=== PATIENT | male | born 1935 | race Caucasian/White ===

== ENCOUNTER → 2016-04-08 | Outpatient (CLI) | payer BC ==
[~2016-04-08] MED LIST: AMLO2.5T PO; ASPI81TA28 PO; ATOR-22 PO; CIPR-255 PO; CLOP1TAB15 PO; CZR50 PO; LOSA100T65 PO; METO1TAB69 PO; OPTIRAY 320 IV PRN; PRS5 PO; TPRSR/100 PO; XRL20 PO
[2016-04-08 15:01] LABS: BASO % 0.6 %; BASO ABS # 0.04 K/uL (0-0.2); EOS % 3.4 %; HEMATOCRIT 42.5 % (42-52); IG% 0.3 %; LYMPH % 36.2 %; LYMPH ABS # 2.53 K/uL (1.2-3.4); MEAN CORPUSCULAR HEMOGLOBIN 31.7 pg (25-34); MEAN PLATELET VOLUME 10.3 fL (7.4-10.4); MONO % 7.9 %; NEUT % 51.6 %; PLATELET COUNT 161 K/uL (130-400); RED BLOOD COUNT 4.67 M/uL (4.7-6.1); WHITE BLOOD COUNT 6.99 K/uL (4.8-10.8)
[2016-04-08 15:08] LABS: COMPLETE YES; MEAN CORPUSCULAR HGB CONC 34.8 g/dl (32-36)
[2016-04-08 15:23] LABS: ALT/SGPT 34 U/L (12-78); BLOOD UREA NITROGEN 13 mg/dl (7-18); CALCIUM 9.4 mg/dl (8.5-10.1); CARBON DIOXIDE 25 mmol/L (21-32); CHLORIDE 106 mmol/L (98-107); CREATININE 0.89 mg/dl (0.60-1.40); GLUCOSE 113 mg/dl (70-99); POTASSIUM 4.2 mmol/L (3.5-5.1); SODIUM 141 mmol/L (136-145)
[2016-04-08 15:27] LABS: ALB/GLOB RATIO 1.1 (0.9-2); ALKALINE PHOSPHATASE 77 U/L (45-117); AST/SGOT 17 U/L (15-37)
--- NOTE | 2016-04-08 16:46 | DIAGNOSTIC IMAGING REPORT ---
ABDOMEN AND PELVIS CT WITH IV AND ORAL CONTRAST CT DOSE: 1432.80 mGy.cm HISTORY: Pain DIVERTICULITIS TECHNIQUE: Multiaxial CT images of the abdomen and pelvis were performed following the use of intravenous and oral contrast. COMPARISON STUDY: 01/20/2015 FINDINGS: Lung bases are clear. Fatty infiltration of liver. Gallbladder is negative for distention. Pancreas is partially fatty replaced. Cortical scarring of the kidneys. No evidence for hydronephrosis. Upper abdominal bowel pattern is nonobstructive. Small fat-containing periumbilical hernia. Mild chronic sigmoid diverticulosis. No evidence for acute diverticulitis. No significant abdominal pelvic or inguinal adenopathy. IMPRESSION: Mild chronic sigmoid diverticulosis. No evidence for acute diverticulitis. Fatty infiltration of liver. No change from the prior exam. Electronically signed by: Don Mosqueda M.D. 04/08/2016 4:44 PM Dictated Date/Time: 04/08/2016 4:35 PM
== END | disposition home or self-care (01) ==
LOC: C.CTS 14:14
PROVIDERS: ATTEND Family Medicine
DX: K57.32 Diverticulitis of large intestine without perforation or abscess without bleeding (principal); K76.0 Fatty (change of) liver, not elsewhere classified

== ENCOUNTER 2016-05-26 16:40 | Emergency (ER) | payer BC ==
[~2016-05-26] VITALS: Ht 172.7 cm; Wt 105.3 kg
[~2016-05-26 16:40] MED LIST changes: -AMLO2.5T PO; -ASPI81TA28 PO; -LOSA100T65 PO; +METO100T44 PO; -METO1TAB69 PO; -OPTIRAY 320 IV PRN; -PRS5 PO; -TPRSR/100 PO; -XRL20 PO
[2016-05-26 16:45] VITALS: TEMP 36.8; Ht 172.7 cm; Wt 105.3 kg
[2016-05-26] MEDS ORDERED: SODIUM CHLORIDE 0.9% 1000ML 1,000 ML IV STA (17:07)
[2016-05-26 17:13] VITALS: O2SAT 94
--- NOTE | 2016-05-26 17:20 | EMERGENCY ROOM VISIT NOTE ---
History Report prepared by Trent: Areli Correa Under the Supervision of: Dr. Ranjit Burks D.O. 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 With both episodes today the patient was getting out of his car and going from a seated position to a standing position. His vision started to go black and he felt like he was going to pass out. He denies any loss of consciousness. The patient states that his symptoms resolve when he lies flat. He has been experiencing episodes like this over the past year, but his states that these episodes have been occurring more frequently over the past few months. He is diabetic and did not check his sugars today. He is not taking any medications for his DM. Last night he experienced some heart palpitations and states that he gets that feeling occasionally. He did not have any heart fluttering or palpitations today. The patient denies chest pain, shortness of breath, nausea, and vomiting. He denies any recent changes in his medications. He is currently taking Xarelto for atrial fibrillation. He denies any personal history of blood clots. 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 A total of 10 systems reviewed and were otherwise negative. Past Medical & Surgical Medical Problems: (1) Diabetes (2) Diverticulitis (3) HTN (hypertension) Surgical Problems: (1) H/O heart artery stent Family History Diabetes mellitus FH: heart disease Hypertension Social History Smoking Status: Former Smoker Alcohol Use: occasionally Drug Use: none Marital Status: Housing Status: lives with significant other Occupation Status: employed Current/Historical Medications Scheduled Amlodipine Besylate (Norvasc), 1 TAB PO DAILY Aspirin (Aspirin Ec), 81 MG PO DAILY Atorvastatin (Lipitor), 20 MG PO DAILY Finasteride (Finasteride), 1 TAB PO DAILY Losartan Potassium (Cozaar), 1 TAB PO DAILY Metoprolol Succinate (Metoprolol Succinate ER), 1 TAB PO DAILY Rivaroxaban (Xarelto), 1 TAB PO DAILY Allergies Coded Allergies: Penicillins (Verified Allergy, Unknown, 05/26/16) Physical Exam Vital Signs Date Time Temp Pulse Resp B/P Pulse Ox O2 Delivery O2 Flow Rate FiO2 05/26/16 19:47 61 16 169/77 96 05/26/16 19:07 63 16 181/75 94 Room Air 05/26/16 17:32 65 23 164/89 94 Room Air 05/26/16 17:13 94 Room Air 05/26/16 17:11 66 18 158/93 65 156/74 68 164/81 05/26/16 17:03 66 05/26/16 16:45 36.8 62 20 169/74 96 Room Air Physical Exam GENERAL: alert, sitting up in bed, well appearing, well nourished, no distress, non-toxic EYE EXAM: normal conjunctiva, PERRL and EOM's intact OROPHARYNX: no exudate, no erythema, lips, buccal mucosa, and tongue normal and mucous membranes are moist NECK: supple, no nuchal rigidity, no adenopathy, non-tender LUNGS: Clear to auscultation. Normal chest wall mechanics HEART: no murmurs, S1 normal and S2 normal ABDOMEN: abdomen soft, non-tender, normo-active bowel sounds, no masses, no rebound or guarding. BACK: Back is symmetrical on inspection and there is no deformity, no midline tenderness, no CVA tenderness. SKIN: no rashes and no bruising UPPER EXTREMITIES: upper extremities are grossly normal. LOWER EXTREMITIES: No pitting edema. NEURO EXAM: Normal sensorium, cranial nerves II-XII intact, normal speech, no weakness of arms, no weakness of legs. No drift. Finger to nose intact. Gross sensation intact. Medical Decision & Procedures ER Provider Diagnostic Interpretation: Radiology results stated below as reviewed by myself and interpreted by the radiologist: CHEST ONE VIEW PORTABLE CLINICAL HISTORY: Altered mental status. Weakness. COMPARISON STUDY: Chest radiograph December 30, 2006. FINDINGS: Lung volumes are normal. There is no pneumothorax or pleural effusion. Cardiomediastinal silhouette is stable. There is no evidence of pulmonary edema. There is no consolidation. IMPRESSION: No acute cardiopulmonary findings. Electronically signed by: Jose M Hedrick M.D. 05/26/2016 5:43 PM Dictated Date/Time: 05/26/2016 5:42 PM Laboratory Results 05/26/16 17:02 Red Blood Count 4.47, Mean Corpuscular Volume 92.8, Mean Corpuscular Hemoglobin 32.2, Mean Corpuscular Hemoglobin Concent 34.7, Mean Platelet Volume 10.9, Neutrophils (%) (Auto) 52.8, Lymphocytes (%) (Auto) 31.5, Monocytes (%) (Auto) 12.2, Eosinophils (%) (Auto) 2.8, Basophils (%) (Auto) 0.3, Neutrophils # (Auto ) 3.77, Lymphocytes # (Auto) 2.25, Monocytes # (Auto) 0.87, Eosinophils # (Auto ) 0.20, Basophils # (Auto) 0.02 05/26/16 17:02 Test 05/26/16 16:48 05/26/16 17:02 05/26/16 17:15 05/26/16 18:58 Bedside Glucose 99 mg/dl (70-99) White Blood Count 7.14 K/uL (4.8-10.8) Red Blood Count 4.47 M/uL (4.7-6.1) Hemoglobin 14.4 g/dL (14.0-18.0) Hematocrit 41.5 % (42-52) Mean Corpuscular Volume 92.8 fL (80-100) Mean Corpuscular Hemoglobin 32.2 pg (25-34) Mean Corpuscular Hemoglobin Concent 34.7 g/dl (32-36) Platelet Count 168 K/uL (130-400) Mean Platelet Volume 10.9 fL (7.4-10.4) Neutrophils (%) (Auto) 52.8 % Lymphocytes (%) (Auto) 31.5 % Monocytes (%) (Auto) 12.2 % Eosinophils (%) (Auto) 2.8 % Basophils (%) (Auto) 0.3 % Neutrophils # (Auto) 3.77 K/uL (1.4-6.5) Lymphocytes # (Auto) 2.25 K/uL (1.2-3.4) Monocytes # (Auto) 0.87 K/uL (0.11-0.59) Eosinophils # (Auto) 0.20 K/uL (0-0.5) Basophils # (Auto) 0.02 K/uL (0-0.2) RDW Standard Deviation 45.7 fL (36.4-46.3) RDW Coefficient of Variation 13.4 % (11.5-14.5) Immature Granulocyte % (Auto) 0.4 % Immature Granulocyte # (Auto) 0.03 K/uL (0.00-0.02) Prothrombin Time 11.1 SECONDS (9.0-12.0) Prothromb Time International Ratio 1.0 (0.9-1.1) Activated Partial Thromboplast Time 27.5 SECONDS (21.0-31.0) Partial Thromboplastin Ratio 1.1 Anion Gap 8.0 mmol/L (3-11) Est Creatinine Clear Calc Drug Dose 76.1 ml/min Estimated GFR () 92.7 Estimated GFR (Non- 80.0 BUN/Creatinine Ratio 14.3 (10-20) Calcium Level 9.5 mg/dl (8.5-10.1) Total Bilirubin 0.6 mg/dl (0.2-1) Direct Bilirubin 0.2 mg/dl (0-0.2) Aspartate Amino Transf (AST/SGOT) 16 U/L (15-37) Alanine Aminotransferase (ALT/SGPT) 31 U/L (12-78) Alkaline Phosphatase 72 U/L (45-117) Total Protein 7.1 gm/dl (6.4-8.2) Albumin 3.9 gm/dl (3.4-5.0) Urine Color YELLOW Urine Appearance CLEAR (CLEAR) Urine pH 7.0 (4.5-7.5) Urine Specific [place] 1.007 (1.000-1.030) Urine Protein NEG (NEG) Urine Glucose (UA) NEG (NEG) Urine Ketones NEG (NEG) Urine Occult Blood NEG (NEG) Urine Nitrite NEG (NEG) Urine Bilirubin NEG (NEG) Urine Urobilinogen NEG (NEG) Urine Leukocyte Esterase NEG (NEG) Troponin I < 0.015 ng/ml (0-0.045) Laboratory results per my review. Medications Administered Medications (Trade) Dose Ordered Sig/Gregg Route Start Time Stop Time Status Last Admin Dose Admin Sodium Chloride (Nss 1000ml) 1,000 ml @ 999 mls/hr Q1H1M STAT IV 05/26/16 17:07 05/26/16 18:07 DC 05/26/16 17:31 999 MLS/HR ECG Indication: syncope Rate (beats per minute): 67 Rhythm: normal sinus Findings: T-wave inversion (Inferior), left axis deviation Comparison ECG Date: 01/31/2005 Change: no significant change ED Course ED COURSE: Vital signs were reviewed and showed hypertensive. The patients medical record was reviewed The above diagnostic studies were performed and reviewed. ED treatments and interventions as stated above. 1654: The patient was evaluated in room A3. A complete history and physical examination was performed. 1706: NSS 1000 ml @ 999 mls/hr IV 1831: I reassessed the patient and he is doing well. 1942: Upon reevaluation, the patient is feeling better and resting comfortably. I discussed my findings with the patient and he understands and agrees with the treatment plan. Based on the patients age, coexisting illnesses, exam and lab findings the decision to treat as an outpatient was made. The patient remained stable while under my care. The patient appeared well at the time of discharge. Medical Decision Differential diagnosis includes etiologies such as vasovagal event, infection, hypoglycemia, electrolyte abnormalities, cardiac sources, intracerebral event, toxicologic, neurologic, as well as others were entertained. Patient is an 80-year-old male who presents the ER for 2 episodes of near syncope with changing positions. He notes this has been occurring over the past year but over the past 3-4 months it has been worsening. He has been following up with his primary care doctor in regards to this. He saw him 3 weeks ago for this same complaint. He has no new medications. He has no chest pain or shortness of breath when these occur. These only occur with changing of positions but resolved when he rests or lays down. He is on Lopressor and losartan but the doses and medications have not changed. He is a diet- controlled diabetic. EKG shows no change from his previous 2004. Labs show no significant leukocytosis or anemia. BMP along with LFTs, bilirubin and troponins were negative 2. UA was negative. INR was unremarkable. He has not missed any doses. Chest x-ray was unremarkable. Patient was completely neurologically intact on my exam. He has no headaches or change in vision. No neurologic symptoms. I do believe this to be related to orthostatic hypotension as this is purely positional. Updated patient in regards to this. Recommended following up with his primary care doctor to discuss possible lowering of his Lopressor. Discussed with Pt concerning signs and symptoms to watch out for. Pt was instructed to follow up with their PCP and discussed with the patient their option to return to the ED at anytime for persistent or worsening symptoms. The appropriate anticipatory guidance and out-patient management, including indications for return to the emergency department, were explained at length to the patient and understood. Impression Primary Impression: Syncope, near Scribe Attestation The scribe's documentation has been prepared under my direction and personally reviewed by me in its entirety. I confirm that the note above accurately reflects all work, treatment, procedures, and medical decision making performed by me. Departure Information Dispostion Home / Self-Care Referrals Edy Flanagan M.D. (PCP) Forms HOME CARE DOCUMENTATION FORM, IMPORTANT VISIT INFORMATION Patient Instructions ED Near Syncope Unkn, [facility] Additional Instructions Please follow up with your primary care doctor with in the next 24 hours. Any worsening of your symptoms, please return to the ED immediately. This includes passing out, chest pain, shortness of breath, weakness or numbness in your arms or legs or any other concerning signs or symptoms from your standpoint. When changing positions please move slowly and take your time. Please discuss your findings with your primary care doctor as it may be beneficial to decrease your losartan or Lopressor.
[2016-05-26 17:28] LABS: BASO % 0.3 %; BASO ABS # 0.02 K/uL (0-0.2); COMPLETE YES; EOS % 2.8 %; HEMATOCRIT 41.5 % (42-52); IG% 0.4 %; LYMPH % 31.5 %; LYMPH ABS # 2.25 K/uL (1.2-3.4); MEAN CELL VOLUME 92.8 fL (80-100); MEAN CORPUSCULAR HEMOGLOBIN 32.2 pg (25-34); MEAN CORPUSCULAR HGB CONC 34.7 g/dl (32-36); MEAN PLATELET VOLUME 10.9 fL (7.4-10.4); MONO % 12.2 %; NEUT % 52.8 %; PLATELET COUNT 168 K/uL (130-400); RED BLOOD COUNT 4.47 M/uL (4.7-6.1); WHITE BLOOD COUNT 7.14 K/uL (4.8-10.8)
[2016-05-26 17:34] LABS: ALT/SGPT 31 U/L (12-78); AST/SGOT 16 U/L (15-37); BLOOD UREA NITROGEN 13 mg/dl (7-18); BUN/CREATININE RATIO 14.3 (10-20); CALCIUM 9.5 mg/dl (8.5-10.1); CARBON DIOXIDE 25 mmol/L (21-32); CHLORIDE 109 mmol/L (98-107); CREATININE 0.88 mg/dl (0.60-1.40); GLUCOSE 101 mg/dl (70-99); PARTIAL THROMBOPLASTIN RATIO 1.1; PROTHROMBIN TIME (PATIENT) 11.1 SECONDS (9.0-12.0); SODIUM 142 mmol/L (136-145)
[2016-05-26 17:39] LABS: URINE APPEARANCE CLEAR (CLEAR); URINE BILIRUBIN NEG (NEG); URINE COLOR YELLOW; URINE NITRITE NEG (NEG); URINE SPECIFIC GRAVITY 1.007 (1.000-1.030); UROBILINOGEN NEG (NEG)
[2016-05-26 17:39] LABS: ALKALINE PHOSPHATASE 72 U/L (45-117)
--- NOTE | 2016-05-26 17:44 | DIAGNOSTIC IMAGING REPORT ---
CHEST ONE VIEW PORTABLE CLINICAL HISTORY: Altered mental status. Weakness. COMPARISON STUDY: Chest radiograph December 30, 2006. FINDINGS: Lung volumes are normal. There is no pneumothorax or pleural effusion. Cardiomediastinal silhouette is stable. There is no evidence of pulmonary edema. There is no consolidation. IMPRESSION: No acute cardiopulmonary findings. Electronically signed by: Jose M Hedrick M.D. 05/26/2016 5:43 PM Dictated Date/Time: 05/26/2016 5:42 PM
[2016-05-26 17:47] LABS: MANUAL MICROSCOPIC REQUIRED? NO; REVIEW REQ? NO
[2016-05-26] MEDS ORDERED: ASPI81TA28 PO (17:47)
[2016-05-26] MEDS ORDERED: TPRSR/100 PO (17:47)
[2016-05-26] MEDS ORDERED: AMLO2.5T PO (17:47)
[2016-05-26] MEDS ORDERED: XRL20 PO (17:47)
[2016-05-26] MEDS ORDERED: PRS5 PO (17:47)
[2016-05-26] MEDS ORDERED: LOSA100T65 PO (17:47)
[2016-05-26 19:47] VITALS: BP 169/77; PULSE 61; O2SAT 96
== END 2016-05-26 19:52 | disposition home or self-care (01) ==
LOC: C.EDB 16:42 → C.EDA 19:52
DX: R55 Syncope and collapse (principal); E11.9 Type 2 diabetes mellitus without complications; I10 Essential (primary) hypertension; Z87.891 Personal history of nicotine dependence

== ENCOUNTER 2016-09-28 12:35 | Inpatient (IN) | payer BC, OTHER ==
[~2016-09-28] VITALS: Ht 172.7 cm; Wt 102.0 kg
[~2016-09-28 12:35] MED LIST changes: +AMLO2.5T PO; +ASPI81TA28 PO; -CIPR-255 PO; -CLOP1TAB15 PO; -CZR50 PO; +LOSA100T65 PO; -METO100T44 PO; +PRS5 PO; +TPRSR/100 PO; +XRL20 PO
[2016-09-28] MEDS ORDERED: SODIUM CHLORIDE 0.9% 1000ML 1,000 ML IV SCH (12:52)
[2016-09-28 13:17] LABS: BASO % 0.4 %; BASO ABS # 0.03 K/uL (0-0.2); COMPLETE YES; EOS % 5.1 %; HEMATOCRIT 41.3 % (42-52); IG% 0.1 %; LYMPH % 29.2 %; LYMPH ABS # 1.95 K/uL (1.2-3.4); MEAN CELL VOLUME 93.4 fL (80-100); MEAN CORPUSCULAR HEMOGLOBIN 31.2 pg (25-34); MEAN CORPUSCULAR HGB CONC 33.4 g/dl (32-36); MEAN PLATELET VOLUME 10.6 fL (7.4-10.4); MONO % 10.6 %; NEUT % 54.6 %; PLATELET COUNT 175 K/uL (130-400); RED BLOOD COUNT 4.42 M/uL (4.7-6.1); WHITE BLOOD COUNT 6.67 K/uL (4.8-10.8)
--- NOTE | 2016-09-28 13:25 | DIAGNOSTIC IMAGING REPORT ---
HEAD WITHOUT CONTRAST (CT) CT DOSE: 821.00 mGycm HISTORY: Mental status change Stroke TECHNIQUE: Multiaxial CT images of the head were performed without the use of intravenous contrast. A dose lowering technique was utilized adhering to the principles of ALARA. Comparison: None. Findings: The paranasal sinuses and mastoid air cells are clear. The calvarium and skull base are intact. The ventricles and sulci are within normal limits. There is no mass, hematoma, midline shift, or acute infarct. Impression: No acute intracranial abnormality. The above report was generated using voice recognition software. It may contain grammatical, syntax or spelling errors. Electronically signed by: Don Mosqueda M.D. 09/28/2016 1:24 PM Dictated Date/Time: 09/28/2016 1:21 PM
[2016-09-28 13:34] LABS: INR 1.1 (0.9-1.1); PARTIAL THROMBOPLASTIN RATIO 1.1; PROTHROMBIN TIME (PATIENT) 11.3 SECONDS (9.0-12.0)
[2016-09-28 13:36] LABS: BLOOD UREA NITROGEN 10 mg/dl (7-18); BUN/CREATININE RATIO 13.5 (10-20); CALCIUM 9.6 mg/dl (8.5-10.1); CARBON DIOXIDE 26 mmol/L (21-32); CHLORIDE 107 mmol/L (98-107); CREATININE 0.75 mg/dl (0.60-1.40); GLUCOSE 111 mg/dl (70-99); POTASSIUM 3.8 mmol/L (3.5-5.1); SODIUM 141 mmol/L (136-145)
[2016-09-28] MEDS ORDERED: ASPIRIN 81 MG CHEW PO STA (13:44)
--- NOTE | 2016-09-28 13:46 | DIAGNOSTIC IMAGING REPORT ---
CHEST ONE VIEW PORTABLE CLINICAL HISTORY: stroke CONFUSION. INABILITY TO SPEAK. COMPARISON STUDY: 05/26/2016 FINDINGS: There are suspected underlying emphysematous changes.[ The heart is normal in size. There is no failure. There is no focal pulmonary consolidation. There are no pleural effusions. IMPRESSION: No active disease in the chest. Electronically signed by: Jerry Manriquez M.D. 09/28/2016 1:45 PM Dictated Date/Time: 09/28/2016 1:44 PM
[2016-09-28] MEDS ORDERED: PHARMACIST DISCHARGE MED REC CONSULT PRN (14:45)
[2016-09-28 14:57] VITALS: O2SAT 98; Ht 172.7 cm; Wt 102.0 kg
[2016-09-28] MEDS ORDERED: ALUMINUM/MAGNESIUM/SIMETH (MAALOX MAX) 30 ML UDC PO PRN (15:00)
[2016-09-28] MEDS ORDERED: POLYETHYLENE (MIRALAX) 17 GM PACK PO PRN (15:00)
[2016-09-28] MEDS ORDERED: ONDANSETRON INJ 2 MG/ML 2 ML VIAL IV PRN (15:00)
[2016-09-28] MEDS ORDERED: ACETAMINOPHEN 325 MG TAB PO PRN (15:00)
[2016-09-28] MEDS ORDERED: MAGNESIUM HYDROXIDE SUSP 30 ML UDC PO PRN (15:00)
--- NOTE | 2016-09-28 15:09 | EMERGENCY ROOM VISIT NOTE ---
History Report prepared by Trent: Carolin Mosquera Under the Supervision of: Dr. Ranjit Burks D.O. First contact with patient: 12:46 Chief Complaint: CONFUSION Stated Complaint: CONFUSION, UNABLE TO SPEAK History of Present Illness The patient is a 80 year old male who presents to the Emergency Room with complaints of confusion beginning 1 hour prior to arrival. Per his family, the patient could not formulate sentences or think clearly. The patient denies having any weakness or numbness in his arms or legs. His family states that they did not notice any slurred speech or facial droop. He reports that he takes baby aspirin as a blood thinner. Patient has not complaints at this time. Pt denies headache, change in vision, fevers, chest pain, shortness of breath, nausea, vomiting, diarrhea, pain with urination, and melena. Source of History: patient, family Onset: 1 hour prior to arrival Position: other (global) Quality: other (confusion ) Associated Symptoms: No headache, No chest pain, No SOB, No nausea, No vomiting, No diarrhea Note: additional symptoms: unable to formulate sentences or think clearly Review of Systems See HPI for pertinent positives & negatives. A total of 10 systems reviewed and were otherwise negative. Past Medical & Surgical Medical Problems: (1) Diabetes (2) Diverticulitis (3) HTN (hypertension) (4) TIA (transient ischemic attack) Surgical Problems: (1) H/O heart artery stent Family History Diabetes mellitus FH: heart disease Hypertension Social History Smoking Status: Current Some Day Smoker Alcohol Use: occasionally Drug Use: none Marital Status: Housing Status: lives with significant other Occupation Status: employed Current/Historical Medications Scheduled Amlodipine Besylate (Norvasc), 2.5 MG PO QPM Aspirin (Aspirin Ec), 81 MG PO QAM Atorvastatin (Lipitor), 20 MG PO QPM Finasteride (Finasteride), 5 MG PO QPM Losartan Potassium (Cozaar), 100 MG PO QPM Metoprolol Succinate (Metoprolol Succinate ER), 100 MG PO QPM Rivaroxaban (Xarelto), 1 TAB PO DAILY AFTERNOON Allergies Coded Allergies: Penicillins (Verified Allergy, Unknown, SKIN RASH, 09/28/16) Time Last Known Well 1200 Stroke t-PA Criteria Reviewed Does NOT meet criteria for t-PA Reason t-PA Not Given Treatment not indicated Physical Exam Vital Signs Date Time Temp Pulse Resp B/P (MAP) Pulse Ox O2 Delivery O2 Flow Rate FiO2 09/28/16 15:20 57 20 194/92 95 Room Air 09/28/16 14:57 98 Room Air 09/28/16 13:22 84 20 198/110 98 Room Air 09/28/16 12:54 94 Room Air 09/28/16 12:50 74 09/28/16 12:37 36.6 72 20 173/83 94 Physical Exam GENERAL: Sitting up in bed, alert, well appearing, well nourished, no distress, non-toxic EYE EXAM: normal conjunctiva, PERRL and EOM's grossly intact OROPHARYNX: no exudate, no erythema, lips, buccal mucosa, and tongue normal and mucous membranes are moist NECK: supple, no nuchal rigidity, no adenopathy, non-tender LUNGS: Clear to auscultation. Normal chest wall mechanics HEART: no murmurs, S1 normal and S2 normal ABDOMEN: abdomen soft, non-tender, normo-active bowel sounds, no masses, no rebound or guarding. BACK: Back is symmetrical on inspection and there is no deformity, no midline tenderness, no CVA tenderness. SKIN: no rashes and no bruising UPPER EXTREMITIES: upper extremities are grossly normal. LOWER EXTREMITIES: No pitting edema. NEURO EXAM: Normal sensorium, cranial nerves II-XII intact, normal speech, no weakness of arms, no weakness of legs. No drift. Finger to nose intact. Gross sensation intact. Medical Decision & Procedures ER Provider Diagnostic Interpretation: CT scan: Radiology provided the following report CT: HEAD WITHOUT CONTRAST (CT) CT DOSE: 821.00 mGycm HISTORY: Mental status change Stroke TECHNIQUE: Multiaxial CT images of the head were performed without the use of intravenous contrast. A dose lowering technique was utilized adhering to the principles of ALARA. Comparison: None. Findings: The paranasal sinuses and mastoid air cells are clear. The calvarium and skull base are intact. The ventricles and sulci are within normal limits. There is no mass, hematoma, midline shift, or acute infarct. Impression: No acute intracranial abnormality. The above report was generated using voice recognition software. It may contain grammatical, syntax or spelling errors. Electronically signed by: Don Mosqueda M.D. 09/28/2016 1:24 PM Dictated Date/Time: 09/28/2016 1:21 PM XRAY: A 1 view study was reviewed, no fracture was seen. CHEST ONE VIEW PORTABLE CLINICAL HISTORY: stroke CONFUSION. INABILITY TO SPEAK. COMPARISON STUDY: 05/26/2016 FINDINGS: There are suspected underlying emphysematous changes.[ The heart is normal in size. There is no failure. There is no focal pulmonary consolidation. There are no pleural effusions. IMPRESSION: No active disease in the chest. Electronically signed by: Jerry Manriquez M.D. 09/28/2016 1:45 PM Dictated Date/Time: 09/28/2016 1:44 PM Laboratory Results 09/28/16 13:00 Red Blood Count 4.42, Mean Corpuscular Volume 93.4, Mean Corpuscular Hemoglobin 31.2, Mean Corpuscular Hemoglobin Concent 33.4, Mean Platelet Volume 10.6, Neutrophils (%) (Auto) 54.6, Lymphocytes (%) (Auto) 29.2, Monocytes (%) (Auto) 10.6, Eosinophils (%) (Auto) 5.1, Basophils (%) (Auto) 0.4, Neutrophils # (Auto ) 3.63, Lymphocytes # (Auto) 1.95, Monocytes # (Auto) 0.71, Eosinophils # (Auto ) 0.34, Basophils # (Auto) 0.03 09/28/16 13:00 Test 09/28/16 13:00 White Blood Count 6.67 K/uL (4.8-10.8) Red Blood Count 4.42 M/uL (4.7-6.1) Hemoglobin 13.8 g/dL (14.0-18.0) Hematocrit 41.3 % (42-52) Mean Corpuscular Volume 93.4 fL (80-100) Mean Corpuscular Hemoglobin 31.2 pg (25-34) Mean Corpuscular Hemoglobin Concent 33.4 g/dl (32-36) Platelet Count 175 K/uL (130-400) Mean Platelet Volume 10.6 fL (7.4-10.4) Neutrophils (%) (Auto) 54.6 % Lymphocytes (%) (Auto) 29.2 % Monocytes (%) (Auto) 10.6 % Eosinophils (%) (Auto) 5.1 % Basophils (%) (Auto) 0.4 % Neutrophils # (Auto) 3.63 K/uL (1.4-6.5) Lymphocytes # (Auto) 1.95 K/uL (1.2-3.4) Monocytes # (Auto) 0.71 K/uL (0.11-0.59) Eosinophils # (Auto) 0.34 K/uL (0-0.5) Basophils # (Auto) 0.03 K/uL (0-0.2) RDW Standard Deviation 42.3 fL (36.4-46.3) RDW Coefficient of Variation 12.4 % (11.5-14.5) Immature Granulocyte % (Auto) 0.1 % Immature Granulocyte # (Auto) 0.01 K/uL (0.00-0.02) Prothrombin Time 11.3 SECONDS (9.0-12.0) Prothromb Time International Ratio 1.1 (0.9-1.1) Activated Partial Thromboplast Time 27.4 SECONDS (21.0-31.0) Partial Thromboplastin Ratio 1.1 Anion Gap 8.0 mmol/L (3-11) Est Creatinine Clear Calc Drug Dose 89.0 ml/min Estimated GFR () 99.0 Estimated GFR (Non- 85.4 BUN/Creatinine Ratio 13.5 (10-20) Calcium Level 9.6 mg/dl (8.5-10.1) Total Creatine Kinase 248 U/L (39-308) Creatine Kinase MB 7.5 ng/ml (0.5-3.6) Creatine Kinase MB Ratio 3.0 (0-3.0) Troponin I < 0.015 ng/ml (0-0.045) Laboratory results per my review. Medications Administered Medications (Trade) Dose Ordered Sig/Gregg Route Start Time Stop Time Status Last Admin Dose Admin Sodium Chloride 1,000 ml @ 50 mls/hr Q20H IV 09/28/16 12:52 10/28/16 12:51 09/28/16 13:22 50 MLS/HR Aspirin (Aspirin Chew) 81 mg NOW STAT PO 09/28/16 13:44 09/28/16 13:45 DC 09/28/16 13:48 81 MG ECG Indication: other (confusion ) Rate (beats per minute): 66 Rhythm: sinus rhythm Findings: left axis deviation, no ectopy ED Course ED COURSE: Vital signs were reviewed and showed hypertension. The patients medical record was reviewed The above diagnostic studies were performed and reviewed. ED treatments and interventions as stated above. 1247: The patient was evaluated in room A1. A complete history and physical examination was performed. 1252: Ordered Sodium Chloride 1,000 ml @ 50 mls/hr IV. 1344: Ordered Aspirin 81 mg PO. 1346: Upon reevaluation, the patient is resting. I discussed the findings and the treatment plan with the patient. He expresses agreement and understanding. I spoke with Dr. Heaton. He will be evaluated for further management. Medical Decision Differential Diagnosis includes but is not limited to ischemic Stroke, hemorrhagic stroke, bells palsy, mass, neoplasm, migraine headache, seizure, subarachnoid hemorrhage, TIA, and transient global amnesia. Blood pressure screening: Patient was found to have an elevated blood pressure and was referred to their primary doctor for recheck and further treatment. Blood Pressure Screening: The patient was found to have a slightly elevated blood pressure due to circumstances. I do not believe that the patient requires hypertension monitoring. Patient is an 80-year-old male who presents the ER. At 12:00 he started having slurred speech and word finding. Symptoms have completely resolved upon presentation. He is completely neurologically intact. Stroke alert was not called as he is back to baseline. CT head was negative. Labs were unremarkable. Chest x-ray negative. He was fairly hypertensive as we allowed permissive hypertension with the likely recent TIA. Discussed and updated patient and family at bedside. Patient was admitted to internal medicine for further workup. Medication Reconcilliation Current Medication List: was personally reviewed by me Blood Pressure Screening Patient's blood pressure: Elevated blood pressure Consults Time Called: 1300 Consulting Physician: Dr. Heaton Returned Call: [phone]: Upon reevaluation, the patient is resting. I discussed the findings and the treatment plan with the patient. He expresses agreement and understanding. I spoke with Dr. Heaton. He will be evaluated for further management. Impression Primary Impression: TIA (transient ischemic attack) Scribe Attestation The scribe's documentation has been prepared under my direction and personally reviewed by me in its entirety. I confirm that the note above accurately reflects all work, treatment, procedures, and medical decision making performed by me. Departure Information Dispostion Being Evaluated By Hospitalist Referrals Edy Flanagan M.D. (PCP) Patient Instructions My [facility] Stroke History Time Last Known Well 1200 Stroke t-PA Criteria Reviewed Does NOT meet criteria for t-PA (back at baseline) Reason t-PA Not Given Contraindicated (symptoms resolved) Problem Qualifiers Primary Impression: TIA (transient ischemic attack) Transient cerebral ischemia type: unspecified Qualified Codes: G45.9 - Transient cerebral ischemic attack, unspecified
[2016-09-28] MEDS ORDERED: IV FLUIDS COMPLETED PRN (15:15)
[2016-09-28 15:24] VITALS: O2SAT 95
--- NOTE | 2016-09-28 15:38 | History and Physical ---
History & Physical Date & Time of Service: Sep 28, 2016 at 15:17 Chief Complaint: Confusion, Unable To Speak Primary Care Physician: Edy Flanagan M.D. History of Present Illness Source: patient 80 y/o M Hx PAF, CAD, HTN, HPL Pt was shopping for groceries this afternoon and upon returning home he reports developing acute aphasia. He realized that he could not formulate his words or speak and describes this as very frustrating. 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 A few years ago when visiting his son in [facility], he was at a high altitude and developed stroke-like symptoms although he could not elaborate further on exactly what these were. He is in a sinus rhythm on admission and his symptoms have resolved entirely. He takes Xarelto daily due to AF. The pt denies a ANGEL, visual changes, numbness or unilateral weakness. He denies SOB, CP or palpitations. 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 [employer] Smoking Status: Current Some Day Smoker Drug Use: none Marital Status: Occupational Status: employed Immunizations History of Influenza Vaccine: Yes History of Tetanus Vaccine?: No History of Pneumococcal: Yes History of Hepatitis B Vaccine: No Multi-Drug Resistant Organisms History of MDRO: No Allergies Coded Allergies: Penicillins (Verified Allergy, Unknown, SKIN RASH, 09/28/16) Home Medications Scheduled Amlodipine Besylate (Norvasc), 2.5 MG PO QPM Aspirin (Aspirin Ec), 81 MG PO QAM Atorvastatin (Lipitor), 20 MG PO QPM Finasteride (Finasteride), 5 MG PO QPM Losartan Potassium (Cozaar), 100 MG PO QPM Metoprolol Succinate (Metoprolol Succinate ER), 100 MG PO QPM Rivaroxaban (Xarelto), 1 TAB PO DAILY AFTERNOON Review of Systems Constitutional: No fever, No chills, No sweats Eyes: No worsening of vision ENT: No hearing loss, No unusual epistaxis, No nasal symptoms Respiratory: No cough, No sputum, No wheezing Cardiovascular: No chest pain, No orthopnea, No PND Abdomen: No pain, No nausea, No vomiting Musculoskeletal: No joint pain Genitourinary - Male: No hematuria, No dysuria, No urinary frequency Neurologic: + problem reported (Acute aphasia), No memory loss, No paralysis Psychiatric: No depression symptoms Endocrine: No fatigue Hematologic / Lymphatic: No abnormal bleeding/bruising Integumentary: No rash Allergic / Immunologic: No environmental allergies Physical Exam Vital Signs Date Time Temp Pulse Resp B/P (MAP) Pulse Ox O2 Delivery O2 Flow Rate FiO2 09/28/16 14:57 98 Room Air 09/28/16 13:22 84 20 198/110 98 Room Air 09/28/16 12:54 94 Room Air 09/28/16 12:50 74 09/28/16 12:37 36.6 72 20 173/83 94 General Appearance: WD/WN, no apparent distress Head: normocephalic ENT: normal ENT inspection, pharynx normal Neck: supple, no JVD Respiratory/Chest: chest non-tender, lungs clear, normal breath sounds Cardiovascular: regular rate, rhythm, no edema, no gallop, no JVD, no murmur Abdomen/GI: normal bowel sounds, non tender, soft Back: normal inspection, no CVA tenderness, no muscle spasm, normal range of motion Extremities/Musculoskelatal: normal inspection, no calf tenderness, normal capillary refill Neurologic/Psych: 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 tested, no motor/sensory deficits, alert Skin: normal color, warm/dry, no rash Diagnostics Laboratory Results Results Past 24 Hours Test 09/28/16 13:00 Range/Units White Blood Count 6.67 4.8-10.8 K/uL Red Blood Count 4.42 4.7-6.1 M/uL Hemoglobin 13.8 14.0-18.0 g/dL Hematocrit 41.3 42-52 % Mean Corpuscular Volume 93.4 80-100 fL Mean Corpuscular Hemoglobin 31.2 25-34 pg Mean Corpuscular Hemoglobin Concent 33.4 32-36 g/dl Platelet Count 175 130-400 K/uL Mean Platelet Volume 10.6 7.4-10.4 fL Neutrophils (%) (Auto) 54.6 % Lymphocytes (%) (Auto) 29.2 % Monocytes (%) (Auto) 10.6 % Eosinophils (%) (Auto) 5.1 % Basophils (%) (Auto) 0.4 % Neutrophils # (Auto) 3.63 1.4-6.5 K/uL Lymphocytes # (Auto) 1.95 1.2-3.4 K/uL Monocytes # (Auto) 0.71 0.11-0.59 K/uL Eosinophils # (Auto) 0.34 0-0.5 K/uL Basophils # (Auto) 0.03 0-0.2 K/uL RDW Standard Deviation 42.3 36.4-46.3 fL RDW Coefficient of Variation 12.4 11.5-14.5 % Immature Granulocyte % (Auto) 0.1 % Immature Granulocyte # (Auto) 0.01 0.00-0.02 K/uL Prothrombin Time 11.3 9.0-12.0 SECONDS Prothromb Time International Ratio 1.1 0.9-1.1 Activated Partial Thromboplast Time 27.4 21.0-31.0 SECONDS Partial Thromboplastin Ratio 1.1 Sodium Level 141 136-145 mmol/L Potassium Level 3.8 3.5-5.1 mmol/L Chloride Level 107 98-107 mmol/L Carbon Dioxide Level 26 21-32 mmol/L Anion Gap 8.0 3-11 mmol/L Blood Urea Nitrogen 10 7-18 mg/dl Creatinine 0.75 0.60-1.40 mg/dl Est Creatinine Clear Calc Drug Dose 89.0 ml/min Estimated GFR () 99.0 Estimated GFR (Non- 85.4 BUN/Creatinine Ratio 13.5 10-20 Random Glucose 111 70-99 mg/dl Calcium Level 9.6 8.5-10.1 mg/dl Total Creatine Kinase 248 39-308 U/L Creatine Kinase MB 7.5 0.5-3.6 ng/ml Creatine Kinase MB Ratio 3.0 0-3.0 Troponin I < 0.015 0-0.045 ng/ml Diagnostic Radiology CT head - nonacute abnormalities Normal EKG Impression Assessment and Plan 80 y/o M Hx PAF, CAD, HTN, HPL Pt was shopping for groceries this afternoon and upon returning home he reports developing acute aphasia. He realized that he could not formulate his words or speak and describes this as very frustrating. He is in a sinus rhythm on admission and his symptoms have resolved entirely. 1) Presumed TIA - aphasia - will have full workup excluding an echo which he had recently. He will be evaluated by neurology. He is admitted with a CVA protocol and will cont Xarelto and ASA as prescribed. We have increased his statin dose. 2) HTN - will allow for an elevated BP in the context of a TIA - his antihypertensives are held excluding Metoprolol. 3) CAD - No issues since 2006 when he had an RCA stent - no evidence of ACS - cont Statin, ASA, Bblocker 4) HPL - cont Statin Full code - Heparin prophylaxis - total time for this admit including review of labs, meds, EKG, imaging - discussion with pt and ER attending - 38 min Advanced Directives Existing Living Will: No Existing Power of Program Consultant: No VTE Prophylaxis VTE Risk Assessment Done? Y/N: Yes Risk Level: Moderate Given or contraindicated: Other Anticoagulation
[2016-09-28 16:16] VITALS: BP 187/97; PULSE 68; O2SAT 94
[2016-09-28] MEDS ORDERED: RIVAROXABAN 20 MG TAB PO SCH (17:00)
[2016-09-28 18:34] LABS: CKMB/CK RATIO 2.8 (0-3.0)
[2016-09-28 19:18] VITALS: BP 118/63; PULSE 68; TEMP 36.4; O2SAT 91
[2016-09-28] MEDS ORDERED: FINASTERIDE 5 MG TAB PO SCH (21:00)
[2016-09-28] MEDS ORDERED: METOPROLOL SUCC 50MG EXT REL TAB PO SCH (21:00)
[2016-09-28 23:20] VITALS: BP 145/71; PULSE 58; TEMP 36.5; O2SAT 92
[2016-09-29] MEDS ORDERED: GADAVIST IV PRN (02:00)
[2016-09-29 03:24] VITALS: BP 152/79; PULSE 53; TEMP 36.6; O2SAT 93
[2016-09-29 05:51] LABS: BASO % 0.6 %; BASO ABS # 0.03 K/uL (0-0.2); COMPLETE YES; EOS % 7.2 %; HEMATOCRIT 39.9 % (42-52); IG% 0.2 %; LYMPH ABS # 1.86 K/uL (1.2-3.4); MEAN CELL VOLUME 94.8 fL (80-100); MEAN CORPUSCULAR HEMOGLOBIN 31.6 pg (25-34); MEAN CORPUSCULAR HGB CONC 33.3 g/dl (32-36); MEAN PLATELET VOLUME 10.7 fL (7.4-10.4); MONO % 11.1 %; NEUT % 45.9 %; PLATELET COUNT 160 K/uL (130-400); RED BLOOD COUNT 4.21 M/uL (4.7-6.1); WHITE BLOOD COUNT 5.31 K/uL (4.8-10.8)
[2016-09-29 06:33] LABS: BUN/CREATININE RATIO 12.1 (10-20); CALCIUM 9.1 mg/dl (8.5-10.1); CREATININE 0.91 mg/dl (0.60-1.40); POTASSIUM 4.2 mmol/L (3.5-5.1)
[2016-09-29 06:35] LABS: CHOLESTEROL/HDL RATIO 2.2
--- NOTE | 2016-09-29 06:51 | DIAGNOSTIC IMAGING REPORT ---
BRAIN WITHOUT CONTRAST HISTORY: Mental status change Stroke TECHNIQUE: Multiplanar multisequence MRI of the brain was performed without the use of contrast. COMPARISON STUDY: None. FINDINGS: There are no areas of restricted diffusion to suggest acute infarction. The midline structures are intact. The paranasal sinuses are clear. The mastoid air cells are clear. The ventricles and sulci are within normal limits for age. There is no mass, hematoma, midline shift. The major vascular flow-voids at the skull base are well maintained. Age-related atrophy and moderate chronic small vessel change. IMPRESSION: No acute intracranial abnormality. Age-related atrophy and chronic small vessel change The above report was generated using voice recognition software. It may contain grammatical, syntax or spelling errors. Electronically signed by: Don Mosqueda M.D. 09/29/2016 6:49 AM Dictated Date/Time: 09/29/2016 6:48 AM
--- NOTE | 2016-09-29 06:52 | DIAGNOSTIC IMAGING REPORT ---
CAROTID DOPPLER NECK ART HISTORY: Mental status change cva COMPARISON: None. TECHNIQUE: Real-time, grayscale, and color Doppler sonography of the carotid arteries was performed. Imaging reviewed in the transverse and longitudinal planes. All measurements were calculated based on NASCET criteria. FINDINGS: Antegrade flow is seen in the bilateral vertebral arteries. The brachial pressures are hemodynamically similar. Mild plaque formation bilaterally The peak systolic velocity within the right ICA is 96. The right systolic ratio is 0.8. The peak systolic velocity within the left ICA is 88. The left systolic ratio is 1.0. IMPRESSION: No hemodynamically significant stenosis seen within the carotid arteries. The above report was generated using voice recognition software. It may contain grammatical, syntax or spelling errors. Electronically signed by: Don Mosqueda M.D. 09/29/2016 6:51 AM Dictated Date/Time: 09/29/2016 6:50 AM
[2016-09-29 07:05] VITALS: BP 172/86; PULSE 58; TEMP 36.5; O2SAT 94
--- NOTE | 2016-09-29 07:15 | DIAGNOSTIC IMAGING REPORT ---
MRA HEAD WITHOUT CONTRAST HISTORY: Mental status change Stroke - Attention to [place] TECHNIQUE: 3-D [id number] MRA of the brain was performed without contrast. COMPARISON STUDY: None. FINDINGS: Visualized intracranial internal carotid arteries, distal vertebral arteries, and basilar artery are widely patent. There is no significant stenosis, occlusion, or aneurysm seen within the bilateral ACAs, MCAs, or repair department manager. IMPRESSION: No significant stenosis, occlusion, or aneurysm within the [place]. The above report was generated using voice recognition software. It may contain grammatical, syntax or spelling errors. Electronically signed by: Don Mosqueda M.D. 09/29/2016 7:14 AM Dictated Date/Time: 09/29/2016 7:13 AM
--- NOTE | 2016-09-29 07:17 | DIAGNOSTIC IMAGING REPORT ---
MRA NECK COMBO HISTORY: Mental status change Stroke TECHNIQUE: [id number] and gadolinium-enhanced MRA of the neck was performed both before and after the intravenous administration of contrast. All measurements were calculated based on NASCET criteria. COMPARISON STUDY: None. FINDINGS: The aortic arch and proximal great vessels are widely patent. There is no significant stenosis, occlusion, or dissection identified within the bilateral common carotid, internal carotid, or vertebral arteries. Minimal plaque formation bilaterally IMPRESSION: No significant stenosis, occlusion, or dissection identified within the carotid or vertebral arteries. Minimal plaque formation bilaterally The above report was generated using voice recognition software. It may contain grammatical, syntax or spelling errors. Electronically signed by: Don Mosqueda M.D. 09/29/2016 7:16 AM Dictated Date/Time: 09/29/2016 7:14 AM
[2016-09-29 08:05] LABS: ESTIMATED AVERAGE GLUCOSE 151 mg/dl; HA1C FLAG Normal (Normal)
[2016-09-29] MEDS ORDERED: ASPIRIN 81 MG ECTAB PO SCH (09:00)
[2016-09-29] MEDS ORDERED: ATORVASTATIN 40 MG TAB PO SCH (09:00)
--- NOTE | 2016-09-29 09:39 | Clinical Documentation Query ---
ANAND Duval : CLINICAL DOCUMENTATION QUERY Patient is an 80 year old male who on the day of admission developed acute aphasia. As appropriate, consider documentation as suggested below as "TIA" calls into question the medical necessity of admission and is suspect for audit In your clinical opinion is this patient being managed for: ( ) (Likely/suspected/possible) Embolic TIA due to cerebral embolism ( ) Other explanation of clinical findings (Please Explain) ( ) Unable to determine (Please Define) ( ) Need to Discuss ( ) Not Agree The medical record reflects the following clinical findings, treatment, and risk factors. Clinical Indicators:Documented TIA. Embolic TIA is most common etiology Treatment: Anticoagulation Risk Factors: Age, DM, hypertension Please clarify and document your clinical opinion in the progress notes and discharge summary. Terms such as "probable", "suspected", "likely", "questionable", "possible", or "still to be ruled out" are acceptable. IF IN AGREEMENT, YOU MUST DOCUMENT ABOVE DIAGNOSTIC STATEMENT IN DAILY PROGRESS NOTES AND DISCHARGE SUMMARY. This document is not part of the patient's record. Thank You, Daniele Richardson, RN [phone]
[2016-09-29] MEDS ORDERED: HydrALAZINE HCL 20 MG/ML VIAL ONE (09:41)
[2016-09-29] MEDS ORDERED: HydrALAZINE HCL 20 MG/ML VIAL IV PRN (09:45)
[2016-09-29 10:21] VITALS: BP 156/78; PULSE 68; TEMP 36.9; O2SAT 96
--- NOTE | 2016-09-29 10:28 | Neurology Consultation ---
Neurology Consultation Date of Consultation: Sep 29, 2016. Attending Physician: Edgard Rivera M.D. Primary Care Physician: Edy Flanagan M.D. Reason for Consultation: Consultation for TIA History of Present Illness Source: patient, hospital records This is a 80-year-old male who presents with speech disturbance. Reports that he went to the store and noticed that he had trouble saying the words on the sheet. He reports he was able to read and go finding the objects that were on his list. How when he got home and he reports having decreased fluency and his speech when talking to his for about a half an hour. reports this speech sounded garbled and there was often wrong word substitutions in his speech. There is no facial droop. No weakness. No numbness. No changes in vision or loss of vision. No trouble swallowing. Patient has never had an episode like this before. He does report an episode 10 years ago which she felt dizzy for 3-4 days with nausea and vomiting that resolved. Did not appear to be specifically strokelike. Patient reports that he is at his normal neurological baseline this morning. In fact it appeared that most of his symptoms had resolved shortly after he arrived in the emergency room. MRI of the brain reported images reviewed by myself. There is some T2 hyperintensities in the subcortical white matter but otherwise no image strokes. MRA of the head and neck noted some minimal plaque but otherwise unremarkable Total cholesterol 1:15, LDL 37, HDL 53, triglycerides 124, hemoglobin A1c 6.9 On review of systems the patient also reported that he felt sluggish and around that time. Past Medical/Surgical History Medical Problems: (1) Syncope, near Status: Acute Paroxysmal A. fib, CAD, hypertension, diabetes, dyslipidemia Family History Diabetes and [place] Social History Patient is normally independent in his activities of daily living. Occasional tobacco use. He can drink up to 5 beers in a day. While the patient said that he only drank a few drinks, his seems to indicate that he has a predilection towards heavy drinking. No illegal drug use reported. Drug Use: none Marital Status: Housing Status: lives with significant other Occupation Status: employed Allergies Coded Allergies: Penicillins (Verified Allergy, Unknown, SKIN RASH, 09/28/16) Current Inpatient Medications Current Inpatient Medications Medications (Trade) Dose Ordered Sig/Gregg Route Start Time Stop Time Status Last Admin Dose Admin Aspirin (Ecotrin Tab) 81 mg QAM PO 09/29/16 09:00 10/29/16 08:59 09/29/16 09:20 81 MG Finasteride (Proscar Tab) 5 mg QPM PO 09/28/16 21:00 10/28/16 20:59 09/28/16 21:25 5 MG Rivaroxaban (Xarelto Tab) 20 mg DAILY@1700 PO 09/28/16 17:00 10/28/16 16:59 09/28/16 17:27 20 MG Metoprolol Succinate (Toprol Xl Tab) 100 mg QPM PO 09/28/16 21:00 10/28/16 20:59 09/28/16 17:28 100 MG Atorvastatin Calcium (Lipitor Tab) 40 mg QAM PO 09/29/16 09:00 10/29/16 08:59 09/29/16 09:19 40 MG Miscellaneous Information (Pharmacist Discharge Med Rec Consult) 1 ea UD PRN N/A 09/28/16 14:45 10/28/16 14:44 Acetaminophen (Tylenol Tab) 650 mg Q4H PRN PO 09/28/16 15:00 10/28/16 14:59 Al Hydrox/Mg Hydrox/Simethicone (Maalox Max Susp) 15 ml Q4H PRN PO 09/28/16 15:00 10/28/16 14:59 Magnesium Hydroxide (Milk Of Magnesia Susp) 30 ml Q12H PRN PO 09/28/16 15:00 10/28/16 14:59 Ondansetron HCl (Zofran Inj) 4 mg Q6H PRN IV 09/28/16 15:00 10/28/16 14:59 Polyethylene (Miralax Powder Packet) 17 gm DAILY PRN PO 09/28/16 15:00 10/28/16 14:59 Miscellaneous (Iv Fluids Completed) 1 ea PRN PRN N/A 09/28/16 15:15 09/28/17 15:14 Gadobutrol (Gadavist) 10.4 mmol UD PRN IV 09/29/16 02:00 10/03/16 01:59 Hydralazine HCl (HydrALAZINE INJ) 10 mg Q4H PRN IV 09/29/16 09:45 10/29/16 09:44 Review of Systems Complete review of systems otherwise negative except for the above-noted history of present illness Physical Exam Vital Signs (Past 24 Hrs): Date Time Temp Pulse Resp B/P (MAP) Pulse Ox O2 Delivery O2 Flow Rate FiO2 09/29/16 10:21 36.9 68 19 156/78 (104) 96 Room Air 09/29/16 08:00 Room Air 09/29/16 07:05 36.5 58 17 172/86 (114) 94 Room Air 09/29/16 04:02 Room Air 09/29/16 03:24 36.6 53 18 152/79 (103) 93 Room Air 09/29/16 00:03 Room Air 09/28/16 23:20 36.5 58 18 145/71 (95) 92 Room Air 09/28/16 20:04 Room Air 09/28/16 19:18 36.4 68 20 118/63 (81) 91 Room Air 09/28/16 16:16 68 16 187/97 (127) 94 Room Air 09/28/16 15:24 57 20 194/92 95 09/28/16 15:20 57 20 194/92 95 Room Air 09/28/16 14:57 98 Room Air 09/28/16 13:22 84 20 198/110 98 Room Air 09/28/16 12:54 94 Room Air 09/28/16 12:50 74 09/28/16 12:37 36.6 72 20 173/83 94 Gen.: Patient is alert and oriented in no acute distress lying in bed Heart: Regular rate and rhythm Extremities: No gross deformities or rashes noted Neurological examination: Mental status: Patient is alert and oriented to person place and time. Able to give his own history. Attention concentration normal for the situation. Speech is fluent without any dysarthria or aphasia noted Cranial nerves: Funduscopic examination was difficult to visualize. Pupils equally round and reactive to light. Extraocular muscles intact without nystagmus. No facial asymmetry noted. Facial sensation intact. Tongue midline. Good palatal elevation. Good shoulder shrug bilaterally. Hearing grossly intact voice. Strength: 5/5 both proximal and distal in all extremities with the exception of weak right shoulder abduction secondary to a rotator cuff tear.Tone is normal. Sensation: Grossly intact to light touch in all extremities Deep tendon reflexes: +1 in bilateral biceps and patellar. Toes are downgoing to plantar stimulation bilaterally Coordination: Patient has good finger to nose without dysmetria. Mild action tremors noted bilaterally Station within the bed is normal. Laboratory Results Past 24 Hours: 09/29/16 05:25 Red Blood Count 4.21, Mean Corpuscular Volume 94.8, Mean Corpuscular Hemoglobin 31.6, Mean Corpuscular Hemoglobin Concent 33.3, Mean Platelet Volume 10.7, Neutrophils (%) (Auto) 45.9, Lymphocytes (%) (Auto) 35.0, Monocytes (%) (Auto) 11.1, Eosinophils (%) (Auto) 7.2, Basophils (%) (Auto) 0.6, Neutrophils # (Auto ) 2.44, Lymphocytes # (Auto) 1.86, Monocytes # (Auto) 0.59, Eosinophils # (Auto ) 0.38, Basophils # (Auto) 0.03 09/29/16 05:25 Test 09/28/16 13:00 09/28/16 13:01 09/28/16 18:03 09/28/16 20:09 Prothrombin Time 11.3 SECONDS (9.0-12.0) Prothromb Time International Ratio 1.1 (0.9-1.1) Activated Partial Thromboplast Time 27.4 SECONDS (21.0-31.0) Partial Thromboplastin Ratio 1.1 Estimated Average Glucose 151 mg/dl Hemoglobin A1c 6.9 % (4.5-5.6) Bedside Prothrombin Time INR 1.1 (0.9-1.1) Total Creatine Kinase 199 U/L (39-308) Creatine Kinase MB 5.5 ng/ml (0.5-3.6) Creatine Kinase MB Ratio 2.8 (0-3.0) Troponin I < 0.015 ng/ml (0-0.045) Bedside Glucose 116 mg/dl (70-99) Test 09/29/16 05:25 White Blood Count 5.31 K/uL (4.8-10.8) Red Blood Count 4.21 M/uL (4.7-6.1) Hemoglobin 13.3 g/dL (14.0-18.0) Hematocrit 39.9 % (42-52) Mean Corpuscular Volume 94.8 fL (80-100) Mean Corpuscular Hemoglobin 31.6 pg (25-34) Mean Corpuscular Hemoglobin Concent 33.3 g/dl (32-36) Platelet Count 160 K/uL (130-400) Mean Platelet Volume 10.7 fL (7.4-10.4) Neutrophils (%) (Auto) 45.9 % Lymphocytes (%) (Auto) 35.0 % Monocytes (%) (Auto) 11.1 % Eosinophils (%) (Auto) 7.2 % Basophils (%) (Auto) 0.6 % Neutrophils # (Auto) 2.44 K/uL (1.4-6.5) Lymphocytes # (Auto) 1.86 K/uL (1.2-3.4) Monocytes # (Auto) 0.59 K/uL (0.11-0.59) Eosinophils # (Auto) 0.38 K/uL (0-0.5) Basophils # (Auto) 0.03 K/uL (0-0.2) RDW Standard Deviation 43.6 fL (36.4-46.3) RDW Coefficient of Variation 12.6 % (11.5-14.5) Immature Granulocyte % (Auto) 0.2 % Immature Granulocyte # (Auto) 0.01 K/uL (0.00-0.02) Anion Gap 7.0 mmol/L (3-11) Est Creatinine Clear Calc Drug Dose 73.3 ml/min Estimated GFR () 90.6 Estimated GFR (Non- 78.2 BUN/Creatinine Ratio 12.1 (10-20) Calcium Level 9.1 mg/dl (8.5-10.1) Triglycerides Level 124 mg/dl (0-150) Cholesterol Level 115 mg/dl (0-200) HDL Cholesterol 53 mg/dl LDL Cholesterol, Calculated 37 mg/dl VLDL Cholesterol, Calculated 25 mg/dl Cholesterol/HDL Ratio 2.2 Imaging As noted above in history of present illness Impression This is a 80-year-old male with an episode of possible expressive aphasia with no other focal neurological symptoms. Differential diagnosis could include dehydration or some other nonspecific metabolic or physiological event causing speech disturbance. Known stroke risk factors include paroxysmal A. fib, hypertension, dyslipidemia , and diabetes. Lipid profile and hemoglobin A1c are within goal. Plan I have ordered an echocardiogram to complete stroke workup to rule out cardiogenic causes for TIA. Continue home statin without change. Decreasing total cholesterol less than 100 can increase risk for intracranial hemorrhage. Instructed the patient to keep well hydrated. Decrease alcohol consumption to no more than 1 or 2 drinks per day. Smoking cessation recommended. Recommend regular cardiovascular exercise. Follow-up PT/OT and speech therapies for discharge planning. Blood pressure recommendations while in hospital 175/95-150/80 Avoid hypotension and dehydration Stroke risk factor modifications and recommendations: Blood pressure recommendations for the first month post hospital discharge 150/ 90-130/80, and after that blood pressure recommendations 130/80-110/70 Total cholesterol goal 100- 200 and LDL goal less than 100 (at goal) Hemoglobin A1c goal less than 7 (at goal) Encourage cardiovascular exercise at least 3 times a week for 30 minutes. If echocardiogram is unremarkable, no neurological contraindications to discharge. If there is any questions or concerns, feel free to call/page me.
--- NOTE | 2016-09-29 12:26 | Discharge Instructions ---
Discharge Instructions Date of Service Sep 29, 2016. Admission Reason for Admission: TIA Discharge Discharge Diagnosis / Problem: tia ( reversable stroke like symptoms) Discharge Goals Goal(s): Diagnostic testing Activity Recommendations Activity Limitations: resume your previous activity . Instructions / Follow-Up Instructions / Follow-Up Risk Factors for Stroke: You can reduce your chances of stroke by working with your medical provider to adopt a healthy lifestyle. Some specific ways to lower your chance of stroke are: * If you are a smoker, now is the time to stop smoking cigarettes * If you are diabetic, improve the control of your blood sugars * Avoid excessive amounts of alcohol * Control high blood pressure * Lose weight if you are overweight * Be sure to lead an active lifestyle * Eat a healthy diet low in salt, cholesterol and fat You should know about other risk factors for stroke that you are unable to control. These include: * Age 55 years or older * Male gender * Certain racial groups: , or / * Family History of Stroke, Mini stroke or Heart Attack * Sickle Cell Disease Follow Up: It is important for you to keep your follow up appointments with your medical provider. Current Hospital Diet Patient's current hospital diet: AHA Diet (Heart Healthy) Discharge Diet Recommended Diet: AHA Diet (Heart Healthy) Pending Studies Studies pending at discharge: no Laboratory Results Hemoglobin A1c Test 09/28/16 13:00 Range/Units Estimated Average Glucose 151 mg/dl Hemoglobin A1c 6.9 H 4.5-5.6 % Lipid Panel Test 09/29/16 05:25 Range/Units Triglycerides Level 124 0-150 mg/dl Cholesterol Level 115 0-200 mg/dl HDL Cholesterol 53 mg/dl Cholesterol/HDL Ratio 2.2 LDL Cholesterol, Calculated 37 mg/dl Medical Emergencies . Who to Call and When: Medical Emergencies: Call 911 immediately if you experience any of the following warning signs and symptoms of Stroke: * Sudden numbness or weakness of the face, arm or leg, especially on one side of the body * Sudden confusion, trouble speaking or understanding * Sudden trouble seeing in one or both eyes * Sudden trouble walking, dizziness, loss of balance or coordination * Sudden severe headache with no cause Do not delay calling 911 if you experience any warning signs or symptoms of a stroke. Delay in seeking medical attention may affect what treatments can be given to you. . Non-Emergent Contact Non-Emergency issues call your: Primary Care Provider Call Non-Emergent contact if: temperature is above 101, your pain is unusual for you . . "Provider Documentation" section prepared by Edgard Rivera. . Child And Adolescent Psychologist Recommendations Child And Adolescent Psychologist Recommendations: Your blood glucose was higher than expected, please begin a carbohydrate lean diet and make a follow up with your primary care doctor to discuss further lifestyle and medication choices Stroke Core Measures Reason no t-PA for Stroke: Treatment not indicated Reason no antithrom by day 2: Treatment provided - N/A Reason no antithrom at D/C: Treatment provided - N/A Reason no statin at D/C: Treatment provided - N/A Reason no anticoag w/a fib: Treatment provided - N/A VTE Core Measure Inpt VTE Proph given/why not?: Other Anticoagulation
--- NOTE | 2016-09-29 12:50 | ECHOCARDIOGRAM REPORT ---
*NOTICE TO RECEIVING DEMOCRAT AGENCY This information is strictly Confidential and protected under [place] law. [place] law prohibits you from making any further disclosure of this information unless further disclosure is expressly permitted by the written consent of the person to whom it pertains or is authorized by law. A general authorization for the release of medical or other information is not sufficient for this purpose. Hospital accepts no responsibility if the information is made available to any other person, INCLUDING THE PATIENT. Interpretation Summary * Name: MELVA POP Study Date: 09/29/2016 10:44 AM BP: 156/78 mmHg * Patient Location: C.2T\S\S230\S\1 HR: 67 * : 1935 (M/d/yyyy) Gender: Male Height: 68 in * Age: 80 yrs Ethnicity: [place] Weight: 224 lb * Ordering Physician: Rachel Miranda * Performed By: Maria Elena Klein * * Reason For Study: TIA * BSA: 2.1 m2 * -- Conclusions -- * The left ventricle is borderline dilated. * There is mild asymmetric left ventricular hypertrophy. * Left ventricular systolic function is normal. * Grade I diastolic dysfunction, (abnormal relaxation pattern). * The left atrium is mildly dilated. * Injection of contrast documented no interatrial shunt. * Right ventricular systolic pressure is elevated at 30-40mmHg. * Compared to a study from 06/2015, there is no significant change Procedure Details * A complete two-dimensional transthoracic echocardiogram was performed (2D, M-mode, Doppler and color flow Doppler). * A saline contrast injection was performed to assess for cardiac shunting. * The injection was performed through an intravenous line in the right arm. * The attending nurse who injected the saline contrast was ANTONIO PARRA RN. * A total of 20 cc of agitated saline was given. * A contrast injection of Definity was performed to improve assessment of LV function. * Contrast was injected into an intravenous site in the right arm. * One vial of Definity ultrasound contrast was diluted in normal saline to a total volume of 10 ml. A total of '3' ml of solution was administered during imaging. * Lot # [id number] of Definity utilized for procedure. * Expiration date 10/08. * The attending nurse who injected the contrast agent was ANTONIO PARRA RN. Left Ventricle * The left ventricle is borderline dilated. * There is mild asymmetric left ventricular hypertrophy. * Ejection Fraction = >70 %. * Left ventricular systolic function is normal. * Grade I diastolic dysfunction, (abnormal relaxation pattern). Right Ventricle * The right ventricle is normal in size and function. Atria * The left atrium is mildly dilated. * Right atrial size is normal. * Injection of contrast documented no interatrial shunt. Mitral Valve * The mitral valve is grossly normal. * There is no mitral regurgitation noted. Tricuspid Valve * The tricuspid valve is not well visualized, but is grossly normal. * There is mild tricuspid regurgitation. * Right ventricular systolic pressure is elevated at 30-40mmHg. Aortic Valve * The aortic valve is normal in structure and function. * The aortic valve is trileaflet. Pericardium/Pleural * There is no pericardial effusion. MMode 2D Measurements and Calculations IVSd 1.4 cm IVSs 2.0 cm LVIDd 5.3 cm LVIDs 3.2 cm LVPWd 1.0 cm LVPWs 2.0 cm IVS/LVPW 1.3 FS 39.9 % EDV(Teich) 134.6 ml ESV(Teich) 40.3 ml EF(Teich) 70.1 % EDV(cubed) 147.9 ml ESV(cubed) 32.1 ml EF(cubed) 78.3 % % IVS thick 47.7 % % LVPW thick 88.8 % LV mass(C)d 257.1 grams LV mass(C)dI 119.9 grams/m\S\2 LV mass(C)s 279.7 grams LV mass(C)sI 130.4 grams/m\S\2 CO(Teich) 6.2 l/min CI(Teich) 2.9 l/min/m\S\2 SV(Teich) 94.4 ml SI(Teich) 44.0 ml/m\S\2 CO(cubed) 7.6 l/min CI(cubed) 3.6 l/min/m\S\2 SV(cubed) 115.8 ml SI(cubed) 54.0 ml/m\S\2 ACS 1.8 cm LA dimension 4.3 cm asc Aorta Diam 3.5 cm LVOT diam 2.0 cm LVOT area 3.2 cm\S\2 LVAd ap4 35.3 cm\S\2 LVLd ap4 8.0 cm EDV(MOD-sp4) 128.0 ml LVAs ap4 17.0 cm\S\2 LVLs ap4 6.5 cm ESV(MOD-sp4) 37.1 ml EF(MOD-sp4) 71.0 % LVAd ap2 28.9 cm\S\2 LVLd ap2 7.3 cm EDV(MOD-sp2) 93.3 ml LVAs ap2 14.0 cm\S\2 LVLs ap2 6.2 cm ESV(MOD-sp2) 27.6 ml EF(MOD-sp2) 70.4 % CO(MOD-sp4) 6.0 l/min CI(MOD-sp4) 2.8 l/min/m\S\2 SV(MOD-sp4) 90.9 ml SI(MOD-sp4) 42.4 ml/m\S\2 CO(MOD-sp2) 4.3 l/min CI(MOD-sp2) 2.0 l/min/m\S\2 SV(MOD-sp2) 65.7 ml SI(MOD-sp2) 30.6 ml/m\S\2 Doppler Measurements and Calculations MV E max lenin 107.2 cm/sec MV A max lenin 103.8 cm/sec MV E/A 1.0 MV dec time 0.19 sec Ao V2 max 217.2 cm/sec Ao max PG 18.9 mmHg Ao max PG (full) 15.6 mmHg MONSE(V,A) 1.3 cm\S\2 MONSE(V,D) 1.3 cm\S\2 LV V1 max PG 3.2 mmHg LV V1 max 90.0 cm/sec MR max lenin 408.6 cm/sec MR max PG 66.8 mmHg PA V2 max 59.7 cm/sec PA max PG 1.4 mmHg TR max lenin 297.3 cm/sec
[2016-09-29] MEDS ORDERED: PERFLUTREN LIPID MICROSPHERE (DEFINITY) IV ONE (13:18)
[2016-09-29 15:21] VITALS: BP 156/78; PULSE 68; TEMP 36.9; O2SAT 96
--- NOTE | 2016-09-30 07:47 | Discharge Summary ---
Discharge Summary Date of Service Sep 29, 2016. Discharge Summary Admission Date: Sep 28, 2016 at 14:58 Discharge Date: Sep 29, 2016 Discharge Disposition: Home Principal Diagnosis: TIA, pooly controlled diabetes Immunizations: Have You Had Influenza Vaccine: Yes History of Tetanus Vaccine?: No History of Pneumococcal: Yes History of Hepatitis B Vaccine: No Procedures: MRI/MRA CT scan carotid Doppler and echocardiogram unremarkable Consultations: DR Cantu Medication Reconciliation Continued Medications: Amlodipine Besylate (Norvasc) 2.5 Mg Tab 2.5 MG PO QPM Aspirin (Aspirin Ec) 81 Mg Tab 81 MG PO QAM Atorvastatin (Lipitor) 20 Mg Tab 20 MG PO QPM Finasteride (Finasteride) 5 Mg Tab 5 MG PO QPM Losartan Potassium (Cozaar) 100 Mg Tab 100 MG PO QPM Metoprolol Succinate (Metoprolol Succinate ER) 100 Mg Tabcr 100 MG PO QPM Rivaroxaban (Xarelto) 20 Mg Tab 1 TAB PO DAILY AFTERNOON Discharge Exam Review of Systems: Constitutional: No fever, No chills Respiratory: No cough, No shortness of breath, No dyspnea on exertion Cardiovascular: No chest pain, No orthopnea, No edema Abdomen: No pain, No nausea, No diarrhea Genitourinary - Male: No hematuria, No dysuria Psychiatric: No depression symptoms, No anhedonism Physical Exam: General Appearance: WD/WN, no apparent distress Eyes: PERRL, EOMI Neck: supple, no JVD Respiratory/Chest: chest non-tender, lungs clear Cardiovascular: regular rate, rhythm, no murmur Abdomen / GI: normal bowel sounds, non tender, soft Neurologic/Psychiatric: account executive healthcare II-XII nml as tested, no motor/sensory deficits , alert, oriented x 3 Hospital Course 80-year-old male presented with aphasia, complete resolution of symptoms, negative imaging workup Neurology did see the patient does not wish to alter any medications we'll maintain him on aspirin Xarelto atorvastatin risk factor reduction with hypertension control The patient was informed that his hemoglobin A1c is 6.9 is a diet-controlled diabetic, we educated the patient regarding her will improve his diabetic control specifically discussing his alcohol intake and the fact that he drinks at least 5-6 beers a day. Patient will be referred to his primary care physician and possibly set up with steward/stewardess smoke room evaluation Total Time Spent: Greater than 30 minutes This includes examination of the patient, discharge planning, medication reconciliation, and communication with other providers. Discharge Instructions Please refer to the electronic Patient Visit Report (Discharge Instructions) for additional information.
== END 2016-09-29 15:40 | disposition home or self-care (01) | DRG 69 ==
LOC: C.EDB 12:37 → C.2T 14:58 → ENRESERV 15:18
PROVIDERS: ADMIT Internal Medicine; ATTEND Internal Medicine
DX: G45.9 Transient cerebral ischemic attack, unspecified (principal); E11.65 Type 2 diabetes mellitus with hyperglycemia; I48.0 Paroxysmal atrial fibrillation; I10 Essential (primary) hypertension; I25.10 Atherosclerotic heart disease of native coronary artery without angina pectoris; E78.5 Hyperlipidemia, unspecified; Z72.0 Tobacco use; Z79.01 Long term (current) use of anticoagulants; Z79.82 Long term (current) use of aspirin; Z79.899 Other long term (current) drug therapy; Z88.0 Allergy status to penicillin; Z83.3 Family history of diabetes mellitus; Z82.49 Family history of ischemic heart disease and other diseases of the circulatory system

== ENCOUNTER → 2016-11-22 | Day surgery (SDC) | payer BC, OTHER ==
[2016-11-10 14:01] VITALS: Ht 172.7 cm; Wt 104.5 kg
[~2016-11-22] VITALS: Ht 172.7 cm; Wt 104.5 kg
[~2016-11-22] MED LIST changes: +LIDOCAINE HCL 2% 2 ML VIAL (20MG/ML) ONE; +PROPOFOL IV EMULSION 10 MG/ML 20 ML VIAL IV ONE
--- NOTE | 2016-11-22 08:37 | Endo History and Physical ---
History & Physical Date of Service: Nov 22, 2016. Chief Complaint: Diverticulitis Referring Physician: Edy Flanagan History of Present Illness 81 yo CM who presents for colonoscopy secondary to diverticulitis. Past Surgical History Hx Cardiac Surgery: Yes (HEART CATH-1 STENT PLACED) Hx Internal Defibrillator: No Hx Pacemaker: No Hx Abdominal Surgery: No Hx Post-Op Nausea and Vomiting: No Hx Cancer Surgery: No Hx Thoracic Surgery: No Hx Orthopedic: Yes (LEFT SHOULDER SX) Hx Urinary Tract Surgery: No Family History None Social History Smoking Status: Current Some Day Smoker Hx Substance Use: No Hx Alcohol Use: Yes (3 DRINKS DAILY) Allergies Coded Allergies: Penicillins (Verified Allergy, Unknown, SKIN RASH, 11/10/16) Current Medications Reported Home Medications Medications Dose Route/Sig Max Daily Dose Days Date Category Dose Instructions Norvasc (Amlodipine Besylate) 2.5 Mg Tab 2.5 Mg PO QAM 05/26/16 Reported Cozaar (Losartan Potassium) 100 Mg Tab 100 Mg PO QPM 05/26/16 Reported Metoprolol Succinate ER (Metoprolol Succinate) 100 Mg Tabcr 100 Mg PO QPM 05/26/16 Reported Xarelto (Rivaroxaban) 20 Mg Tab 1 Tab PO DAILY AFTERNOON 05/26/16 Reported PT IS CHECKING WITH HIS DOCTOR IF HE NEED TO HOLD Finasteride 5 Mg Tab 5 Mg PO QAM 05/26/16 Reported Aspirin Ec (Aspirin) 81 Mg Tab 81 Mg PO QPM 05/26/16 Reported Lipitor (Atorvastatin Calcium) 20 Mg Tab 20 Mg PO QPM 06/28/08 Reported Vital Signs Weight (Kilograms): 104.55 Height (Feet): 5 Height (Inches): 8 Physical Exam General Appearance: WD/WN, no apparent distress Respiratory/Chest: Auscultation: breath sounds normal Cardiovascular: Heart Auscultation: RRR Abdomen: Bowel Sounds: normal Inspection & Palpation: soft, non-distended, no tenderness, guarding & rebound Assessment and Plan Assessment: 81 yo CM who presents for colonoscopy secondary to diverticulitis. Plan: Proceed with colonoscopy.
--- NOTE | 2016-11-22 09:24 | GI REPORT ---
Procedure Date: 11/22/2016 8:54 AM Procedure: Colonoscopy Indications: Follow-up of diverticulitis Medicines: Monitored Anesthesia Care Complications: No immediate complications. Estimated Blood Loss: Estimated blood loss: none. Procedure: Pre-Anesthesia Assessment: - Prior to the procedure, a History and Physical was performed, and patient medications and allergies were reviewed. The patient's tolerance of previous anesthesia was also reviewed. The risks and benefits of the procedure and the sedation options and risks were discussed with the patient. All questions were answered, and informed consent was obtained. Prior Anticoagulants: The patient last took aspirin 1 day and Xarelto (rivaroxaban) 2 days prior to the procedure. ASA Grade Assessment: III - A patient with severe systemic disease. After reviewing the risks and benefits, the patient was deemed in satisfactory condition to undergo the procedure. After I obtained informed consent, the scope was passed under direct vision. Throughout the procedure, the patient's blood pressure, pulse, and oxygen saturations were monitored continuously. The scope was introduced through the anus and advanced to the terminal ileum. The colonoscopy was performed without difficulty. The patient tolerated the procedure well. The quality of the bowel preparation was good. The terminal ileum, ileocecal valve, appendiceal orifice, and rectum were photographed. Findings: A 3 mm polyp was found in the cecum. The polyp was sessile. The polyp was removed with a cold biopsy forceps. Resection and retrieval were complete. Two sessile polyps were found in the ascending colon. The polyps were 4 to 6 mm in size. These polyps were removed with a hot snare. Resection and retrieval were complete. Multiple small-mouthed diverticula were found in the sigmoid colon. Non-bleeding internal hemorrhoids were found during retroflexion. The hemorrhoids were small. Impression: - One 3 mm polyp in the cecum, removed with a cold biopsy forceps. Resected and retrieved. - Two 4 to 6 mm polyps in the ascending colon, removed with a hot snare. Resected and retrieved. - Diverticulosis in the sigmoid colon. - Non-bleeding internal hemorrhoids. Recommendation: - Resume previous diet. - Continue present medications. - Repeat colonoscopy for surveillance based on pathology results. - Return to primary care physician as previously scheduled. Joce Feng DO 11/22/2016 9:24:10 AM This report has been signed electronically. Note Initiated On: 11/22/2016 8:54 AM I attest to the content of the Intraoperative Record and orders documented therein, exceptions below
--- NOTE | 2016-11-22 09:25 | Discharge Instructions ---
Endoscopy Patient Instructions Date / Procedure(s) Performed Nov 22, 2016. Colonoscopy Allergy Information Coded Allergies: Penicillins (Verified Allergy, Unknown, SKIN RASH, 11/10/16) Discharge Date / Findings Nov 22, 2016. Colon polyps Diverticulosis Internal hemorrhoids Medication Instructions Stopped Medication(s): Xarelto, ASA OK to resume all medications today as prescribed Reported Home Medications Medications Dose Route/Sig Max Daily Dose Days Date Category Dose Instructions Norvasc (Amlodipine Besylate) 2.5 Mg Tab 2.5 Mg PO QAM 05/26/16 Reported Cozaar (Losartan Potassium) 100 Mg Tab 100 Mg PO QPM 05/26/16 Reported Metoprolol Succinate ER (Metoprolol Succinate) 100 Mg Tabcr 100 Mg PO QPM 05/26/16 Reported Xarelto (Rivaroxaban) 20 Mg Tab 1 Tab PO DAILY AFTERNOON 05/26/16 Reported PT IS CHECKING WITH HIS DOCTOR IF HE NEED TO HOLD Finasteride 5 Mg Tab 5 Mg PO QAM 05/26/16 Reported Aspirin Ec (Aspirin) 81 Mg Tab 81 Mg PO QPM 05/26/16 Reported Lipitor (Atorvastatin Calcium) 20 Mg Tab 20 Mg PO QPM 06/28/08 Reported Provider Instructions Activity Restrictions - No exercising or heavy lifting for 24 hours. - Do not drink alcohol the day of the procedure. - Do not drive a car or operate machinery until the day after the procedure. - Do not make any important decisions or sign important papers in 24 hours after the procedure. Following Day: - Return to full activity which may include returning to work/school. Diet Start your diet with liquids and light foods (jello, soup, juice, toast). Then eat your usual diet if not nauseated. Treatment For Common After Affects For mild abdominal pain, bloating, or excessive gas: - Rest - Eat lightly - Lie on right side Follow-Up Information Follow-up with Edy Flanagan as scheduled Anesthesia Information What You Should Know You have had a procedure that required some medicine to reduce anxiety and discomfort. This treatment is called moderate sedation. After receiving the treatment, you may be sleepy, but you will be able to breathe on your own. The effects of the treatment may last for several hours. Follow these instructions along with Activity/Diet recommendations noted above: * Do NOT do anything where dizziness or clumsiness would be dangerous. * Rest quietly at home today, then you can be up and about tomorrow. * Have a responsible person stay with you the rest of today. * You may have had an I.V. today. If so, you may take the dressing off later today. Recommendations Call your doctor if: * Trouble breathing * Continuous vomiting for more than 24 hours * Temperature above 101 degrees * Severe abdominal pain or bloating * Pain not relieved by pain medicine ordered * There is increased drainage or redness from any incision * A large amount of rectal bleeding greater than 2-3 tablespoons. (If you had a polyp/s removed or have hemorrhoids, a small amount of blood - from the rectum is to be expected.) * You have any unanswered questions or concerns. IN THE EVENT OF A SERIOUS EMERGENCY, GO TO THE NEAREST EMERGENCY ROOM Your discharge instructions were prepared by provider Joce Feng. Patient Instructions Signature Page John Levine Patient (or Guardian) Signature/Date: I have read and understand the instructions given to me by my caregivers. Caregiver/RN/Doctor Signature/Date: The above-named patient and/or guardian has received patient instructions on this date. + Original Patient Signature Page (only) stays with chart. Please make copy for patient.
--- NOTE | 2016-11-22 10:01 | Anesthesiology Progress Note ---
Anesthesia Post Op Note Date & Time Nov 22, 2016 at 10:01 Vital Signs Vital Signs Past 12 Hours Date Time Temp Pulse Resp B/P (MAP) Pulse Ox O2 Delivery O2 Flow Rate FiO2 11/22/16 09:39 62 12 164/84 (110) 98 Room Air 11/22/16 09:25 63 12 114/69 (84) 93 Room Air 11/22/16 08:37 36.4 79 20 192/98 (129) 96 Room Air Notes Mental Status: alert / awake / arousable, participated in evaluation Pt Amnestic to Procedure: Yes Nausea / Vomiting: adequately controlled Pain: adequately controlled Airway Patency, RR, SpO2: stable & adequate BP & HR: stable & adequate Hydration State: stable & adequate Anesthetic Complications: no major complications apparent
[2016-11-22 10:15] VITALS: BP 193/100; PULSE 62; O2SAT 95
== END | disposition home or self-care (01) ==
LOC: C.GI 07:59
PROVIDERS: ATTEND Internal Medicine
DX: D12.0 Benign neoplasm of cecum (principal); D12.2 Benign neoplasm of ascending colon; K57.30 Diverticulosis of large intestine without perforation or abscess without bleeding; K64.8 Other hemorrhoids; F17.200 Nicotine dependence, unspecified, uncomplicated; Z87.19 Personal history of other diseases of the digestive system; Z95.5 Presence of coronary angioplasty implant and graft; Z79.01 Long term (current) use of anticoagulants; Z79.82 Long term (current) use of aspirin; Z79.899 Other long term (current) drug therapy

== ENCOUNTER → 2017-01-07 | Outpatient (CLI) | payer BC ==
[~2017-01-07] MED LIST changes: -LIDOCAINE HCL 2% 2 ML VIAL (20MG/ML) ONE; -PROPOFOL IV EMULSION 10 MG/ML 20 ML VIAL IV ONE
[2017-01-07 13:11] LABS: BASO % 0.4 %; BASO ABS # 0.03 K/uL (0-0.2); COMPLETE YES; HEMATOCRIT 43.2 % (42-52); IG% 0.1 %; LYMPH % 33.5 %; MEAN CELL VOLUME 95.4 fL (80-100); MEAN CORPUSCULAR HEMOGLOBIN 32.2 pg (25-34); MEAN CORPUSCULAR HGB CONC 33.8 g/dl (32-36); MEAN PLATELET VOLUME 11.1 fL (7.4-10.4); MONO % 10.3 %; NEUT % 50.7 %; PLATELET COUNT 153 K/uL (130-400); RED BLOOD COUNT 4.53 M/uL (4.7-6.1); WHITE BLOOD COUNT 6.86 K/uL (4.8-10.8)
[2017-01-07 13:15] LABS: ESTIMATED AVERAGE GLUCOSE 137 mg/dl; HA1C FLAG Normal (Normal)
[2017-01-07 13:30] LABS: ALB/GLOB RATIO 1.2 (0.9-2); ALT/SGPT 32 U/L (12-78); AST/SGOT 20 U/L (15-37); BLOOD UREA NITROGEN 10 mg/dl (7-18); CALCIUM 9.9 mg/dl (8.5-10.1); CARBON DIOXIDE 25 mmol/L (21-32); CHLORIDE 106 mmol/L (98-107); CHOLESTEROL 120 mg/dl (0-200); CHOLESTEROL/HDL RATIO 1.4; GLUCOSE 118 mg/dl (70-99); HDL CHOLESTEROL 86 mg/dl; LDL CHOLESTEROL CALCULATED 21 mg/dl; POTASSIUM 3.9 mmol/L (3.5-5.1); SODIUM 140 mmol/L (136-145); TRIGLYCERIDES 65 mg/dl (0-150); URIC ACID 5.7 mg/dl (2.6-7.2); VERY LOW DENSITY LIPOPROT CALC 13 mg/dl
[2017-01-07 13:39] LABS: ALKALINE PHOSPHATASE 89 U/L (45-117); PROSTATE SPECIFIC ANTIGEN 0.406 ng/ml (0.000-4.000); TOTAL IRON BINDING CAPACITY 376 mcg/dl (250-450)
== END | disposition home or self-care (01) ==
LOC: C.LAB1850 11:32
PROVIDERS: ATTEND Family Medicine
DX: E88.81 Metabolic syndrome and other insulin resistance (principal); E55.9 Vitamin D deficiency, unspecified; D51.9 Vitamin B12 deficiency anemia, unspecified; E78.9 Disorder of lipoprotein metabolism, unspecified; R53.83 Other fatigue

== ENCOUNTER → 2017-05-27 | Outpatient (CLI) | payer OTHER ==
[2017-05-27 14:43] LABS: BASO % 0.5 %; BASO ABS # 0.03 K/uL (0-0.2); EOS % 6.1 %; EOS ABS # 0.38 K/uL (0-0.5); HEMATOCRIT 41.5 % (42-52); HEMOGLOBIN 14.1 g/dL (14.0-18.0); IG# 0.01 K/uL (0.00-0.02); LYMPH % 31.8 %; MEAN CELL VOLUME 93.3 fL (80-100); MEAN CORPUSCULAR HEMOGLOBIN 31.7 pg (25-34); MEAN PLATELET VOLUME 11.3 fL (7.4-10.4); MONO % 7.6 %; MONO ABS # 0.48 K/uL (0.11-0.59); NEUT % 53.8 %; NEUT ABS # 3.38 K/uL (1.4-6.5); PLATELET COUNT 184 K/uL (130-400); RED CELL DISTRIBUTION WIDTH CV 12.7 % (11.5-14.5); RED CELL DISTRIBUTION WIDTH SD 43.3 fL (36.4-46.3); WHITE BLOOD COUNT 6.28 K/uL (4.8-10.8)
[2017-05-27 15:20] LABS: ALBUMIN 3.7 gm/dl (3.4-5.0); ALT/SGPT 35 U/L (12-78); AST/SGOT 23 U/L (15-37); BLOOD UREA NITROGEN 12 mg/dl (7-18); CALCIUM 9.6 mg/dl (8.5-10.1); CARBON DIOXIDE 27 mmol/L (21-32); CHOLESTEROL 106 mg/dl (0-200); CREATININE 0.89 mg/dl (0.60-1.40); GLUCOSE 169 mg/dl (70-99); POTASSIUM 4.1 mmol/L (3.5-5.1); SODIUM 138 mmol/L (136-145)
[2017-05-27 15:23] LABS: ALKALINE PHOSPHATASE 81 U/L (45-117); LDL CHOLESTEROL CALCULATED 28 mg/dl; TOTAL PROTEIN 7.1 gm/dl (6.4-8.2)
[2017-05-28 07:53] LABS: HEMOGLOBIN A1C 6.7 % (4.5-5.6)
== END | disposition home or self-care (01) ==
LOC: C.LAB 13:38
PROVIDERS: ATTEND Family Medicine
DX: R53.83 Other fatigue (principal)

== ENCOUNTER 2019-05-13 05:44 | Inpatient (IN) ==
[2019-05-13] MEDS ORDERED: ACETAMINOPHEN 500 MG TAB PO STA (06:00)
[2019-05-13] MEDS ORDERED: SODIUM CHLORIDE 0.9% 1000ML 1,000 ML IV ONE (06:00)
[2019-05-13] MEDS ORDERED: fentaNYL citrate 100 MCG/2 ML VIAL IV STA (06:00)
--- NOTE | 2019-05-13 06:12 | Emergency Department Note ---
ED Provider Note Name: MELVA POP Age: 83 Sex: M Arrives Via: Ambulance Informant: Patient, EMS, Nursing ED Provider: Sarwat Mckinnon MD Chief Complaint: generalized weakness Impression: Fever Generalized weakness Acute Low Back Pain due to Trauma Fall Medical Decision Makin yr old male with history of Parkinson, DLP, PAF, HTN, Diverticulitis, TIA, DMII, Prostate enlargement, depression who is on anticoagulation amongst other medications arrives due to weakness, falling and mild confusion. He is febrile on arrival, mildly confused but alert and oriented. Clear TTP low back and signifcant difficulty with even just sitting up due to pain. CT head, Cervical spine ordered due to fall, headache, and xarelto use. Ct lumbar ordered as will not tolerate lumbar xrays at this time. Furthermore, given fever cultures were ordered. He does not appear septic by exam nor does he have findings of meningitis on initial examination or repeat. Initial labs looking unremarkable. Pending UA, and imaging studies. Signed out to Dr Dai pending return of work-up. Of note, history PAF though is in NSR at this time. Prior Medical Record and Triage/Nursing Notes reviewed by Me Differentials:Infection, dehydration, metabolic abnormality, hypo/hyperglycemia, electrolyte disturbance, anemia, hypoxia, cardiac sources, intracerebral event, toxicologic, neurologic, as well as other pathologies. Vital Signs: reviewed and remarkable for febrile Interventions: saline lock, nss bolus Labs:Reviewed and remarkable for no significant abnormalities Imaging:Pending Cardiac Monitoring: An Order was placed for continuous cardiac monitoring. The monitor shows a rate of 70 with a NSR rhythm. EKG: Per My Interpretation: Indication Weakness: NSR 87 bpm, qtc 447. No Ectopy. No Ischemia. Compared to EKG 04/23/19, no significant changes. Plan: Disposition: Signed out to Dr Dai Condition: Fair Blood pressure:Normal.No Referral necessary History of Present Illness:83 / M arrives for evaluation of generalized weakness. Patient not feeling well with weakness, runny nose and fevers yesterday. He notes he tried moving too much at once yesterday and fell backwards on to back. He does not think he hit his head but has had mild headache on and off since his fall. Notes though primarily having significant low back pain, severely worse with any movement. Admits he feels a bit "off" and confused over the last day or so. Has chronic increased urination at night though no urinary burning nor discomfort. Denies abdominal nor suprapubic pain. No medications taken for this. Movement makes back pain worse, rest and laying still makes better. Denies recent antibiotic use. Denies falling regularly though does have Parkinson Disease so he is always a bit unsteady. He is on Xarelto for PAF. ROS: See above HPI for pertinent positives & negatives. A total of 10 systems reviewed and were otherwise negative. Past Medical History:Parkinson, DLP, PAF, HTN, Diverticulitis, TIA, DMII, Prostate enlargement, depression Past Surgical History:Cardiac stent Family History:Non contributory Social History:lives at home with , retired, drinks scotch daily, no tobacco, no drugs Home Medications:sinemet, esctalopram, finasteride, losartan, metformin, metoprolol, xarelto Allergies:PNC Vitals:Blood Pressure: 195/110, Pulse 90, RR 18, T 38.3C, O2 95% on RA Physical Exam: GENERAL: Patient is uncomfortable appearing and in mildly confused in moderate distress when trying to move distress. EYES: No scleral icterus, unremarkable pupils. ENT: Mucous membranes moist, no nasal congestion. NECK: No masses appreciated, nomeningismus, trachea is midline. RESPIRATORY: No dyspnea. Clear to auscultation and equal bilaterally. No wheeze, no rhonchi. CARDIOVASCULAR: Regular rate and rhythm.No murmurs, rubs, gallops appreciated. GASTROINTESTINAL: Abdomen soft, non-tender, no peritonitis.Bowel sounds positive.No masses appreciated. BACK: TTP over lower back. No midline tenderness, no CVA tenderness EXTREMITIES: Normal motion all extremities, no cyanosis, no edema. NEUROLOGIC: Alert and oriented, no acute motor or sensory deficits, no focal weakness, cranial nerves grossly intact. SKIN: castillo over neck and upper back. No rash, no jaundice, no diaphoresis. 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 Other Information That Helps Us Care for You: No Feels Safe at Home: Yes Safety Concerns: Feels Safe At This Time Smoking Status: Current some day smoker Tobacco Type: pipe ; Second Hand Ex posure: No ; Hx Alcohol Use: Yes Alcohol type: beer and hard liquor Hx Substance Use: No Results & Data Vital Signs Vital Signs - 24 hr 05/13/19 05:50 05/13/19 06:19 05/13/19 06:45 Temperature 38.3 C H 37.9 C H Temperature Source Oral Oral Pulse Rate 90 Pulse Rate [Apical] 87 Pulse Rate from SpO2 Sensor Respiratory Rate 18 18 Respiratory Effort / Characteristics Non-Labored Spontaneous Non-Labored Spontaneous Respiratory Depth Normal Normal Blood Pressure 195/110 H Blood Pressure [Right Arm] 173/91 H Blood Pressure Mean 138 Blood Pressure Mean [Right Arm] 118 Pulse Oximetry 95 88 L 97 Oxygen Delivery Method Room Air Room Air Room Air Sepsis Recent Fever Within 48 Hours Yes Sepsis New/Unexplained Change in Mental Status No Sepsis Action Taken by Nursing No Action Required Oxygen Flow Rate - Titration 2 Pulse Oximetry Post Tiitration 92 05/13/19 07:00 05/13/19 07:30 Temperature Temperature Source Pulse Rate 90 81 Pulse Rate [Apical] Pulse Rate from SpO2 Sensor 94 H 82 Respiratory Rate 35 H 32 H Respiratory Effort / Characteristics Respiratory Depth Blood Pressure 185/92 H 152/81 H Blood Pressure [Right Arm] Blood Pressure Mean 148 113 Blood Pressure Mean [Right Arm] Pulse Oximetry 96 98 Oxygen Delivery Method Sepsis Recent Fever Within 48 Hours Sepsis New/Unexplained Change in Mental Status Sepsis Action Taken by Nursing Oxygen Flow Rate - Titration Pulse Oximetry Post Tiitration Laboratory Data Result diagrams: 05/13/19 06:14 05/13/19 06:14 Lab Results 05/13/19 05/13/19 05/13/19 Range/Units 06:05 06:14 06:14 WBC (4.8-10.8) K/uL RBC (4.7-6.1) M/uL Hgb (14.0-18.0) g/dL Hct (42-52) % MCV (80-100) fL MCH (25-34) pg MCHC (32-36) g/dL RDW Std Deviation (36.4-46.3) fL RDW Coeff of Jeremiah (11.5-14.5) % Plt Count (130-400) K/uL MPV (7.4-10.4) fL Immature Gran % (Auto) % Neut % (Auto) % Lymph % (Auto) % Hutchinson % (Auto) % Eos % (Auto) % Baso % (Auto) % Immature Gran # (Auto) (0.00-0.02) K/uL Neut # (Auto) (1.4-6.5) K/uL Lymph # (Auto) (1.2-3.4) K/uL Hutchinson # (Auto) (0.11-0.59) K/uL Eos # (Auto) (0-0.5) K/uL Baso # (Auto) (0-0.2) K/uL PT 14.6 H (9.0-12.0) Seconds INR 1.4 H (0.9-1.1) APTT 31.7 H (21.0-31.0) Seconds PTT Ratio 1.1 Sodium (136-145) mmol/L Potassium (3.5-5.1) mmol/L Chloride (98-107) mmol/L Carbon Dioxide (21-32) mmol/L Anion Gap (3-11) BUN (7-18) mg/dl Creatinine (0.6-1.4) mg/dl Est Cr Clr Drug Dosing ml/min Est GFR ( Amer) Est GFR (Non-Af Amer) BUN/Creatinine Ratio (10-20) Glucose (70-99) mg/dl Lactate 1.6 (0.4-2.0) mmol/L Calcium (8.5-10.1) mg/dl Magnesium (1.8-2.4) mg/dl Troponin I (0-0.045) ng/ml Urine Color Urine Appearance (Clear) Urine pH (4.5-7.5) Ur Specific [place] (1.000-1.030) Urine Protein (Negative) Urine Glucose (UA) (Negative) Urine Ketones (Negative) Urine Blood (Negative) Urine Nitrite (Negative) Urine Bilirubin (Negative) Urine Urobilinogen (Negative) Ur Leukocyte Esterase (Negative) Influenza Type A (PCR) Neg for Influ A (Neg) Influenza Type B (PCR) Neg for Influ B (Neg) 05/13/19 05/13/19 05/13/19 Range/Units 06:14 06:14 07:00 WBC 10.51 (4.8-10.8) K/uL RBC 4.10 L (4.7-6.1) M/uL Hgb 13.1 L (14.0-18.0) g/dL Hct 39.3 L (42-52) % MCV 95.9 (80-100) fL MCH 32.0 (25-34) pg MCHC 33.3 (32-36) g/dL RDW Std Deviation 44.3 (36.4-46.3) fL RDW Coeff of Jeremiah 12.7 (11.5-14.5) % Plt Count 168 (130-400) K/uL MPV 10.7 H (7.4-10.4) fL Immature Gran % (Auto) 0.2 % Neut % (Auto) 78.2 % Lymph % (Auto) 6.8 % Hutchinson % (Auto) 10.0 % Eos % (Auto) 4.6 % Baso % (Auto) 0.2 % Immature Gran # (Auto) 0.02 (0.00-0.02) K/uL Neut # (Auto) 8.23 H (1.4-6.5) K/uL Lymph # (Auto) 0.71 L (1.2-3.4) K/uL Hutchinson # (Auto) 1.05 H (0.11-0.59) K/uL Eos # (Auto) 0.48 (0-0.5) K/uL Baso # (Auto) 0.02 (0-0.2) K/uL PT (9.0-12.0) Seconds INR (0.9-1.1) APTT (21.0-31.0) Seconds PTT Ratio Sodium 136 (136-145) mmol/L Potassium 3.7 (3.5-5.1) mmol/L Chloride 105 (98-107) mmol/L Carbon Dioxide 25 (21-32) mmol/L Anion Gap 6.0 (3-11) BUN 8 (7-18) mg/dl Creatinine 0.69 (0.6-1.4) mg/dl Est Cr Clr Drug Dosing 88.3 ml/min Est GFR ( Amer) 100.3 Est GFR (Non-Af Amer) 86.6 BUN/Creatinine Ratio 11.8 (10-20) Glucose 153 H (70-99) mg/dl Lactate (0.4-2.0) mmol/L Calcium 9.2 (8.5-10.1) mg/dl Magnesium 1.9 (1.8-2.4) mg/dl Troponin I 0.043 (0-0.045) ng/ml Urine Color Yellow Urine Appearance Clear (Clear) Urine pH 7.0 (4.5-7.5) Ur Specific [place] 1.017 (1.000-1.030) Urine Protein Negative (Negative) Urine Glucose (UA) Negative (Negative) Urine Ketones Trace H (Negative) Urine Blood Negative (Negative) Urine Nitrite Negative (Negative) Urine Bilirubin Negative (Negative) Urine Urobilinogen Negative (Negative) Ur Leukocyte Esterase Negative (Negative) Influenza Type A (PCR) (Neg) Influenza Type B (PCR) (Neg) Administered Medications Acetaminophen (Tylenol) 650 mg PO Q4H PRN PRN Reason: Pain or Fever Stop: 06/12/19 09:01 Last Admin: 05/13/19 19:29 Dose: 650 mg Documented by: [id number] Carbidopa/Levodopa (Sinemet 25/100 Mg) 2 tab PO TID [facility] Stop: 06/12/19 09:01 Last Admin: 05/13/19 20:46 Dose: 2 tab Documented by: [id number] Admin: 05/13/19 13:32 Dose: 2 tab Documented by: [id number] Admin: 05/13/19 11:47 Dose: 2 tab Documented by: [id number] Docusate Sodium (Colace) 100 mg PO BID [facility] Stop: 06/12/19 10:29 Last Admin: 05/13/19 20:46 Dose: 100 mg Documented by: [id number] Admin: 05/13/19 11:46 Dose: 100 mg Documented by: [id number] Escitalopram Oxalate (Lexapro Tab) 10 mg PO DAILY [facility] Stop: 06/12/19 09:01 Last Admin: 05/13/19 11:48 Dose: 10 mg Documented by: [id number] Finasteride (Proscar) 5 mg PO QAM [facility] Stop: 06/12/19 09:01 Last Admin: 05/13/19 11:48 Dose: 5 mg Documented by: [id number] Insulin Aspart (Novolog Flexpen) 0 units SC ACHS [facility] Stop: 06/12/19 16:29 Last Admin: 05/13/19 21:47 Dose: Not Given Documented by: [id number] Cosigned by: [id number] Admin: 05/13/19 18:20 Dose: Not Given Documented by: [id number] Cosigned by: [id number] Losartan Potassium (Cozaar) 50 mg PO DAILY [facility] Stop: 06/12/19 09:01 Last Admin: 05/13/19 11:48 Dose: 50 mg Documented by: [id number] Metoprolol Succinate (Toprol Xl) 100 mg PO QPM [facility] Stop: 06/12/19 20:59 Last Admin: 05/13/19 18:26 Dose: 100 mg Documented by: [id number] Polyethylene Glycol (Miralax Powder Packet) 17 gm PO BID [facility] Stop: 06/12/19 10:29 Last Admin: 05/13/19 20:46 Dose: 17 gm Documented by: [id number] Admin: 05/13/19 11:46 Dose: 17 gm Documented by: [id number] Rivaroxaban (Xarelto) 20 mg PO QAM [facility] Stop: 06/12/19 09:01 Last Admin: 05/13/19 11:48 Dose: 20 mg Documented by: [id number] Discontinued Medications Acetaminophen (Tylenol) 1,000 mg PO NOW STA Stop: 05/13/19 06:01 Last Admin: 05/13/19 06:20 Dose: 1,000 mg Documented by: [id number] Fentanyl Citrate (Fentanyl Citrate) 25 mcg IV NOW STA Stop: 05/13/19 06:01 Last Admin: 05/13/19 06:20 Dose: 25 mcg Documented by: [id number] Sodium Chloride (Nss 1000ml) 1,000 mls @ 999 mls/hr IV .Q1H1M ONE Stop: 05/13/19 07:00 Last Infusion: 05/13/19 07:21 Dose: 0 mls/hr Documented by: [id number] Admin: 05/13/19 06:20 Dose: 999 mls/hr Documented by: [id number] Ceftriaxone Sodium (Rocephin) 2,000 mg in 70 mls @ 140 mls/hr IV NOW STA Stop: 05/13/19 07:58 Last Infusion: 05/13/19 08:26 Dose: 0 mls/hr Documented by: [id number] Admin: 05/13/19 07:56 Dose: 140 mls/hr Documented by: [id number] Levofloxacin/Dextrose (Levaquin/D5w) 750 mg in 150 mls @ 100 mls/hr IV NOW STA Stop: 05/13/19 08:58 Last Infusion: 05/13/19 09:19 Dose: 0 mls/hr Documented by: [id number] Infusion: 05/13/19 08:28 Dose: 0 mls/hr Documented by: [id number] Admin: 05/13/19 08:26 Dose: 100 mls/hr Documented by: [id number] Discharge Plan Visit Data *Final* Discharge Date/Time: 05/13/19 08:26 Chief Complaint: Fall Stated Complaint: FALL/WEAK ED Provider: Fran Dai Discharge Problem: Fever, Generalized weakness, Acute low back pain due to trauma, Fall Patient Disposition: Admitted As Inpatient Discharge Instructions Interventions: ED Discharge Assessment Last Done: 05/13/19 08:26 Discharge Problem: Fever Qualifiers: Fever type: unspecified Qualified Code(s): R50.9 - Fever, unspecified Fall Qualifiers: Encounter type: initial encounter Qualified Code(s): W19.XXXA - Unspecified fall, initial encounter
[2019-05-13 06:24] LABS: Basophils # (auto) 0.02 K/uL (0-0.2); Basophils % (auto) 0.2 %; Eosinophils # (auto) 0.48 K/uL (0-0.5); Eosinophils % (auto) 4.6 %; Hematocrit (blood only) 39.3 % (42-52); Hemoglobin 13.1 g/dL (14.0-18.0); Immature Granulocytes # (auto) 0.02 K/uL (0.00-0.02); Immature Granulocytes % (auto) 0.2 %; Lymphocytes # (auto) 0.71 K/uL (1.2-3.4); Lymphocytes % (auto) 6.8 %; Mean Corpuscular Hgb Conc 33.3 g/dL (32-36); Mean Corpuscular Volume 95.9 fL (80-100); Mean Platelet Volume 10.7 fL (7.4-10.4); Monocytes # (auto) 1.05 K/uL (0.11-0.59); Neutrophils # (auto) 8.23 K/uL (1.4-6.5); Neutrophils % (auto) 78.2 %; Platelet Count 168 K/uL (130-400); RDW Coefficient of Variation 12.7 % (11.5-14.5); RDW Standard Deviation 44.3 fL (36.4-46.3); White Blood Count 10.51 K/uL (4.8-10.8)
[2019-05-13 06:40] LABS: INR 1.4 (0.9-1.1); Partial Thromboplastin Ratio 1.1; Partial Thromboplastin Time 31.7 Seconds (21.0-31.0); Prothrombin Time 14.6 Seconds (9.0-12.0)
[2019-05-13 06:42] LABS: BUN Creatinine Ratio 11.8 (10-20); Calcium 9.2 mg/dl (8.5-10.1); Creatinine Clr Calc Pharmacy 88.3 ml/min; Est GFR (African American) 100.3; Est GFR (Non-African American) 86.6; Magnesium 1.9 mg/dl (1.8-2.4); Potassium 3.7 mmol/L (3.5-5.1)
[2019-05-13 06:47] LABS: Troponin I 0.043 ng/ml (0-0.045)
--- NOTE | 2019-05-13 07:00 | CT Scan Report ---
CT head/brain wo con CLINICAL HISTORY: 83 years-old Male with fall, confusion, xarelto use. Acute head injury status post fall TECHNIQUE: Multiple axial CT images of the head were obtained without contrast. A dose lowering tech nique was utilized adhering to the principles of ALARA. COMPARISON: Head CT 11/10/2018, brain MRI 09/29/2016, head CT 09/28/2016 FINDINGS: No acute intracranial hemorrhage, midline shift, intracranial mass, hydrocephalus, territorial ischem ia or abnormal extra-axial collection. Age-related involutional changes with ex vacuo ventriculomegal y. Mild patchy white matter hypodensities suggest chronic microvascular ischemic disease. Cerebral va scular calcifications also noted. 9 mm hypodense focus of the medial left temporal lobe, image 14 ser ies 2 appears unchanged from the 2017 comparison May reflect remote lacunar infarct. The calvarium is intact. Mastoid air cells are clear. Minimal mucosal thickening of the maxillary si nuses and nasal turbinates. Prior bilateral lens replacement. IMPRESSION: No acute intracranial abnormality or calvarial fracture. ACT 112: Negative or not required by law. The above report was generated using voice recognition software. It may contain grammatical, syntax o r spelling errors. Electronically signed by: Gonzalez Lee M.D. 05/13/2019 6:58 AM
[2019-05-13 07:07] LABS: Influenza A virus by PCR Neg for Influ A (Neg); Influenza B virus by PCR Neg for Influ B (Neg)
--- NOTE | 2019-05-13 07:08 | CT Scan Report ---
CT cervical spine wo con CT DOSE: 1910.09 mGy.cm CLINICAL HISTORY: 83 years-old Male with fall, confusion. Acute head and neck injury status post fal l. COMPARISON: Head CT of same day, CTA of the neck 11/10/2018 TECHNIQUE: Multiple axial CT images of the cervical spine were obtained without contrast. A dose low ering technique was utilized adhering to the principles of ALARA. FINDINGS: Demineralized appearance of the bones. Advanced multilevel osteophytosis, bridging at multiple levels . Grade 1 anterolisthesis C7 on T1 of approximately 4 mm is likely secondary to long-standing facet a rthrosis and is unchanged from comparison. Posterior disc osteophyte complex formations are noted at multiple levels, most pronounced at the C4-C5, C5-C6 and C6-C7 levels. Severe multilevel facet arthro bong. Degenerative bony fusion of the left C2-C3 facets. Moderate and advanced multilevel disc space narrowing. Nuchal ligament calcifications. Probable bone islands involve the posterior elements at C 2-C3. Evaluation of the central canal and neuroforamina is better assessed by MRI. Multilevel foramin al narrowing is incidentally noted. No definite high-grade central canal stenosis. No prevertebral soft tissue swelling. Calcified plaque of the carotid bulbs. No pneumothorax identifi ed. IMPRESSION: No acute cervical spine fracture or subluxation. ACT 112: Negative or not required by law. The above report was generated using voice recognition software. It may contain grammatical, syntax o r spelling errors. Electronically signed by: Gonzalez Lee M.D. 05/13/2019 7:07 AM
--- NOTE | 2019-05-13 07:09 | Emergency Department Note ---
ED Visit Note Received patient in signout. History and physical verified by me. Patient is awaiting CAT scan and x-ray results Patient: MELVA POP Admit Date: 05/13/19 MR#: [id number] Address1: [address] [place] [address] Acct ID:[id number] Address2: Date: 1935 [facility] Zip: [place] [address] Age: 83 Location: ED Sex: M Room/Bed: Att Phy: Diagnosis: FALL/WEAK Adelaide Phy: Edy Flanagan MD Service Date: 05/13/19 Fam Phy: Interpreting Phy: Yomi Lee Admit Phy: Ordering Phy: Sarwat Mckinnon M.D. cc: ~ CT head/brain wo con CLINICAL HISTORY: 83 years-old Male with fall, confusion, xarelto use. Acute h ead injury status post fall TECHNIQUE: Multiple axial CT images of the head were obtained without contrast. A dose lowering technique was utilized adhering to the principles of ALARA. COMPARISON: Head CT 11/10/2018, brain MRI 09/29/2016, head CT 09/28/2016 FINDINGS: No acute intracranial hemorrhage, midline shift, intracranial mass, hydrocephalus, territorial ischemia or abnormal extra-axial collection. Age- related involutional changes with ex vacuo ventriculomegaly. Mild patchy white matter hypodensities suggest chronic microvascular ischemic disease. Cerebral vascular calcifications also noted. 9 mm hypodense focus of the medial left temporal lobe, image 14 series 2 appears unchanged from the 2017 comparison May reflect remote lacunar infarct. The calvarium is intact. Mastoid air cells are clear. Minimal mucosal thickening of the maxillary sinuses and nasal turbinates. Prior bilateral lens replacement. IMPRESSION: No acute intracranial abnormality or calvarial fracture. ACT 112: Negative or not required by law. The above report was generated using voice recognition software. It may contain grammatical, syntax or spelling errors. Electronically signed by: Gonzalez Lee M.D. 05/13/2019 6:58 AM Dictated: 05/13/1952 Transcribed: 05/13/19651 [place], [place] [phone] CT Scan Report Patient: MELVA POP Admit Date: 05/13/19 MR#: [id number] Address1: [address] [place] [address] Acct ID:[id number] Address2: Date: 1935 [facility] Zip: [place] [address] Age: 83 Location: ED Sex: M Room/Bed: Att Phy: Diagnosis: FALL/WEAK Adelaide Phy: Edy Flanagan MD Service Date: 05/13/19 Fam Phy: Interpreting Phy: Yomi Lee Admit Phy: Ordering Phy: Sarwat Mckinnon M.D. cc: ~ CT cervical spine wo con CT DOSE: 1910.09 mGy.cm CLINICAL HISTORY: 83 years-old Male with fall, confusion. Acute head and neck injury status post fall. COMPARISON: Head CT of same day, CTA of the neck 11/10/2018 TECHNIQUE: Multiple axial CT images of the cervical spine were obtained without contrast. A dose lowering technique was utilized adhering to the principles of ALARA. FINDINGS: Demineralized appearance of the bones. Advanced multilevel osteophytosis, bridging at multiple levels. Grade 1 anterolisthesis C7 on T1 of approximately 4 mm is likely secondary to long-standing facet arthrosis and is unchanged from comparison. Posterior disc osteophyte complex formations are noted at multiple levels, most pronounced at the C4-C5, C5-C6 and C6-C7 levels. Severe multilevel facet arthropathy. Degenerative bony fusion of the left C2-C3 facets. Moderate and advanced multilevel disc space narrowing. Nuchal ligament calcifications. Probable bone islands involve the posterior elements at C2-C3. Evaluation of the central canal and neuroforamina is better assessed by MRI. Multilevel foraminal narrowing is incidentally noted. No definite high-grade central canal stenosis. No prevertebral soft tissue swelling. Calcified plaque of the carotid bulbs. No pneumothorax identified. IMPRESSION: No acute cervical spine fracture or subluxation. ACT 112: Negative or not required by law. The above report was generated using voice recognition software. It may contain grammatical, syntax or spelling errors. Electronically signed by: Gonzalez Lee M.D. 05/13/2019 7:07 AM Dictated: 05/13/19 07 Transcribed: 05/13/19 [phone] Scan Report Patient: MELVA POP Admit Date: 05/13/19 MR#: [id number] Address1: [address] [place] [address] Acct ID:[id number] Address2: Date: 1935 [facility] Zip: [place] [address] Age: 83 Location: ED Sex: M Room/Bed: Att Phy: Diagnosis: FALL/WEAK Adelaide Phy: Edy Flanagan MD Service Date: 05/13/19 Fam Phy: Interpreting Phy: Yomi Lee Admit Phy: Ordering Phy: Sarwat Mckinnon M.D. cc: ~ CT lumbar spine wo con HISTORY: 83 years-old Male fall, low back pain, difficulty with sitting up acute low back pain status post fall COMPARISON: Lumbar spine radiographs 06/29/2017, CT abdomen pelvis 04/08/2016 TECHNIQUE: Multiple axial CT images of the lumbar spine were obtained without the use of IV contrast. A dose lowering technique was used consistent with the principals of ALARA. FINDINGS: Demineralized appearance of the bones limits evaluation for subtle acute nondisplaced fractures. Remote bilateral L5 pars defects with unchanged 6 mm anterolisthesis L5 on S1. Superior endplate Schmorl's node at T11. Mild superior endplate compression at T12 of less than 20%, new from comparison. 60% anterior endplate compression deformity at L2 with 6 mm retropulsion. Vacuum disc phenomena at T12-L1 is noted with air also present within the compression deformity itself. This fracture is also new from comparison. Schmorl's node/superior endplate compression deformity involving the right aspect of the L2 vertebral body approximately 20%, age-indeterminate however new from comparison. No significant compression deformity at L3. Remote L4 compression deformity. L5 vertebral body height appears intact. The posterior elements also appear intact. Fracture of the transverse processes. Image sacrum and iliac bones appear intact. Evaluation of the central canal and neuroforamina is better evaluated by MRI. Severe central canal stenosis at L2-L3 secondary to discogenic degeneration. At least moderate central canal stenosis at L3-L4 and L4-L5 posterior disc osteophyte complex formations. Multilevel foraminal narrowing. Mild paravertebral edema at T12 and L1 calcified plaque of the abdominal 211 aorta. Bibasilar opacities may reflect atelectasis. Coronary artery calcifications are noted. IMPRESSION: 1. T12, L1 and L2 superior endplate compression deformities are new from the 06/29/2017 exam. Mild paravertebral edema at the T12 and L1 levels however is suggestive of acute or subacute etiology. 6 mm retropulsion at L1 is noted without high-grade central canal stenosis. 2. Remote L4 compression deformity. 3. Remote bilateral L5 pars defects with unchanged grade 1 anterolisthesis L5 on S1. ACT 112: Negative or not required by law. The above report was generated using voice recognition software. It may contain grammatical, syntax or spelling errors. Electronically signed by: Gonzalez Lee M.D. 05/13/2019 7:32 AM Dictated: 05/13/19 07 Transcribed: 05/13/19 07 [place], [place] [phone] XRay Report Patient: MELVA POP Admit Date: 05/13/19 MR#: [id number] Address1: [address] [place] [address] Acct ID:[id number] Address2: Date: 1935 [facility] Zip: [place] [address] Age: 83 Location: ED Sex: M Room/Bed: Att Phy: Diagnosis: FALL/WEAK Adelaide Phy: Edy Flanagan MD Service Date: 05/13/19 Fam Phy: Interpreting Phy: Yomi Lee Admit Phy: Ordering Phy: Sarwat Mckinnon M.D. cc: ~ XR chest 1V portable HISTORY: 83 years-old Male weakness, fall, fever acute chest trauma status post fall with weakness and fever COMPARISON: CT lumbar spine of same day, chest radiograph 11/10/2018. TECHNIQUE: Portable AP view of the chest FINDINGS: Cardiac silhouette is enlarged. Mild bibasilar densities. No pneumothorax, large pleural effusion or overt pulmonary edema. Degenerative changes of the shoulders and spine. IMPRESSION: 1. Cardiomegaly without overt pulmonary edema. 2. Mild bibasilar densities suggest atelectasis versus pneumonitis. ACT 112: Negative or not required by law. The above report was generated using voice recognition software. It may contain grammatical, syntax or spelling errors. Electronically signed by: Gonzalez Lee M.D. 05/13/2019 7:33 AM Dictated: 05/13/19731 Transcribed: 05/13/19731 Because the patient is febrile and has had multiple falls I feel he is a poor candidate to go home. He was started on antibiotics here including Rocephin as well as Levaquin. He is currently being treated for urinary tract infection however his urine appears clear. He has multiple compression fractures to his back. DX:1. Fever 2. fall 3. Pneumonitis 4. Lumbar compression fracture .
[2019-05-13 07:18] LABS: Appearance Urine Clear (Clear); Bilirubin Urine Negative (Negative); Blood Urine Negative (Negative); Color Urine Yellow; Glucose Urine UA Negative (Negative); Ketones Urine Trace (Negative); Leukocyte Esterase Urine Negative (Negative); Nitrite Urine Negative (Negative); Protein Urine Negative (Negative); Specific Gravity Urine 1.017 (1.000-1.030); Urobilinogen Urine Negative (Negative)
[2019-05-13] MEDS ORDERED: cefTRIAXone SODIUM 2,000 MG/70 ML BAG IV STA (07:29)
[2019-05-13] MEDS ORDERED: LEVOFLOXACIN/D5W 750 MG/150 ML BAG IV STA (07:29)
--- NOTE | 2019-05-13 07:33 | CT Scan Report ---
CT lumbar spine wo con HISTORY: 83 years-old Male fall, low back pain, difficulty with sitting up acute low back pain statu s post fall COMPARISON: Lumbar spine radiographs 06/29/2017, CT abdomen pelvis 04/08/2016 TECHNIQUE: Multiple axial CT images of the lumbar spine were obtained without the use of IV contrast. A dose lowering technique was used consistent with the principals of SAVANNAH. FINDINGS: Demineralized appearance of the bones limits evaluation for subtle acute nondisplaced fractures. Ld te bilateral L5 pars defects with unchanged 6 mm anterolisthesis L5 on S1. Superior endplate Schmorl' s node at T11. Mild superior endplate compression at T12 of less than 20%, new from comparison. 60% a nterior endplate compression deformity at L2 with 6 mm retropulsion. Vacuum disc phenomena at T12-L1 is noted with air also present within the compression deformity itself. This fracture is also new fro m comparison. Schmorl's node/superior endplate compression deformity involving the right aspect of th e L2 vertebral body approximately 20%, age-indeterminate however new from comparison. No significant compression deformity at L3. Remote L4 compression deformity. L5 vertebral body height appears intact . The posterior elements also appear intact. Fracture of the transverse processes. Image sacrum and i liac bones appear intact. Evaluation of the central canal and neuroforamina is better evaluated by MR I. Severe central canal stenosis at L2-L3 secondary to discogenic degeneration. At least moderate atif tral canal stenosis at L3-L4 and L4-L5 posterior disc osteophyte complex formations. Multilevel nicci inal narrowing. Mild paravertebral edema at T12 and L1 calcified plaque of the abdominal 211 aorta. Bibasilar opaciti es may reflect atelectasis. Coronary artery calcifications are noted. IMPRESSION: 1. T12, L1 and L2 superior endplate compression deformities are new from the 06/29/2017 exam. Mild para vertebral edema at the T12 and L1 levels however is suggestive of acute or subacute etiology. 6 mm re tropulsion at L1 is noted without high-grade central canal stenosis. 2. Remote L4 compression deformity. 3. Remote bilateral L5 pars defects with unchanged grade 1 anterolisthesis L5 on S1. ACT 112: Negative or not required by law. The above report was generated using voice recognition software. It may contain grammatical, syntax o r spelling errors. Electronically signed by: Gonzalez Lee M.D. 05/13/2019 7:32 AM
--- NOTE | 2019-05-13 07:34 | XRay Report ---
XR chest 1V portable HISTORY: 83 years-old Male weakness, fall, fever acute chest trauma status post fall with weakness a nd fever COMPARISON: CT lumbar spine of same day, chest radiograph 11/10/2018. TECHNIQUE: Portable AP view of the chest FINDINGS: Cardiac silhouette is enlarged. Mild bibasilar densities. No pneumothorax, large pleural effusion or overt pulmonary edema. Degenerative changes of the shoulders and spine. IMPRESSION: 1. Cardiomegaly without overt pulmonary edema. 2. Mild bibasilar densities suggest atelectasis versus pneumonitis. ACT 112: Negative or not required by law. The above report was generated using voice recognition software. It may contain grammatical, syntax o r spelling errors. Electronically signed by: Gonzalez Lee M.D. 05/13/2019 7:33 AM
[2019-05-13] MEDS ORDERED: ONDANSETRON INJ 2 MG/ML 2 ML VIAL IV PRN (09:02)
[2019-05-13] MEDS ORDERED: KETOROLAC TROMETHAMINE 15 MG/ML VIAL IV PRN (10:17)
[2019-05-13] MEDS: POLYETHYLENE (MIRALAX) 17 GM PACK PO SCH ×2 (11:46→20:46)
[2019-05-13] MEDS: DOCUSATE SODIUM 100 MG CAP PO SCH ×2 (11:46→20:46)
[2019-05-13] MEDS: CARBIDOPA/LEVODOPA 25/100MG TAB PO SCH ×3 (11:47→20:46)
[2019-05-13] MEDS: ESCITALOPRAM OXALATE 10 MG TAB PO SCH (11:48)
[2019-05-13] MEDS: FINASTERIDE 5 MG TAB PO SCH (11:48)
[2019-05-13] MEDS: LOSARTAN POTASSIUM 50 MG TAB PO SCH (11:48)
[2019-05-13] MEDS: RIVAROXABAN 20 MG TAB PO SCH (11:48)
--- NOTE | 2019-05-13 12:36 | History & Physical Report ---
Date of Service May 13, 2019 Assessment & Plan (1) Fever: most likely pneumonia, either viral or atypical bacterial no signs of UTI, abdomen is benign on exam will treat with Rocephin and Zithromax repeat chest x-ray tomorrow to look for any other clear infiltrate Tylenol PRN for fever (2) Pneumonia: possible pneumonia, either viral vs atypical bacterial CXR not impressive flu negative, WBC 10k t max was 38.3, had some subjective fevers at [facility] treat with Rocephin and Zithromax follow up blood cultures drawn in the ED (3) Compression fracture of body of thoracic vertebra: pain control, consult PT/OT evaluate any short term needs for rehab (4) Closed compression fracture of body of lumbar vertebra: consult PT/OT, pain control (5) Paroxysmal atrial fibrillation: HR well controlled, continue on Metoprolol 100mg qPM continue Xarelto daily for full anticoagulation (6) Parkinson disease: continue Sinemet TID consult PT/OT (7) Dyslipidemia: managed by diet (8) HTN (hypertension): BP quite elevated, could be pain driving up pressure continue Losartan, Metoprolol (9) Constipation: chronic issue, typically uses Linzess at home if he cannot move his bowels will start on Miralax BID and Colace BID until he moves his bowels encourage oral hydration (10) Diabetes: type II, on Metformin at home will hold, place on Novolog SS, diabetic diet History of Present Illness Chief Complaint: 83 yo male with history of Parkinson's disease, atrial fibrillation on Xarelto who comes to the ED this morning after falling on his concrete patio last evening. He said that he has been feeling more weak, slightly dizzy the past two days. He started with a fever last night but really had no other symptoms. He denied dyspnea, cough, chest pain. No abdominal pain, no nausea, no diarrhea. No dysuria. He has chronic constipation with his Parkinson's disease. He was just seen by his neurologist in February, Dr. Aburto, and he was doing well with Parkinson's management. He reports that he was walking and lost his balance, fell on his buttocks and then his backside. He had increased pain in his back and difficulty ambulating so he was brought to the ED. In the ED he had a fever of 38.3 and was given Tylenol. WBC was normal. INR up at 1.4 but he takes Xarelto every morning. BMP showed normal BUN/Cr and normal electrolytes. CXR showed some atelectasis, possible pneumonitis in bases, no obvious infiltrates. UA showed no signs of infection. CT lumbar spine shows new T12, L1, L2 compression fractures, 6mm of disc propulsion with no significant stenosis. He was given IV fluids, Rocephin, Fentanyl in the ED. Placed on droplet precautions due to fever, influenza negative. Asked him about sick contacts, no one in his family is sick. Asked about recent travel, he has not left his home. 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 He again confirms that his and son have felt fine the past two weeks. So he has no known exposure to anyone with COVID 19. Again, all he had was a fever, no cough, no shortness of breath, no concerning signs on chest x- ray so COVID 19 testing was not indicated Once on the floor the patient was doing well, ambulated to the bathroom by himself, minimal pain. Primary Care Provider: Edy Flanagan MD Allergies Allergy/AdvReac Type Severity Reaction Status Date / Time Penicillins Allergy Intermediate SKIN RASH Verified 05/13/19 06:11 Home Medications Home Medications Medication Instructions Recorded Confirmed Type Xarelto 20 mg PO QAM 08/22/18 05/13/19 History finasteride 5 mg PO QAM 08/22/18 05/13/19 History losartan 50 mg PO DAILY 08/22/18 05/13/19 History metformin 500 mg PO BID 08/22/18 05/13/19 History metoprolol succinate 100 mg PO QPM 08/22/18 05/13/19 History carbidopa 25 mg-levodopa 100 mg 2 tab PO TID #180 tab 03/21/19 05/13/19 Rx tablet escitalopram oxalate 10 mg tablet 10 mg PO DAILY 03/21/19 05/13/19 History Past Med/Surg History Social History Preferred Language: Slovenian Communication Ability: Effective Cloth Layer Required: No Beliefs That Will Affect Care: None Current Living Situation: Spouse Current Living Situation Comment: SON WITH HIGH 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 Other Information That Helps Us Care for You: No Feels Safe at Home: Yes Safety Concerns: Feels Safe At This Time Smoking Status: Current some day smoker Tobacco Type: pipe ; Second Hand Exposure: No ; Hx Alcohol Use: Yes Alcohol type: beer and hard liquor Hx Substance Use: No Review of Systems Review of Systems: All systems reviewed & are unremarkable except as noted in HPI & below Constitutional: + fever and + weakness; no chills, no sweats and no fatigue Ear, Nose, Mouth, Throat: + dizziness; no nasal congestion and no sinus pain/pressure Respiratory: no cough, no dyspnea, no dyspnea on exertion and no sputum production Cardiovascular: no chest pain and no edema Gastrointestinal: + constipation; no abdominal pain, no nausea, no vomiting and no diarrhea/loose stools Genitourinary: no dysuria, no difficulty urinating and no urinary frequency Musculoskeletal: + back pain and + muscle weakness; no joint pain and no stiffness Physical Exam Constitutional: WD/WN, vitals as above + diaphoretic (mild) and + overweight Eyes: PERRL, conjunctivae normal, anicteric sclerae ENMT: external ear and nose normal, oropharynx normal Neck: trachea midline, no thyromegaly Respiratory: normal respiratory effort, lungs clear to auscultation (decreased breath sounds in the bases) Cardiovascular: Rate/Rhythm: regular rate and + irregularly irregular Heart Sounds: normal S1 and normal S2; no murmur Vessels: no JVD Extremities: normal capillary refill; no edema Gastrointestinal (Abdomen): normal bowel sounds, soft, nontender, no hepatosplenomegaly Musculoskeletal: Head/Neck/Chest: normocephalic and head atraumatic Spine: + thoracic spinal tenderness, + lumbar spinal tenderness and + paraspinal tenderness Extremities: extremities normal to inspection and strength 5/5 throughout Skin: no rashes, warm and dry Neurologic: patellar DTR's 2+ bilat, sensation intact and PERRL, EOMI, accommodation nl, no face palsy, no dysarthria Psychiatric: A+Ox3, euthymic affect Lymphatic: no cervical or axillary lymphadenopathy Results & Data Vital Signs (Past 12 Hours) Vital Signs Temp Pulse Pulse Pulse Resp BP BP 05/13/19 11:43 36.5 C 74 18 174/85 H 05/13/19 09:02 05/13/19 08:50 36.8 C 80 30 H 162/73 H 05/13/19 08:26 84 30 H 160/80 H 05/13/19 08:00 37.5 C 86 32 H 160/80 H 05/13/19 07:30 81 32 H 152/81 H 05/13/19 07:00 90 35 H 185/92 H 05/13/19 06:45 37.9 C H 87 18 173/91 H 05/13/19 06:19 05/13/19 05:50 38.3 C H 90 18 195/110 H Pulse Ox 05/13/19 11:43 92 05/13/19 09:02 92 05/13/19 08:50 88 L 05/13/19 08:26 93 05/13/19 08:00 92 05/13/19 07:30 98 05/13/19 07:00 96 05/13/19 06:45 97 05/13/19 06:19 88 L 05/13/19 05:50 95 Laboratory Results Laboratory Results - last 24 hr 05/13/19 05/13/19 05/13/19 06:05 06:14 06:14 WBC RBC Hgb Hct MCV MCH MCHC RDW Std Deviation RDW Coeff of Jeremiah Plt Count MPV Immature Gran % (Auto) Neut % (Auto) Lymph % (Auto) Wheeler % (Auto) Eos % (Auto) Baso % (Auto) Immature Gran # (Auto) Neut # (Auto) Lymph # (Auto) Wheeler # (Auto) Eos # (Auto) Baso # (Auto) PT 14.6 H INR 1.4 H APTT 31.7 H PTT Ratio 1.1 Sodium Potassium Chloride Carbon Dioxide Anion Gap BUN Creatinine Est Cr Clr Drug Dosing Est GFR ( Amer) Est GFR (Non-Af Amer) BUN/Creatinine Ratio Glucose POC Glucose Lactate 1.6 Calcium Magnesium Troponin I Urine Color Urine Appearance Urine pH Ur Specific Vonore Urine Protein Urine Glucose (UA) Urine Ketones Urine Blood Urine Nitrite Urine Bilirubin Urine Urobilinogen Ur Leukocyte Esterase Influenza Type A (PCR) Neg for Influ A Influenza Type B (PCR) Neg for Influ B 05/13/19 05/13/19 05/13/19 06:14 06:14 07:00 WBC 10.51 RBC 4.10 L Hgb 13.1 L Hct 39.3 L MCV 95.9 MCH 32.0 MCHC 33.3 RDW Std Deviation 44.3 RDW Coeff of Jeremiah 12.7 Plt Count 168 MPV 10.7 H Immature Gran % (Auto) 0.2 Neut % (Auto) 78.2 Lymph % (Auto) 6.8 Wheeler % (Auto) 10.0 Eos % (Auto) 4.6 Baso % (Auto) 0.2 Immature Gran # (Auto) 0.02 Neut # (Auto) 8.23 H Lymph # (Auto) 0.71 L Wheeler # (Auto) 1.05 H Eos # (Auto) 0.48 Baso # (Auto) 0.02 PT INR APTT PTT Ratio Sodium 136 Potassium 3.7 Chloride 105 Carbon Dioxide 25 Anion Gap 6.0 BUN 8 Creatinine 0.69 Est Cr Clr Drug Dosing 88.3 Est GFR ( Amer) 100.3 Est GFR (Non-Af Amer) 86.6 BUN/Creatinine Ratio 11.8 Glucose 153 H POC Glucose Lactate Calcium 9.2 Magnesium 1.9 Troponin I 0.043 Urine Color Yellow Urine Appearance Clear Urine pH 7.0 Ur Specific [place] 1.017 Urine Protein Negative Urine Glucose (UA) Negative Urine Ketones Trace H Urine Blood Negative Urine Nitrite Negative Urine Bilirubin Negative Urine Urobilinogen Negative Ur Leukocyte Esterase Negative Influenza Type A (PCR) Influenza Type B (PCR) 05/13/19 11:37 WBC RBC Hgb Hct MCV MCH MCHC RDW Std Deviation RDW Coeff of Jeremiah Plt Count MPV Immature Gran % (Auto) Neut % (Auto) Lymph % (Auto) Wheeler % (Auto) Eos % (Auto) Baso % (Auto) Immature Gran # (Auto) Neut # (Auto) Lymph # (Auto) Wheeler # (Auto) Eos # (Auto) Baso # (Auto) PT INR APTT PTT Ratio Sodium Potassium Chloride Carbon Dioxide Anion Gap BUN Creatinine Est Cr Clr Drug Dosing Est GFR ( Amer) Est GFR (Non-Af Amer) BUN/Creatinine Ratio Glucose POC Glucose 140 H Lactate Calcium Magnesium Troponin I Urine Color Urine Appearance Urine pH Ur Specific [place] Urine Protein Urine Glucose (UA) Urine Ketones Urine Blood Urine Nitrite Urine Bilirubin Urine Urobilinogen Ur Leukocyte Esterase Influenza Type A (PCR) Influenza Type B (PCR) Diagnostic Findings CT lumbar spine IMPRESSION: 1. T12, L1 and L2 superior endplate compression deformities are new from the 06/29/2017 exam. Mild paravertebral edema at the T12 and L1 levels however is suggestive of acute or subacute etiology. 6 mm retropulsion at L1 is noted without high-grade central canal stenosis. 2. Remote L4 compression deformity. 3. Remote bilateral L5 pars defects with unchanged grade 1 anterolisthesis L5 on S1. XR chest 1V portable FINDINGS: Cardiac silhouette is enlarged. Mild bibasilar densities. No pneumothorax, large pleural effusion or overt pulmonary edema. Degenerative changes of the shoulders and spine. IMPRESSION: 1. Cardiomegaly without overt pulmonary edema. 2. Mild bibasilar densities suggest atelectasis versus pneumonitis. CT head/brain wo con IMPRESSION: No acute intracranial abnormality or calvarial fracture. CT cervical spine IMPRESSION: No acute cervical spine fracture or subluxation. Code Status & VTE Plan VTE Prophylaxis Plan VTE Prophylaxis will be ordered: Yes PG Care Time/CCT Total # of Minutes Spent Total Time Spent with Patient: Total time spent is greater than 50% in coordination of care (as documented) at patient's floor/unit and/or counseling patient: Coding Level of Care Code 83212 Initial Inpt Care Lvl 3 Diagnoses Fever R50.9 Pneumonia J18.9 Compression fracture of body of thoracic vertebra S22.000A Closed compression fracture of body of lumbar vertebra S32.000A Paroxysmal atrial fibrillation I48.0 Parkinson disease G20 Dyslipidemia E78.5 HTN (hypertension) I10 Constipation K59.00 Diabetes E11.9
[2019-05-13] MEDS: INSULIN ASPART 100 UNITS/ML 3 ML PEN SC SCH ×2 (18:20→21:47)
[2019-05-13] MEDS: METOPROLOL SUCC 50MG EXT REL TAB PO SCH (18:26)
--- NOTE | 2019-05-13 18:30 | Electrocardiogram Report ---
Test Reason : Blood Pressure : / mmHG Vent. Rate : 087 BPM Atrial Rate : 087 BPM P-R Int : 162 ms QRS Dur : 104 ms QT Int : 372 ms P-R-T Axes : 084 -43 070 degrees QTc Int : 447 ms Sinus rhythm with Premature atrial complexes Left axis deviation Pulmonary disease pattern Nonspecific ST abnormality Abnormal ECG When compared with ECG of 10-NOV-2018 16:12, Premature atrial complexes are now Present T wave inversion no longer evident in Inferior leads Confirmed by Byron Parra ([id number]) on 05/13/2019 6:29:33 PM Referred By: REFERRED SELF Confirmed By:Valentín Parra
[2019-05-13] MEDS: ACETAMINOPHEN 325 MG TAB PO PRN (19:29)
[2019-05-14 05:54] LABS: Hematocrit (blood only) 38.8 % (42-52); Hemoglobin 12.9 g/dL (14.0-18.0); Mean Corpuscular Hemoglobin 32.3 pg (25-34); Mean Corpuscular Hgb Conc 33.2 g/dL (32-36); Mean Platelet Volume 11.2 fL (7.4-10.4); Platelet Count 154 K/uL (130-400); RDW Coefficient of Variation 12.8 % (11.5-14.5); White Blood Count 7.99 K/uL (4.8-10.8)
[2019-05-14 06:15] LABS: BUN Creatinine Ratio 12.9 (10-20); Calcium 9.3 mg/dl (8.5-10.1); Creatinine Clr Calc Pharmacy 98.2 ml/min; Est GFR (African American) 104.8; Est GFR (Non-African American) 90.5; Potassium 3.6 mmol/L (3.5-5.1)
[2019-05-14] MEDS: POLYETHYLENE (MIRALAX) 17 GM PACK PO SCH ×2 (07:36→20:34)
[2019-05-14] MEDS: CARBIDOPA/LEVODOPA 25/100MG TAB PO SCH ×3 (07:37→20:35)
[2019-05-14] MEDS: RIVAROXABAN 20 MG TAB PO SCH (07:37)
[2019-05-14] MEDS: LOSARTAN POTASSIUM 50 MG TAB PO SCH (07:37)
[2019-05-14] MEDS: ESCITALOPRAM OXALATE 10 MG TAB PO SCH (07:37)
[2019-05-14] MEDS: DOCUSATE SODIUM 100 MG CAP PO SCH ×2 (07:37→20:34)
[2019-05-14] MEDS: FINASTERIDE 5 MG TAB PO SCH (07:37)
[2019-05-14] MEDS: cefTRIAXone SODIUM 2,000 MG in DEXTROSE 5% 50 ML IV SCH (07:47)
[2019-05-14] MEDS: INSULIN ASPART 100 UNITS/ML 3 ML PEN SC SCH ×4 (08:00→21:33)
[2019-05-14] MEDS ORDERED: AZITHROMYCIN 250 MG TAB PO SCH (09:00)
--- NOTE | 2019-05-14 09:45 | XRay Report ---
XR chest 2V PA/lateral HISTORY: Fever. Possible pneumonia COMPARISON: Chest 05/13/2019. FINDINGS: No pneumothorax. No pleural effusions. The heart remains mildly enlarged. The upper lung zo renard remain clear. No evidence for pulmonary edema. A few bibasilar linear densities suggesting subseg mental atelectasis or scarring. Overall improved aeration within the lung bases. No new focal lung co nsolidations. No evidence for pulmonary edema. IMPRESSION: Improved aeration within the lung bases with a few linear bibasilar densities remaining suggestive of atelectasis. ACT 112: Negative or not required by law. Electronically signed by: Juan Roberto M.D. 05/14/2019 9:44 AM
[2019-05-14 15:21] LABS: Adenovirus PCR Not Detected (NotDetected); Bordetella parapertussis PCR Not Detected (NotDetected); Bordetella pertussis PCR Not Detected (NotDetected); Chlamydia pneumoniae PCR Not Detected (NotDetected); Coronavirus 229E PCR Not Detected (NotDetected); Coronavirus HKU1 PCR Not Detected (NotDetected); Coronavirus NL63 PCR Not Detected (NotDetected); Coronavirus OC43PCR Not Detected (NotDetected); Human Metapneumovirus PCR Not Detected (NotDetected); Influenza A PCR Not Detected (NotDetected); Influenza B PCR Not Detected (NotDetected); Mycoplasma pneumoniae PCR Not Detected (NotDetected); Parainfluenza Virus 1 PCR Not Detected (NotDetected); Parainfluenza Virus 2 PCR Not Detected (NotDetected); Parainfluenza Virus 3 PCR Not Detected (NotDetected); Parainfluenza Virus 4 PCR Not Detected (NotDetected); Respiratory Syncytial VirusPCR Not Detected (NotDetected); Rhinovirus/Enterovirus PCR Not Detected (NotDetected)
--- NOTE | 2019-05-14 15:27 | Hospitalist Progress Note ---
Date of Service May 14, 2019 Assessment & Plan (1) Fever: Presented with fever and weakness causing a fall Initial chest x-ray with bibasilar possible pneumonitis versus atelectasis-fever is most likely pneumonia, either viral or atypical bacterial His and son did return from [facility] about 2 weeks ago where there is a hot bed of CoVid-19 although they have no symptoms at this time-however, could be asymptomatic carriers Repeat chest x-ray on 05/13 without infiltrate Blood cultures remain no growth to date Flu swab is negative WBC count at 10.5 on admission and is now down to 7.9 Procalcitonin borderline at 0.14 no signs of UTI, abdomen is benign on exam -Checked rapid viral panel-negative -Check CoVid-19 PCR and placed on appropriate airborne precautions today -Continue to treat for community-acquired pneumonia with Rocephin and Zithromax -Tylenol PRN for fever -Follow blood cultures (2) Pneumonia: As above (3) Compression fracture of body of thoracic vertebra: With acute compression fractures of T12, L1, and L2, with 6 mm of retropulsion without any high-grade stenosis at the L1 level He has a history of left-sided sciatica pain but this is not worsened today. Still with pain with movement but was able to ambulate. He has 5 out of 5 strength and no sensory deficits in lower extremities, no bowel or bladder symptoms or saddle anesthesia -Continue pain control with acetaminophen, Toradol PRN, -Will consult orthopedic spine surgeon to see if there is any further management from a surgical standpoint -Consult PT/OT to evaluate any short term needs for rehab (4) Closed compression fracture of body of lumbar vertebra: As above (5) Paroxysmal atrial fibrillation: In sinus rhythm here with frequent PACs -Continue metoprolol 100mg qPM -Continue Xarelto daily for full anticoagulation -Continue telemetry monitoring (6) Parkinson disease: continue Sinemet TID consult PT/OT (7) Dyslipidemia: managed by diet (8) HTN (hypertension): BP continues to be quite elevated, could be pain driving up pressure continue Losartan, Metoprolol -Continue IV hydralazine as needed -Continue pain control -Consider adding on p.o. amlodipine if remains elevated tomorrow (9) Constipation: chronic issue, typically uses Linzess at home if he cannot move his bowels -Continue Miralax BID and Colace BID until he moves his bowels encourage oral hydration (10) Diabetes: type II, on Metformin at home will hold, place on Novolog SS, diabetic diet Admission and Anticipated Discharge Date Admission Date: May 13, 2019 Anticipated date of discharge: 05/16/19 Subjective Patient feeling better today. Denies cough or shortness of breath, no chest pain. No fever since yesterday morning. He only has pain in his lower back when he moves, but not at rest. He was able to ambulate the halls today. He denies numbness or tingling in the legs, he has chronic nocturia but no issues with bowel or urinary incontinence. He occasionally gets radiating pain from the left buttocks down the left lower extremity. He was weaned off oxygen this morning but remains at 90 to 92% on room air at rest. Telemetry with normal sinus rhythm, PACs, rates in the 60s to 70s. Review of Systems Review of Systems: All systems reviewed & are unremarkable except as noted in HPI & below Physical Exam Constitutional: WD/WN, vitals as above Eyes: PERRL, conjunctivae normal, anicteric sclerae ENMT: external ear and nose normal, oropharynx normal Neck: trachea midline, no thyromegaly Respiratory: normal respiratory effort Auscultation: + crackles (At the bases bilaterally); no rhonchi and no wheezes Cardiovascular: RRR, no murmur, no edema Chest (Breasts): Chest: normal inspection of chest Gastrointestinal (Abdomen): normal bowel sounds, soft, nontender, no hepatosplenomegaly Musculoskeletal: Extremities: extremities normal to inspection; no cyanosis and no clubbing 5/5 strength in the lower extremities throughout, sensation intact to light touch in bilateral lower extremities throughout, DTRs 1+ throughout lower extremities Skin: no rashes, warm and dry Neurologic: moves all extremities and awake; no focal motor deficits Psychiatric: A+Ox3, euthymic affect Lymphatic: no lymphedema Results & Data ([facility]) Vital Signs (Past 12 Hours) Vital Signs Temp Pulse Resp BP BP Pulse Ox Pulse Ox 05/14/19 11:16 37.4 C 68 20 171/75 H 90 05/14/19 09:41 91 05/14/19 07:43 36.7 C 70 20 174/89 H 93 03/23/20 03:40 36.5 C 73 20 159/74 H 92 Pulse Ox Pulse Ox 05/14/19 11:16 05/14/19 09:41 92 88 L 05/14/19 07:43 05/14/19 03:40 Laboratory Results 05/14/19 05/14/19 05/14/19 Range/Units 20:40 16:42 14:15 WBC (4.8-10.8) K/uL RBC (4.7-6.1) M/uL Hgb (14.0-18.0) g/dL Hct (42-52) % MCV (80-100) fL MCH (25-34) pg MCHC (32-36) g/dL RDW Std Deviation (36.4-46.3) fL RDW Coeff of Jeremiah (11.5-14.5) % Plt Count (130-400) K/uL MPV (7.4-10.4) fL Sodium (136-145) mmol/L Potassium (3.5-5.1) mmol/L Chloride (98-107) mmol/L Carbon Dioxide (21-32) mmol/L Anion Gap (3-11) BUN (7-18) mg/dl Creatinine (0.6-1.4) mg/dl Est Cr Clr Drug Dosing ml/min Est GFR ( Amer) Est GFR (Non-Af Amer) BUN/Creatinine Ratio (10-20) Glucose (70-99) mg/dl POC Glucose 116 H 101 H (70-99) mg/dl Calcium (8.5-10.1) mg/dl Procalcitonin (0-0.5) ng/ml Adenovirus (PCR) (NotDetected) B. pertussis DNA (PCR) (NotDetected) B.parapertussis DNA PCR (NotDetected) C. pneumoniae DNA (PCR) (NotDetected) Coronavirus (PCR) Pending Coronavirus OC43 (PCR) (NotDetected) Coronavirus HKU1 (PCR) (NotDetected) Coronavirus 229E (PCR) (NotDetected) COVID-19 Pt Symptomatic Pending COVID-19 Source Pending Coronavirus NL63 (PCR) (NotDetected) Human Metapneumovir PCR (NotDetected) Influenza Type A (PCR) (NotDetected) Influenza Type B (PCR) (NotDetected) M. pneumoniae (PCR) (NotDetected) Parainfluenza 1 (PCR) (NotDetected) Parainfluenza 2 (PCR) (NotDetected) Parainfluenza 3 (PCR) (NotDetected) Parainfluenza 4 (PCR) (NotDetected) RSV (PCR) (NotDetected) Entero/Rhino (PCR) (NotDetected) SARS Virus RNA (PCR) Pending SARS-CoV-2 RNA (RT-PCR) Pending 05/14/19 05/14/19 05/14/19 Range/Units 14:15 12:30 11:33 WBC (4.8-10.8) K/uL RBC (4.7-6.1) M/uL Hgb (14.0-18.0) g/dL Hct (42-52) % MCV (80-100) fL MCH (25-34) pg MCHC (32-36) g/dL RDW Std Deviation (36.4-46.3) fL RDW Coeff of Jeremiah (11.5-14.5) % Plt Count (130-400) K/uL MPV (7.4-10.4) fL Sodium (136-145) mmol/L Potassium (3.5-5.1) mmol/L Chloride (98-107) mmol/L Carbon Dioxide (21-32) mmol/L Anion Gap (3-11) BUN (7-18) mg/dl Creatinine (0.6-1.4) mg/dl Est Cr Clr Drug Dosing ml/min Est GFR ( Amer) Est GFR (Non-Af Amer) BUN/Creatinine Ratio (10-20) Glucose (70-99) mg/dl POC Glucose 133 H (70-99) mg/dl Calcium (8.5-10.1) mg/dl Procalcitonin 0.14 (0-0.5) ng/ml Adenovirus (PCR) Not Detected (NotDetected) B. pertussis DNA (PCR) Not Detected (NotDetected) B.parapertussis DNA PCR Not Detected (NotDetected) C. pneumoniae DNA (PCR) Not Detected (NotDetected) Coronavirus (PCR) Coronavirus OC43 (PCR) Not Detected (NotDetected) Coronavirus HKU1 (PCR) Not Detected (NotDetected) Coronavirus 229E (PCR) Not Detected (NotDetected) COVID-19 Pt Symptomatic COVID-19 Source Coronavirus NL63 (PCR) Not Detected (NotDetected) Human Metapneumovir PCR Not Detected (NotDetected) Influenza Type A (PCR) Not Detected (NotDetected) Influenza Type B (PCR) Not Detected (NotDetected) M. pneumoniae (PCR) Not Detected (NotDetected) Parainfluenza 1 (PCR) Not Detected (NotDetected) Parainfluenza 2 (PCR) Not Detected (NotDetected) Parainfluenza 3 (PCR) Not Detected (NotDetected) Parainfluenza 4 (PCR) Not Detected (NotDetected) RSV (PCR) Not Detected (NotDetected) Entero/Rhino (PCR) Not Detected (NotDetected) SARS Virus RNA (PCR) SARS-CoV-2 RNA (RT-PCR) 05/14/19 05/14/19 05/14/19 Range/Units 07:43 05:30 05:30 WBC 7.99 (4.8-10.8) K/uL RBC 4.00 L (4.7-6.1) M/uL Hgb 12.9 L (14.0-18.0) g/dL Hct 38.8 L (42-52) % MCV 97.0 (80-100) fL MCH 32.3 (25-34) pg MCHC 33.2 (32-36) g/dL RDW Std Deviation 45.0 (36.4-46.3) fL RDW Coeff of Jeremiah 12.8 (11.5-14.5) % Plt Count 154 (130-400) K/uL MPV 11.2 H (7.4-10.4) fL Sodium 137 (136-145) mmol/L Potassium 3.6 (3.5-5.1) mmol/L Chloride 104 (98-107) mmol/L Carbon Dioxide 27 (21-32) mmol/L Anion Gap 6.0 (3-11) BUN 8 (7-18) mg/dl Creatinine 0.62 (0.6-1.4) mg/dl Est Cr Clr Drug Dosing 98.2 ml/min Est GFR ( Amer) 104.8 Est GFR (Non-Af Amer) 90.5 BUN/Creatinine Ratio 12.9 (10-20) Glucose 127 H (70-99) mg/dl POC Glucose 115 H (70-99) mg/dl Calcium 9.3 (8.5-10.1) mg/dl Procalcitonin (0-0.5) ng/ml Adenovirus (PCR) (NotDetected) B. pertussis DNA (PCR) (NotDetected) B.parapertussis DNA PCR (NotDetected) C. pneumoniae DNA (PCR) (NotDetected) Coronavirus (PCR) Coronavirus OC43 (PCR) (NotDetected) Coronavirus HKU1 (PCR) (NotDetected) Coronavirus 229E (PCR) (NotDetected) COVID-19 Pt Symptomatic COVID-19 Source Coronavirus NL63 (PCR) (NotDetected) Human Metapneumovir PCR (NotDetected) Influenza Type A (PCR) (NotDetected) Influenza Type B (PCR) (NotDetected) M. pneumoniae (PCR) (NotDetected) Parainfluenza 1 (PCR) (NotDetected) Parainfluenza 2 (PCR) (NotDetected) Parainfluenza 3 (PCR) (NotDetected) Parainfluenza 4 (PCR) (NotDetected) RSV (PCR) (NotDetected) Entero/Rhino (PCR) (NotDetected) SARS Virus RNA (PCR) SARS-CoV-2 RNA (RT-PCR) Diagnostic Findings Chest x-ray image on 05/13 personally reviewed by me and agree with the following report: XR chest 2V PA/lateral HISTORY: Fever. Possible pneumonia COMPARISON: Chest 05/13/2019. FINDINGS: No pneumothorax. No pleural effusions. The heart remains mildly enlarged. The upper lung zones remain clear. No evidence for pulmonary edema. A few bibasilar linear densities suggesting subsegmental atelectasis or scarring. Overall improved aeration within the lung bases. No new focal lung consolidations. No evidence for pulmonary edema. IMPRESSION: Improved aeration within the lung bases with a few linear bibasilar densities remaining suggestive of atelectasis. PG Care Time/CCT Total # of Minutes Spent Total Time Spent with Patient: Total time spent is greater than 50% in coordination of care (as documented) at patient's floor/unit and/or counseling patient: Coding Level of Care Code 46071 Subseq Hosp Care Lvl 3 Diagnoses Fever R50.9 Pneumonia J18.9 Compression fracture of body of thoracic vertebra S22.000A Closed compression fracture of body of lumbar vertebra S32.000A Paroxysmal atrial fibrillation I48.0 Parkinson disease G20 Dyslipidemia E78.5 HTN (hypertension) I10 Constipation K59.00 Diabetes E11.9
[2019-05-14] MEDS: ACETAMINOPHEN 325 MG TAB PO PRN (16:38)
[2019-05-14] MEDS: METOPROLOL SUCC 50MG EXT REL TAB PO SCH (20:35)
[2019-05-14] MEDS: HydrALAZINE HCL 20 MG/ML VIAL IV PRN (20:42)
[2019-05-15] MEDS: ACETAMINOPHEN 325 MG TAB PO PRN ×3 (03:42→22:19)
[2019-05-15] MEDS: HydrALAZINE HCL 20 MG/ML VIAL IV PRN (06:30)
[2019-05-15 06:38] LABS: Basophils # (auto) 0.02 K/uL (0-0.2); Basophils % (auto) 0.3 %; Eosinophils # (auto) 0.53 K/uL (0-0.5); Eosinophils % (auto) 7.4 %; Hematocrit (blood only) 36.8 % (42-52); Hemoglobin 12.2 g/dL (14.0-18.0); Immature Granulocytes # (auto) 0.02 K/uL (0.00-0.02); Immature Granulocytes % (auto) 0.3 %; Lymphocytes # (auto) 1.06 K/uL (1.2-3.4); Lymphocytes % (auto) 14.8 %; Mean Corpuscular Hemoglobin 31.7 pg (25-34); Mean Corpuscular Hgb Conc 33.2 g/dL (32-36); Mean Corpuscular Volume 95.6 fL (80-100); Mean Platelet Volume 10.5 fL (7.4-10.4); Monocytes # (auto) 0.97 K/uL (0.11-0.59); Monocytes % (auto) 13.5 %; Neutrophils # (auto) 4.56 K/uL (1.4-6.5); Neutrophils % (auto) 63.7 %; Platelet Count 147 K/uL (130-400); RDW Coefficient of Variation 12.7 % (11.5-14.5); RDW Standard Deviation 44.1 fL (36.4-46.3); Red Blood Count 3.85 M/uL (4.7-6.1); White Blood Count 7.16 K/uL (4.8-10.8)
[2019-05-15 07:14] LABS: Albumin Level 3.1 gm/dl (3.4-5.0); BUN Creatinine Ratio 18.4 (10-20); Bilirubin Direct 0.1 mg/dl (0-0.2); Calcium 9.2 mg/dl (8.5-10.1); Creatinine Clr Calc Pharmacy 104.6 ml/min; Est GFR (African American) 108.5; Est GFR (Non-African American) 93.6; Magnesium 2.3 mg/dl (1.8-2.4); Potassium 3.5 mmol/L (3.5-5.1)
[2019-05-15 07:16] LABS: Bilirubin,Total 0.8 mg/dl (0.2-1); Total Protein 6.3 gm/dl (6.4-8.2)
[2019-05-15] MEDS: AZITHROMYCIN 250 MG TAB PO SCH (07:41)
[2019-05-15] MEDS: CARBIDOPA/LEVODOPA 25/100MG TAB PO SCH ×3 (07:41→20:34)
[2019-05-15] MEDS: LOSARTAN POTASSIUM 50 MG TAB PO SCH (07:41)
[2019-05-15] MEDS: FINASTERIDE 5 MG TAB PO SCH (07:41)
[2019-05-15] MEDS: RIVAROXABAN 20 MG TAB PO SCH (07:42)
[2019-05-15] MEDS: POLYETHYLENE (MIRALAX) 17 GM PACK PO SCH ×2 (07:42→20:34)
[2019-05-15] MEDS: DOCUSATE SODIUM 100 MG CAP PO SCH ×2 (07:42→20:34)
[2019-05-15] MEDS: ESCITALOPRAM OXALATE 10 MG TAB PO SCH (07:42)
[2019-05-15] MEDS: cefTRIAXone SODIUM 2,000 MG in DEXTROSE 5% 50 ML IV SCH (07:59)
[2019-05-15] MEDS: INSULIN ASPART 100 UNITS/ML 3 ML PEN SC SCH ×4 (08:27→20:50)
[2019-05-15] MEDS ORDERED: LOSARTAN POTASSIUM 50 MG TAB PO ONE (09:17)
[2019-05-15 10:17] LABS: Estimated Average Glucose 123 mg/dl; Hemoglobin A1C 5.9 % (4.5-5.6)
--- NOTE | 2019-05-15 17:20 | Hospitalist Progress Note ---
Date of Service May 15, 2019 Assessment & Plan (1) Fever: Presented with fever, hypoxia, and weakness causing a fall Initial chest x-ray with bibasilar possible pneumonitis versus atelectasis-fever is most likely 2/2 pneumonia, either viral or atypical bacterial His and son did return from [facility] about 2 weeks ago where there is a hot bed of CoVid-19 does report to me that she had sinus congestion, ear pressure, sore throat, and rhinorrhea on her return trip home and pt's son reports he had acute onset of significant malaise on the same day patient became ill, but he has since improved Repeat chest x-ray on 05/13 without infiltrate Blood cultures remain no growth to date Flu swab is negative Rapid viral panel negative WBC count at 10.5 on admission and is now down to 7 Procalcitonin borderline at 0.14 and now 0.13 no signs of UTI, abdomen is benign on exam Hypoxia and fevers now both resolved, feeling better -Checked CoVid-19 PCR and placed on appropriate airborne precautions --> awaiting result -Continue to treat for community-acquired pneumonia with Rocephin and Zithromax to finish out 7 and 5 day courses, respectively -Tylenol PRN for fever -Follow blood cultures (2) Pneumonia: As above (3) Compression fracture of body of thoracic vertebra: With acute compression fractures of T12, L1, and L2, with 6 mm of retropulsion without any high-grade stenosis at the L1 level He has a history of left-sided sciatica pain but this is not worsened today. 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 If pain persists, could consider kyphoplasty at that time -Consult PT/OT appreciated--> plans for home w/ home PT/OT (4) Closed compression fracture of body of lumbar vertebra: As above (5) Paroxysmal atrial fibrillation: In sinus rhythm here with frequent PACs -Continue metoprolol 100mg qPM -Continue Xarelto daily for full anticoagulation -Continue telemetry monitoring (6) Parkinson disease: continue Sinemet TID consult PT/OT (7) Dyslipidemia: managed by diet (8) HTN (hypertension): BP continues to be quite elevated, could be pain driving up pressure continue Losartan and increase dose to 100mg daily -continue Metoprolol -Continue IV hydralazine as needed -Continue pain control (9) Constipation: chronic issue, typically uses Linzess at home if he cannot move his bowels Now has had 4 VMs on 05/14 -Continue Miralax BID and Colace BID encourage oral hydration (10) Diabetes: type II, on Metformin at home -continue to hold metformin HgbA1C here very well controlled at 5.9% -continue on Novolog SS, diabetic diet Admission and Anticipated Discharge Date Admission Date: May 13, 2019 Anticipated date of discharge: 05/16/19 Subjective Pt feeling better today. Denies SOB but RN reports he does seem "winded" at times. Pt denies cough or chest pain. He remains off O2 and POx much improved today. No further fevers in over 48 hours. Denies nausea or abd pain. He has moved his bowels 4 times today which he is happy about as he normally is quite constipated and has been taking laxatives here. RN also reports she noted pt got up on his own in the room without his walker and almost fell backwards but caught himself. Pt reports pain across lower back but non-radiating down lower extremities. Denies numbness/tingling in LEs. Is requesting hydrocodone over tylenol as he has taken this before and worked better for him. I discussed his case with Ortho SPine today who reviewed his case and his CT L- spine. We mutually decided that due to COVID 19 PUI status of patient, that Dr. Michelle did not need to go in to see the patient but did advise for me to order TLSO brace and recommended outpt f/u in 1 week with Ortho SPine-if pain not adequately controlled, could be considered for kyphoplasty. I called the patient's and son and gave them an update and answered questions. Tele with NSR, PVCs, rates 60-80s Review of Systems Review of Systems: All systems reviewed & are unremarkable except as noted in HPI & below Physical Exam Constitutional: WD/WN, vitals as above Eyes: + anicteric sclerae ENMT: external ear and nose normal, oropharynx normal Neck: trachea midline, no thyromegaly Respiratory: normal respiratory effort Auscultation: lungs clear to auscultation bilaterally; no crackles, no rhonchi and no wheezes Cardiovascular: RRR, no murmur, no edema Chest (Breasts): Chest: normal inspection of chest Gastrointestinal (Abdomen): normal bowel sounds, soft, nontender, no hepatosplenomegaly Musculoskeletal: Extremities: extremities normal to inspection; no cyanosis and no clubbing Skin: no rashes, warm and dry Neurologic: moves all extremities and awake; no focal motor deficits Psychiatric: A+Ox3, euthymic affect Lymphatic: no lymphedema [facility]) Vital Signs (Past 12 Hours) Vital Signs Temp Pulse Pulse Resp BP BP Pulse Ox 05/15/19 16:05 73 05/15/19 11:42 37.2 C 70 20 175/83 H 05/15/19 10:57 72 05/15/19 07:44 36.2 C L 88 18 177/79 H 99 05/15/19 06:17 180/77 H Laboratory Results 05/15/19 05/15/19 05/15/19 Range/Units 20:32 16:50 11:43 WBC (4.8-10.8) K/uL RBC (4.7-6.1) M/uL Hgb (14.0-18.0) g/dL Hct (42-52) % MCV (80-100) fL MCH (25-34) pg MCHC (32-36) g/dL RDW Std Deviation (36.4-46.3) fL RDW Coeff of Jeremiah (11.5-14.5) % Plt Count (130-400) K/uL MPV (7.4-10.4) fL Immature Gran % (Auto) % Neut % (Auto) % Lymph % (Auto) % Gregory % (Auto) % Eos % (Auto) % Baso % (Auto) % Immature Gran # (Auto) (0.00-0.02) K/uL Neut # (Auto) (1.4-6.5) K/uL Lymph # (Auto) (1.2-3.4) K/uL Gregory # (Auto) (0.11-0.59) K/uL Eos # (Auto) (0-0.5) K/uL Baso # (Auto) (0-0.2) K/uL Sodium (136-145) mmol/L Potassium (3.5-5.1) mmol/L Chloride (98-107) mmol/L Carbon Dioxide (21-32) mmol/L Anion Gap (3-11) BUN (7-18) mg/dl Creatinine (0.6-1.4) mg/dl Est Cr Clr Drug Dosing ml/min Est GFR ( Amer) Est GFR (Non-Af Amer) BUN/Creatinine Ratio (10-20) Glucose (70-99) mg/dl POC Glucose 112 H 118 H 154 H (70-99) mg/dl Estimat Average Glucose mg/dl Hemoglobin A1c (4.5-5.6) % Calcium (8.5-10.1) mg/dl Magnesium (1.8-2.4) mg/dl Total Bilirubin (0.2-1) mg/dl Direct Bilirubin (0-0.2) mg/dl AST (15-37) U/L ALT (12-78) U/L Alkaline Phosphatase (45-117) U/L Total Protein (6.4-8.2) gm/dl Albumin (3.4-5.0) gm/dl Procalcitonin (0-0.5) ng/ml 05/15/19 05/15/19 05/15/19 Range/Units 07:56 06:30 06:30 WBC (4.8-10.8) K/uL RBC (4.7-6.1) M/uL Hgb (14.0-18.0) g/dL Hct (42-52) % MCV (80-100) fL MCH (25-34) pg MCHC (32-36) g/dL RDW Std Deviation (36.4-46.3) fL RDW Coeff of Jeremiah (11.5-14.5) % Plt Count (130-400) K/uL MPV (7.4-10.4) fL Immature Gran % (Auto) % Neut % (Auto) % Lymph % (Auto) % Gregory % (Auto) % Eos % (Auto) % Baso % (Auto) % Immature Gran # (Auto) (0.00-0.02) K/uL Neut # (Auto) (1.4-6.5) K/uL Lymph # (Auto) (1.2-3.4) K/uL Gregory # (Auto) (0.11-0.59) K/uL Eos # (Auto) (0-0.5) K/uL Baso # (Auto) (0-0.2) K/uL Sodium (136-145) mmol/L Potassium (3.5-5.1) mmol/L Chloride (98-107) mmol/L Carbon Dioxide (21-32) mmol/L Anion Gap (3-11) BUN (7-18) mg/dl Creatinine (0.6-1.4) mg/dl Est Cr Clr Drug Dosing ml/min Est GFR ( Amer) Est GFR (Non-Af Amer) BUN/Creatinine Ratio (10-20) Glucose (70-99) mg/dl POC Glucose 113 H (70-99) mg/dl Estimat Average Glucose 123 mg/dl Hemoglobin A1c 5.9 H (4.5-5.6) % Calcium (8.5-10.1) mg/dl Magnesium (1.8-2.4) mg/dl Total Bilirubin (0.2-1) mg/dl Direct Bilirubin (0-0.2) mg/dl AST (15-37) U/L ALT (12-78) U/L Alkaline Phosphatase (45-117) U/L Total Protein (6.4-8.2) gm/dl Albumin (3.4-5.0) gm/dl Procalcitonin 0.13 (0-0.5) ng/ml 05/15/19 05/15/19 Range/Units 06:30 06:30 WBC 7.16 (4.8-10.8) K/uL RBC 3.85 L (4.7-6.1) M/uL Hgb 12.2 L (14.0-18.0) g/dL Hct 36.8 L (42-52) % MCV 95.6 (80-100) fL MCH 31.7 (25-34) pg MCHC 33.2 (32-36) g/dL RDW Std Deviation 44.1 (36.4-46.3) fL RDW Coeff of Jeremiah 12.7 (11.5-14.5) % Plt Count 147 (130-400) K/uL MPV 10.5 H (7.4-10.4) fL Immature Gran % (Auto) 0.3 % Neut % (Auto) 63.7 % Lymph % (Auto) 14.8 % Gregory % (Auto) 13.5 % Eos % (Auto) 7.4 % Baso % (Auto) 0.3 % Immature Gran # (Auto) 0.02 (0.00-0.02) K/uL Neut # (Auto) 4.56 (1.4-6.5) K/uL Lymph # (Auto) 1.06 L (1.2-3.4) K/uL Gregory # (Auto) 0.97 H (0.11-0.59) K/uL Eos # (Auto) 0.53 H (0-0.5) K/uL Baso # (Auto) 0.02 (0-0.2) K/uL Sodium 139 (136-145) mmol/L Potassium 3.5 (3.5-5.1) mmol/L Chloride 107 (98-107) mmol/L Carbon Dioxide 26 (21-32) mmol/L Anion Gap 7.0 (3-11) BUN 10 (7-18) mg/dl Creatinine 0.57 L (0.6-1.4) mg/dl Est Cr Clr Drug Dosing 104.6 ml/min Est GFR ( Amer) 108.5 Est GFR (Non-Af Amer) 93.6 BUN/Creatinine Ratio 18.4 (10-20) Glucose 121 H (70-99) mg/dl POC Glucose (70-99) mg/dl Estimat Average Glucose mg/dl Hemoglobin A1c (4.5-5.6) % Calcium 9.2 (8.5-10.1) mg/dl Magnesium 2.3 (1.8-2.4) mg/dl Total Bilirubin 0.8 (0.2-1) mg/dl Direct Bilirubin 0.1 (0-0.2) mg/dl AST 13 L (15-37) U/L ALT 11 L (12-78) U/L Alkaline Phosphatase 56 (45-117) U/L Total Protein 6.3 L (6.4-8.2) gm/dl Albumin 3.1 L (3.4-5.0) gm/dl Procalcitonin (0-0.5) ng/ml PG Care Time/CCT Total # of Minutes Spent Total Time Spent with Patient: Total time spent is greater than 50% in coordination of care (as documented) at patient's floor/unit and/or counseling patient: Coding Level of Care Code 55540 Subseq Hosp Care Lvl 2 Diagnoses Fever R50.9 Pneumonia J18.9 Compression fracture of body of thoracic vertebra S22.000A Closed compression fracture of body of lumbar vertebra S32.000A Paroxysmal atrial fibrillation I48.0 Parkinson disease G20 Dyslipidemia E78.5 HTN (hypertension) I10 Constipation K59.00 Diabetes E11.9
[2019-05-15] MEDS ORDERED: HYDROCODONE/ACETAMOPHEN 5/325MG TAB PO PRN (17:21)
[2019-05-15] MEDS: METOPROLOL SUCC 50MG EXT REL TAB PO SCH (20:35)
[2019-05-16] MEDS ORDERED: HYDROCORTISONE 1% CRM 30 GM TUBE EXT PRN (07:34)
[2019-05-16] MEDS ORDERED: CETIRIZINE HCL 10 MG TABLET PO ONE (07:34)
[2019-05-16] MEDS: CARBIDOPA/LEVODOPA 25/100MG TAB PO SCH ×2 (08:06→13:32)
[2019-05-16] MEDS: ACETAMINOPHEN 325 MG TAB PO PRN (08:06)
[2019-05-16] MEDS: RIVAROXABAN 20 MG TAB PO SCH (08:07)
[2019-05-16] MEDS: FINASTERIDE 5 MG TAB PO SCH (08:07)
[2019-05-16] MEDS: AZITHROMYCIN 250 MG TAB PO SCH (08:07)
[2019-05-16] MEDS: ESCITALOPRAM OXALATE 10 MG TAB PO SCH (08:07)
[2019-05-16] MEDS: POLYETHYLENE (MIRALAX) 17 GM PACK PO SCH (08:08)
[2019-05-16] MEDS: DOCUSATE SODIUM 100 MG CAP PO SCH (08:09)
[2019-05-16] MEDS: INSULIN ASPART 100 UNITS/ML 3 ML PEN SC SCH ×2 (08:17→11:52)
[2019-05-16] MEDS ORDERED: HydrALAZINE HCL 20 MG/ML VIAL IV PRN (08:18)
[2019-05-16] MEDS ORDERED: AMLODIPINE BESYLATE 5 MG TAB PO SCH (09:00)
[2019-05-16] MEDS ORDERED: LOSARTAN POTASSIUM 50 MG TAB PO SCH (09:00)
[2019-05-16 10:01] LABS: COVID-19 Patient Symptomatic? YES; PAN-SARS Coronavirus RNA NEGATIVE (NEGATIVE); SARS CoV2 RNA (COVID-19) NEGATIVE (NEGATIVE); SARS Coronavirus RNA Source NASOPHARYNGEAL
--- NOTE | 2019-05-16 11:56 | Discharge Summary ---
Date of Service May 16, 2019 Admission HPI Per Admitting Provider Chief Complaint: 83 yo male with history of Parkinson's disease, atrial fibrillation on Xarelto who comes to the ED this morning after falling on his concrete patio last evening. He said that he has been feeling more weak, slightly dizzy the past two days. He started with a fever last night but really had no other symptoms. He denied dyspnea, cough, chest pain. No abdominal pain, no nausea, no diarrhea. No dysuria. He has chronic constipation with his Parkinson's disease. He was just seen by his neurologist in February, Dr. Aburto, and he was doing well with Parkinson's management. He reports that he was w alking and lost his balance, fell on his buttocks and then his backside. He had increased pain in his back and difficulty ambulating so he was brought to the ED. In the ED he had a fever of 38.3 and was given Tylenol. WBC was normal. INR up at 1.4 but he takes Xarelto every morning. BMP showed normal BUN/Cr and normal electrolytes. CXR showed some atelectasis, possible pneumonitis in bases, no obvious infiltrates. UA showed no signs of infection. CT lumbar spine shows new T12, L1, L2 compression fractures, 6mm of disc propulsion with no significant stenosis. He was given IV fluids, Rocephin, Fentanyl in the ED. Placed on droplet precautions due to fever, influenza negative. Asked him about sick contacts, no one in his family is sick. Asked about recent travel, he has not left his home. He says that his flew out to the border [place] two weeks ago to moss picker their son who was moving back home. He again confirms that his and son have felt fine the past two weeks. So he has no known exposure to anyone with COVID 19. Again, all he had was a fever, no cough, no shortness of breath, no concerning signs on chest x- ray so COVID 19 testing was not indicated Once on the floor the patient was doing well, ambulated to the bathroom by himself, minimal pain. Principal Diagnosis Fever, fall, pneumonia Discharge Exam Constitutional WD/WN, vitals as above Eyes + anicteric sclerae ENMT external ear and nose normal, oropharynx normal Neck trachea midline, no thyromegaly Respiratory normal respiratory effort Auscultation: lungs clear to auscultation bilaterally; no crackles, no rhonchi and no wheezes Cardiovascular RRR, no murmur, no edema Chest (Breasts) Chest: normal inspection of chest Gastrointestinal (Abdomen) normal bowel sounds, soft, nontender, no hepatosplenomegaly Musculoskeletal Extremities: extremities normal to inspection; no cyanosis and no clubbing Skin no rashes, warm and dry Neurologic moves all extremities and awake; no focal motor deficits Psychiatric A+Ox3, euthymic affect Lymphatic no lymphedema Discharge Data Allergies Allergy/AdvReac Type Severity Reaction Status Date / Time Penicillins Allergy Intermediate SKIN RASH Verified 05/13/19 06:11 Consultations 05/13/19 07:34 ED Decision to Admit Stat 05/13/19 09:02 Consult Case Management - Discharge Planning Routine Ordered Studies CXR x 2 05/13/19 06:00 CT cervical spine wo con Stat CT head/brain wo con Stat CT lumbar spine wo con Stat Hospital Course (1) Fever: Presented with fever, hypoxia, and weakness causing a fall Initial chest x-ray with bibasilar possible pneumonitis versus atelectasis-fever is most likely 2/2 pneumonia, either viral or atypical bacterial His and son did return from [facility] about 2 weeks ago where there is a hot bed of COVID-19 does report to me that she had sinus congestion, ear pressure, sore throat, and rhinorrhea on her return trip home and pt's son reports he had acute onset of significant malaise on the same day patient became ill, but he has since improved Repeat chest x-ray on 05/13 without infiltrate Blood cultures remain no growth to date Flu swab is negative Rapid viral panel negative WBC count at 10.5 on admission and is now down to 7 Procalcitonin borderline at 0.14 and now 0.13 no signs of UTI, abdomen is benign on exam Hypoxia and fevers now both resolved, feeling better COVID-19 test came back NEGATIVE on day of discharge -treated for community-acquired pneumonia with Rocephin and Zithromax to finish out 7 and 5 day courses, respectively, with azithro for 2 more days after dc -developed rash on back day of dc which could be from Rocephin due to previous allergy to PCN--> dcd Rocephin -blood cultures NGTD on day of dc Stable for dc to home (2) Pneumonia: As above (3) Compression fracture of body of thoracic vertebra: With acute compression fractures of T12, L1, and L2, with 6 mm of ret ropulsion without any high-grade stenosis at the L1 level He has a history of left-sided sciatica pain but this is not worsened today. Also found to have fairly significant Lumbar spinal stenosis on CT Had considerable pain with movement but is able to ambulate with a walker. 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 If pain persists, could consider kyphoplasty at that time -Consult PT/OT appreciated--> plans for home w/ home PT/OT (4) Closed compression fracture of body of lumbar vertebra: As above (5) Paroxysmal atrial fibrillation: In sinus rhythm here with frequent PACs -Continue metoprolol 100mg qPM -Continue Xarelto daily for full anticoagulation (6) Parkinson disease: continue Sinemet TID consult PT/OT (7) Dyslipidemia: managed by diet (8) HTN (hypertension): BP continues to be quite elevated, could be pain driving up pressure, also white coat HTN as per pt continue Losartan and increased dose to 100mg daily -continue Metoprolol -advised to watch/check BPs at home and f/u with PCP (9) Constipation: chronic issue, typically uses Linzess at home if he cannot move his bowels Now has had 4 BMs on 05/14 -Continue Miralax BID and Colace BID encourage oral hydration (10) Diabetes: type II, on Metformin at home -restart metformin upon dc HgbA1C here very well controlled at 5.9% Dispo-stable for dc to home Total Time Total Time Spent Total Time Spent (In Minutes): 45 min Total Time Includes: Examination of the Patient, Discharge Planning and Medication Reconciliation Discharge Plan Discharge Items Patient Disposition: Home - Self-Care Reason For Visit: FEVER,COMPRESSION FRACTURES Discharge Diagnosis: Fever, Pneumonia, Acute respiratory failure with hypoxia, Fall, Vertebral compression fractures Condition on Discharge: Fair Activity: As commented below Lifting: No more than 5 pounds Bathing: No limitations Exercise/Sports: Gradually increase as tolerated Weightbearing: Full weightbearing Non-emergency contact: Primary Care Provider and Surgeon Call non-emergency contact if: you have any medication questions, your symptoms worsen and your pain is not controlled Follow-up/Referrals: Gibran Michelle, [Surgeon] - (Please follow up in 1-2 weeks NEEDED if back pain not improving. to discuss kyphoplasty/back procedure.) Edy Flanagan MD [Primary Care Provider] - (Please follow up within 2 weeks. ) Diet: Carb Consistent or DM2 and Heart Healthy Addtl Attending Provider Instructions: Please finish out a course of azithromycin x 2 more days for your pneumonia. You were no longer requiring any oxygen by the time of discharge. Your COVID-19 test came back NEGATIVE. You suffered a few vertebral compression fractures during your fall. Please continue to take either tylenol or mild-moderate pain or hydrocodone/APAP for severe pain as needed. You should wear the back brace when out of bed. If your pain is not improving, please follow up with the Orthopedic Spine Surgeon, Dr. Wilmar Michelle, in 1 week or so to discuss a possible procedure to help with your pain. Please continue working with PT/OT at home as before. Your blood pressure was quite elevated at times here and your losartan was increased to 100mg daily. You also had an additional medication added on called amlodipine 5mg once daily. Please check your blood pressures at home and keep a daily log of them. If they remain elevated at home (greater than 160/90), please call Dr. Flanagan. Follow up with Dr. Flanagan within 2 weeks if his office is still seeing patients at this time. Coronavirus disease 2019 (COVID-19) is a virus that causes a respiratory illness. It is caused by a coronavirus called 2019 novel coronavirus (2019- nCoV). There are many types of coronavirus. Coronaviruses are a very common cause of bronchitis. They may sometimes cause lung infection(pneumonia). Symptoms can range from mild to severe respiratory illness. These viruses are also found in some animals. COVID-19 was first found in people in [facility], in late 2018. In 2020, several cases of COVID-19 have been confirmed in the [place] Public health officials are working to find the source. How the virus spreads is not yet fully known. It may be spread through droplets of fluid that a person coughs or sneezes into the air. It may be spread if you touch a surface with virus on it, such as a handle or object, and then touch your mouth. What are the symptoms of COVID-19? Some people have no symptoms or mild symptoms. Symptoms may appear 2 to 14 days after contact with the virus. Symptoms can include: Fever Coughing Trouble breathing What are possible complications from COVID-19? In many cases, this virus can cause infection (pneumonia) in both lungs. In some cases, this can cause . How is COVID-19 diagnosed? Your healthcare provider will ask about your symptoms. He or she will also ask about your recent travel and contact with sick people. Testing for the virus is only done through the [facility]. If your healthcare provider thinks you may have COVID-19, he or she will work with your local health department and the CDC on testing. Follow all instructions from your healthcare provider. COVID-19 is diagnosed by: Nasal and throat swab. A cotton-tipped swab is wiped inside your nose or throat. This is done to check for viruses in your nasal mucus. Sputum culture. A small sample of mucus coughed from your lungs (sputum) is collected if you have a cough. It is checked for the virus. How is COVID-19 treated? There is currently no medicine to treat the virus. Treatment is done to help your body while it fights the virus. This is known as supportive care. Supportive care may include: Pain medicine. These include acetaminophen and ibuprofen. They are used to help ease pain and reduce fever. Bed rest. This helps your body fight the illness. For severe illness, you may need to stay in the hospital. Care during severe illness may include: IV (intravenous) fluids.These are given through a vein to help keep your body hydrated. Oxygen. Supplemental oxygen or ventilation with a breathing machine (ventilator) may be given. This is done to keep enough oxygen in your body. Are you at risk for COVID-19? If youve been to a place where people have been sick with this virus, you are at risk for infection. You are at risk if you: Recently traveled to an affected area Had contact with a sick person who recently traveled to this area Had contact with a person who was diagnosed with COVID-19 How can COVID-19 be prevented? There is no vaccine yet. The best prevention is to not have contact with the virus. The CDC advises that people should not travel to areas where there are COVID-19 outbreaks right now for any reason that is not urgent. To help prevent spreading the infection, wash your hands often, or use an alcohol-basedhand tamale machine feeder. If you are in an area with COVID-19: Wash your hands often. Or use an alcohol-based hand tamale machine feeder often. Only touch your eyes, nose, or mouth with clean hands. Dont have contact with people who are sick. Follow local instructions about being in public. For example, you may be told to not use public transport for a period of time. Stay away from markets that have live or animals. Wash your hands after touching any animals. Don't touch animals that may be sick. Dont share eating or drinking tools with sick people. Dont kiss someone who is sick. Clean surfaces often with disinfectant. If you were in an area with COVID-19 in the last 14 days: Call your healthcare provider. He or she can talk with local health staff to see what action may be needed. Follow all instructions from your provider. Take your temperature every morning and evening for at least 14 days. This is to check for fever. Keep a record of the readings. Keep watch for symptoms of the virus. Tell your provider right away if you have symptoms. If you were in an area with COVID-19 and have a fever or other symptoms: Dont panic. Keep in mind that other illnesses can cause similar symptoms. Stay away from work, school, and public places. Limit physical contact with family members. Don't kiss anyone or share eating or drinking utensils. Clean surfaces you touch with disinfectant. This is to help prevent the virus from spreading. Call your healthcare provider. Explain that you have been exposed to COVID-19 and have symptoms. Do this before going to any hospital. Wait for instructions. Keep in mind that healthcare staff may wear protective equipment such as masks, gowns, gloves, and eye protection. You may be put in a separate room. This is to prevent the possible virus from spreading. Tell the healthcare staff about recent travel. This includes local travel on public transport. Staff may need to find other people you have been in contact with. Follow all instructions the healthcare staff give you. If you have been diagnosed with COVID-19 Follow all instructions from your healthcare provider. Dont leave your home, except to get medical care. Call your healthcare providers office before going. They can prepare and give you instructions. This will help prevent the virus from spreading. Dont go to work, school, or public areas. Dont use public transport or taxis. Stay away from other people in your home. Have them wear face masks around you. Dont share household items or food. Wear a face mask if you can. This includes at home or in a medical facility. Cover your face with a tissue when you cough or sneeze. Throw the tissue away. Wash your hands. Wash your hands often. Caregivers should: Follow all instructions from healthcare staff. Wear a face mask and protective clothing as advised. Wash hands often. Keep track of the sick persons symptoms. Clean surfaces, fabrics, and laundry thoroughly. Keep other people away from the sick person. When to call your healthcare provider Call your healthcare provider: If youve recently traveled and have symptoms If you have been diagnosed with COVID-19 and your symptoms are worse To learn more To find out more about COVID-19, visit the CDC website at www.cdc.gov/coronavirus/2019-ncov/index.html. 6965-[address] [employer] [place] [address]. All rights reserved. This information is not intended as a substitute for professional medical care. Always follow your healthcare professional's instructions. This information has been adapted from [employer] Pending Studies at Discharge: Yes (Final Blood culture results-no growth to date) Stand-Alone Forms: My [facility] Medications and DC Order Prescriptions: New azithromycin [Zithromax] 250 mg Tablet 250 mg PO QAM Qty: 2 RF: 0 losartan 100 mg tablet 100 mg PO DAILY Qty: 30 RF: 0 amlodipine [Norvasc] 5 mg Tablet 5 mg PO QAM Qty: 30 RF: 0 acetaminophen [Mapap (acetaminophen)] 325 mg Tablet 650 mg PO Q4H PRN (Reason: mild-moderate pain) Qty: 30 RF: 0 hydrocodone-acetaminophen [[place]] 5-325 mg Tablet 1 tab PO Q6H PRN (Reason: severe pain) Qty: 12 RF: 0 docusate sodium 100 mg Capsule 100 mg PO BID Qty: 60 RF: 0 hydrocortisone 1 % Ointment 1 applic EXT BID PRN (Reason: rash on back) Qty: 28 RF: 0 Continued escitalopram oxalate 10 mg tablet 10 mg PO DAILY RF: 0 carbidopa-levodopa 25-100 mg tablet 2 tab PO TID Qty: 180 RF: 5 metformin 500 mg Tablet 500 mg PO BID RF: 0 metoprolol succinate 100 mg Tablet Extended Release 24 Hr 100 mg PO QPM RF: 0 finasteride 5 mg Tablet 5 mg PO QAM RF: 0 Xarelto 20 mg Tablet 20 mg PO QAM RF: 0 Discontinued losartan 50 mg Tablet 50 mg PO DAILY RF: 0 Discharge Orders: Discharge Order (Routine); Ordered 05/16/19 Ordered By: Judith Lewis Admission Data Admit Date/Time: 05/13/19 07:59 Attending Provider: Judith Lewis Admit Provider: Petar Rene Primary Care Provider: Edy Flanagan Other Interventions: Discharge Summary Assessment (RN) Last Done: 05/16/19 13:10 DC Date/Time DO NOT enter until pt leaves facility: 05/16/19 13:49 Coding Level of Care Code D/C Day Management >30 mins Diagnoses Fever R50.9 Pneumonia J18.9 Compression fracture of body of thoracic vertebra S22.000A Closed compression fracture of body of lumbar vertebra S32.000A Paroxysmal atrial fibrillation I48.0 Parkinson disease G20 Dyslipidemia E78.5 HTN (hypertension) I10 Constipation K59.00 Diabetes E11.9
== END 2019-05-16 13:49 | disposition home or self-care (01) | DRG 194 ==
LOC: ED 05:44 → SUATTDRO 07:59 → 2W 07:59

== ENCOUNTER 2021-08-22 21:22 | Inpatient (IN) ==
[2021-08-22] MEDS ORDERED: SODIUM CHLORIDE 0.9% 1000ML 1,000 ML IV ONE ×2 (21:34→22:29)
--- NOTE | 2021-08-22 21:38 | Emergency Department Note ---
Impression & Plan Acute hypotension, Lactic acidosis, Altered mental status ED Provider Note Name: MELVA POP Age: 85 Sex: M Arrives Via: Walk-In Informant: Patient, , Son ED Provider: Sarwat Mckinnon MD Chief Complaint: Weakness Impression: As per Impressions above Medical Decision Makin-year-old gentleman with a history of hypertension, dyslipidemia, type 2 diabetes, paroxysmal A. fib, Parkinson's arrives following an episode of staring off spell. Patient was traveling with his family over the last week and over the last 2 days he has been a lot more tired than usual. Dinner he had a staring off spell and was essentially unresponsive for a few minutes before returning back to his baseline. He did not have a syncopal event nor did he fall or injure himself. He arrived with family hypotensive and urine. IV established with blood cultures and lactate sent. He was given a liter fluid with improvement in his blood pressure. Lactic acid returned elevated thus further fluids given. By this point patient's blood pressure is much improved and he is more with it no distress and breathing comfortably. His oxygen did start to drop a bit thus repeat chest x-ray was obtained which reveals no significant pulmonary edema or concerning findings at that point. Repeat lactate is still somewhat elevated thus further IV fluids though this may just be clearing lactate at this point. He was given empiric antibiotics for possible infection but at this point I do not see any clear other findings of infection his procalcitonin is not elevated he is not febrile and his white blood cell count is normal. He does have some erythema bilateral arms which I do think is more sunburn related. This may be heatstroke and dehydration and just had not compensated over the last 2 days. Creatinine at this point is okay. Given his history though while getting a CT of the head for the altered mental status episode I did obtain a CT of the abdomen pelvis which reveals no acute findings either. Due to altered mental status, now resolved, and the degree of his lactic acidosis especially given his hypotensive prior to arrival I consulted hospitalist for further evaluation management. Prior Medical Record and Triage/Nursing Notes reviewed by Me Additional history obtained from chart, family Differentials:Infection, dehydration, metabolic abnormality, hypo/hyperglycemia, electrolyte disturbance, anemia, hypoxia, cardiac sources, intracerebral event, toxicologic, neurologic, as well as other pathologies. Vital Signs: reviewed and remarkable for hypotension Interventions: Normal saline bolus & infusion IV, cefepime IV Labs:Reviewed and remarkable for elevated lactic acid Imaging:Chest x-ray no acute findings as per radiology, CT of the head as per radiologist no acute findings, CT of the abdomen pelvis with IV contrast as per radiologist no acute findings EKG:Per My Interpretation: Indication Hypotension: NSR 67 bpm, qtc 441. No Ectopy. No Ischemia. Compared to EKG 05/13/19, no significant changes though HR has decreased Cardiac/Tele Monitoring: Cardiac Monitoring: An Order was placed for continuous cardiac monitoring. The monitor shows a rate of 60 with a normal sinus rhythm. Given the patients BMI >30, IBW was used to calculate the 30ml/kg fluid bolus. Pt IBW 70kg, thus 2.25L IV Fluids were given. Repeat exam at 11:30p reveals excellent blood pressure, well hydrated appearing and felt further fluids not needed at this time. Consults:Dr Sudarshan RDZ Hospitalists Plan: Disposition:Hospitalization. Condition: Good History of Present Illness:85-year-old gentleman arrives for evaluation of weakness. Patient had been traveling through the [place] area with family over the last week. He returned a few days ago. For last 2 days he has been very weak tired and not himself. notes has been quite sleepy. This evening he just zoned out and was staring into space for several minutes unresponsive to the family. He did not pass out necessarily or fall or hit his head. He came to after short while he was somewhat confused. He denies any headache or neck pain. He denies any chest pain, shortness of breath, nausea, vomiting, abdominal pain, back pain, urinary/bowel symptoms, leg swelling, rashes, fevers, chills or other other signs or symptoms. He is on Xarelto for the last 5 to 6 years due to paroxysmal A. fib but denies any recent bleeding or bruising abnormalities.-Notes he seems worse when he tries to get up and walk ar ound better with rest. He has no focal neurologic deficits. He had no medications prior to arrival. He does take a pain pill every so often but she does not think he had 1 today. ROS: See above HPI for pertinent positives & negatives. A total of 10 systems reviewed and were otherwise negative. Past Medical History:See Below Past Surgical History:See Below Family History:See Below Social History:See Below Home Medications:See Below Allergies:pnc Vitals:Blood Pressure: 88/48, Pulse 67, RR 18, T 37.0C, O2 94% on RA Physical Exam: GENERAL: Patient is tired/unwell appearing and in mild distress. Dehydrated/dry appearing EYES: No scleral icterus, unremarkable pupils. ENT: Mucous membranes dry, no nasal congestion. NECK: No masses appreciated, nomeningismus, trachea is midline. RESPIRATORY: No dyspnea. Clear to auscultation and equal bilaterally. No wheeze, no rhonchi. CARDIOVASCULAR: Regular rate and rhythm.No murmurs, rubs, gallops appreciated. GASTROINTESTINAL: Abdomen soft, non-tender, no peritonitis.Bowel sounds positive.No masses appreciated. BACK: No midline tenderness, no CVA tenderness EXTREMITIES: Normal motion all extremities, no cyanosis, no edema. NEUROLOGIC: Alert and oriented though tired, no acute motor or sensory deficits, no focal weakness, cranial nerves grossly intact. SKIN: Bilateral forearm erythema (L worse than right), no jaundice, no diaphoresis. PSYCH: Appropriate GCS: 15 ED Course: Times/Reassessments: improved BP with fluids, breathing comfortably though sats dropped slightly Sarwat Mckinnon MD Past Med/Surg History Medical History (Updated 08/23/21 @ 01:05 by Sarwat Mckinnon MD) A-fib Anxiety NO MEDICATIONS Chronic back pain Degenerative disc disease Diabetes mellitus, type 2 NIDDM Diverticular disease Hyperlipidemia Hypertension On anticoagulant therapy Parkinson disease Peripheral neuropathy RIGHT LEG Sciatica of right side Transient ischemic attack (TIA) ~2-3 YEARS AGO. Surgical History Fusion of spine LUMBAR AREA H/O shoulder surgery REPAIR OF LEFT SHOULDER History of cardiac cath [facility] (~2005) History of colonoscopy History of heart artery stent X1 STENT (~2005) Family History Mother Family history of diabetes mellitus Social History Smoking Status: Former smoker Tobacco Type: Pipe Second Hand Exposure: No; Hx Alcohol Use: Yes Alcohol type: beer and hard liquor Hx Substance Use: No Preferred Language: Gibraltarian Communication Ability: Effective Visual Impairment: No Limitations Hearing Ability: Normal Cellars Supervisor Required: No Beliefs That Will Affect Care: None Current Living Situation: Spouse Current Living Situation Comment: SON WITH HIGH 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 Feels Safe at Home: Yes Assistive Devices: Glasses and Walker Allergies Allergies Allergy/AdvReac Type Severity Reaction Status Date / Time Penicillins Allergy Intermediate SKIN RASH Verified 08/22/21 22:40 Home Meds Home Medications Medication Instructions Recorded Confirmed finasteride 5 mg tablet 5 mg PO QAM 08/22/18 08/22/21 rivaroxaban 20 mg tablet (Xarelto) 20 mg PO QAM 08/22/18 08/22/21 escitalopram oxalate 10 mg tablet 10 mg PO DAILY 03/21/19 08/22/21 cholecalciferol (vitamin D3) 1,250 50,000 unit PO DAILY cap 04/17/20 08/22/21 mcg (50,000 unit) capsule aspirin 81 mg capsule 81 mg PO DAILY 06/23/21 08/22/21 valsartan 80 1 tab PO DAILY 06/23/21 08/22/21 mg-hydrochlorothiazide 12.5 mg tablet carbidopa 25 mg-levodopa 100 mg 2 tab PO QID 08/22/21 08/22/21 tablet cyanocobalamin (vitamin B-12) 1,000 mcg PO DAILY 08/22/21 08/22/21 1,000 mcg tablet hydrocodone 5 mg-acetaminophen 325 1 tab PO DAILY PRN 08/22/21 08/22/21 mg tablet memantine 5 mg tablet 5 mg PO BID 08/22/21 08/22/21 metoprolol succinate 50 mg 50 mg PO DAILY 08/22/21 08/22/21 tablet,extended release 24 hr tamsulosin 0.4 mg capsule 0.4 mg PO HS 08/22/21 08/22/21 Previous Rx's Medication Instructions Recorded acetaminophen 325 mg tablet (Mapap 650 mg PO Q4H PRN #30 tab 05/16/19 (acetaminophen)) rasagiline 1 mg tablet 1 mg PO DAILY #30 tab 06/10/21 Results & Data (ED) Vital Signs Vital Signs - 24 hr 08/22/21 21:25 08/22/21 21:45 08/22/21 22:00 Temperature Temperature Source Pulse Rate 67 63 61 Respiratory Rate 18 29 H 28 H Respiratory Effort / Characteristics Non-Labored Spontaneous Respiratory Depth Normal Respiratory Pattern Regular Blood Pressure 88/48 L 137/61 138/73 Blood Pressure Mean 61 86 94 Blood Pressure Position Sitting Pulse Oximetry 94 93 91 Oxygen Delivery Method Room Air Room Air Room Air Oxygen Flow Rate Sepsis Recent Fever Within 48 Hours No Sepsis New/Unexplained Change in Mental Status N/A Sepsis Action Taken by Nursing No Action Required 08/22/21 22:15 08/22/21 22:30 08/22/21 22:45 Temperature Temperature Source Pulse Rate 61 64 62 Respiratory Rate 29 H 26 H 28 H Respiratory Effort / Characteristics Respiratory Depth Respiratory Pattern Blood Pressure 148/72 H 150/78 H 167/76 H Blood Pressure Mean 97 102 106 Blood Pressure Position Pulse Oximetry 91 90 90 Oxygen Delivery Method Room Air Room Air Room Air Oxygen Flow Rate Sepsis Recent Fever Within 48 Hours Sepsis New/Unexplained Change in Mental Status Sepsis Action Taken by Nursing 08/22/21 23:22 08/22/21 23:26 08/22/21 23:30 Temperature 37 C Temperature Source Oral Pulse Rate 72 70 Respiratory Rate 24 26 H Respiratory Effort / Characteristics Respiratory Depth Respiratory Pattern Blood Pressure 172/85 H 157/86 H Blood Pressure Mean 114 109 Blood Pressure Position Pulse Oximetry 92 89 L Oxygen Delivery Method Room Air Room Air Oxygen Flow Rate Sepsis Recent Fever Within 48 Hours Sepsis New/Unexplained Change in Mental Status Sepsis Action Taken by Nursing 08/23/21 00:00 Temperature Temperature Source Pulse Rate 76 Respiratory Rate 28 H Respiratory Effort / Characteristics Respiratory Depth Respiratory Pattern Blood Pressure 161/82 H Blood Pressure Mean 108 Blood Pressure Position Pulse Oximetry 94 Oxygen Delivery Method Nasal Cannula Oxygen Flow Rate 2 Sepsis Recent Fever Within 48 Hours Sepsis New/Unexplained Change in Mental Status Sepsis Action Taken by Nursing Laboratory Data Result diagrams: 08/22/21 21:45 08/22/21 21:45 Lab Results 08/22/21 08/22/21 08/22/21 Range/Units 21:45 21:45 21:45 WBC 7.59 (4.8-10.8) K/uL RBC 4.02 L (4.7-6.1) M/uL Hgb 13.3 L (14.0-18.0) g/dL Hct 39.7 L (42-52) % MCV 98.8 (80-100) fL MCH 33.1 (25-34) pg MCHC 33.5 (32-36) g/dL RDW Std Deviation 47.7 H (36.4-46.3) fL RDW Coeff of Jeremiah 13.1 (11.5-14.5) % Plt Count 212 (130-400) K/uL MPV 10.9 H (7.4-10.4) fL Immature Gran % (Auto) 0.4 % Neut % (Auto) 49.0 % Lymph % (Auto) 29.5 % Bailey % (Auto) 12.9 % Eos % (Auto) 7.8 % Baso % (Auto) 0.4 % Neut # (Auto) 3.72 (1.4-6.5) K/uL Lymph # (Auto) 2.24 (1.2-3.4) K/uL Bailey # (Auto) 0.98 H (0.11-0.59) K/uL Eos # (Auto) 0.59 H (0-0.5) K/uL Baso # (Auto) 0.03 (0-0.2) K/uL Immature Gran # (Auto) 0.03 H (0.00-0.02) K/uL PT 14.0 H (9.0-12.0) Seconds INR 1.3 H (0.9-1.1) Sodium (136-145) mmol/L Potassium (3.5-5.1) mmol/L Chloride (98-107) mmol/L Carbon Dioxide (21-32) mmol/L Anion Gap (3-11) BUN (6-23) mg/dl Creatinine (0.6-1.4) mg/dl Est Cr Clr Drug Dosing ml/min Est GFR ( Amer) ml/min Est GFR (Non-Af Amer) ml/min BUN/Creatinine Ratio (10-20) Glucose (70-99(Fasting)) mg/dl Lactate 5.6 H* (0.4-2.0) mmol/L Calcium (8.5-10.1) mg/dl Magnesium (1.7-2.4) mg/dl Total Bilirubin (0.2-1.0) mg/dl Direct Bilirubin (0-0.2) mg/dl AST (13-39) U/L ALT (7-52) U/L Alkaline Phosphatase (34-104) U/L Troponin I High Sens (0-20) pg/ml Total Protein (6.0-8.3) gm/dl Albumin (3.4-5.0) gm/dl Lipase (11-82) U/L Procalcitonin (0-0.5) ng/ml Urine Color Urine Appearance (Clear) Urine pH (4.5-7.5) Ur Specific [place] (1.000-1.030) Urine Protein (Negative) Urine Glucose (UA) (Negative) Urine Ketones (Negative) Urine Blood (Negative) Urine Nitrite (Negative) Urine Bilirubin (Negative) Urine Urobilinogen (Negative) Ur Leukocyte Esterase (Negative) SARS-CoV-2, RNA, NAAT (NEGATIVE) 08/22/21 08/22/21 08/22/21 Range/Units 21:45 21:45 21:50 WBC (4.8-10.8) K/uL RBC (4.7-6.1) M/uL Hgb (14.0-18.0) g/dL Hct (42-52) % MCV (80-100) fL MCH (25-34) pg MCHC (32-36) g/dL RDW Std Deviation (36.4-46.3) fL RDW Coeff of Jeremiah (11.5-14.5) % Plt Count (130-400) K/uL MPV (7.4-10.4) fL Immature Gran % (Auto) % Neut % (Auto) % Lymph % (Auto) % Bailey % (Auto) % Eos % (Auto) % Baso % (Auto) % Neut # (Auto) (1.4-6.5) K/uL Lymph # (Auto) (1.2-3.4) K/uL Bailey # (Auto) (0.11-0.59) K/uL Eos # (Auto) (0-0.5) K/uL Baso # (Auto) (0-0.2) K/uL Immature Gran # (Auto) (0.00-0.02) K/uL PT (9.0-12.0) Seconds INR (0.9-1.1) Sodium 138 (136-145) mmol/L Potassium 3.7 (3.5-5.1) mmol/L Chloride 103 (98-107) mmol/L Carbon Dioxide 23 (21-32) mmol/L Anion Gap 12 H (3-11) BUN 18 (6-23) mg/dl Creatinine 1.01 (0.6-1.4) mg/dl Est Cr Clr Drug Dosing 61.2 ml/min Est GFR ( Amer) 77.2 ml/min Est GFR (Non-Af Amer) 66.6 ml/min BUN/Creatinine Ratio 17.8 (10-20) Glucose 113 H (70-99(Fasting)) mg/dl Lactate (0.4-2.0) mmol/L Calcium 9.5 (8.5-10.1) mg/dl Magnesium 1.8 (1.7-2.4) mg/dl Total Bilirubin 0.6 (0.2-1.0) mg/dl Direct Bilirubin 0.1 (0-0.2) mg/dl AST 12 L (13-39) U/L ALT 3 L (7-52) U/L Alkaline Phosphatase 64 (34-104) U/L Troponin I High Sens 12.4 (0-20) pg/ml Total Protein 7.1 (6.0-8.3) gm/dl Albumin 4.1 (3.4-5.0) gm/dl Lipase 13 (11-82) U/L Procalcitonin < 0.05 (0-0.5) ng/ml Urine Color Urine Appearance (Clear) Urine pH (4.5-7.5) Ur Specific [place] (1.000-1.030) Urine Protein (Negative) Urine Glucose (UA) (Negative) Urine Ketones (Negative) Urine Blood (Negative) Urine Nitrite (Negative) Urine Bilirubin (Negative) Urine Urobilinogen (Negative) Ur Leukocyte Esterase (Negative) SARS-CoV-2, RNA, NAAT NEGATIVE (NEGATIVE) 08/22/21 08/22/21 Range/Units 23:29 23:51 WBC (4.8-10.8) K/uL RBC (4.7-6.1) M/uL Hgb (14.0-18.0) g/dL Hct (42-52) % MCV (80-100) fL MCH (25-34) pg MCHC (32-36) g/dL RDW Std Deviation (36.4-46.3) fL RDW Coeff of Jeremiah (11.5-14.5) % Plt Count (130-400) K/uL MPV (7.4-10.4) fL Immature Gran % (Auto) % Neut % (Auto) % Lymph % (Auto) % Bailey % (Auto) % Eos % (Auto) % Baso % (Auto) % Neut # (Auto) (1.4-6.5) K/uL Lymph # (Auto) (1.2-3.4) K/uL Bailey # (Auto) (0.11-0.59) K/uL Eos # (Auto) (0-0.5) K/uL Baso # (Auto) (0-0.2) K/uL Immature Gran # (Auto) (0.00-0.02) K/uL PT (9.0-12.0) Seconds INR (0.9-1.1) Sodium (136-145) mmol/L Potassium (3.5-5.1) mmol/L Chloride (98-107) mmol/L Carbon Dioxide (21-32) mmol/L Anion Gap (3-11) BUN (6-23) mg/dl Creatinine (0.6-1.4) mg/dl Est Cr Clr Drug Dosing ml/min Est GFR ( Amer) ml/min Est GFR (Non-Af Amer) ml/min BUN/Creatinine Ratio (10-20) Glucose (70-99(Fasting)) mg/dl Lactate 3.5 H* (0.4-2.0) mmol/L Calcium (8.5-10.1) mg/dl Magnesium (1.7-2.4) mg/dl Total Bilirubin (0.2-1.0) mg/dl Direct Bilirubin (0-0.2) mg/dl AST (13-39) U/L ALT (7-52) U/L Alkaline Phosphatase (34-104) U/L Troponin I High Sens (0-20) pg/ml Total Protein (6.0-8.3) gm/dl Albumin (3.4-5.0) gm/dl Lipase (11-82) U/L Procalcitonin (0-0.5) ng/ml Urine Color Yellow Urine Appearance Clear (Clear) Urine pH 5.5 (4.5-7.5) Ur Specific [place] 1.034 H (1.000-1.030) Urine Protein Negative (Negative) Urine Glucose (UA) Negative (Negative) Urine Ketones Negative (Negative) Urine Blood Negative (Negative) Urine Nitrite Negative (Negative) Urine Bilirubin Negative (Negative) Urine Urobilinogen Negative (Negative) Ur Leukocyte Esterase Negative (Negative) SARS-CoV-2, RNA, NAAT (NEGATIVE) Administered Medications Discontinued Medications Sodium Chloride (Nss 1000ml) 1,000 mls @ 999 mls/hr IV .Q1H1M ONE Stop: 08/22/21 22:34 Last Infusion: 08/22/21 23:01 Dose: 0 mls/hr Documented by: [id number] Admin: 08/22/21 21:58 Dose: 999 mls/hr Documented by: [id number] Sodium Chloride (Nss 1000ml) 1,000 mls @ 999 mls/hr IV .Q1H1M ONE Stop: 08/22/21 23:29 Last Infusion: 08/23/21 00:18 Dose: 0 mls/hr Documented by: [id number] Admin: 08/22/21 23:26 Dose: 999 mls/hr Documented by: [id number] Sodium Chloride (Nss 1000ml) 250 mls @ 999 mls/hr IV .Q16M ONE Stop: 08/22/21 22:44 Last Admin: 08/23/21 00:02 Dose: 999 mls/hr Documented by: [id number] Cefepime HCl (Maxipime) 2,000 mg in 20 mls @ 5 mls/min IV NOW STA; Protocol Stop: 08/22/21 22:32 Last Admin: 08/22/21 22:50 Dose: 5 mls/min Documented by: [id number] Ioversol (Optiray 320 100ml) 93 ml IV ONCE ONE Stop: 08/22/21 23:17 Last Admin: 08/22/21 23:16 Dose: 93 ml Documented by: [id number] Imaging Data Radiologist's Impression: Chest X-Ray 08/22/21 21:35 XR chest 1V portable CLINICAL HISTORY: weakness TECHNIQUE: Single frontal radiograph of the chest was obtained. Comparison: Comparison is made to chest radiograph 05/14/2019 FINDINGS: No lines and tubes are seen. Cardiomegaly is noted. Lungs are mildly underinflated. Atelectasis is seen in the left lower lung. No evidence of pleural effusion or pneumothorax. IMPRESSION: No acute chest disease. ACT 112: Negative or not required by law. Electronically signed by: Petar Wynn M.D. 08/22/2021 10:16 PM Discharge Plan Visit Data Chief Complaint: Weakness Stated Complaint: WENT UNRESPONSIVE, ALTERED MENTAL STATUS ED Provider: Sarwat Mckinnon Discharge Problem: Acute hypotension, Lactic acidosis, Altered mental status Forms Stand Alone Forms: My [facility] Prescriptions Prescriptions: No Action rasagiline 1 mg tablet 1 mg PO DAILY Qty: 30 RF: 5 escitalopram oxalate 10 mg tablet 10 mg PO DAILY RF: 0 valsartan-hydrochlorothiazide 80-12.5 mg tablet 1 tab PO DAILY RF: 0 aspirin 81 mg capsule 81 mg PO DAILY RF: 0 cholecalciferol (vitamin D3) 1,250 mcg (50,000 unit) capsule 50,000 unit PO DAILY RF: 0 finasteride 5 mg Tablet 5 mg PO QAM RF: 0 Xarelto 20 mg Tablet 20 mg PO QAM RF: 0 acetaminophen [Mapap (acetaminophen)] 325 mg Tablet 650 mg PO Q4H PRN (Reason: mild-moderate pain) Qty: 30 RF: 0 carbidopa-levodopa 25-100 mg tablet 2 tab PO QID RF: 0 memantine 5 mg tablet 5 mg PO BID RF: 0 metoprolol succinate 50 mg tablet extended release 24 hr 50 mg PO DAILY RF: 0 tamsulosin 0.4 mg capsule 0.4 mg PO HS RF: 0 cyanocobalamin (vitamin B-12) 1,000 mcg Tablet 1,000 mcg PO DAILY RF: 0 hydrocodone-acetaminophen 5-325 mg tablet 1 tab PO DAILY PRN (Reason: Pain) RF: 0 Referrals Referrals: Edy Flanagan MD [Primary Care Provider] - Discharge Problem: Altered mental status Qualifiers: Altered mental status type: unspecified Qualified Code(s): R41.82 - Altered mental status, unspecified
[2021-08-22 22:01] LABS: Basophils # (auto) 0.03 K/uL (0-0.2); Basophils % (auto) 0.4 %; Eosinophils # (auto) 0.59 K/uL (0-0.5); Eosinophils % (auto) 7.8 %; Hematocrit (blood only) 39.7 % (42-52); Hemoglobin 13.3 g/dL (14.0-18.0); Immature Granulocytes # (auto) 0.03 K/uL (0.00-0.02); Immature Granulocytes % (auto) 0.4 %; Lymphocytes # (auto) 2.24 K/uL (1.2-3.4); Lymphocytes % (auto) 29.5 %; Mean Corpuscular Hemoglobin 33.1 pg (25-34); Mean Corpuscular Hgb Conc 33.5 g/dL (32-36); Mean Corpuscular Volume 98.8 fL (80-100); Mean Platelet Volume 10.9 fL (7.4-10.4); Monocytes # (auto) 0.98 K/uL (0.11-0.59); Monocytes % (auto) 12.9 %; Neutrophils # (auto) 3.72 K/uL (1.4-6.5); Platelet Count 212 K/uL (130-400); RDW Coefficient of Variation 13.1 % (11.5-14.5); RDW Standard Deviation 47.7 fL (36.4-46.3); Red Blood Count 4.02 M/uL (4.7-6.1); White Blood Count 7.59 K/uL (4.8-10.8)
[2021-08-22 22:08] LABS: INR 1.3 (0.9-1.1)
[2021-08-22 22:18] LABS: Albumin Level 4.1 gm/dl (3.4-5.0); BUN Creatinine Ratio 17.8 (10-20); Bilirubin Direct 0.1 mg/dl (0-0.2); Bilirubin,Total 0.6 mg/dl (0.2-1.0); Calcium 9.5 mg/dl (8.5-10.1); Creatinine Clr Calc Pharmacy 61.2 ml/min; Est GFR (African American) 77.2 ml/min; Est GFR (Non-African American) 66.6 ml/min; Magnesium 1.8 mg/dl (1.7-2.4); Potassium 3.7 mmol/L (3.5-5.1); Total Protein 7.1 gm/dl (6.0-8.3)
--- NOTE | 2021-08-22 22:18 | XRay Report ---
XR chest 1V portable CLINICAL HISTORY: weakness TECHNIQUE: Single frontal radiograph of the chest was obtained. Comparison: Comparison is made to chest radiograph 05/14/2019 FINDINGS: No lines and tubes are seen. Cardiomegaly is noted. Lungs are mildly underinflated. Atelectasis is se en in the left lower lung. No evidence of pleural effusion or pneumothorax. IMPRESSION: No acute chest disease. ACT 112: Negative or not required by law. Electronically signed by: Petar Wynn M.D. 08/22/2021 10:16 PM
[2021-08-22 22:22] LABS: Troponin I High Sensitivity 12.4 pg/ml (0-20)
[2021-08-22] MEDS ORDERED: SODIUM CHLORIDE 0.9% 1000ML 250 ML IV ONE (22:29)
[2021-08-22] MEDS ORDERED: CEFEPIME 2,000 MG/20 ML VIAL IV STA (22:29)
[2021-08-22] MEDS ORDERED: OPTIRAY 320 100ml IV ONE (23:16)
[2021-08-23 00:03] LABS: Appearance Urine Clear (Clear); Bilirubin Urine Negative (Negative); Blood Urine Negative (Negative); Color Urine Yellow; Glucose Urine UA Negative (Negative); Ketones Urine Negative (Negative); Leukocyte Esterase Urine Negative (Negative); Nitrite Urine Negative (Negative); Protein Urine Negative (Negative); Specific Gravity Urine 1.034 (1.000-1.030); Urobilinogen Urine Negative (Negative); pH Urine 5.5 (4.5-7.5)
[2021-08-23] MEDS ORDERED: SODIUM CHLORIDE 0.9% 1000ML 1,000 ML IV SCH (00:30)
--- NOTE | 2021-08-23 02:06 | History & Physical Report ---
Date of Service August 23, 2021 Assessment & Plan (1) Acute hypotension: Plan: 85 y/o M Hx BPH, HTN, HLD, CAD, PAF, Parkinson's. The pt today returned from a road trip to [facility] with family over the past week. Over the last 2 days he appeared increasingly fatigued. He does state that he spent a lot of time in the heat and sun and had some sunburn on his arms as well. He also states that he has been slightly short of breath for 1-2 days. On his ret urn, he was eating dinner and had an episode of unresponsiveness, where he was staring into space, but did not lose consciousness. He did not exhibit any upper or lower extremity twitching or tongue biting. He was incontinent of urine. On arrival to the ER, the pt was mildly hypoxic, hypotensive but oriented. He responded well to a fluid bolus. Initial labs were notable for an elevated lactic. UA and CXR were negative. 1) Unresponsive episode - cause is not clear. May be consistent with a seizure episode. We will monitor on telemetry overnight. Consider neuro consult if infection is ruled out 2) Hypotension and lactic acidosis. Hypotension resolved with IVF. Lactic improved. We do not have a source of infection. He received a dose of cefepime in the ER. We will hold additional antibiotics for now as this may be heat stroke. A CT chest is pending on admission as he did CO SOB. 3) Parkinson's - cont Sinemet, Rasagiline 4) HTN - cont Valsartan/HCTZ, metoprolol 5) PAF - anticoagulated with Xarelto - cont metoprolol. 6) BPH - Flomax, finasteride Total time for this admit including review of labs, meds, imaging, records, discussion with pt and ER attending - 45 min (2) Lactic acidosis: (3) Altered mental status: (4) Parkinson disease: History of Present Illness Chief Complaint: [facility] Primary Care Provider: Edy Flanagan MD 85 y/o M Hx BPH, HTN, HLD, CAD, PAF, Parkinson's. The pt today returned from a road trip to [facility] with family over the past week. Over the last 2 days he appeared increasingly fatigued. He does state that he spent a lot of time in the heat and sun and had some sunburn on his arms as well. He also states that he has been slightly short of breath for 1-2 days. On his return, he was eating dinner and had an episode of unresponsiveness, where he was staring into space, but did not lose consciousness. He did not exhibit any upper or lower extremity twitching or tongue biting. He was incontinent of urine. On arrival to the ER, the pt was mildly hypoxic, hypotensive but oriented. He responded well to a fluid bolus. Initial labs were notable for an elevated lactic. UA and CXR were negative. PMH: 1) HTN 2) HLD 3) PAF 4) Parkinson's 5) BPH 6) CAD - stent 2005 7) TIA 2009 8) Diet-controlled DM Surgical: 1) Lumbar fusion 2) Shoulder surgery Social: Drinks one shot of scotch HS. Distant smoking histoy. 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 Family: Noncontributory Allergies Allergy/AdvReac Type Severity Reaction Status Date / Time Penicillins Allergy Intermediate SKIN RASH Verified 08/22/21 22:40 Home Medications Medication Instructions Recorded Confirmed Type finasteride 5 mg tablet 5 mg PO QAM 08/22/18 08/22/21 History rivaroxaban 20 mg tablet (Xarelto) 20 mg PO QAM 08/22/18 08/22/21 History escitalopram oxalate 10 mg tablet 10 mg PO DAILY 03/21/19 08/22/21 History acetaminophen 325 mg tablet (Mapap 650 mg PO Q4H PRN #30 tab 05/16/19 08/22/21 Rx (acetaminophen)) cholecalciferol (vitamin D3) 1,250 50,000 unit PO DAILY cap 04/17/20 08/22/21 History mcg (50,000 unit) capsule rasagiline 1 mg tablet 1 mg PO DAILY #30 tab 06/10/21 08/22/21 Rx aspirin 81 mg capsule 81 mg PO DAILY 06/23/21 08/22/21 History valsartan 80 1 tab PO DAILY 06/23/21 08/22/21 History mg-hydrochlorothiazide 12.5 mg tablet carbidopa 25 mg-levodopa 100 mg 2 tab PO QID 08/22/21 08/22/21 History tablet cyanocobalamin (vitamin B-12) 1,000 mcg PO DAILY 08/22/21 08/22/21 History 1,000 mcg tablet hydrocodone 5 mg-acetaminophen 325 1 tab PO DAILY PRN 08/22/21 08/22/21 History mg tablet memantine 5 mg tablet 5 mg PO BID 08/22/21 08/22/21 History metoprolol succinate 50 mg 50 mg PO DAILY 08/22/21 08/22/21 History tablet,extended release 24 hr tamsulosin 0.4 mg capsule 0.4 mg PO HS 08/22/21 08/22/21 History Past Med/Surg History Medical History (Updated 08/23/21 @ 01:05 by Sarwat Mckinnon MD) A-fib Anxiety NO MEDICATIONS Chronic back pain Degenerative disc disease Diabetes mellitus, type 2 NIDDM Diverticular disease Hyperlipidemia Hypertension On anticoagulant therapy Parkinson disease Peripheral neuropathy RIGHT LEG Sciatica of right side Transient ischemic attack (TIA) ~2-3 YEARS AGO. Surgical History Fusion of spine LUMBAR AREA H/O shoulder surgery REPAIR OF LEFT SHOULDER History of cardiac cath [facility] (~2005) History of colonoscopy History of heart artery stent X1 STENT (~2005) Family History Mother Family history of diabetes mellitus Social History Smoking Status: Former smoker Tobacco Type: Pipe Second Hand Exposure: No; Hx Alcohol Use: Yes Alcohol type: beer and hard liquor Hx Substance Use: No Preferred Language: Italian Communication Ability: Effective Visual Impairment: No Limitations Hearing Ability: Normal Boat Designer Required: No Beliefs That Will Affect Care: None Current Living Situation: Spouse Current Living Situation Comment: SON WITH HIGH 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 Feels Safe at Home: Yes Assistive Devices: Glasses and Walker Review of Systems Review of Systems: The pt does not recall his unresponsive episode. Gen: Denies fevers, night sweats. + fatigue or weakness. ENT: Denies congestion, throat pain, hearing loss Eyes: Denies acute visual changes CV: Denies CP, palpitations Pulmonary: + SOB 1-2 days GI: Denies N/V, diarrhea, constipation Neuro: + unresponsive episode - per family Musculoskeletal: Denies joint pain, inflammation Endocrine: Denies polydipsia, polyuria Skin: Denies acute rashes or ulcers Physical Exam Physical Exam: General: Overweight, elderly M, AAO x 2, no distress ENT: No erythema or exudates, no thrush Eyes: CHARLES, EOMI Head and neck: Normocephalic, atraumatic, No JVD, neck is supple. Chest/heart: Nontender, S1,2, RRR, no murmurs, no gallops Lungs: CTAB, no wheezing or crackles Abdomen: Nontender, nondistended, BS+ Neuro: AAO x 2, speech is clear, no unilateral weakness or loss of sensation, coordination intact Musculoskeletal: No joint inflammation, muscle tenderness, FROM Skin: No acute rashes or ulcers. + sunburn BL over arms. Extremities: No clubbing, cyanosis. + Mild BL edema. Results & Data Results & Data ([facility]) Vital Signs (Past 12 Hours) Vital Signs Temp Pulse Resp BP Pulse Ox 08/23/21 01:30 73 27 H 162/91 H 94 08/23/21 00:30 71 26 H 175/85 H 95 08/23/21 00:00 76 28 H 161/82 H 94 08/22/21 23:30 70 26 H 157/86 H 89 L 08/22/21 23:26 72 24 172/85 H 92 08/22/21 23:22 98.6 F 08/22/21 22:45 62 28 H 167/76 H 90 08/22/21 22:30 64 26 H 150/78 H 90 08/22/21 22:15 61 29 H 148/72 H 91 08/22/21 22:00 61 28 H 138/73 91 08/22/21 21:45 63 29 H 137/61 93 08/22/21 21:25 67 18 88/48 L 94 Code Status & VTE Plan VTE Prophylaxis Plan VTE Prophylaxis will be ordered: No PG Care Time/CCT Total # of Minutes Spent Total Time Spent with Patient: Total time spent is greater than 50% in coordination of care (as documented) at patient's floor/unit and/or counseling patient: Coding Level of Care Code 75789 Initial Inpt Care Lvl 3 Diagnoses Acute hypotension I95.9 Lactic acidosis E87.2 Altered mental status R41.82 Altered mental status type: unspecified Parkinson disease G20 (1) Altered mental status Altered mental status type: unspecified Qualified Code(s): R41.82 - Altered mental status, unspecified
[2021-08-23] MEDS ORDERED: ACETAMINOPHEN 325 MG TAB PO PRN (02:24)
[2021-08-23] MEDS: NSS + 20MEQ KCL 20 MEQ/1,000 ML BAG IV SCH ×2 (02:54→15:20)
[2021-08-23] MEDS ORDERED: AZILECT~ORDER AWAITING ACTION SCH (03:00)
--- NOTE | 2021-08-23 07:53 | Hospitalist Progress Note ---
Date of Service August 23, 2021 Assessment & Plan (1) Acute hypotension: Plan: 85 y/o M Hx BPH, HTN, HLD, CAD, PAF, Parkinson's. The pt today returned from a road trip to [facility] with family over the past week. Over the last 2 days he appeared increasingly fatigued. He does state that he spent a lot of time in the heat and sun and had some sunburn on his arms as well. He also states that he has been slightly short of breath for 1-2 days. On his ret urn, he was eating dinner and had an episode of unresponsiveness, where he was staring into space, but did not lose consciousness. He did not exhibit any upper or lower extremity twitching or tongue biting. He was incontinent of urine. On arrival to the ER, the pt was mildly hypoxic, hypotensive but oriented. He responded well to a fluid bolus. Initial labs were notable for an elevated lactic. UA and CXR were negative. 1) Unresponsive episode - cause is not clear. no arrythmia telemetry overnight. with reports of 2 weeks of urinary incontinence will have urine culture despite relatively unimpressive ua, no antibiotics yet, also will add lyme to am check has not been checked since 2018 2) Hypotension and lactic acidosis. Hypotension resolved with IVF. Lactic improved. He received a dose of cefepime in the ER. We will hold additional antibiotics CT chest lower lobe atelectasis 3) incidental finding of T11 compression fracture, will have scheduled tylenol, lidoderm miacalcin and prn oxycodone, PT eval 4) Parkinson's - cont Sinemet, Rasagiline 5) HTN - cont Valsartan/HCTZ, metoprolol 6) PAF - anticoagulated with Xarelto - cont metoprolol. 7) BPH - Flomax, finasteride (2) Lactic acidosis: (3) Altered mental status: (4) Parkinson disease: (5) Thoracic vertebral fracture: Admission and Anticipated Discharge Date Admission Date: August 23, 2021 Subjective pt has some back pain that is acute on chronic, does not seem to be significa ntly confused. does relate recent urinary incontinence recently will check urine culture Review of Systems Review of Systems: Mild distress and fatigue no headache, no visual changes no speech or swallowing issues no chest pain, pressure or palpitations no shortness of breath, cough or wheezes no abdominal pain, nausea or vomiting, diarrhea or constipation no dysuria, hematuria or frequency no focal joint pain or swelling lower thoracic and upper lumbar back pain does have some redness of skin that maybe sunburn no focal signs of weakness or numbness or altered sensation no complaints of anxiety or depression.. Physical Exam Physical Exam: The patient appeared well nourished and normally developed. Vital signs as documented. Head exam is normocephalic atraumatic Neck is without JVD, thyromegaly, or carotid bruits. Lungs are clear to auscultation, no focal loss of breath sounds Cardiac exam, Rhythm is regular.. No murmurs, rubs or gallops. Abdominal exam reveals normal bowel sounds, soft non tender, no masses Extremities are nonedematous and both pedal pulses are present Neurologic exam is alert and orientedx3 , no focal loss of strength or sensation Skin is with actinic keratosis and some sun burn Psychologically is without concerns for anxiety or depression.. Results & Data Results & Data ([facility]) Vital Signs (Past 12 Hours) Vital Signs Temp Pulse Pulse Resp BP BP Pulse Ox 08/23/21 07:14 97.3 F L 63 20 170/93 H 98 08/23/21 03:59 79 08/23/21 02:29 97.9 F 24 150/80 H 97 08/23/21 02:27 97.9 F 24 177/89 H 97 08/23/21 01:30 73 27 H 162/91 H 94 08/23/21 00:30 71 26 H 175/85 H 95 08/23/21 00:00 76 28 H 161/82 H 94 08/22/21 23:30 70 26 H 157/86 H 89 L 08/22/21 23:26 72 24 172/85 H 92 08/22/21 23:22 98.6 F 08/22/21 22:45 62 28 H 167/76 H 90 08/22/21 22:30 64 26 H 150/78 H 90 08/22/21 22:15 61 29 H 148/72 H 91 08/22/21 22:00 61 28 H 138/73 91 08/22/21 21:45 63 29 H 137/61 93 08/22/21 21:25 67 18 88/48 L 94 PG Care Time/CCT Total # of Minutes Spent Total Time Spent with Patient: Total time spent is greater than 50% in coordination of care (as documented) at patient's floor/unit and/or counseling patient: Coding Level of Care Code 30843 Subseq Hosp Care Lvl 2 Diagnoses Acute hypotension I95.9 Lactic acidosis E87.2 Altered mental status R41.82 Altered mental status type: unspecified Parkinson disease G20 Thoracic vertebral fracture S22.009A (1) Altered mental status Altered mental status type: unspecified Qualified Code(s): R41.82 - Altered mental status, unspecified
--- NOTE | 2021-08-23 08:01 | CT Scan Report ---
CT chest diagnostic wo con CLINICAL HISTORY: PNM TECHNIQUE: Multidetector row helical CT of the chest was performed. Coronal and sagittal reformations were obtained. Automated dose lowering techniques and/or adjustment according to patient size were u tilized for this exam. CT DOSE: 682.97 mGy.cm Comparison: Comparison is made to chest radiograph 09/09/2021 FINDINGS: Lungs and pleura: Atelectasis versus scarring is seen in the dependent portions of the lungs. No grou ndglass and consolidative opacities are seen. Heart and pericardium: Cardiomegaly is seen with biatrial enlargement. Vessels: Severe atherosclerotic changes in the aorta and coronary arteries. Mediastinum and luma: Subcentimeter lymph nodes are seen. Chest wall and lower neck: Unremarkable. Abdomen: Partial visualization of the diastases of the abdominal musculature is seen. Bones: Degenerative changes in the thoracic spine. IMPRESSION: 1. Findings compatible with atelectasis in the lower lobes with without superimposed fibrotic change s. No evidence of airspace opacity. 2. Cardiomegaly. ACT 112: Negative or not required by law. Electronically signed by: Petar Wynn M.D. 08/23/2021 7:59 AM
[2021-08-23] MEDS: RIVAROXABAN 20 MG TAB PO SCH (08:03)
[2021-08-23] MEDS: CYANOCOBALAMIN (B-12) 500 MCG TABLET PO SCH (08:03)
[2021-08-23] MEDS: AZILECT PO SCH (08:03)
[2021-08-23] MEDS: ASPIRIN 81 MG ECTAB PO SCH (08:04)
[2021-08-23] MEDS: FINASTERIDE 5 MG TAB PO SCH (08:04)
[2021-08-23] MEDS: MEMANTINE HCL 5 MG TAB PO SCH ×2 (08:04→21:41)
[2021-08-23] MEDS: ESCITALOPRAM OXALATE 10 MG TAB PO SCH (08:04)
[2021-08-23] MEDS: METOPROLOL SUCC 50MG EXT REL TAB PO SCH (08:04)
[2021-08-23] MEDS: CARBIDOPA/LEVODOPA 25/100MG TAB PO SCH ×4 (08:04→21:40)
--- NOTE | 2021-08-23 08:16 | XRay Report ---
XR chest 1V portable CLINICAL HISTORY: Hypoxia post fluids COMPARISON STUDY: Chest radiograph August 22, 2021. FINDINGS: Lung volumes are diminished, unchanged. Left basilar opacity favors atelectasis. No pneumot horax is present. Blunting of the left costophrenic angle is chronic. There is pulmonary vascular con gestion without overt pulmonary edema. Left basilar opacity reflects atelectasis. IMPRESSION: 1. Pulmonary vascular congestion without overt pulmonary edema. 2. Left basilar opacity consistent with atelectasis. ACT 112: Negative or not required by law. Electronically signed by: Jose M Hedrick M.D. 08/23/2021 8:15 AM
--- NOTE | 2021-08-23 08:19 | CT Scan Report ---
CT head/brain wo con CLINICAL HISTORY: syncope Technique: Contiguous axial CT images of the head were acquired from the base of the skull to the ike mayela without intravenous contrast administration. Images were viewed in brain, subdural and [facility] . Automated dose lowering techniques and/or adjustment according to patient size were utilized for this exam. Comparison: Comparison is made to 05/13/2019 Findings: Areas of decreased attenuation are present in the periventricular and subcortical white matter bilate rally consistent with small vessel ischemic disease. Generalized cerebral atrophy with commensurate e nlargement of the ventricles, sulci, and cisterns is also present. There is no acute intracranial hem orrhage or evidence of acute territorial infarction. No shift of the midline structures, mass effect, or extra-axial abnormalities are shown. Atherosclerotic calcifications are present in the intracran ial segments of the internal carotid arteries. Imaged portions of the paranasal sinuses and mastoid air cells are clear. The orbits appear normal. There are no acute fractures of the calvaria or scalp swelling. Impression: No acute intracranial hemorrhage, no evidence of acute territorial infarction or other acute intracra nial disease process. ACT 112: Negative or not required by law. Electronically signed by: Petar Wynn M.D. 08/23/2021 8:18 AM
--- NOTE | 2021-08-23 08:35 | CT Scan Report ---
CT OF THE ABDOMEN AND PELVIS WITH CONTRAST CLINICAL HISTORY: Hypotension. Sepsis. COMPARISON STUDY: CT of the abdomen and pelvis April 08, 2016. Lumbar spine CT March 10, 2020. TECHNIQUE: Following IV administration of 93 mL of Optiray, axial images of the abdomen and pelvis we re obtained from the lung bases to the proximal femurs. Images were reviewed in the axial, sagittal, and coronal planes. IV contrast was administered without complication. Automated exposure control wa s utilized for the study. A dose lowering technique was utilized adhering to the principles of ALARA . CT DOSE: 2482.09 mGy.cm FINDINGS: No pneumatosis, free air or portal venous gas is present. Exam is mildly compromised by mot ion artifact. No hepatic lesions are identified. There is no biliary or pancreatic ductal dilatation. Spleen, adrenal glands and pancreas are unremarkable. There is no hydronephrosis. Bilateral renal co rtical thinning is noted. A 1.1 cm lesion within the midpole of the left kidney is suboptimally asses sed on this exam due to motion artifact but is similar to CT of April 08, 2016. Colonic diverticul osis is noted without evidence for acute diverticulitis. There is no evidence for a bowel obstruction . No lymphadenopathy is present. There is no fluid collection is suggest an abscess. Small fat-contai deepak umbilical hernia is present. Small fat-containing bilateral inguinal hernias are present. Append ix is normal. Note is made of old T12, L1, L2 and L4 compression fractures. These are unchanged since lumbar spine CT of March 10, 2020. Note is made of a nondisplaced fracture through the right anter ior superior aspect of the T11 vertebral body. This fracture extends through the adjacent anterior os teophytes. No extension into the posterior elements is noted. This fracture is likely acute. IMPRESSION: 1. Nondisplaced fracture through the right anterior aspect of the T11 vertebral body, as described ab ove. No extension into the posterior elements. This fracture is likely acute. This finding will be ca lled/faxed to ordering provider at time of dictation. Additional compression fractures are old. 2. No acute process within the abdomen or pelvis. 3. No bowel obstruction. No bowel wall thickening. 4. Colonic diverticulosis. No evidence for acute diverticulitis. ACT 112: Negative or not required by law. Electronically signed by: Jose M Hedrick M.D. 08/23/2021 8:32 AM
[2021-08-23 08:50] LABS: Basophils # (auto) 0.04 K/uL (0-0.2); Basophils % (auto) 0.6 %; Eosinophils # (auto) 0.55 K/uL (0-0.5); Hemoglobin 12.9 g/dL (14.0-18.0); Immature Granulocytes # (auto) 0.01 K/uL (0.00-0.02); Immature Granulocytes % (auto) 0.1 %; Lymphocytes % (auto) 21.9 %; Mean Corpuscular Hemoglobin 33.9 pg (25-34); Mean Corpuscular Hgb Conc 33.9 g/dL (32-36); Mean Platelet Volume 10.9 fL (7.4-10.4); Monocytes # (auto) 0.79 K/uL (0.11-0.59); Monocytes % (auto) 11.5 %; Neutrophils # (auto) 3.97 K/uL (1.4-6.5); Neutrophils % (auto) 57.9 %; Platelet Count 179 K/uL (130-400); RDW Coefficient of Variation 12.9 % (11.5-14.5); RDW Standard Deviation 47.2 fL (36.4-46.3); White Blood Count 6.86 K/uL (4.8-10.8)
[2021-08-23] MEDS: VALSARTAN 80 MG TAB PO SCH (08:51)
[2021-08-23] MEDS: hydroCHLOROthiazide 25 MG TAB PO SCH (08:51)
[2021-08-23] MEDS ORDERED: VALSARTAN/HCTZ 80/12.5MG TAB PO SCH (09:00)
[2021-08-23 09:14] LABS: BUN Creatinine Ratio 18.4 (10-20); Calcium 9.1 mg/dl (8.5-10.1); Creatinine Clr Calc Pharmacy 70.7 ml/min; Est GFR (African American) 89.9 ml/min; Est GFR (Non-African American) 77.6 ml/min; Potassium 4.4 mmol/L (3.5-5.1)
[2021-08-23] MEDS ORDERED: oxyCODONE HCL IR 5 MG TAB (IMMEDIATE RELEASE) PO PRN (11:59)
[2021-08-23] MEDS: LIDOCAINE 5% 1 PATCH TD SCH ×2 (13:05→13:14)
[2021-08-23] MEDS: CALCITONIN SALMON NA 200 IU/AC 3.7 ML BTL SCH (13:05)
[2021-08-23] MEDS: ACETAMINOPHEN 500 MG TAB PO SCH ×2 (13:13→21:42)
[2021-08-23] MEDS ORDERED: TAMSULOSIN HCL 0.4 MG CAP PO SCH (21:00)
[2021-08-24 06:27] LABS: BUN Creatinine Ratio 22.7 (10-20); Calcium 8.5 mg/dl (8.5-10.1); Creatinine Clr Calc Pharmacy 82.2 ml/min; Est GFR (African American) 95.6 ml/min; Est GFR (Non-African American) 82.5 ml/min; Potassium 3.8 mmol/L (3.5-5.1)
[2021-08-24] MEDS: AZILECT PO SCH (09:27)
[2021-08-24] MEDS: ACETAMINOPHEN 500 MG TAB PO SCH (09:28)
[2021-08-24] MEDS: MEMANTINE HCL 5 MG TAB PO SCH (09:29)
[2021-08-24] MEDS: ASPIRIN 81 MG ECTAB PO SCH (09:29)
[2021-08-24] MEDS: CYANOCOBALAMIN (B-12) 500 MCG TABLET PO SCH (09:29)
[2021-08-24] MEDS: METOPROLOL SUCC 50MG EXT REL TAB PO SCH (09:29)
[2021-08-24] MEDS: CARBIDOPA/LEVODOPA 25/100MG TAB PO SCH (09:29)
[2021-08-24] MEDS: FINASTERIDE 5 MG TAB PO SCH (09:30)
[2021-08-24] MEDS: VALSARTAN 80 MG TAB PO SCH (09:30)
[2021-08-24] MEDS: ESCITALOPRAM OXALATE 10 MG TAB PO SCH (09:30)
[2021-08-24] MEDS: RIVAROXABAN 20 MG TAB PO SCH (09:30)
[2021-08-24] MEDS: hydroCHLOROthiazide 25 MG TAB PO SCH (09:31)
[2021-08-24] MEDS: CALCITONIN SALMON NA 200 IU/AC 3.7 ML BTL SCH (09:36)
[2021-08-24] MEDS: LIDOCAINE 5% 1 PATCH TD SCH (09:37)
--- NOTE | 2021-08-24 15:00 | Discharge Summary ---
Date of Service August 24, 2021 Admission HPI Per Admitting Provider 85 y/o M Hx BPH, HTN, HLD, CAD, PAF, Parkinson's. The pt today returned from a road trip to [facility] with family over the past week. Over the last 2 days he appeared increasingly fatigued. He does state that he spent a lot of time in the heat and sun and had some sunburn on his arms as well. He also states that he has been slightly short of breath for 1-2 days. On his return, he was eating dinner and had an episode of unresponsiveness, where he was staring into space, but did not lose consciousness. He did not exhibit any upper or lower extremity twitching or tongue biting. He was incontinent of urine. On arrival to the ER, the pt was mildly hypoxic, hypotensive but oriented. He responded well to a fluid bolus. Initial labs were notable for an elevated lactic. UA and CXR were negative. PMH: 1) HTN 2) HLD 3) PAF 4) Parkinson's 5) BPH 6) CAD - stent 2005 7) TIA 2009 8) Diet-controlled DM Surgical: 1) Lumbar fusion 2) Shoulder surgery Social: Drinks one shot of scotch HS. Distant smoking histoy. He is a retired [employer]. Family: Noncontributory Principal Diagnosis t11 compression fracture dehydration Discharge Exam The patient appeared stable Vital signs as documented. Lungs are clear to auscultation and appear unlabored Cardiac exam, Rhythm is regular.. No murmurs, rubs or gallops. Abdominal exam reveals normal bowel sounds, soft non tender, no masses Extremities are nonedematous and both pedal pulses are normal. Neurologic exam is alert and oriented, no focal loss of strength or sensation Skin is without bruises or rashes Psychologically is without concerns for anxiety or depression. Discharge Data Allergies Allergy/AdvReac Type Severity Reaction Status Date / Time Penicillins Allergy Intermediate SKIN RASH Verified 08/22/21 22:40 Consultations 08/23/21 01:01 ED Decision to Admit Stat Ordered Studies 08/22/21 22:29 CT abd pelvis IV con only Stat CT head/brain wo con Stat 08/23/21 01:39 CT chest diagnostic wo con Urgent Hospital Course (1) Acute hypotension: 85 y/o M Hx BPH, HTN, HLD, CAD, PAF, Parkinson's. The pt today returned from a road trip to [facility] with family over the past week. Over the last 2 days he appeared increasingly fatigued. He does state that he spent a lot of time in the heat and sun and had some sunburn on his arms as well. He also states that he has been slightly short of breath for 1-2 days. On his return, he was eating dinner and had an episode of unresponsiveness, where he was staring into space, but did not lose consciousness. He did not exhibit any upper or lower extremity twitching or tongue biting. He was incontinent of urine. On arrival to the ER, the pt was mildly hypoxic, hypotensive but oriented. He responded well to a fluid bolus. Initial labs were notable for an elevated lactic. UA and CXR were negative. 1) Unresponsive episode - cause is not clear. no arrythmia telemetry u/a negative and urine culture without confirmatory infection 2) Hypotension and lactic acidosis. Hypotension resolved with IVF. Lactic improved. He received a dose of cefepime in the ER. [facility] 3) incidental finding of T11 compression fracture, will have scheduled tylenol, lidoderm use prn hydrocodone 4) Parkinson's - cont Sinemet, Rasagiline 5) HTN - cont Valsartan, metoprolol [facility] 6) PAF - anticoagulated with Xarelto - cont metoprolol. 7) BPH - Flomax, finasteride (2) Lactic acidosis: (3) Altered mental status: (4) Parkinson disease: (5) Thoracic vertebral fracture: Total Time Total Time Spent Total Time Spent (In Minutes): It required greater than 30 minutes to prepare this patient for discharge Discharge Plan Discharge Items Patient Disposition: Home - Self-Care Reason For Visit: HYPOTENSION AMS Discharge Diagnosis: low blood pressure thoracic vertebral fracture Activity: Per Instructions section Non-emergency contact: Primary Care Provider Call non-emergency contact if: your symptoms worsen Follow-up/Referrals: Edy Flanagan MD [Primary Care Provider] - Diet: Regular Addtl Attending Provider Instructions: please follow up with your family doctor this week is able we are stopping the water pill portion of your blood pressure medicine at this time, discuss this change with your family doctor Pending Studies at Discharge: Yes (urine culture) Stand-Alone Forms: My [facility], Smoking Cessation Medications and DC Order Prescriptions: New valsartan [Diovan] 80 mg Tablet 80 mg PO DAILY Qty: 30 RF: 0 lidocaine 5 % Adhesive Patch,Medicated 1 patch transdermal QAM Qty: 10 RF: 0 Continued rasagiline 1 mg tablet 1 mg PO DAILY Qty: 30 RF: 5 escitalopram oxalate 10 mg tablet 10 mg PO DAILY RF: 0 aspirin 81 mg capsule 81 mg PO DAILY RF: 0 cholecalciferol (vitamin D3) 1,250 mcg (50,000 unit) capsule 50,000 unit PO DAILY RF: 0 finasteride 5 mg Tablet 5 mg PO QAM RF: 0 Xarelto 20 mg Tablet 20 mg PO QAM RF: 0 acetaminophen [Mapap (acetaminophen)] 325 mg Tablet 650 mg PO Q4H PRN (Reason: mild-moderate pain) Qty: 30 RF: 0 carbidopa-levodopa 25-100 mg tablet 2 tab PO QID RF: 0 memantine 5 mg tablet 5 mg PO BID RF: 0 metoprolol succinate 50 mg tablet extended release 24 hr 50 mg PO DAILY RF: 0 tamsulosin 0.4 mg capsule 0.4 mg PO HS RF: 0 cyanocobalamin (vitamin B-12) 1,000 mcg Tablet 1,000 mcg PO DAILY RF: 0 hydrocodone-acetaminophen 5-325 mg tablet 1 tab PO DAILY PRN (Reason: Pain) Qty: 20 RF: 0 Discontinued valsartan-hydrochlorothiazide 80-12.5 mg tablet 1 tab PO DAILY RF: 0 Discharge Orders: Discharge Order (Routine); Ordered 08/24/21 Ordered By: Edgard Rivera Admission Data Admit Date/Time: 08/23/21 01:34 Attending Provider: Edgard Rivera Admit Provider: Danilo Heaton Primary Care Provider: Edy Flanagan Other Providers: Danilo Heaton Other Interventions: Discharge Summary Assessment (RN) Last Done: 08/24/21 10:51 Coding Level of Care Code D/C DAY MANAGEMENT >30 MINS Diagnoses Acute hypotension I95.9 Lactic acidosis E87.2 Altered mental status R41.82 Altered mental status type: unspecified Parkinson disease G20 Thoracic vertebral fracture S22.009A
[2021-08-24 18:45] LABS: A calco-baum cmplx NotReported Not Detected (NotDetected); Bact fragilis Not Reported Not Detected (NotDetected); C auris Not Reported Not Detected (NotDetected); Calbicans Not Reported Not Detected (NotDetected); Candida glabrata Not Reported Not Detected (NotDetected); Candida krusei Not Reported Not Detected (NotDetected); Cneoformans/gatti Not Reported Not Detected (NotDetected); Cparapsilosis Not Reported Not Detected (NotDetected); Ctropicalis Not Reported Not Detected (NotDetected); E cloacae compx Not Reported Not Detected (NotDetected); Efaecalis Not Reported Not Detected (NotDetected); Efaecium Not Reported Not Detected (NotDetected); Enterobacterales Not Reported Not Detected (NotDetected); Escherichia coli Not Reported Not Detected (NotDetected); H influenzae Not Reported Not Detected (NotDetected); K aerogenes Not Reported Not Detected (NotDetected); Koxytoca Not Reported Not Detected (NotDetected); Kpneumoniae grp Not Reported Not Detected (NotDetected); Lmonocyt Not Reported Not Detected (NotDetected); N meningitidis Not Reported Not Detected (NotDetected); P aeruginosa Not Reported Not Detected (NotDetected); Proteus spp Not Reported Not Detected (NotDetected); Salmonella spp Not Reported Not Detected (NotDetected); Smarcescens Not Reported Not Detected (NotDetected); Staph lugdunensis Not Reported Not Detected (NotDetected); Staph spp. Not Reported DETECTED (NotDetected); Staphaureus Not Reported Not Detected (NotDetected); Staphepi Not Reported Not Detected (NotDetected); Stenmaltophilia Not Reported Not Detected (NotDetected); Strep agal(GrpB) Not Reported Not Detected (NotDetected); Strep pneum Not Reported Not Detected (NotDetected); Strep pyog (GrpA) Not Reported Not Detected (NotDetected); Strep spp Not Reported Not Detected (NotDetected)
[2021-08-24 18:55] LABS: Staphylococcus spp. DETECTED (NotDetected)
--- NOTE | 2021-08-24 20:46 | Communication Note ---
Date of Service: August 24, 2021 Patient was discharged this afternoon. I was informed of prelim gram pos cocci in clusters on 1/2 sets of blood cultures at 7 PM. Management will likely differ slightly depending on if S aureus vs. coag neg Staph. Called and informed patient; provided return precautions: instructed to go to ED if worsening symptoms. He states that he feels well currently. Day hospitalist will follow up in the morning.
--- NOTE | 2021-08-25 05:39 | Electrocardiogram Report ---
Test Reason : Blood Pressure : / mmHG Vent. Rate : 067 BPM Atrial Rate : 067 BPM P-R Int : 194 ms QRS Dur : 114 ms QT Int : 418 ms P-R-T Axes : 048 -42 001 degrees QTc Int : 441 ms Normal sinus rhythm Left axis deviation Possible Anterior infarct , age undetermined Abnormal ECG When compared with ECG of 13-MAY-2019 06:09, Premature atrial complexes are no longer Present Borderline criteria for Anterior infarct are now Present Confirmed by Ryley Muller ([id number]) on 08/25/2021 5:39:07 AM Referred By: REFERRED SELF Confirmed By:Ryley Muller
--- NOTE | 2021-08-25 18:18 | Communication Note ---
Date of Service: August 25, 2021 I phoned the patient's regarding his 1 of 4 positive blood cultures. She assures me has had no fevers he has back pain consistent with his thoracic fra cture. I educated her that if his he were to have fevers or his pain were to escalate and worsen he is to report back to the hospital immediately and certainly follow-up with the family physician at earliest convenience.
== END 2021-08-24 12:31 | disposition home or self-care (01) | DRG 641 ==
LOC: ED 21:22 → 2S 08-23 01:34 → SUATTDRO 08-23 01:34 → 2S 08-23 02:12

== ENCOUNTER 2022-10-07 21:23 | Observation (INO) ==
[2022-10-07] MEDS ORDERED: METOPROLOL TARTRATE 1 MG/ML VIAL IV STA (21:50)
[2022-10-07 22:37] LABS: Basophils # (auto) 0.08 K/uL (0-0.2); Basophils % (auto) 1.1 %; Eosinophils # (auto) 0.54 K/uL (0-0.50); Eosinophils % (auto) 7.3 %; Hematocrit (blood only) 39.6 % (42.0-52.0); Hemoglobin 13.5 g/dl (14.0-18.0); Immature Granulocytes # (auto) 0.04 K/uL (0.01-0.20); Immature Granulocytes % (auto) 0.5 %; Lymphocytes # (auto) 2.07 K/uL (1.2-3.4); Lymphocytes % (auto) 27.8 %; Mean Corpuscular Hemoglobin 31.9 pg (25.0-34.0); Mean Corpuscular Hgb Conc 34.1 g/dL (32.0-36.0); Mean Corpuscular Volume 93.6 fL (80.0-100.0); Mean Platelet Volume 10.8 fL (9.4-12.4); Monocytes # (auto) 0.75 K/uL (0.11-0.59); Monocytes % (auto) 10.1 %; Neutrophils # (auto) 3.96 K/uL (1.40-6.50); Neutrophils % (auto) 53.2 %; Platelet Count 178 K/uL (130-400); RDW Coefficient of Variation 13.2 % (11.5-14.5); Red Blood Count 4.23 M/uL (4.70-6.10); White Blood Count 7.44 K/ul (4.8-10.8)
[2022-10-07 22:41] LABS: Appearance Urine Clear (Clear); Bilirubin Urine Negative (Negative); Blood Urine Negative (Negative); Color Urine Yellow; Glucose Urine UA Negative (Negative); Ketones Urine Negative (Negative); Leukocyte Esterase Urine Negative (Negative); Nitrite Urine Negative (Negative); Protein Urine Negative (Negative); Specific Gravity Urine 1.006 (1.000-1.030); Urobilinogen Urine Negative (Negative)
[2022-10-07 22:51] LABS: Alanine Aminotransferase 3 U/L (7-52); Albumin Globulin Ratio 1.4 (0.9-2); Albumin Level 4.4 gm/dl (3.4-5.0); Alkaline Phosphatase 83 U/L (34-104); Anion Gap 10 (3-11); Aspartate Aminotransferase 11 U/L (13-39); BUN Creatinine Ratio 16.1 (10-20); Bilirubin,Total 0.5 mg/dl (0.2-1.0); Blood Urea Nitrogen 14 mg/dl (6-23); Calcium 9.9 mg/dl (8.6-10.3); Carbon Dioxide 26 mmol/L (21-32); Chloride 103 mmol/L (98-107); Est GFR (African American) 89.3 ml/min; Est GFR (Non-African American) 77.1 ml/min; Globulin 3.1 gm/dl (2.5-4.0); Glucose 110 mg/dl (70-99(Fasting)); Lipase 22 U/L (11-82); Magnesium 2.3 mg/dl (1.7-2.4); Sodium 139 mmol/L (136-145); Total Protein 7.5 gm/dl (6.0-8.3)
[2022-10-07 22:58] LABS: Troponin I High Sensitivity 8.5 pg/ml (0-20)
[2022-10-07 23:01] LABS: Partial Thromboplastin Time 28.9 Seconds (21.0-31.0); Prothrombin Time 11.3 Seconds (9.0-12.0)
[2022-10-07 23:22] LABS: Lyme Ab IgG w/WB Rflx Negative (Negative); Lyme Ab IgM w/WB Rflx Negative (Negative)
--- NOTE | 2022-10-07 23:31 | Emergency Department Note ---
History of Present Illness General Chief complaint: Hypertension Stated complaint: HPB,NOT WELL,FATIGUED,WEAK Time Seen by Provider: 10/07/22 21:38 History of Present Illness This 86-year-old male presents the ER complaining of weakness high blood pressure and not feeling well today. Patient was not feeling right and checked his blood pressure noticed it was high. He has not missed any of his medications. Patient denies chest pain, dyspnea, numbness, tingling, localized weakness. Home Medications Medication Instructions Recorded Confirmed Type aspirin 81 mg capsule 81 mg PO DAILY 06/23/21 10/08/22 History cyanocobalamin (vitamin B-12) 1,000 mcg PO 2XWK 11/24/21 10/08/22 History 1,000 mcg tablet tamsulosin 0.4 mg capsule 0.4 mg PO DAILY #90 caps 11/26/21 10/08/22 Rx finasteride 5 mg tablet 5 mg PO QAM #90 tabs 01/21/22 10/08/22 Rx rivaroxaban 20 mg tablet (Xarelto) 20 mg PO QAM #30 tabs 01/21/22 10/08/22 Rx metformin 500 mg tablet 500 mg PO BID #60 tabs 04/16/22 10/08/22 Rx carbidopa 25 mg-levodopa 100 mg 2 tab PO QID 30 days #240 tabs 05/25/22 10/08/22 Rx tablet metoprolol succinate 50 mg 50 mg PO DAILY 07/06/22 10/08/22 History tablet,extended release 24 hr tirzepatide 2.5 mg/0.5 mL 2.5 mg (0.5 mL) subcut .COMPLEX #2 09/06/22 10/08/22 Rx subcutaneous pen injector mL (Gonzalo) escitalopram oxalate 10 mg tablet 10 mg PO DAILY #90 tabs 10/07/22 10/08/22 Rx gabapentin 100 mg capsule 100 mg PO HS #90 caps 10/07/22 10/08/22 Rx memantine 10 mg tablet 10 mg PO BID #180 tabs 10/07/22 10/08/22 Rx semaglutide 0.25 mg or 0.5 mg (2 0.25 mg (0.368 mL) subcut .COMPLEX 10/07/22 10/08/22 Rx mg/3 mL) subcutaneous pen injector #3 mL tramadol 50 mg tablet 50 mg PO BID pain #60 tabs 10/07/22 10/08/22 Rx valsartan 80 mg tablet 80 mg PO DAILY #90 tabs 10/07/22 10/08/22 Rx Allergies Allergy/AdvReac Type Severity Reaction Status Date / Time Penicillins Allergy Intermediate SKIN RASH Verified 10/07/22 15:33 Past Med/Surg History Medical History A-fib Acute hypotension Altered mental status Anxiety NO MEDICATIONS Arteriosclerosis of coronary artery Chronic back pain Closed compression fracture of body of lumbar vertebra Compression fracture of body of thoracic vertebra Degenerative disc disease Diabetes mellitus, type 2 NIDDM Diverticular disease Dyslipidemia Fall HTN (hypertension) Hyperlipidemia Hypertension Internal hemorrhoids Lactic acidosis On anticoagulant therapy Parkinson disease Peripheral neuropathy RIGHT LEG Sciatica of right side Tubular adenoma of colon Surgical History Fusion of spine LUMBAR AREA H/O heart artery stent H/O shoulder surgery REPAIR OF LEFT SHOULDER History of cardiac cath [facility] (~2005) History of colonoscopy History of heart artery stent X1 STENT (~2005) S/P cataract extraction bilateral in 2019 Family History Mother Diabetes Father Myocardial infarction, Onset Age: 82 Grandmother (Maternal) Anxiety Myocardial infarction Social History Smoking Status: Never smoker Tobacco Type: Pipe Second Hand Exposure: No; Do You Dip or Chew Tobacco: No; Hx Alcohol Use: Yes Alcohol type: beer, wine and hard liquor Alcohol Intake Frequency: 4 or More x per/Week Hx Substance Use: No Preferred Language: Jamaican Communication Ability: Effective Visual Impairment: Partially Limited Hearing Ability: Normal Pipeline Technician Required: No Beliefs That Will Affect Care: None marital status: marital status details: Mahendra Levine (Susan) Current Living Situation: Spouse Current Living Situation Comment: SON WITH HIGH 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 Feels Safe at Home: Yes Childhood Exposure to Second-Hand Smoke: No caffeine: Yes Dental Care, Regularly: No Physical Activity Frequency: 1-2 Times per Week Seatbelt Use: always Sunscreen Use: Yes Assistive Devices: Cane, Denture - Upper, Denture - Lower, Glasses, Stair Lift, Walker and Wheelchair Review of Systems A total of 10 systems reviewed and were otherwise negative Physical Exam Vital Signs Vital Signs - 24 hr 10/07/22 21:26 10/07/22 21:48 10/07/22 21:30 Temperature 36.9 C Temperature Source Temporal Artery Scan Pulse Rate 80 81 Pulse Rate from SpO2 Sensor Respiratory Rate 18 Respiratory Effort / Characteristics Non-Labored Respiratory Depth Normal Blood Pressure 211/99 H Blood Pressure Mean 136 Pulse Oximetry 95 98 Oxygen Delivery Method Room Air Room Air Sepsis Recent Fever Within 48 Hours No Sepsis New/Unexplained Change in Mental Status No Sepsis Action Taken by Nursing No Action Required 10/07/22 21:48 10/07/22 21:50 10/07/22 22:00 Temperature Temperature Source Pulse Rate 81 81 78 Pulse Rate from SpO2 Sensor 81 81 78 Respiratory Rate 18 29 H 23 Respiratory Effort / Characteristics Respiratory Depth Blood Pressure Blood Pressure Mean Pulse Oximetry 92 92 91 Oxygen Delivery Method Sepsis Recent Fever Within 48 Hours Sepsis New/Unexplained Change in Mental Status Sepsis Action Taken by Nursing 10/07/22 22:22 10/07/22 22:22 10/07/22 22:30 Temperature Temperature Source Pulse Rate 77 Pulse Rate from SpO2 Sensor Respiratory Rate 27 H Respiratory Effort / Characteristics Respiratory Depth Blood Pressure 201/107 H 173/96 H Blood Pressure Mean 140 130 Pulse Oximetry Oxygen Delivery Method Sepsis Recent Fever Within 48 Hours Sepsis New/Unexplained Change in Mental Status Sepsis Action Taken by Nursing 10/07/22 22:30 10/07/22 22:40 10/07/22 22:50 Temperature Temperature Source Pulse Rate 75 71 70 Pulse Rate from SpO2 Sensor 75 71 70 Respiratory Rate 22 25 H 23 Respiratory Effort / Characteristics Respiratory Depth Blood Pressure Blood Pressure Mean Pulse Oximetry 92 91 91 Oxygen Delivery Method Sepsis Recent Fever Within 48 Hours Sepsis New/Unexplained Change in Mental Status Sepsis Action Taken by Nursing 10/07/22 23:00 10/07/22 23:00 10/07/22 23:10 Temperature Temperature Source Pulse Rate 69 71 Pulse Rate from SpO2 Sensor 69 70 Respiratory Rate 24 17 Respiratory Effort / Characteristics Respiratory Depth Blood Pressure 177/95 H Blood Pressure Mean 123 Pulse Oximetry 91 91 Oxygen Delivery Method Sepsis Recent Fever Within 48 Hours Sepsis New/Unexplained Change in Mental Status Sepsis Action Taken by Nursing 10/07/22 23:20 10/07/22 23:48 10/07/22 23:48 Temperature Temperature Source Pulse Rate 68 78 Pulse Rate from SpO2 Sensor 68 75 Respiratory Rate 23 29 H Respiratory Effort / Characteristics Respiratory Depth Blood Pressure 179/104 H Blood Pressure Mean 119 Pulse Oximetry 90 89 L Oxygen Delivery Method Sepsis Recent Fever Within 48 Hours Sepsis New/Unexplained Change in Mental Status Sepsis Action Taken by Nursing 10/07/22 23:50 10/08/22 00:00 10/08/22 00:00 Temperature Temperature Source Pulse Rate 77 73 Pulse Rate from SpO2 Sensor 75 74 Respiratory Rate 26 H 22 Respiratory Effort / Characteristics Respiratory Depth Blood Pressure 173/92 H Blood Pressure Mean 106 Pulse Oximetry 91 91 Oxygen Delivery Method Sepsis Recent Fever Within 48 Hours Sepsis New/Unexplained Change in Mental Status Sepsis Action Taken by Nursing 10/08/22 00:10 10/08/22 00:20 10/08/22 00:30 Temperature Temperature Source Pulse Rate 73 73 Pulse Rate from SpO2 Sensor 73 73 Respiratory Rate 21 20 Respiratory Effort / Characteristics Respiratory Depth Blood Pressure 191/103 H Blood Pressure Mean 133 Pulse Oximetry 93 91 Oxygen Delivery Method Sepsis Recent Fever Within 48 Hours Sepsis New/Unexplained Change in Mental Status Sepsis Action Taken by Nursing 10/08/22 00:30 10/08/22 00:50 10/08/22 01:52 Temperature Temperature Source Pulse Rate 76 71 68 Pulse Rate from SpO2 Sensor 76 Respiratory Rate 23 Respiratory Effort / Characteristics Respiratory Depth Blood Pressure 192/101 H Blood Pressure Mean Pulse Oximetry 92 Oxygen Delivery Method Sepsis Recent Fever Within 48 Hours Sepsis New/Unexplained Change in Mental Status Sepsis Action Taken by Nursing 10/08/22 00:47 10/08/22 00:48 10/08/22 00:48 Temperature Temperature Source Pulse Rate 72 Pulse Rate from SpO2 Sensor 71 72 Respiratory Rate 23 Respiratory Effort / Characteristics Respiratory Depth Blood Pressure 192/101 H Blood Pressure Mean 125 Pulse Oximetry 91 90 Oxygen Delivery Method Sepsis Recent Fever Within 48 Hours Sepsis New/Unexplained Change in Mental Status Sepsis Action Taken by Nursing 10/08/22 00:50 10/08/22 01:00 10/08/22 01:00 Temperature Temperature Source Pulse Rate 72 70 Pulse Rate from SpO2 Sensor 72 70 Respiratory Rate 24 22 Respiratory Effort / Characteristics Respiratory Depth Blood Pressure 175/89 H Blood Pressure Mean 116 Pulse Oximetry 91 91 Oxygen Delivery Method Sepsis Recent Fever Within 48 Hours Sepsis New/Unexplained Change in Mental Status Sepsis Action Taken by Nursing 10/08/22 01:10 10/08/22 01:20 10/08/22 01:30 Temperature Temperature Source Pulse Rate 67 67 Pulse Rate from SpO2 Sensor 66 67 Respiratory Rate 24 25 H Respiratory Effort / Characteristics Respiratory Depth Blood Pressure 166/85 H Blood Pressure Mean 109 Pulse Oximetry 91 92 Oxygen Delivery Method Sepsis Recent Fever Within 48 Hours Sepsis New/Unexplained Change in Mental Status Sepsis Action Taken by Nursing 10/08/22 01:30 10/08/22 01:40 10/08/22 01:50 Temperature Temperature Source Pulse Rate 66 65 67 Pulse Rate from SpO2 Sensor 66 64 67 Respiratory Rate 23 22 22 Respiratory Effort / Characteristics Respiratory Depth Blood Pressure Blood Pressure Mean Pulse Oximetry 91 90 93 Oxygen Delivery Method Sepsis Recent Fever Within 48 Hours Sepsis New/Unexplained Change in Mental Status Sepsis Action Taken by Nursing VITALS: Vitals are noted on the nurse's note and reviewed by myself. Vital signs hypertensive. GENERAL: Pleasant male following commands, in no acute distress, nondiaphoretic, well-developed well-nourished. SKIN: The skin was without rashes, erythema, or bruising. There is no tenting of the skin. Capillary reflex less than 2 seconds. HEAD: Normocephalic atraumatic. EARS: External auditory canals clear, EYES: Pupils equal round and reactive to light and accommodation. Conjunctivae without injection, sclerae without icterus. Extraocular movements intact. NOSE: Patent, turbinates without inflammation or discharge. MOUTH: Mucous membranes moist. Pharynx without erythema or exudate. Uvula midline. Airway patent. Tongue does not deviate. NECK: Supple without nuchal rigidity. No lymphadenopathy. No thyromegaly. Cervical spine is nontender. No JVD. HEART: Regular rate and rhythm LUNGS: Clear to auscultation bilaterally without wheezes, rales or rhonchi. No retractions or accessory muscle use. ABDOMEN: Positive bowel sounds x 4. Normal tympanic percussion. Soft, nontender, without masses or organomegaly. Roman sign negative. No guarding or rebound tenderness. No CVA tenderness MUSCULOSKELETAL: No muscle atrophy, erythema, noted. NEURO: Patient was alert and oriented to person place and time. Normal sensation to light and sharp touch. No focal neurological deficits. Course Administered Medications Discontinued Medications Ioversol (Ioversol 350 Mg 125ml Prefilled Syringe) 125 ml IV ONCE ONE Stop: 10/07/22 23:51 Last Admin: 10/07/22 23:51 Dose: 116 ml Documented By: TAO Metoprolol Tartrate (Metoprolol Tartrate 1 Mg/Ml Vial) 5 mg IV NOW STA Stop: 10/07/22 21:51 Last Admin: 10/07/22 22:06 Dose: 5 mg Documented By: TORI Metoprolol Tartrate (Metoprolol Tartrate 1 Mg/Ml Vial) 5 mg IV NOW STA Stop: 10/08/22 00:32 Last Admin: 10/08/22 00:50 Dose: 5 mg Documented By: TORI Medical Decision Making Medical Records Attestation: I reviewed the patient's medical records. Home Medications Current Medication List: was personally reviewed by me Laboratory Data Attestation: I reviewed the patient's lab results. 10/07/22 21:57 10/07/22 21:57 Lab Results 10/07/22 10/07/22 10/07/22 Range/Units 21:57 21:57 21:57 WBC 7.44 (4.8-10.8) K/ul RBC 4.23 L (4.70-6.10) M/uL Hgb 13.5 L (14.0-18.0) g/dl Hct 39.6 L (42.0-52.0) % MCV 93.6 (80.0-100.0) fL MCH 31.9 (25.0-34.0) pg MCHC 34.1 (32.0-36.0) g/dL RDW Std Deviation 45.0 (36.4-46.3) fL RDW Coeff of Jeremiah 13.2 (11.5-14.5) % Plt Count 178 (130-400) K/uL MPV 10.8 (9.4-12.4) fL Immature Gran % (Auto) 0.5 % Neut % (Auto) 53.2 % Lymph % (Auto) 27.8 % [place] % (Auto) 10.1 % Eos % (Auto) 7.3 % Baso % (Auto) 1.1 % Neut # (Auto) 3.96 (1.40-6.50) K/uL Lymph # (Auto) 2.07 (1.2-3.4) K/uL [place] # (Auto) 0.75 H (0.11-0.59) K/uL Eos # (Auto) 0.54 H (0-0.50) K/uL Baso # (Auto) 0.08 (0-0.2) K/uL Immature Gran # (Auto) 0.04 (0.01-0.20) K/uL PT (9.0-12.0) Seconds INR (0.9-1.1) APTT (21.0-31.0) Seconds PTT Ratio Sodium 139 (136-145) mmol/L Potassium 4.0 (3.5-5.1) mmol/L Chloride 103 (98-107) mmol/L Carbon Dioxide 26 (21-32) mmol/L Anion Gap 10 (3-11) BUN 14 (6-23) mg/dl Creatinine 0.87 (0.6-1.4) mg/dl Est Cr Clr Drug Dosing Not Reportable Est GFR ( Amer) 89.3 ml/min Est GFR (Non-Af Amer) 77.1 ml/min BUN/Creatinine Ratio 16.1 (10-20) Glucose 110 H (70-99(Fasting)) mg/dl Calcium 9.9 (8.6-10.3) mg/dl Magnesium 2.3 (1.7-2.4) mg/dl Total Bilirubin 0.5 (0.2-1.0) mg/dl AST 11 L (13-39) U/L ALT 3 L (7-52) U/L Alkaline Phosphatase 83 (34-104) U/L Troponin I High Sens 8.5 (0-20) pg/ml Total Protein 7.5 (6.0-8.3) gm/dl Albumin 4.4 (3.4-5.0) gm/dl Globulin 3.1 (2.5-4.0) gm/dl Albumin/Globulin Ratio 1.4 (0.9-2) Lipase 22 (11-82) U/L TSH 3.825 (0.300-4.500) uIu/ml Urine Color Urine Appearance (Clear) Urine pH (4.5-7.5) Ur Specific [place] (1.000-1.030) Urine Protein (Negative) Urine Glucose (UA) (Negative) Urine Ketones (Negative) Urine Blood (Negative) Urine Nitrite (Negative) Urine Bilirubin (Negative) Urine Urobilinogen (Negative) Ur Leukocyte Esterase (Negative) Adenovirus (PCR) (NotDetected) B. pertussis DNA (PCR) (NotDetected) B.parapertussis DNA PCR (NotDetected) Lyme Disease IgG Ab (Negative) Lyme Disease IgM Ab (Negative) C. pneumoniae DNA (PCR) (NotDetected) Coronavirus OC43 (PCR) (NotDetected) Coronavirus HKU1 (PCR) (NotDetected) Coronavirus 229E (PCR) (NotDetected) SARS-CoV-2 (PCR) (NotDetected) Coronavirus NL63 (PCR) (NotDetected) Human Metapneumovir PCR (NotDetected) Influenza Type A (PCR) (NotDetected) Influenza Type B (PCR) (NotDetected) M. pneumoniae (PCR) (NotDetected) Parainfluenza 1 (PCR) (NotDetected) Parainfluenza 2 (PCR) (NotDetected) Parainfluenza 3 (PCR) (NotDetected) Parainfluenza 4 (PCR) (NotDetected) RSV (PCR) (NotDetected) Entero/Rhino (PCR) (NotDetected) 10/07/22 10/07/22 10/07/22 Range/Units 21:57 21:57 22:20 WBC (4.8-10.8) K/ul RBC (4.70-6.10) M/uL Hgb (14.0-18.0) g/dl Hct (42.0-52.0) % MCV (80.0-100.0) fL MCH (25.0-34.0) pg MCHC (32.0-36.0) g/dL RDW Std Deviation (36.4-46.3) fL RDW Coeff of Jeremiah (11.5-14.5) % Plt Count (130-400) K/uL MPV (9.4-12.4) fL Immature Gran % (Auto) % Neut % (Auto) % Lymph % (Auto) % [place] % (Auto) % Eos % (Auto) % Baso % (Auto) % Neut # (Auto) (1.40-6.50) K/uL Lymph # (Auto) (1.2-3.4) K/uL [place] # (Auto) (0.11-0.59) K/uL Eos # (Auto) (0-0.50) K/uL Baso # (Auto) (0-0.2) K/uL Immature Gran # (Auto) (0.01-0.20) K/uL PT 11.3 (9.0-12.0) Seconds INR 1.0 (0.9-1.1) APTT 28.9 (21.0-31.0) Seconds PTT Ratio 1.0 Sodium (136-145) mmol/L Potassium (3.5-5.1) mmol/L Chloride (98-107) mmol/L Carbon Dioxide (21-32) mmol/L Anion Gap (3-11) BUN (6-23) mg/dl Creatinine (0.6-1.4) mg/dl Est Cr Clr Drug Dosing Est GFR ( Amer) ml/min Est GFR (Non-Af Amer) ml/min BUN/Creatinine Ratio (10-20) Glucose (70-99(Fasting)) mg/dl Calcium (8.6-10.3) mg/dl Magnesium (1.7-2.4) mg/dl Total Bilirubin (0.2-1.0) mg/dl AST (13-39) U/L ALT (7-52) U/L Alkaline Phosphatase (34-104) U/L Troponin I High Sens (0-20) pg/ml Total Protein (6.0-8.3) gm/dl Albumin (3.4-5.0) gm/dl Globulin (2.5-4.0) gm/dl Albumin/Globulin Ratio (0.9-2) Lipase (11-82) U/L TSH (0.300-4.500) uIu/ml Urine Color Yellow Urine Appearance Clear (Clear) Urine pH 7.0 (4.5-7.5) Ur Specific [place] 1.006 (1.000-1.030) Urine Protein Negative (Negative) Urine Glucose (UA) Negative (Negative) Urine Ketones Negative (Negative) Urine Blood Negative (Negative) Urine Nitrite Negative (Negative) Urine Bilirubin Negative (Negative) Urine Urobilinogen Negative (Negative) Ur Leukocyte Esterase Negative (Negative) Adenovirus (PCR) (NotDetected) B. pertussis DNA (PCR) (NotDetected) B.parapertussis DNA PCR (NotDetected) Lyme Disease IgG Ab Negative (Negative) Lyme Disease IgM Ab Negative (Negative) C. pneumoniae DNA (PCR) (NotDetected) Coronavirus OC43 (PCR) (NotDetected) Coronavirus HKU1 (PCR) (NotDetected) Coronavirus 229E (PCR) (NotDetected) SARS-CoV-2 (PCR) (NotDetected) Coronavirus NL63 (PCR) (NotDetected) Human Metapneumovir PCR (NotDetected) Influenza Type A (PCR) (NotDetected) Influenza Type B (PCR) (NotDetected) M. pneumoniae (PCR) (NotDetected) Parainfluenza 1 (PCR) (NotDetected) Parainfluenza 2 (PCR) (NotDetected) Parainfluenza 3 (PCR) (NotDetected) Parainfluenza 4 (PCR) (NotDetected) RSV (PCR) (NotDetected) Entero/Rhino (PCR) (NotDetected) 10/07/22 10/08/22 Range/Units 22:20 01:12 WBC (4.8-10.8) K/ul RBC (4.70-6.10) M/uL Hgb (14.0-18.0) g/dl Hct (42.0-52.0) % MCV (80.0-100.0) fL MCH (25.0-34.0) pg MCHC (32.0-36.0) g/dL RDW Std Deviation (36.4-46.3) fL RDW Coeff of Jeremiah (11.5-14.5) % Plt Count (130-400) K/uL MPV (9.4-12.4) fL Immature Gran % (Auto) % Neut % (Auto) % Lymph % (Auto) % [place] % (Auto) % Eos % (Auto) % Baso % (Auto) % Neut # (Auto) (1.40-6.50) K/uL Lymph # (Auto) (1.2-3.4) K/uL [place] # (Auto) (0.11-0.59) K/uL Eos # (Auto) (0-0.50) K/uL Baso # (Auto) (0-0.2) K/uL Immature Gran # (Auto) (0.01-0.20) K/uL PT (9.0-12.0) Seconds INR (0.9-1.1) APTT (21.0-31.0) Seconds PTT Ratio Sodium (136-145) mmol/L Potassium (3.5-5.1) mmol/L Chloride (98-107) mmol/L Carbon Dioxide (21-32) mmol/L Anion Gap (3-11) BUN (6-23) mg/dl Creatinine (0.6-1.4) mg/dl Est Cr Clr Drug Dosing Est GFR ( Amer) ml/min Est GFR (Non-Af Amer) ml/min BUN/Creatinine Ratio (10-20) Glucose (70-99(Fasting)) mg/dl Calcium (8.6-10.3) mg/dl Magnesium (1.7-2.4) mg/dl Total Bilirubin (0.2-1.0) mg/dl AST (13-39) U/L ALT (7-52) U/L Alkaline Phosphatase (34-104) U/L Troponin I High Sens 10.9 (0-20) pg/ml Total Protein (6.0-8.3) gm/dl Albumin (3.4-5.0) gm/dl Globulin (2.5-4.0) gm/dl Albumin/Globulin Ratio (0.9-2) Lipase (11-82) U/L TSH (0.300-4.500) uIu/ml Urine Color Urine Appearance (Clear) Urine pH (4.5-7.5) Ur Specific [place] (1.000-1.030) Urine Protein (Negative) Urine Glucose (UA) (Negative) Urine Ketones (Negative) Urine Blood (Negative) Urine Nitrite (Negative) Urine Bilirubin (Negative) Urine Urobilinogen (Negative) Ur Leukocyte Esterase (Negative) Adenovirus (PCR) Not Detected (NotDetected) B. pertussis DNA (PCR) Not Detected (NotDetected) B.parapertussis DNA PCR Not Detected (NotDetected) Lyme Disease IgG Ab (Negative) Lyme Disease IgM Ab (Negative) C. pneumoniae DNA (PCR) Not Detected (NotDetected) Coronavirus OC43 (PCR) Not Detected (NotDetected) Coronavirus HKU1 (PCR) Not Detected (NotDetected) Coronavirus 229E (PCR) Not Detected (NotDetected) SARS-CoV-2 (PCR) Not Detected (NotDetected) Coronavirus NL63 (PCR) Not Detected (NotDetected) Human Metapneumovir PCR Not Detected (NotDetected) Influenza Type A (PCR) Not Detected (NotDetected) Influenza Type B (PCR) Not Detected (NotDetected) M. pneumoniae (PCR) Not Detected (NotDetected) Parainfluenza 1 (PCR) Not Detected (NotDetected) Parainfluenza 2 (PCR) Not Detected (NotDetected) Parainfluenza 3 (PCR) Not Detected (NotDetected) Parainfluenza 4 (PCR) Not Detected (NotDetected) RSV (PCR) Not Detected (NotDetected) Entero/Rhino (PCR) Not Detected (NotDetected) Imaging Data Attestation: I personally reviewed and interpreted this imaging study as follows: Radiologist's Impression: Head CT 10/07/22 21:48 Exam(s): CT HEAD Without Contrast EXAM: CT Head Without Intravenous Contrast CLINICAL HISTORY: Reason for exam: neuro deficit, acute stroke suspected. TECHNIQUE: Axial computed tomography images of the head/brain without intravenous contrast. CTDI is 37.51 mGy and DLP is 702.46 mGy-cm. Automated exposure control was utilized for the study. A dose lowering technique was utilized adhering to the principles of ALARA. COMPARISON: 08/22/2021. FINDINGS: Brain: Mild generalized brain atrophy. Slight decreased attenuation within the deep periventricular white matter compatible with mild microangiopathic white matter disease. No hemorrhage. Ventricles: Unremarkable. No ventriculomegaly. Bones/joints: Unremarkable. No acute fracture. Soft tissues: Unremarkable. Sinuses: Unremarkable as visualized. No acute sinusitis. Mastoid air cells: Unremarkable as visualized. No mastoid effusion. IMPRESSION: Chronic changes as described. No acute intracranial hemorrhage or space-occupying lesion. Electronically signed by: Faby Gagnon MD 10/08/22 01:51 AM Head CTA 10/07/22 21:48 Exam(s): CTA HEAD With Contrast IV Amt: 116 ML OPTIRAY 350 EXAM: CT Angiography Head With Intravenous Contrast CLINICAL HISTORY: Reason for exam: neuro deficit, acute stroke suspected. TECHNIQUE: Axial computed tomographic angiography images of the head with intravenous contrast. CTDI is 20.76 mGy and DLP is 10.38 mGy-cm. Automated exposure control was utilized for the study. A dose lowering technique was utilized adhering to the principles of ALARA. MIP reconstructed images were created and reviewed. CONTRAST: Patient received 116 ML OPTIRAY 350 of IV contrast COMPARISON: None. FINDINGS: Right internal carotid artery: Mild calcified atherosclerotic disease involving the cavernous portion of the right internal carotid artery with less than 50% stenosis. No aneurysm. Right anterior cerebral artery: Unremarkable. No occlusion or significant stenosis. No aneurysm. Right middle cerebral artery: Unremarkable. No occlusion or significant stenosis. No aneurysm. Right posterior cerebral artery: Unremarkable. No occlusion or significant stenosis. No aneurysm. Right vertebral artery: Unremarkable as visualized. Left internal carotid artery: Mild calcified atherosclerotic disease involving the cavernous portion of the left internal carotid artery with less than 50% stenosis. No aneurysm. Left anterior cerebral artery: Unremarkable. No occlusion or significant stenosis. No aneurysm. Left middle cerebral artery: Unremarkable. No occlusion or significant stenosis. No aneurysm. Left posterior cerebral artery: Unremarkable. No occlusion or significant stenosis. No aneurysm. Left vertebral artery: Dominant left-sided vertebral arteries otherwise normal bilateral vertebral arteries. Basilar artery: Unremarkable. No occlusion or significant stenosis. No aneurysm. 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 Electronically signed by: Faby Gagnon MD 10/08/22 01:57 AM Neck CTA 10/07/22 21:48 Exam(s): CTA NECK With Contrast IV Amt: 116 ML OPTIRAY 350 EXAM: CT Angiography Neck With Intravenous Contrast CLINICAL HISTORY: Reason for exam: neuro deficit, acute stroke suspected. TECHNIQUE: Routine carotid CT angiography protocol was performed with intravenous contrast. NASCET criteria using the distal ICAs for comparison were used for evaluation of stenoses. CTDI is 14.45 mGy and DLP is 582.19 mGy-cm. Automated exposure control was utilized for the study. A dose lowering technique was utilized adhering to the principles of ALARA. MIP reconstructed images were created and reviewed. CONTRAST: Patient received 116 ML OPTIRAY 350 of IV contrast COMPARISON: None. FINDINGS: VASCULATURE: Right common carotid artery: Unremarkable. No occlusion or significant stenosis. No dissection. Right internal carotid artery: Mild calcified plaque at the right carotid bulb. Mild calcified plaque at the origin and proximal right internal carotid artery with less than 50% diameter stenosis. No dissection. Right external carotid artery: Unremarkable. No occlusion. Right vertebral artery: Unremarkable. No occlusion or significant stenosis. No dissection. Left common carotid artery: Unremarkable. No occlusion or significant stenosis. No dissection. Left internal carotid artery: Moderate calcified plaque at the level of the left carotid bulb. Mild calcified plaque in the region of the left internal carotid artery stenosis. No dissection. Left external carotid artery: Unremarkable. No occlusion. Left vertebral artery: Dominant left-sided vertebral artery. No occlusion or significant stenosis. No dissection. Other vasculature: Mild calcified atherosclerotic disease throughout the origin of great vessels. Mild calcified atherosclerotic disease throughout the origin of the right distal carotid artery with no stenosis. Aorta: Mild calcified atherosclerotic disease of aorta with no aneurysm or dissection. NECK: Bones/joints: Unremarkable. Soft tissues: Unremarkable. Lung apices: Mild left posterior dependent atelectasis otherwise lung apices are clear. Other findings: Multilevel degenerative disease throughout the cervical spine. CAROTID STENOSIS REFERENCE USING NASCET CRITERIA: % ICA stenosis = (1 - narrowest ICA diameter/diameter of distal cervical ICA) x 100. Mild - <50% stenosis. Moderate - 50-69% stenosis. Severe - 70-94% stenosis. Near occlusion - 95-99% stenosis. Occluded - 100% stenosis. IMPRESSION: Calcified atherosclerotic disease predominantly in the region of the carotid bulb and proximal internal carotid arteries, right more than left. No significant stenosis, occlusion or dissection involving the bilateral carotid or vertebral arteries. Electronically signed by: Faby Gagnon MD 10/08/22 01:54 AM MDM Narrative Prior records/ancillary studies reviewed and summarized above. Nursing notes reviewed. Additional history obtained from family. The patient's history was concerning for hypertension weakness and not feeling right. Differential diagnosis: Etiologies such as metabolic, infection, hypo/hyperglycemia, electrolyte abnormalities, cardiac sources, intracerebral event, toxicologic, neurologic, as well as others were entertained. Physical examination: As above. ER treatment provided: IV Lock An order was placed for continuous cardiac monitoring. The monitor shows a rate of 60-100 with a sinus rhythm per my interpretation. Lopressor was ordered On reassessment the patient felt better. Diagnostics interpretation by me: ECG: Ordered for weakness Normal sinus, left axis, T wave inversion in 1 and aVL, rate of 80. Impression normal sinus rhythm left axis left ventricular hypertrophy independent interpreted by myself The labs Independently Interpreted by myself revealed no worrisome leukocytosis, negative troponin, euthyroid, negative urine Imaging studies: Chest x-ray with no acute consolidation, pneumothorax or free air per my independent interpretation Head CT negative for intracranial bleed per my independent interpretation CTAs of the head and neck were read by radiology and reviewed by myself Consultation: A consultation was placed with the hospitalist. The case was discussed and diagnostics were reviewed. The patient was evaluated in the ER for further treatment. Exam and history seem consistent with hypertensive urgency with weakness. Patient is given a few rounds of Lopressor and his blood pressure was still quite elevated. Labs and diagnostics were independent interpreted by myself. Radiology read the CAT scans. No signs of infection. Negative urine. Negative x-ray. Medicine was consulted and the case was discussed. Patient will be admitted for further evaluation and work-up. By the evaluation outlined above emergent etiologies such as infection, electrolyte abnormalities, intracerebral event, toxologic, neurologic, abnormalities blood glucose, metabolic, as well as others were deemed relatively unlikely. The pt informed about the findings as listed above. All questions were answered and pleased with the treatment. The chart was completed utilizing [facility] Speech voice recognition software. Grammatical errors, random word insertions, pronoun errors, and incomplete sentences are an occassional consequence of this system due to software limitations, ambient noise, and hardware issues. Any formal questions or concerns about the content, text, or information contained within the body of this dictation should be directly addressed to the physician material assistant for clarification. Impression & Plan Hypertensive urgency, Weakness Discharge Plan Visit Data Chief Complaint: Hypertension Stated Complaint: HPB,NOT WELL,FATIGUED,WEAK ED Provider: Sophie Kwong ED Midlevel Provider: Shanika Richardson Discharge Problem: Hypertensive urgency, Weakness Patient Disposition: Admitted As Inpatient Condition: Fair Forms Stand Alone Forms: [facility] Prescriptions Prescriptions: No Action tamsulosin 0.4 mg capsule 0.4 mg PO DAILY Qty: 90 3RF finasteride 5 mg tablet 5 mg PO QAM Qty: 90 3RF Xarelto 20 mg tablet 20 mg PO QAM Qty: 30 11RF metformin 500 mg tablet 500 mg PO BID Qty: 60 2RF carbidopa-levodopa 25-100 mg tablet 2 tab PO QID 30 Days Qty: 240 5RF Mounjaro 2.5 mg/0.5 mL pen injector 2.5 mg subcut .COMPLEX Qty: 2 11RF Rx Instructions: 2.5 mg subcutaneously weekly; aspirin 81 mg capsule 81 mg PO DAILY metoprolol succinate 50 mg tablet extended release 24 hr 50 mg PO DAILY gabapentin 100 mg capsule 100 mg PO HS Qty: 90 3RF memantine 10 mg tablet 10 mg PO BID Qty: 180 3RF escitalopram oxalate 10 mg tablet 10 mg PO DAILY Qty: 90 3RF tramadol 50 mg tablet 50 mg PO BID Qty: 60 5RF semaglutide 0.25 mg or 0.5 mg (2 mg/3 mL) pen injector 0.25 mg subcut .COMPLEX Qty: 3 5RF Rx Instructions: 0.25 mg subcutaneously weekly; new order 10/07/22...not picked up yet from pharmacy valsartan 80 mg tablet 80 mg PO DAILY Qty: 90 3RF cyanocobalamin (vitamin B-12) 1,000 mcg tablet 1,000 mcg PO 2XWK Referrals Referrals: dEy Flanagan MD [Primary Care Provider] -
[2022-10-07 23:32] LABS: Adenovirus PCR Not Detected (NotDetected); Bordetella parapertussis PCR Not Detected (NotDetected); Bordetella pertussis PCR Not Detected (NotDetected); Chlamydia pneumoniae PCR Not Detected (NotDetected); Coronavirus 229E PCR Not Detected (NotDetected); Coronavirus CoV-2 (COVID19)PCR Not Detected (NotDetected); Coronavirus HKU1 PCR Not Detected (NotDetected); Coronavirus NL63 PCR Not Detected (NotDetected); Coronavirus OC43PCR Not Detected (NotDetected); Human Metapneumovirus PCR Not Detected (NotDetected); Influenza A PCR Not Detected (NotDetected); Influenza B PCR Not Detected (NotDetected); Mycoplasma pneumoniae PCR Not Detected (NotDetected); Parainfluenza Virus 1 PCR Not Detected (NotDetected); Parainfluenza Virus 2 PCR Not Detected (NotDetected); Parainfluenza Virus 3 PCR Not Detected (NotDetected); Parainfluenza Virus 4 PCR Not Detected (NotDetected); Respiratory Syncytial VirusPCR Not Detected (NotDetected); Rhinovirus/Enterovirus PCR Not Detected (NotDetected)
[2022-10-07] MEDS ORDERED: IOVERSOL 350 MG 125mL Prefilled Syringe IV ONE (23:50)
[2022-10-08] MEDS ORDERED: METOPROLOL TARTRATE 1 MG/ML VIAL IV STA (00:31)
--- NOTE | 2022-10-08 01:51 | CT Scan Report ---
Exam(s): CT HEAD Without Contrast EXAM: CT Head Without Intravenous Contrast CLINICAL HISTORY: Reason for exam: neuro deficit, acute stroke suspected. TECHNIQUE: Axial computed tomography images of the head/brain without intravenous contrast. CTDI is 37.51 mGy and DLP is 702.46 mGy-cm. Automated exposure control was utilized for the study. A dose lowering technique was utilized adhering to the principles of ALARA. COMPARISON: 08/22/2021. FINDINGS: Brain: Mild generalized brain atrophy. Slight decreased attenuation within the deep periventricular white matter compatible with mild microangiopathic white matter disease. No hemorrhage. Ventricles: Unremarkable. No ventriculomegaly. Bones/joints: Unremarkable. No acute fracture. Soft tissues: Unremarkable. Sinuses: Unremarkable as visualized. No acute sinusitis. Mastoid air cells: Unremarkable as visualized. No mastoid effusion. IMPRESSION: Chronic changes as described. No acute intracranial hemorrhage or space-occupying lesion. Electronically signed by: Faby Gagnon MD 10/08/22 01:51 AM
--- NOTE | 2022-10-08 01:55 | CT Scan Report ---
Exam(s): CTA NECK With Contrast IV Amt: 116 ML OPTIRAY 350 EXAM: CT Angiography Neck With Intravenous Contrast CLINICAL HISTORY: Reason for exam: neuro deficit, acute stroke suspected. TECHNIQUE: Routine carotid CT angiography protocol was performed with intravenous contrast. NASCET criteria using the distal ICAs for comparison were used for evaluation of stenoses. CTDI is 14.45 mGy and DLP is 582.19 mGy-cm. Automated exposure control was utilized for the study. A dose lowering technique was utilized adhering to the principles of ALARA. MIP reconstructed images were created and reviewed. CONTRAST: Patient received 116 ML OPTIRAY 350 of IV contrast COMPARISON: None. FINDINGS: VASCULATURE: Right common carotid artery: Unremarkable. No occlusion or significant stenosis. No dissection. Right internal carotid artery: Mild calcified plaque at the right carotid bulb. Mild calcified plaque at the origin and proximal right internal carotid artery with less than 50% diameter stenosis. No dissection. Right external carotid artery: Unremarkable. No occlusion. Right vertebral artery: Unremarkable. No occlusion or significant stenosis. No dissection. Left common carotid artery: Unremarkable. No occlusion or significant stenosis. No dissection. Left internal carotid artery: Moderate calcified plaque at the level of the left carotid bulb. Mild calcified plaque in the region of the left internal carotid artery stenosis. No dissection. Left external carotid artery: Unremarkable. No occlusion. Left vertebral artery: Dominant left-sided vertebral artery. No occlusion or significant stenosis. No dissection. Other vasculature: Mild calcified atherosclerotic disease throughout the origin of great vessels. Mild calcified atherosclerotic disease throughout the origin of the right distal carotid artery with no stenosis. Aorta: Mild calcified atherosclerotic disease of aorta with no aneurysm or dissection. NECK: Bones/joints: Unremarkable. Soft tissues: Unremarkable. Lung apices: Mild left posterior dependent atelectasis otherwise lung apices are clear. Other findings: Multilevel degenerative disease throughout the cervical spine. CAROTID STENOSIS REFERENCE USING NASCET CRITERIA: % ICA stenosis = (1 - narrowest ICA diameter/diameter of distal cervical ICA) x 100. Mild - <50% stenosis. Moderate - 50-69% stenosis. Severe - 70-94% stenosis. Near occlusion - 95-99% stenosis. Occluded - 100% stenosis. IMPRESSION: Calcified atherosclerotic disease predominantly in the region of the carotid bulb and proximal internal carotid arteries, right more than left. No significant stenosis, occlusion or dissection involving the bilateral carotid or vertebral arteries. Electronically signed by: Faby Gagnon MD 10/08/22 01:54 AM
--- NOTE | 2022-10-08 01:58 | CT Scan Report ---
Exam(s): CTA HEAD With Contrast IV Amt: 116 ML OPTIRAY 350 EXAM: CT Angiography Head With Intravenous Contrast CLINICAL HISTORY: Reason for exam: neuro deficit, acute stroke suspected. TECHNIQUE: Axial computed tomographic angiography images of the head with intravenous contrast. CTDI is 20.76 mGy and DLP is 10.38 mGy-cm. Automated exposure control was utilized for the study. A dose lowering technique was utilized adhering to the principles of ALARA. MIP reconstructed images were created and reviewed. CONTRAST: Patient received 116 ML OPTIRAY 350 of IV contrast COMPARISON: None. FINDINGS: Right internal carotid artery: Mild calcified atherosclerotic disease involving the cavernous portion of the right internal carotid artery with less than 50% stenosis. No aneurysm. Right anterior cerebral artery: Unremarkable. No occlusion or significant stenosis. No aneurysm. Right middle cerebral artery: Unremarkable. No occlusion or significant stenosis. No aneurysm. Right posterior cerebral artery: Unremarkable. No occlusion or significant stenosis. No aneurysm. Right vertebral artery: Unremarkable as visualized. Left internal carotid artery: Mild calcified atherosclerotic disease involving the cavernous portion of the left internal carotid artery with less than 50% stenosis. No aneurysm. Left anterior cerebral artery: Unremarkable. No occlusion or significant stenosis. No aneurysm. Left middle cerebral artery: Unremarkable. No occlusion or significant stenosis. No aneurysm. Left posterior cerebral artery: Unremarkable. No occlusion or significant stenosis. No aneurysm. Left vertebral artery: Dominant left-sided vertebral arteries otherwise normal bilateral vertebral arteries. Basilar artery: Unremarkable. No occlusion or significant stenosis. No aneurysm. IMPRESSION: Mild atherosclerotic disease dominantly in the region of the cavernous portion of the bilateral internal carotid arteries with no significant stenosis, occlusion or aneurysm involving the [place]. Electronically signed by: Faby Gagnon MD 10/08/22 01:57 AM
--- NOTE | 2022-10-08 03:04 | History & Physical Report ---
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 His PCP has been attempting to regulate his blood pressure medications in the outpatient setting Volatility may be associated with his Parkinson's and autonomic dysfunction, and likely is being affected somewhat by depression and anxiety Continue aspirin 81 mg daily, metoprolol succinate 50 mg daily, valsartan 80 mg daily, Xarelto Parkinson's/SDAT/depression and anxiety- Continue carbidopa/levodopa 25/100, 2 tablets p.o. 4 times daily Continue memantine 10 mg p.o. twice daily Might consider adjusting Parkinson's medications in consideration of Parkinson's Plus syndrome Continue escitalopram 10 mg daily and gabapentin 100 mg at bedtime Diabetes mellitus- Hold metformin, semaglutide and tirzepatide Chronic pain syndrome- Continue tramadol as needed History of Present Illness Chief Complaint: The patient presents to the emergency department with feeling generalized weakness, not feeling like himself, has had volatile blood pressure for quite a while, both he and his family became concerned, and came to the ED for as sessment Primary Care Provider: Edy Flanagan MD The patient is an 86-year-old male with a past medical history including periodic limb movement disorder, TIA, syncope, paroxysmal atrial fibrillation, CAD, executive function deficit, heart failure, spinal stenosis, hypertension, hyperlipidemia, BPH, RLS, Parkinson's disease, LVH and diabetes mellitus. His outpatient physician has been attempting to adjust his medications due to the volatility of his blood pressure, and most recently had increased losartan and decreased metoprolol. The patient's blood pressure this evening was in his usual volatile range, however, he sounds like he became a bit more introspective, and concerned about how things were going, had difficulty sleeping, and family brought him to the ED for assessment. 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 However, he reports that he thinks this will be his last year of work Allergies Allergy/AdvReac Type Severity Reaction Status Date / Time Penicillins Allergy Intermediate SKIN RASH Verified 10/07/22 15:33 Home Medications Medication Instructions Recorded Confirmed Type aspirin 81 mg capsule 81 mg PO DAILY 06/23/21 10/08/22 History cyanocobalamin (vitamin B-12) 1,000 mcg PO 2XWK 11/24/21 10/08/22 History 1,000 mcg tablet tamsulosin 0.4 mg capsule 0.4 mg PO DAILY #90 caps 11/26/21 10/08/22 Rx finasteride 5 mg tablet 5 mg PO QAM #90 tabs 01/21/22 10/08/22 Rx rivaroxaban 20 mg tablet (Xarelto) 20 mg PO QAM #30 tabs 01/21/22 10/08/22 Rx metformin 500 mg tablet 500 mg PO BID #60 tabs 04/16/22 10/08/22 Rx carbidopa 25 mg-levodopa 100 mg 2 tab PO QID 30 days #240 tabs 05/25/22 10/08/22 Rx tablet metoprolol succinate 50 mg 50 mg PO DAILY 07/06/22 10/08/22 History tablet,extended release 24 hr tirzepatide 2.5 mg/0.5 mL 2.5 mg (0.5 mL) subcut .COMPLEX #2 09/06/22 10/08/22 Rx subcutaneous pen injector mL (Gonzalo) escitalopram oxalate 10 mg tablet 10 mg PO DAILY #90 tabs 10/07/22 10/08/22 Rx gabapentin 100 mg capsule 100 mg PO HS #90 caps 10/07/22 10/08/22 Rx memantine 10 mg tablet 10 mg PO BID #180 tabs 10/07/22 10/08/22 Rx semaglutide 0.25 mg or 0.5 mg (2 0.25 mg (0.368 mL) subcut .COMPLEX 10/07/22 10/08/22 Rx mg/3 mL) subcutaneous pen injector #3 mL tramadol 50 mg tablet 50 mg PO BID pain #60 tabs 10/07/22 10/08/22 Rx valsartan 80 mg tablet 80 mg PO DAILY #90 tabs 10/07/22 10/08/22 Rx Past Med/Surg History Medical History (Updated 10/08/22 @ 04:48 by Tim Walton MD) A-fib Acute hypotension Altered mental status Anxiety NO MEDICATIONS Arteriosclerosis of coronary artery Blood pressure instability Chronic back pain Closed compression fracture of body of lumbar vertebra Compression fracture of body of thoracic vertebra Degenerative disc disease Diabetes mellitus, type 2 NIDDM Diverticular disease Dyslipidemia Fall HTN (hypertension) Hyperlipidemia Hypertension Internal hemorrhoids Lactic acidosis On anticoagulant therapy Parkinson disease Peripheral neuropathy RIGHT LEG Sciatica of right side Tubular adenoma of colon Surgical History Fusion of spine LUMBAR AREA H/O heart artery stent H/O shoulder surgery REPAIR OF LEFT SHOULDER History of cardiac cath [facility] (~2005) History of colonoscopy History of heart artery stent X1 STENT (~2005) S/P cataract extraction bilateral in 2019 Family History Mother Diabetes Father Myocardial infarction, Onset Age: 82 Grandmother (Maternal) Anxiety Myocardial infarction Social History Smoking Status: Never smoker Tobacco Type: Pipe Second Hand Exposure: No; Do You Dip or Chew Tobacco: No; Hx Alcohol Use: Yes Alcohol type: beer, wine and hard liquor Alcohol Intake Frequency: 4 or More x per/Week Hx Substance Use: No Preferred Language: Citizen Of [place] Communication Ability: Effective Visual Impairment: Partially Limited Hearing Ability: Normal Gunner'S Mate M Required: No Beliefs That Will Affect Care: None marital status: marital status details: Mahendra Levine (Susan) Current Living Situation: Spouse Current Living Situation Comment: SON WITH HIGH 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 Feels Safe at Home: Yes Childhood Exposure to Second-Hand Smoke: No caffeine: Yes Dental Care, Regularly: No Physical Activity Frequency: 1-2 Times per Week Seatbelt Use: always Sunscreen Use: Yes Assistive Devices: Cane, Denture - Upper, Denture - Lower, Glasses, Stair Lift, Walker and Wheelchair Review of Systems Review of Systems: The patient denies chest pain, palpitations, shortness of breath, dyspnea on exertion, cough, lower extremity swelling, sore throat, fevers, chills, sweats, nausea, vomiting, diarrhea , constipation, abdominal pain, pelvic pain, blood in urine or stool, dysuria, urinary frequency or urgency, lightheadedness, dizziness, headache, loss of consciousness, rash, abnormal bruising or bleeding, imbalance, focal or generalized weakness, numbness or tingling in arms or legs, generalized arthralgias or myalgias, back or neck pain, or night sweats. The review of systems is otherwise negative other than for that already noted above, and at least 10 systems have been reviewed. Physical Exam Physical Exam: The patient is awake, alert and oriented 3, well developed and well nourished, normocephalic and atraumatic, lying in bed and in no acute distress. HEENT--PERRL, EOMI, mucous membranes and oropharynx mildly dry. Neck--supple. No JVD. No bruits. Thyroid normal, trachea midline, no adenopathy. Heart--normal S1 and S2. No murmurs, rubs or gallops. Lungs--clear bilaterally, no respiratory distress, no accessory muscle use. Abdomen--normal bowel sounds and soft. Nontender. Nondistended, no hernias or masses, no organomegaly. Extremities--no cyanosis or clubbing. No edema. Dermatologic--normal skin turgor, normal color, no abnormal lymph nodes, no rash. Neurologic--cranial nerves II through XII grossly intact. Rheumatologic--normal range of motion. Psychiatric--somewhat introspective, mildly depressed Results & Data Results & Data Vital Signs (Past 12 Hours) Vital Signs Temp Pulse Resp BP Pulse Ox O2 Del Method 10/08/22 01:50 67 22 93 10/08/22 01:40 65 22 90 10/08/22 01:30 66 23 91 10/08/22 01:30 166/85 H 10/08/22 01:20 67 25 H 92 10/08/22 01:10 67 24 91 10/08/22 01:00 70 22 91 10/08/22 01:00 175/89 H 10/08/22 00:50 72 24 91 10/08/22 00:48 192/101 H 10/08/22 00:48 72 23 90 10/08/22 00:47 91 10/08/22 01:52 68 10/08/22 00:50 71 192/101 H 10/08/22 00:30 76 23 92 10/08/22 00:30 191/103 H 10/08/22 00:20 73 20 91 10/08/22 00:10 73 21 93 10/08/22 00:00 73 22 91 10/08/22 00:00 173/92 H 10/07/22 23:50 77 26 H 91 10/07/22 23:48 78 29 H 89 L 10/07/22 23:48 179/104 H 10/07/22 23:20 68 23 90 10/07/22 23:10 71 17 91 10/07/22 23:00 69 24 91 10/07/22 23:00 177/95 H 10/07/22 22:50 70 23 91 10/07/22 22:40 71 25 H 91 10/07/22 22:30 75 22 92 10/07/22 22:30 173/96 H 10/07/22 22:22 77 27 H 10/07/22 22:22 201/107 H 10/07/22 22:00 78 23 91 10/07/22 21:50 81 29 H 92 10/07/22 21:48 81 18 92 10/07/22 21:30 98 Room Air 10/07/22 21:48 81 10/07/22 21:26 36.9 C 80 18 211/99 H 95 Room Air Laboratory Results Laboratory Results WBC 7.44 K/ul (4.8-10.8) 10/07/22 21:57 RBC 4.23 M/uL (4.70-6.10) L 10/07/22 21:57 Hgb 13.5 g/dl (14.0-18.0) L 10/07/22 21:57 Hct 39.6 % (42.0-52.0) L 10/07/22 21:57 MCV 93.6 fL (80.0-100.0) 10/07/22 21:57 MCH 31.9 pg (25.0-34.0) 10/07/22 21:57 MCHC 34.1 g/dL (32.0-36.0) 10/07/22 21:57 RDW Std Deviation 45.0 fL (36.4-46.3) 10/07/22 21:57 RDW Coeff of Jeremiah 13.2 % (11.5-14.5) 10/07/22 21:57 Plt Count 178 K/uL (130-400) 10/07/22 21:57 MPV 10.8 fL (9.4-12.4) 10/07/22 21:57 Immature Gran % (Auto) 0.5 % 10/07/22 21:57 Neut % (Auto) 53.2 % 10/07/22 21:57 Lymph % (Auto) 27.8 % 10/07/22 21:57 Coffee % (Auto) 10.1 % 10/07/22 21:57 Eos % (Auto) 7.3 % 10/07/22 21:57 Baso % (Auto) 1.1 % 10/07/22 21:57 Neut # (Auto) 3.96 K/uL (1.40-6.50) 10/07/22 21:57 Lymph # (Auto) 2.07 K/uL (1.2-3.4) 10/07/22 21:57 Coffee # (Auto) 0.75 K/uL (0.11-0.59) H 10/07/22 21:57 Eos # (Auto) 0.54 K/uL (0-0.50) H 10/07/22 21:57 Baso # (Auto) 0.08 K/uL (0-0.2) 10/07/22 21:57 Immature Gran # (Auto) 0.04 K/uL (0.01-0.20) 10/07/22 21:57 PT 11.3 Seconds (9.0-12.0) 10/07/22 21:57 INR 1.0 (0.9-1.1) 10/07/22 21:57 APTT 28.9 Seconds (21.0-31.0) 10/07/22 21:57 PTT Ratio 1.0 10/07/22 21:57 Sodium 139 mmol/L (136-145) 10/07/22 21:57 Potassium 4.0 mmol/L (3.5-5.1) 10/07/22 21:57 Chloride 103 mmol/L (98-107) 10/07/22 21:57 Carbon Dioxide 26 mmol/L (21-32) 10/07/22 21:57 Anion Gap 10 (3-11) 10/07/22 21:57 BUN 14 mg/dl (6-23) 10/07/22 21:57 Creatinine 0.87 mg/dl (0.6-1.4) 10/07/22 21:57 Est Cr Clr Drug Dosing Not Reportable 10/07/22 21:57 Est GFR ( Amer) 89.3 ml/min 10/07/22 21:57 Est GFR (Non-Af Amer) 77.1 ml/min 10/07/22 21:57 BUN/Creatinine Ratio 16.1 (10-20) 10/07/22 21:57 Glucose 110 mg/dl (70-99(Fasting)) H 10/07/22 21:57 Calcium 9.9 mg/dl (8.6-10.3) 10/07/22 21:57 Magnesium 2.3 mg/dl (1.7-2.4) 10/07/22 21:57 Total Bilirubin 0.5 mg/dl (0.2-1.0) 10/07/22 21:57 AST 11 U/L (13-39) L 10/07/22 21:57 ALT 3 U/L (7-52) L 10/07/22 21:57 Alkaline Phosphatase 83 U/L (34-104) 10/07/22 21:57 Troponin I High Sens 10.9 pg/ml (0-20) 10/08/22 01:12 Total Protein 7.5 gm/dl (6.0-8.3) 10/07/22 21:57 Albumin 4.4 gm/dl (3.4-5.0) 10/07/22 21:57 Globulin 3.1 gm/dl (2.5-4.0) 10/07/22 21:57 Albumin/Globulin Ratio 1.4 (0.9-2) 10/07/22 21:57 Lipase 22 U/L (11-82) 10/07/22 21:57 TSH 3.825 uIu/ml (0.300-4.500) 10/07/22 21:57 Urine Color Yellow 10/07/22 22:20 Urine Appearance Clear (Clear) 10/07/22 22:20 Urine pH 7.0 (4.5-7.5) 10/07/22 22:20 Ur Specific [place] 1.006 (1.000-1.030) 10/07/22 22:20 Urine Protein Negative (Negative) 10/07/22 22:20 Urine Glucose (UA) Negative (Negative) 10/07/22 22:20 Urine Ketones Negative (Negative) 10/07/22 22:20 Urine Blood Negative (Negative) 10/07/22 22:20 Urine Nitrite Negative (Negative) 10/07/22 22:20 Urine Bilirubin Negative (Negative) 10/07/22 22:20 Urine Urobilinogen Negative (Negative) 10/07/22 22:20 Ur Leukocyte Esterase Negative (Negative) 10/07/22 22:20 Adenovirus (PCR) Not Detected (NotDetected) 10/07/22 22:20 B. pertussis DNA (PCR) Not Detected (NotDetected) 10/07/22 22:20 B.parapertussis DNA PCR Not Detected (NotDetected) 10/07/22 22:20 Lyme Disease IgG Ab Negative (Negative) 10/07/22 21:57 Lyme Disease IgM Ab Negative (Negative) 10/07/22 21:57 C. pneumoniae DNA (PCR) Not Detected (NotDetected) 10/07/22 22:20 Coronavirus OC43 (PCR) Not Detected (NotDetected) 10/07/22 22:20 Coronavirus HKU1 (PCR) Not Detected (NotDetected) 10/07/22 22:20 Coronavirus 229E (PCR) Not Detected (NotDetected) 10/07/22 22:20 SARS-CoV-2 (PCR) Not Detected (NotDetected) 10/07/22 22:20 Coronavirus NL63 (PCR) Not Detected (NotDetected) 10/07/22 22:20 Human Metapneumovir PCR Not Detected (NotDetected) 10/07/22 22:20 Influenza Type A (PCR) Not Detected (NotDetected) 10/07/22 22:20 Influenza Type B (PCR) Not Detected (NotDetected) 10/07/22 22:20 M. pneumoniae (PCR) Not Detected (NotDetected) 10/07/22 22:20 Parainfluenza 1 (PCR) Not Detected (NotDetected) 10/07/22 22:20 Parainfluenza 2 (PCR) Not Detected (NotDetected) 10/07/22 22:20 Parainfluenza 3 (PCR) Not Detected (NotDetected) 10/07/22 22:20 Parainfluenza 4 (PCR) Not Detected (NotDetected) 10/07/22 22:20 RSV (PCR) Not Detected (NotDetected) 10/07/22 22:20 Entero/Rhino (PCR) Not Detected (NotDetected) 10/07/22 22:[address] 10/07/22 21:48 Exam(s): CT HEAD Without Contrast EXAM: CT Head Without Intravenous Contrast CLINICAL HISTORY: Reason for exam: neuro deficit, acute stroke suspected. TECHNIQUE: Axial computed tomography images of the head/brain without intravenous contrast. CTDI is 37.51 mGy and DLP is 702.46 mGy-cm. Automated exposure control was utilized for the study. A dose lowering technique was utilized adhering to the principles of ALARA. COMPARISON: 08/22/2021. FINDINGS: Brain: Mild generalized brain atrophy. Slight decreased attenuation within the deep periventricular white matter compatible with mild microangiopathic white matter disease. No hemorrhage. Ventricles: Unremarkable. No ventriculomegaly. Bones/joints: Unremarkable. No acute fracture. Soft tissues: Unremarkable. Sinuses: Unremarkable as visualized. No acute sinusitis. Mastoid air cells: Unremarkable as visualized. No mastoid effusion. IMPRESSION: Chronic changes as described. No acute intracranial hemorrhage or space-occupying lesion. Electronically signed by: Faby Gagnon MD 10/08/22 01:51 AM Head CTA 10/07/22 21:48 Exam(s): CTA HEAD With Contrast IV Amt: 116 ML OPTIRAY 350 EXAM: CT Angiography Head With Intravenous Contrast CLINICAL HISTORY: Reason for exam: neuro deficit, acute stroke suspected. TECHNIQUE: Axial computed tomographic angiography images of the head with intravenous contrast. CTDI is 20.76 mGy and DLP is 10.38 mGy-cm. Automated exposure control was utilized for the study. A dose lowering technique was utilized adhering to the principles of ALARA. MIP reconstructed images were created and reviewed. CONTRAST: Patient received 116 ML OPTIRAY 350 of IV contrast COMPARISON: None. FINDINGS: Right internal carotid artery: Mild calcified atherosclerotic disease involving the cavernous portion of the right internal carotid artery with less than 50% stenosis. No aneurysm. Right anterior cerebral artery: Unremarkable. No occlusion or significant stenosis. No aneurysm. Right middle cerebral artery: Unremarkable. No occlusion or significant stenosis. No aneurysm. Right posterior cerebral artery: Unremarkable. No occlusion or significant stenosis. No aneurysm. Right vertebral artery: Unremarkable as visualized. Left internal carotid artery: Mild calcified atherosclerotic disease involving the cavernous portion of the left internal carotid artery with less than 50% stenosis. No aneurysm. Left anterior cerebral artery: Unremarkable. No occlusion or significant stenosis. No aneurysm. Left middle cerebral artery: Unremarkable. No occlusion or significant stenosis. No aneurysm. Left posterior cerebral artery: Unremarkable. No occlusion or significant stenosis. No aneurysm. Left vertebral artery: Dominant left-sided vertebral arteries otherwise normal bilateral vertebral arteries. Basilar artery: Unremarkable. No occlusion or significant stenosis. No aneurysm. IMPRESSION: Mild atherosclerotic disease dominantly in the region of the cavernous portion of the bilateral internal carotid arteries with no significant stenosis, occlusion or aneurysm involving the [place]. Electronically signed by: Faby Gagnon MD 10/08/22 01:57 AM Neck CTA 10/07/22 21:48 Exam(s): CTA NECK With Contrast IV Amt: 116 ML OPTIRAY 350 EXAM: CT Angiography Neck With Intravenous Contrast CLINICAL HISTORY: Reason for exam: neuro deficit, acute stroke suspected. TECHNIQUE: Routine carotid CT angiography protocol was performed with intravenous contrast. NASCET criteria using the distal ICAs for comparison were used for evaluation of stenoses. CTDI is 14.45 mGy and DLP is 582.19 mGy-cm. Automated exposure control was utilized for the study. A dose lowering technique was utilized adhering to the principles of ALARA. MIP reconstructed images were created and reviewed. CONTRAST: Patient received 116 ML OPTIRAY 350 of IV contrast COMPARISON: None. FINDINGS: VASCULATURE: Right common carotid artery: Unremarkable. No occlusion or significant stenosis. No dissection. Right internal carotid artery: Mild calcified plaque at the right carotid bulb. Mild calcified plaque at the origin and proximal right internal carotid artery with less than 50% diameter stenosis. No dissection. Right external carotid artery: Unremarkable. No occlusion. Right vertebral artery: Unremarkable. No occlusion or significant stenosis. No dissection. Left common carotid artery: Unremarkable. No occlusion or significant stenosis. No dissection. Left internal carotid artery: Moderate calcified plaque at the level of the left carotid bulb. Mild calcified plaque in the region of the left internal carotid artery stenosis. No dissection. Left external carotid artery: Unremarkable. No occlusion. Left vertebral artery: Dominant left-sided vertebral artery. No occlusion or significant stenosis. No dissection. Other vasculature: Mild calcified atherosclerotic disease throughout the origin of great vessels. Mild calcified atherosclerotic disease throughout the origin of the right distal carotid artery with no stenosis. Aorta: Mild calcified atherosclerotic disease of aorta with no aneurysm or dissection. NECK: Bones/joints: Unremarkable. Soft tissues: Unremarkable. Lung apices: Mild left posterior dependent atelectasis otherwise lung apices are clear. Other findings: Multilevel degenerative disease throughout the cervical spine. CAROTID STENOSIS REFERENCE USING NASCET CRITERIA: % ICA stenosis = (1 - narrowest ICA diameter/diameter of distal cervical ICA) x 100. Mild - <50% stenosis. Moderate - 50-69% stenosis. Severe - 70-94% stenosis. Near occlusion - 95-99% stenosis. Occluded - 100% stenosis. IMPRESSION: Calcified atherosclerotic disease predominantly in the region of the carotid bulb and proximal internal carotid arteries, right more than left. No significant stenosis, occlusion or dissection involving the bilateral carotid or vertebral arteries. 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
[2022-10-08] MEDS ORDERED: traMADol HCL 50 MG TABLET PO PRN (05:49)
[2022-10-08] MEDS ORDERED: ONDANSETRON INJ 2 MG/ML 2 ML VIAL IV PRN (05:49)
[2022-10-08] MEDS ORDERED: ACETAMINOPHEN 325 MG TAB PO PRN (05:49)
[2022-10-08] MEDS ORDERED: GLUCOSE 10 TAB/TUBE PO PRN (05:49)
[2022-10-08] MEDS ORDERED: DEXTROSE 50% 50 ML SYRINGE IV PRN (05:49)
[2022-10-08] MEDS ORDERED: CARBOHYDRATES FOR HYPOGLYCEMIA PO PRN (05:49)
[2022-10-08] MEDS ORDERED: GLUCAGON FOR INJ 1 MG VIAL SQ PRN (05:49)
[2022-10-08] MEDS ORDERED: GLUCOSE 40% GEL 15 GM TUBE PO PRN (05:49)
--- NOTE | 2022-10-08 07:08 | XRay Report ---
XR chest 1V portable HISTORY: 86 years-old Male Chest pain, nonspecific COMPARISON: 08/23/2021 TECHNIQUE: AP view of the chest FINDINGS: Cardiac silhouette is enlarged. No pneumothorax, pleural effusion, or overt pulmonary edema. Unchange d bibasilar atelectasis versus scarring. Degenerative changes of the shoulders and spine. IMPRESSION: No acute process. ACT 112: Negative or not required by law. The above report was generated using voice recognition software. It may contain grammatical, syntax o r spelling errors. Electronically signed by: Yomi Lee M.D. 10/08/2022 7:06 AM
--- NOTE | 2022-10-08 07:49 | Hospitalist Progress Note ---
Date of Service October 08, 2022 Assessment & Plan (1) Blood pressure instability: Plan: Blood pressure instability, serial cardiac enzymes are normal x3 echocardiogram shows normal LV systolic function without regional wall abnormalities ejection fraction of 55-60 mild concentric LVH restarting blood pressure medications has resulted in good blood pressure and heart rate control Pt has negative CT head, CTA head and neck for acute issues (2) Paroxysmal atrial fibrillation: Plan: Continue aspirin 81 mg daily, metoprolol succinate 50 mg daily, valsartan 80 mg daily, Xarelto chronic and rate controlled also treating CAD (3) Diabetes: Plan: Diabetes mellitus- Hold metformin, semaglutide and tirzepatide SSI (4) Parkinson disease: Plan: Parkinson's/SDAT/depression and anxiety- Continue carbidopa/levodopa 25/100, 2 tablets p.o. 4 times daily Continue memantine 10 mg p.o. twice daily patient's biggest concern is his movement issues will discuss with Dr. Aburto who is typically his outpatient neurologist For depression, Continue escitalopram 10 mg daily and gabapentin 100 mg at bedtime (5) BPH (benign prostatic hyperplasia): Plan Chronic pain syndrome- Continue tramadol as needed Admission and Anticipated Discharge Date Admission Date: October 08, 2022 Subjective Patient's biggest complaint is his decreased functional ability at home and frustration with his lack of movement. Patient is on maximum doses of Sinemet short acting at this time. Patient's hypertension has been easily controlled with institution of his home medical regiment raising concerns for compliance at home. This may be unintentional above PT OT evaluation of the patient's movement is this is his biggest concern Physical Exam Physical Exam: patient is conversant he does have decreased expression very little resting tremor cardiac exam is regular lungs are clear abdomen NABS there is no abdominal bruits Results & Data Results & Data Vital Signs (Past 12 Hours) Vital Signs Temp Pulse Pulse Resp BP BP Pulse Ox 10/08/22 07:18 58 L 190/86 H 10/08/22 07:00 10/08/22 07:00 60 18 190/86 H 92 10/08/22 05:31 97.9 F 60 16 177/97 H 95 10/08/22 01:50 67 22 93 10/08/22 01:40 65 22 90 10/08/22 01:30 66 23 91 10/08/22 01:30 166/85 H 10/08/22 01:20 67 25 H 92 10/08/22 01:10 67 24 91 10/08/22 01:00 70 22 91 10/08/22 01:00 175/89 H 10/08/22 00:50 72 24 91 10/08/22 00:48 192/101 H 10/08/22 00:48 72 23 90 10/08/22 00:47 91 10/08/22 01:52 68 10/08/22 00:50 71 192/101 H 10/08/22 00:30 76 23 92 10/08/22 00:30 191/103 H 10/08/22 00:20 73 20 91 10/08/22 00:10 73 21 93 10/08/22 00:00 73 22 91 10/08/22 00:00 173/92 H 10/07/22 23:50 77 26 H 91 10/07/22 23:48 78 29 H 89 L 10/07/22 23:48 179/104 H 10/07/22 23:20 68 23 90 10/07/22 23:10 71 17 91 10/07/22 23:00 69 24 91 10/07/22 23:00 177/95 H 10/07/22 22:50 70 23 91 10/07/22 22:40 71 25 H 91 10/07/22 22:30 75 22 92 10/07/22 22:30 173/96 H 10/07/22 22:22 77 27 H 10/07/22 22:22 201/107 H 10/07/22 22:00 78 23 91 10/07/22 21:50 81 29 H 92 10/07/22 21:48 81 18 92 10/07/22 21:30 98 10/07/22 21:48 81 10/07/22 21:26 98.4 F 80 18 211/99 H 95 Pulse Ox O2 Del Method 10/08/22 07:18 10/08/22 07:00 92 10/08/22 07:00 Room Air 10/08/22 05:31 Room Air 10/08/22 01:50 10/08/22 01:40 10/08/22 01:30 10/08/22 01:30 10/08/22 01:20 10/08/22 01:10 10/08/22 01:00 10/08/22 01:00 10/08/22 00:50 10/08/22 00:48 10/08/22 00:48 10/08/22 00:47 10/08/22 01:52 10/08/22 00:50 10/08/22 00:30 10/08/22 00:30 10/08/22 00:20 10/08/22 00:10 10/08/22 00:00 10/08/22 00:00 10/07/22 23:50 10/07/22 23:48 10/07/22 23:48 10/07/22 23:20 10/07/22 23:10 10/07/22 23:00 10/07/22 23:00 10/07/22 22:50 10/07/22 22:40 10/07/22 22:30 10/07/22 22:30 10/07/22 22:22 10/07/22 22:22 10/07/22 22:00 10/07/22 21:50 10/07/22 21:48 10/07/22 21:30 Room Air 10/07/22 21:48 10/07/22 21:26 Room Air PG Care Time/CCT Total # of Minutes Spent Total Time Spent with Patient: Total time spent is greater than 50% in coordination of care (as documented) at patient's floor/unit and/or counseling patient: Coding Level of Care Code None Diagnoses Blood pressure instability I99.8 Paroxysmal atrial fibrillation I48.0 Diabetes E11.9 Parkinson disease G20 BPH (benign prostatic hyperplasia) N40.0
--- NOTE | 2022-10-08 09:34 | XCELERA ---
[id number] \\[email or web address]\[id number]
[2022-10-08] MEDS: INSULIN ASPART PER UNIT CHARGE SC SCH ×4 (10:42→21:16)
[2022-10-08] MEDS: VALSARTAN 80 MG TAB PO SCH (12:04)
[2022-10-08] MEDS: TAMSULOSIN HCL 0.4 MG CAP PO SCH (12:04)
[2022-10-08] MEDS: CARBIDOPA/LEVODOPA 25/100MG TAB PO SCH ×4 (12:05→21:15)
[2022-10-08] MEDS: METOPROLOL SUCC 50MG EXT REL TAB PO SCH (12:05)
[2022-10-08] MEDS: ASPIRIN 81 MG ECTAB PO SCH (12:06)
[2022-10-08] MEDS: ESCITALOPRAM OXALATE 10 MG TAB PO SCH (12:06)
[2022-10-08] MEDS: FINASTERIDE 5 MG TAB PO SCH (12:06)
[2022-10-08] MEDS: MEMANTINE HCL 10 MG TAB PO SCH ×2 (12:06→21:15)
--- NOTE | 2022-10-08 12:45 | Electrocardiogram Report ---
Test Reason : Blood Pressure : / mmHG Vent. Rate : 080 BPM Atrial Rate : 080 BPM P-R Int : 202 ms QRS Dur : 116 ms QT Int : 388 ms P-R-T Axes : 067 -47 072 degrees QTc Int : 447 ms Normal sinus rhythm Left axis deviation Left ventricular hypertrophy with QRS widening ( R in aVL ) Poor R wave progression, consider anterior PR vs. lead placement vs. LVH Nonspecific ST abnormality Abnormal ECG When compared with ECG of 22-AUG-2021 21:34, No significant change was found Confirmed by Aravind Gill ([id number]) on 10/08/2022 12:44:35 PM Referred By: REFERRED SELF Confirmed By:Aravind Gill
[2022-10-08] MEDS ORDERED: RIVAROXABAN 20 MG TAB PO SCH (16:30)
[2022-10-08] MEDS ORDERED: GABAPENTIN 100 MG CAP PO SCH (21:00)
[2022-10-09 08:38] LABS: Basophils # (auto) 0.06 K/uL (0-0.2); Basophils % (auto) 0.8 %; Eosinophils # (auto) 0.48 K/uL (0-0.50); Eosinophils % (auto) 6.5 %; Hematocrit (blood only) 39.6 % (42.0-52.0); Hemoglobin 13.1 g/dl (14.0-18.0); Immature Granulocytes # (auto) 0.04 K/uL (0.01-0.20); Immature Granulocytes % (auto) 0.5 %; Lymphocytes % (auto) 20.3 %; Mean Corpuscular Hemoglobin 31.3 pg (25.0-34.0); Mean Corpuscular Hgb Conc 33.1 g/dL (32.0-36.0); Mean Corpuscular Volume 94.5 fL (80.0-100.0); Mean Platelet Volume 11.1 fL (9.4-12.4); Monocytes # (auto) 0.84 K/uL (0.11-0.59); Monocytes % (auto) 11.4 %; Neutrophils # (auto) 4.46 K/uL (1.40-6.50); Neutrophils % (auto) 60.5 %; Platelet Count 179 K/uL (130-400); RDW Coefficient of Variation 13.4 % (11.5-14.5); RDW Standard Deviation 46.4 fL (36.4-46.3); Red Blood Count 4.19 M/uL (4.70-6.10); White Blood Count 7.38 K/ul (4.8-10.8)
[2022-10-09 08:55] LABS: Anion Gap 6 (3-11); BUN Creatinine Ratio 23.3 (10-20); Blood Urea Nitrogen 17 mg/dl (6-23); Calcium 9.6 mg/dl (8.6-10.3); Carbon Dioxide 25 mmol/L (21-32); Chloride 108 mmol/L (98-107); Creatinine Clr Calc Pharmacy 82.2 ml/min; Est GFR (Non-African American) 82.8 ml/min; Glucose 115 mg/dl (70-99(Fasting)); Sodium 139 mmol/L (136-145)
[2022-10-09 08:58] LABS: Alanine Aminotransferase < 3 U/L (7-52); Albumin Globulin Ratio 1.5 (0.9-2); Albumin Level 3.8 gm/dl (3.4-5.0); Alkaline Phosphatase 51 U/L (34-104); Aspartate Aminotransferase 7 U/L (13-39); Bilirubin,Total 0.8 mg/dl (0.2-1.0); Globulin 2.6 gm/dl (2.5-4.0); Magnesium 2.2 mg/dl (1.7-2.4); Total Protein 6.4 gm/dl (6.0-8.3)
[2022-10-09] MEDS: INSULIN ASPART PER UNIT CHARGE SC SCH ×2 (09:18→13:43)
[2022-10-09] MEDS: VALSARTAN 80 MG TAB PO SCH (09:18)
[2022-10-09] MEDS: CARBIDOPA/LEVODOPA 25/100MG TAB PO SCH ×2 (09:19→13:43)
[2022-10-09] MEDS: METOPROLOL SUCC 50MG EXT REL TAB PO SCH (09:19)
[2022-10-09] MEDS: MEMANTINE HCL 10 MG TAB PO SCH (09:20)
[2022-10-09] MEDS: ESCITALOPRAM OXALATE 10 MG TAB PO SCH (09:20)
[2022-10-09] MEDS: FINASTERIDE 5 MG TAB PO SCH (09:20)
[2022-10-09] MEDS: TAMSULOSIN HCL 0.4 MG CAP PO SCH (09:20)
[2022-10-09] MEDS: ASPIRIN 81 MG ECTAB PO SCH (09:20)
[2022-10-09 09:52] LABS: Estimated Average Glucose 140 mg/dl; Hemoglobin A1C 6.5 % (4.5-5.6)
--- NOTE | 2022-10-09 10:33 | Neurology Consultation ---
Date of Consultation October 09, 2022 Assessment & Plan (1) Parkinson disease: Plan 86-year-old male with a history of right darryn-Parkinson's disease of moderate severity, becoming generalized, with associated gait and postural instability, postural dizziness, and mild Parkinson's associated dementia. Patient is currently admitted with hypertension, which is responding to antihypertensive therapy. No evidence of hemorrhage or acute process on CT of the head. No significant vascular lesion on CT angiography. In terms of his Parkinson's disease, I would not make any changes to his carbidopa levodopa regimen at this time, he may continue with 2 tablets taken 4 times per day. If his postural dizziness escalates would consider checking orthostatic vital signs and potentially reducing his dosage of carbidopa levodopa to 1.5 tablets 4 times per day. I would probably avoid fludrocortisone or midodrine to address orthostatic hypotension in this patient given his propensity for hypertension. He may continue with memantine 10 mg twice daily to address his mild Parkinson's associated dementia. 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 Home PT services have already been arranged as an outpatient with plan to resume sessions when his therapist returns from vacation after . Discussed with Dr. Rivera. Patient has an outpatient follow-up with me scheduled on 2022, I will reassess him at that time. History of Present Illness Reason for Consultation: h/o PD, med adjustment? Requesting Physician: Miguel Attending Physician: Edgard Rivera MD History of Present Illness The patient is an 86-year-old male with a history of moderate right darryn- Parkinson's disease with secondary generalization, associated gait and postural instability, postural dizziness, and mild Parkinson's associated dementia, no hallucinations, last seen in neurology clinic July 06, 2022, please refer to my clinic note from that encounter for additional details. He had presented to the [facility] on October 07, 2022 complaining of weakness and high blood pressure. His family is at bedside this morning. He has been taking carbidopa levodopa as prescribed, 2 tablets 4 times per day and reports good symptomatic response with this medication. His tremor is well controlled. He does not have dyskinesias. He continues to endorse some postural dizziness which has been a chronic problem. He has been getting home-based physical therapy and reports that he was doing well, his therapist is currently on vacation, with plans to resume home-based PT after . He did have a CT of the head and CT angiogram of the head and neck completed at presentation. The studies were generally unremarkable. No hemorrhage or acute process. There is evidence of chronic microangiopathic disease. No significant vascular lesion. I did independently review these images. Allergies Allergy/AdvReac Type Severity Reaction Status Date / Time Penicillins Allergy Intermediate SKIN RASH Verified 10/07/22 15:33 Home Medications Medication Instructions Recorded Confirmed Type aspirin 81 mg capsule 81 mg PO DAILY 06/23/21 10/08/22 History cyanocobalamin (vitamin B-12) 1,000 mcg PO 2XWK 11/24/21 10/08/22 History 1,000 mcg tablet tamsulosin 0.4 mg capsule 0.4 mg PO DAILY #90 caps 11/26/21 10/08/22 Rx finasteride 5 mg tablet 5 mg PO QAM #90 tabs 01/21/22 10/08/22 Rx rivaroxaban 20 mg tablet (Xarelto) 20 mg PO QAM #30 tabs 01/21/22 10/08/22 Rx metformin 500 mg tablet 500 mg PO BID #60 tabs 04/16/22 10/08/22 Rx carbidopa 25 mg-levodopa 100 mg 2 tab PO QID 30 days #240 tabs 05/25/22 10/08/22 Rx tablet metoprolol succinate 50 mg 50 mg PO DAILY 07/06/22 10/08/22 History tablet,extended release 24 hr tirzepatide 2.5 mg/0.5 mL 2.5 mg (0.5 mL) subcut .COMPLEX #2 09/06/22 10/08/22 Rx subcutaneous pen injector mL (Eduardounhuy) escitalopram oxalate 10 mg tablet 10 mg PO DAILY #90 tabs 10/07/22 10/08/22 Rx gabapentin 100 mg capsule 100 mg PO HS #90 caps 10/07/22 10/08/22 Rx memantine 10 mg tablet 10 mg PO BID #180 tabs 10/07/22 10/08/22 Rx semaglutide 0.25 mg or 0.5 mg (2 0.25 mg (0.368 mL) subcut .COMPLEX 10/07/22 10/08/22 Rx mg/3 mL) subcutaneous pen injector #3 mL tramadol 50 mg tablet 50 mg PO BID pain #60 tabs 10/07/22 10/08/22 Rx valsartan 80 mg tablet 80 mg PO DAILY #90 tabs 10/07/22 10/08/22 Rx Patient History Medical History A-fib Acute hypotension Altered mental status Anxiety NO MEDICATIONS Arteriosclerosis of coronary artery Blood pressure instability Chronic back pain Closed compression fracture of body of lumbar vertebra Compression fracture of body of thoracic vertebra Degenerative disc disease Diabetes mellitus, type 2 NIDDM Diverticular disease Dyslipidemia Fall HTN (hypertension) Hyperlipidemia Hypertension Internal hemorrhoids Lactic acidosis On anticoagulant therapy Parkinson disease Peripheral neuropathy RIGHT LEG Sciatica of right side Tubular adenoma of colon Surgical History Fusion of spine LUMBAR AREA H/O heart artery stent H/O shoulder surgery REPAIR OF LEFT SHOULDER History of cardiac cath [facility] (~2005) History of colonoscopy History of heart artery stent X1 STENT (~2005) S/P cataract extraction bilateral in 2019 Family History Mother Diabetes Father Myocardial infarction, Onset Age: 82 Grandmother (Maternal) Anxiety Myocardial infarction Social History Smoking Status: Never smoker Tobacco Type: Pipe Second Hand Exposure: No; Do You Dip or Chew Tobacco: No; Tobacco Cessation Education Requested by Patient: No Hx Alcohol Use: Yes Alcohol type: beer, wine and hard liquor Alcohol Intake Frequency: 4 or More x per/Week Hx Substance Use: No Preferred Language: French Communication Ability: Effective Visual Impairment: Partially Limited Hearing Ability: Normal 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 Required: No Beliefs That Will Affect Care: None marital status: marital status details: Mahendra Levine (Susan) Current Living Situation: Spouse Current Living Situation Comment: SON WITH HIGH 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 Other Information That Helps Us Care for You: No Feels Safe at Home: Yes Safety Concerns: Feels Safe At This Time Childhood Exposure to Second-Hand Smoke: No caffeine: Yes Dental Care, Regularly: No Physical Activity Frequency: 1-2 Times per Week Seatbelt Use: always Sunscreen Use: Yes Assistive Devices: Denture - Upper, Denture - Lower, Glasses and Walker Review of Systems Constitutional: no fever and no chills Eyes: no blind spots and no diplopia Ear, Nose, Mouth, Throat: no hearing loss Respiratory: no cough and no dyspnea Cardiovascular: no chest pain and no palpitations Gastrointestinal: no nausea and no vomiting Genitourinary: no urinary incontinence Musculoskeletal: no neck pain and no myalgia Integumentary: no rash and no lesions Neurologic: as per Subjective / HPI, + gait abnormality, + generalized weakness and + tremor(s); no syncope, no headache(s) and no confusion Psychiatric: no depression, no anxiety and no hallucinations Hematologic / Lymphatic: no easy bleeding and no easy bruising Exam (Neuro) Constitutional: well developed and well nourished; no acute distress Eyes: normal visual topete by confrontation, PERRL and EOM intact bilaterally Neurologic: Oriented to:: Person, Place and Time Memory: Short Term Intact and Remote Intact Attention: Span Intact, Concentration Intact and Visual Intact Speech Fluency: negative Dysarthria or Dysfluency Speech Aphasia: negative Aphasia Fund of Knowledge: Current Events, Past History and Vocabulary Cranial Nerves: Normal II, III, IV, , V, VII, VIII, IX, X, XI and XII Motor Strength: Normal Lower Extremities and Normal Upper Extremities Motor Tone: Normal Lower Extremities and Normal Upper Extremities Rigidity: None Muscle Bulk/Involuntary Movements: No Involuntary Movements; negative Muscle Atrophy Sensation: Light Touch Intact, Pain/Temperature Intact, Vibration Intact and Proprioception Intact Coordination: negative Dysdiadochokinesia, Finger-Nose Abnormal or Heel-Sevilla Abnormal Deep Tendon Reflexes: Rt Triceps: 2+, Lt Triceps: 2+, Rt Biceps: 2+, Lt Biceps: 2+, Rt Brachioradialis: 2+, Lt Brachioradialis: 2+, Rt Patellar: 2+, Lt Patellar: 2+, Rt Ankle: 1+ and Lt Ankle: 1+ Special Tests: negative Babinski Present Details: Gait not tested Results & Data Vital Signs (Past 12 Hours) Vital Signs Temp Pulse Pulse Resp BP Pulse Ox O2 Del Method 10/09/22 07:35 36.8 C 60 20 150/81 H 91 Room Air 10/09/22 07:24 52 L 10/09/22 04:44 36.9 C 73 18 125/69 95 Room Air 10/09/22 03:51 65 10/09/22 02:02 36.7 C 62 20 167/84 H 92 Room Air 10/09/22 02:02 Room Air 10/09/22 00:12 37.1 C 63 20 153/79 H 92 Room Air Laboratory Results WBC 7.38, hemoglobin 13.1, hematocrit 39.6, platelet count 179, sodium 139, potassium 4.0, BUN 17, creatinine 0.73, glucose 115, hemoglobin A1c 6.5, magnesium 2.2, AST 7, ALT less than 3 Diagnostic Findings An echocardiogram revealed normal left ventricular systolic function, no region al wall motion abnormalities, EF 55 to 60%, mild mitral regurgitation, borderline enlargement of the left atria, no evidence of atrial septal defect. Coding Level of Care Code 18514 INT INP/OBS CARE Diagnoses Parkinson disease G20
[2022-10-09] MEDS ORDERED: VALSARTAN 80 MG TAB PO ONE (11:30)
--- NOTE | 2022-10-09 16:31 | Discharge Summary ---
Date of Service October 09, 2022 Admission HPI Per Admitting Provider The patient is an 86-year-old male with a past medical history including periodic limb movement disorder, TIA, syncope, paroxysmal atrial fibrillation, CAD, executive function deficit, heart failure, spinal stenosis, hypertension, hyperlipidemia, BPH, RLS, Parkinson's disease, LVH and diabetes mellitus. His outpatient physician has been attempting to adjust his medications due to the volatility of his blood pressure, and most recently had increased losartan and decreased metoprolol. The patient's blood pressure this evening was in his usual volatile range, however, he sounds like he became a bit more introspe ctive, and concerned about how things were going, had difficulty sleeping, and family brought him to the ED for assessment. 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 However, he reports that he thinks this will be his last year of work Principal Diagnosis uncontrolled hypertension parkinsons disease Discharge Exam awake, seems more alert, ambulated to bathroom Discharge Data Allergies Allergy/AdvReac Type Severity Reaction Status Date / Time Penicillins Allergy Intermediate SKIN RASH Verified 10/07/22 15:33 Consultations 10/08/22 02:28 ED Decision to Admit Stat 10/09/22 09:30 Consult Neurology Routine Ordered Studies 10/07/22 21:48 CT angio head w con Stat CT angio neck with con Stat CT head/brain wo con Stat Hospital Course (1) Blood pressure instability: Blood pressure instability, serial cardiac enzymes are normal x3 echocardiogram shows normal LV systolic function without regional wall abnormalities ejection fraction of 55-60 mild concentric LVH restarting blood pressure medications has resulted in better blood pressure and heart rate control did escalate valsartan to 160 mg with better blood pressure control will dc on higher dose Pt has negative CT head, CTA head and neck for acute issues (2) Paroxysmal atrial fibrillation: Continue aspirin 81 mg daily, metoprolol succinate 50 mg daily, valsartan 80 mg daily, Xarelto chronic and rate controlled also treating CAD (3) Diabetes: Diabetes mellitus- resume metformin, semaglutide and tirzepatide (4) Parkinson disease: Parkinson's/SDAT/depression and anxiety- Continue carbidopa/levodopa 25/100, 2 tablets p.o. 4 times daily Continue memantine 10 mg p.o. twice daily patient's biggest concern is his movement issues consult Dr. Aburto who is typically his outpatient neurologist, recommended no changes to medicaiton For depression, Continue escitalopram 10 mg daily and gabapentin 100 mg at bedtime (5) BPH (benign prostatic hyperplasia): Plan Chronic pain syndrome- Continue tramadol as needed Total Time Total Time Spent Total Time Spent (In Minutes): greater than 30 minutes were required to complete discharge Discharge Plan Discharge Items Patient Disposition: Home - Self-Care Reason For Visit: ELEVATED BLOOD PRESSURE Discharge Diagnosis: uncontrolled hypertension parkinsons disease Condition on Discharge: Fair Activity: Resume your previous activity Non-emergency contact: Primary Care Provider Call non-emergency contact if: your symptoms worsen Follow-up/Referrals: Edy Flanagan MD [Primary Care Provider] - Diet: Low Potassium (2gm) Addtl Attending Provider Instructions: we will increase your daily valsartan to 2 pills once a day for total of 160 mg once you complete your prescription that you currently have a new prescription we phoned in for the higher strength consideration of salt reduced diet can also help reduce your blood pressure please follow-up with Dr. Aburto regarding her Parkinson's disease Pending Studies at Discharge: No Stand-Alone Forms: My [facility] [employer], Smoking Cessation Medications and DC Order Prescriptions: New valsartan 160 mg tablet 160 mg PO DAILY Qty: 90 3RF Continued tamsulosin 0.4 mg capsule 0.4 mg PO DAILY Qty: 90 3RF finasteride 5 mg tablet 5 mg PO QAM Qty: 90 3RF Xarelto 20 mg tablet 20 mg PO QAM Qty: 30 11RF metformin 500 mg tablet 500 mg PO BID Qty: 60 2RF carbidopa-levodopa 25-100 mg tablet 2 tab PO QID 30 Days Qty: 240 5RF Mounjaro 2.5 mg/0.5 mL pen injector 2.5 mg subcut .COMPLEX Qty: 2 11RF Rx Instructions: 2.5 mg subcutaneously weekly; aspirin 81 mg capsule 81 mg PO DAILY metoprolol succinate 50 mg tablet extended release 24 hr 50 mg PO DAILY gabapentin 100 mg capsule 100 mg PO HS Qty: 90 3RF memantine 10 mg tablet 10 mg PO BID Qty: 180 3RF escitalopram oxalate 10 mg tablet 10 mg PO DAILY Qty: 90 3RF tramadol 50 mg tablet 50 mg PO BID Qty: 60 5RF semaglutide 0.25 mg or 0.5 mg (2 mg/3 mL) pen injector 0.25 mg subcut .COMPLEX Qty: 3 5RF Rx Instructions: 0.25 mg subcutaneously weekly; new order 10/07/22...not picked up yet from pharmacy cyanocobalamin (vitamin B-12) 1,000 mcg tablet 1,000 mcg PO 2XWK Discontinued valsartan 80 mg tablet 80 mg PO DAILY Qty: 90 3RF Admission Data Admit Date/Time: 10/08/22 03:03 Attending Provider: Edgard Rivera Admit Provider: Tim Walton Primary Care Provider: Edy Flanagan Other Providers: Tim Walton ; Daniele Aburto Coding Level of Care Code 61260 INP/OBS DISCH >30 MIN Diagnoses Blood pressure instability I99.8 Paroxysmal atrial fibrillation I48.0 Diabetes E11.9 Parkinson disease G20 BPH (benign prostatic hyperplasia) N40.0
[2022-10-11] MEDS ORDERED: CYANOCOBALAMIN (B-12) 500 MCG TABLET PO SCH (09:00)
== END 2022-10-09 17:31 | disposition home or self-care (01) ==
LOC: EDINP 21:23 → ED 21:23 → SUATTDRO 10-08 03:03 → 2N 10-08 05:49

== ENCOUNTER 2023-06-17 12:19 | Inpatient (IN) ==
--- NOTE | 2023-06-17 13:14 | Emergency Department Note ---
History of Present Illness General Chief complaint: Dizziness Stated complaint: WEAK,DIZZINESS,INCOHERENT,TROUBLE BREATHING, Time Seen by Provider: 06/17/23 12:49 Source: patient, family (Family members were at the bedside), RN notes reviewed and old records reviewed (05/12/23-primary care office visit to Dr. Samaniego office for follow-up on chronic medical problems) Mode of arrival: ambulatory Limitations: other (He is very hard of hearing and may be mildly confused) History of Present Illness This patient comes in after having generalized weakness. He does a history of Parkinson's disease. A family member has had a recent respiratory illness with cough and he started getting sick yesterday with a cough and this been nonproductive. no headache he he occasionally feels dizzy felt very weak diffusely this morning. He tells me is in no difficulty speaking. No abdominal pain he may have had some diarrhea at 1 point he does have some urinary incontinence at times but that seems to be more chronic no focal numbness or weakness. He does take Parkinson's medication and rather than spacing the medications out yesterday took them both in the evening. Family members to I talked to said that one of his children has been sick and he seems to have caught that. He was weak today and his son prevented him from fall and there is been no trauma. He was found to be hypoxemic in triage and was placed on oxygen .he does not wear home oxygen. Home Medications Medication Instructions Recorded Confirmed Type aspirin 81 mg capsule 81 mg PO DAILY 06/23/21 06/17/23 History cyanocobalamin (vitamin B-12) 1,000 mcg PO 2XWK 11/24/21 06/17/23 History 1,000 mcg tablet escitalopram oxalate 10 mg tablet 10 mg PO DAILY #90 tabs 10/07/22 06/17/23 Rx memantine 10 mg tablet 10 mg PO BID #180 tabs 10/07/22 06/17/23 Rx alprazolam 0.25 mg tablet 0.25 mg PO HS #30 tabs 10/18/22 06/17/23 Rx valsartan 80 mg tablet 80 mg PO BID #180 tabs 10/18/22 06/17/23 Rx carbidopa 25 mg-levodopa 100 mg 2 tab PO QID 30 days #240 tabs 11/29/22 06/17/23 Rx tablet finasteride 5 mg tablet 5 mg PO QAM #90 tabs 12/17/22 06/17/23 Rx tamsulosin 0.4 mg capsule 0.4 mg PO DAILY #90 caps 12/17/22 06/17/23 Rx carvedilol 6.25 mg tablet 6.25 mg PO BID #180 tabs 01/31/23 06/17/23 Rx metformin 500 mg tablet 500 mg PO DAILY #90 tabs 01/31/23 06/17/23 Rx rivaroxaban 20 mg tablet (Xarelto) 20 mg PO QAM #90 tabs 01/31/23 06/17/23 Rx tramadol 50 mg tablet 50 mg PO BID pain #60 tabs 04/25/23 06/17/23 Rx Allergies Allergy/AdvReac Type Severity Reaction Status Date / Time Penicillins Allergy Intermediate SKIN RASH Verified 06/17/23 15:36 Past Med/Surg History Medical History Urge incontinence of urine Cellulitis Syncope Sinusitis Blood pressure instability Altered mental status Lactic acidosis Acute hypotension Fall Closed compression fracture of body of lumbar vertebra Compression fracture of body of thoracic vertebra Arteriosclerosis of coronary artery Dyslipidemia Internal hemorrhoids Tubular adenoma of colon A-fib Peripheral neuropathy RIGHT LEG Parkinson disease Degenerative disc disease Chronic back pain Diverticular disease Diabetes mellitus, type 2 NIDDM On anticoagulant therapy Anxiety NO MEDICATIONS Hypertension Hyperlipidemia Sciatica of right side HTN (hypertension) Surgical History S/P cataract extraction bilateral in 2019 H/O shoulder surgery REPAIR OF LEFT SHOULDER Fusion of spine LUMBAR AREA History of colonoscopy History of heart artery stent X1 STENT (~2005) History of cardiac cath [facility] (~2005) H/O heart artery stent Family History Mother Diabetes Father Myocardial infarction, Onset Age: 82 Grandmother (Maternal) Anxiety Myocardial infarction Social History Smoking Status: Never smoker Tobacco Type: Pipe Second Hand Exposure: No; Do You Dip or Chew Tobacco: No; Hx Alcohol Use: Yes Alcohol type: beer, wine and hard liquor Alcohol Intake Frequency: 4 or More x per/Week Hx Substance Use: No Preferred Language: [place] Communication Ability: Effective Visual Impairment: Partially Limited Hearing Ability: Normal Ehs Specialist Required: No Beliefs That Will Affect Care: None marital status: marital status details: Mahendra Levine (Susan) Current Living Situation: Spouse Current Living Situation Comment: 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 WITH HIGH 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 Feels Safe at Home: Yes Childhood Exposure to Second-Hand Smoke: No caffeine: Yes Dental Care, Regularly: No Physical Activity Frequency: 1-2 Times per Week Seatbelt Use: always Sunscreen Use: Yes Assistive Devices: Denture - Upper, Denture - Lower, Glasses and Walker Review of Systems A total of 10 systems reviewed and were otherwise negative Physical Exam Vital Signs Vital Signs - 24 hr 06/17/23 12:24 Temperature 38 C H Temperature Source Temporal Artery Scan Pulse Rate 98 H Respiratory Rate 18 Respiratory Effort / Characteristics Non-Labored Respiratory Depth Normal Respiratory Pattern Regular Blood Pressure 165/73 H Blood Pressure Mean 103 Pulse Oximetry 90 Oxygen Delivery Method Room Air Sepsis Recent Fever Within 48 Hours No Sepsis New/Unexplained Change in Mental Status No Sepsis Action Taken by Nursing No Action Required General: Well developed well nourished older male who is very hard of hearing and seems a little confused but answers most questions appropriately in no acute distress, breathing comfortably on room air. Normal speech, nonslurred HEENT: Normal cephalic atraumatic. Pupils are equal round and reactive to light. Extraocular movements are intact. Oropharynx is pink with moist mucous membranes. No swelling of the mouth lips or tongue. Neck: Supple with a midline trachea. No meningeal signs or stiffness, no JVD or bruits. No Stridor. Chest: Clear to auscultation bilaterally. No wheezes or rhonchi. No increased work of breathing. Heart: Regular rate and rhythm without murmurs or gallops. Abdomen: Soft nontender, nondistended without rebound guarding or rigidity. Extremities: No cyanosis clubbing or edema. No calf tenderness or assymetry Spine/Back. Non tender to palpation. No CVA tenderness Skin: Good turgor without rashes. Neurologic exam: Seems diffusely weak but nonfocal with cranial nerves two through 12 are intact. Motor and sensation are intact and symmetrical throughout. Course Administered Medications Atorvastatin Calcium (Atorvastatin 40 Mg Tab) 40 mg PO QAM OLVIN Stop: 07/17/23 16:44 Last Admin: 06/17/23 18:06 Dose: 40 mg Documented By: HAMLET Magnesium Sulfate/Dextrose (Magnesium Sulfate / D5w) 1 gm in 100 mls @ 50 mls/hr IV Q2H OLVIN Stop: 06/18/23 02:29 Last Admin: 06/17/23 17:40 Dose: 50 mls/hr Documented By: HAMLET Heparin Sodium/Dextrose (Heparin Sodium/Dextrose) 25,000 units in 500 mls @ 20 mls/hr IV .Q24H OLVIN; Protocol Stop: 07/17/23 16:59 Last Admin: 06/17/23 17:20 Dose: 1,000 units/hr, 20 mls/hr Documented By: HAMLET Co-signed By: NIA Discontinued Medications Acetaminophen (Acetaminophen 325 Mg Tab) 650 mg PO NOW STA Stop: 06/17/23 14:02 Last Admin: 06/17/23 14:21 Dose: 650 mg Documented By: HAMLET Heparin Sodium/Dextrose (Heparin Iv Adult Wt-Based Low-Dose *No* Initial Bolus Protocol) 1 each IV ONE STA; Protocol Stop: 06/17/23 16:28 Last Admin: 06/17/23 16:30 Dose: Not Given Documented By: HAMLET Cefepime HCl 2,000 mg/ Syringe 20 mls @ 5 mls/min IV NOW STA; Protocol Stop: 06/17/23 13:25 Last Admin: 06/17/23 13:49 Dose: 5 mls/min Documented By: DMITRY Magnesium Sulfate/Dextrose (Magnesium Sulfate / D5w) 1 gm in 100 mls @ 100 mls/hr IV NOW STA Stop: 06/17/23 15:12 Last Infusion: 06/17/23 15:57 Dose: Infused Documented By: Admin: 06/17/23 14:21 Dose: 100 mls/hr Documented By: HAMLET Azithromycin 500 mg/ Dextrose 255 mls @ 127.5 mls/hr IV NOW ONE Stop: 06/17/23 16:44 Last Infusion: 06/17/23 17:41 Dose: Infused Documented By: Admin: 06/17/23 15:40 Dose: 127.5 mls/hr Documented By: HAMLET Heparin Sodium/Dextrose (Heparin Sodium/Dextrose) 25,000 units in 500 mls @ 0.02 mls/hr IV .Q24H OLVIN; Protocol Stop: 07/17/23 16:14 Last Admin: 06/17/23 17:00 Dose: Not Given Documented By: HAMLET Miscellaneous (Patient's Height &/Or Weight Needed) 1 each N/A Q2H OLVIN Stop: 06/17/23 18:45 Last Admin: 06/17/23 17:00 Dose: Not Given Documented By: Admin: 06/17/23 15:40 Dose: 1 each Documented By: HAMLET Critical Care Time Critical Care Time: Yes Total Critical Care Time: 30 Due to the patient's hypoxemia, pneumonia, evaluation for sepsis, cardiac disease and further treatment evaluation as well as discussion with the family and consultation with the hospitalist, I have personally spent greater than 30 minutes of critical care time in the direct management of this patient. This includes bedside care, interpretation of diagnostic studies, and testing, discussion with consultants, patient, and family members, and other required patient management activities. This 30 minutes is in excess of all separately billable procedures. Medical Decision Making Differential Diagnosis Sepsis, pneumonia, URI, COVID, influenza, cardiac disease, neurologic disease Medical Records Attestation: I reviewed the patient's medical records. Home Medications Current Medication List: was personally reviewed by me Laboratory Data Attestation: I reviewed the patient's lab results. 06/17/23 12:40 06/17/23 12:40 Lab Results 06/17/23 06/17/23 Range/Units 12:28 12:40 WBC 12.77 H (4.8-10.8) K/ul RBC 4.22 L (4.70-6.10) M/uL Hgb 13.2 L (14.0-18.0) g/dl Hct 39.4 L (42.0-52.0) % MCV 93.4 (80.0-100.0) fL MCH 31.3 (25.0-34.0) pg MCHC 33.5 (32.0-36.0) g/dL RDW Std Deviation 48.2 H (36.4-46.3) fL RDW Coeff of Jeremiah 14.0 (11.5-14.5) % Plt Count 180 (130-400) K/uL MPV 11.1 (9.4-12.4) fL Immature Gran % (Auto) 0.7 % Neut % (Auto) 86.0 % Lymph % (Auto) 5.1 % [place] % (Auto) 7.4 % Eos % (Auto) 0.3 % Baso % (Auto) 0.5 % Neut # (Auto) 10.99 H (1.40-6.50) K/uL Lymph # (Auto) 0.65 L (1.20-3.40) K/uL [place] # (Auto) 0.94 H (0.11-0.59) K/uL Eos # (Auto) 0.04 (0.00-0.50) K/uL Baso # (Auto) 0.06 (0.00-0.20) K/uL Immature Gran # (Auto) 0.09 (0.01-0.20) K/uL PT 13.0 H (9.0-12.0) Seconds INR 1.2 H (0.9-1.1) APTT 31 (21-31) Seconds PTT Ratio 1.1 Sodium 135 L (136-145) mmol/L Potassium 3.9 (3.5-5.1) mmol/L Chloride 103 (98-107) mmol/L Carbon Dioxide 24 (21-32) mmol/L Anion Gap 8 (3-11) BUN 14 (6-23) mg/dl Creatinine 0.68 (0.6-1.4) mg/dl Est Cr Clr Drug Dosing Not Reportable Est GFR ( Amer) 98.1 ml/min Est GFR (Non-Af Amer) 84.7 ml/min BUN/Creatinine Ratio 20.6 H (10-20) Glucose 214 H (70-99(Fasting)) mg/dl Lactate 2.0 (0.4-2.0) mmol/L Calcium 8.9 (8.6-10.3) mg/dl Magnesium 1.6 L (1.7-2.4) mg/dl Total Bilirubin 1.0 (0.2-1.0) mg/dl AST 17 (13-39) U/L ALT 5 L (7-52) U/L Alkaline Phosphatase 83 (34-104) U/L Troponin I High Sens 285.9 H* (0-20) pg/ml Total Protein 6.8 (6.0-8.3) gm/dl Albumin 3.9 (3.4-5.0) gm/dl Globulin 2.9 (2.5-4.0) gm/dl Albumin/Globulin Ratio 1.3 (0.9-2) Procalcitonin 0.68 H (0-0.5) ng/ml Adenovirus (PCR) Not Detected (NotDetected) B. pertussis DNA (PCR) Not Detected (NotDetected) B.parapertussis DNA PCR Not Detected (NotDetected) C. pneumoniae DNA (PCR) Not Detected (NotDetected) Coronavirus OC43 (PCR) Not Detected (NotDetected) Coronavirus HKU1 (PCR) Not Detected (NotDetected) Coronavirus 229E (PCR) Not Detected (NotDetected) SARS-CoV-2 (PCR) Not Detected (NotDetected) Coronavirus NL63 (PCR) Not Detected (NotDetected) Human Metapneumovir PCR Not Detected (NotDetected) Influenza Type A (PCR) Not Detected (NotDetected) Influenza Type B (PCR) Not Detected (NotDetected) M. pneumoniae (PCR) Not Detected (NotDetected) Parainfluenza 1 (PCR) Not Detected (NotDetected) Parainfluenza 2 (PCR) Not Detected (NotDetected) Parainfluenza 3 (PCR) Not Detected (NotDetected) Parainfluenza 4 (PCR) Not Detected (NotDetected) RSV (PCR) Not Detected (NotDetected) Entero/Rhino (PCR) Not Detected (NotDetected) Imaging Data Attestation: I personally reviewed and interpreted this imaging study as follows: My Impression: Chest x-raythere is an infiltrate/pneumonia in the left base. There may be some superimposed fluid/CHF as well Radiologist's Impression: Chest X-Ray 06/17/23 12:28 XR chest 1V not portable HISTORY: Sepsis COMPARISON: Chest 10/07/2022. FINDINGS: There are low lung volumes. No pneumothorax. Possible trace left pleural effusion. The cardiac silhouette remains mildly enlarged. No evidence for pulmonary edema. There is a new left mid to lower lung zone airspace opacity. This likely represents a pneumonia. No acute fractures. IMPRESSION: There is a new left mid to lower lung zone airspace opacity likely representing a pneumonia. Recommend follow-up to ensure resolution. ACT 112: Negative or not required by law. Electronically signed by: Juan Roberto M.D. 06/17/2023 2:37 PM ECG Data Attestation: I personally reviewed and interpreted this ECG as follows: Indication: + weakness Rate (beats per minute): 91 Rhythm: + normal sinus and + other (Poor baseline) ECG Intervals/blocks: + IVCD, + Normal QT and + Normal MI ECG [place]: + Left axis deviation ECG ST segments: + Nonspecific ST abnormalities ECG Findings: + PACs Comparison ECG Date: from (10/07/22) Change: no significant change MDM Narrative This patient comes in after having weakness. He seems nonfocal on my exam . he does have Parkinson and he is hard of hearing and difficult to communicate with he may be mildly confused. I talked to the family at length his initial blood pressure was 165 systolic so is not hypotensive however he did have a fever at 38. The sepsis workup was initiated in triage. Given his history of CHF I do not give him fluids initially as I was concerned he could be fluid overloaded on top of this. EKG shows no definite ischemic changes when compared to old. His x-ray shows a pneumonia in the left base. His white count was mildly elevated but the lactic acid was not significant elevated and was 2. He was not given fluid boluses as he has a documented history of CHF and was concerned he could be fluid overloaded. He has been normotensive. His troponin came back elevated however he has no chest pain. His second troponin did come back more elevated again he has no chest pain or definite ischemic changes on EKG and seems asymptomatic this will need to be further evaluated in the hospital for cardiac cause. He seems resting comfortably he was given IV antibiotics. I do think he needs to be admitted/observed for further treatment and evaluation. I have discussed the case at length with the [facility] hospitalist Dr. 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
[2023-06-17 13:24] LABS: Basophils # (auto) 0.06 K/uL (0.00-0.20); Basophils % (auto) 0.5 %; Eosinophils # (auto) 0.04 K/uL (0.00-0.50); Eosinophils % (auto) 0.3 %; Hematocrit (blood only) 39.4 % (42.0-52.0); Hemoglobin 13.2 g/dl (14.0-18.0); Immature Granulocytes # (auto) 0.09 K/uL (0.01-0.20); Immature Granulocytes % (auto) 0.7 %; Lymphocytes # (auto) 0.65 K/uL (1.20-3.40); Lymphocytes % (auto) 5.1 %; Mean Corpuscular Hemoglobin 31.3 pg (25.0-34.0); Mean Corpuscular Hgb Conc 33.5 g/dL (32.0-36.0); Mean Corpuscular Volume 93.4 fL (80.0-100.0); Mean Platelet Volume 11.1 fL (9.4-12.4); Monocytes # (auto) 0.94 K/uL (0.11-0.59); Monocytes % (auto) 7.4 %; Neutrophils # (auto) 10.99 K/uL (1.40-6.50); Platelet Count 180 K/uL (130-400); RDW Standard Deviation 48.2 fL (36.4-46.3); Red Blood Count 4.22 M/uL (4.70-6.10); White Blood Count 12.77 K/ul (4.8-10.8)
[2023-06-17 13:44] LABS: Alanine Aminotransferase 5 U/L (7-52); Albumin Globulin Ratio 1.3 (0.9-2); Albumin Level 3.9 gm/dl (3.4-5.0); Alkaline Phosphatase 83 U/L (34-104); Anion Gap 8 (3-11); Aspartate Aminotransferase 17 U/L (13-39); BUN Creatinine Ratio 20.6 (10-20); Blood Urea Nitrogen 14 mg/dl (6-23); Calcium 8.9 mg/dl (8.6-10.3); Carbon Dioxide 24 mmol/L (21-32); Chloride 103 mmol/L (98-107); Est GFR (African American) 98.1 ml/min; Est GFR (Non-African American) 84.7 ml/min; Globulin 2.9 gm/dl (2.5-4.0); Glucose 214 mg/dl (70-99(Fasting)); Magnesium 1.6 mg/dl (1.7-2.4); Potassium 3.9 mmol/L (3.5-5.1); Sodium 135 mmol/L (136-145); Total Protein 6.8 gm/dl (6.0-8.3)
[2023-06-17 13:46] LABS: Appearance Urine Clear (Clear); Bilirubin Urine Negative (Negative); Blood Urine Negative (Negative); Color Urine Yellow; Glucose Urine UA Negative (Negative); Ketones Urine Trace (Negative); Leukocyte Esterase Urine Negative (Negative); Nitrite Urine Negative (Negative); Protein Urine Negative (Negative); Specific Gravity Urine 1.019 (1.000-1.030); Urobilinogen Urine Negative (Negative); pH Urine 5.5 (4.5-7.5)
[2023-06-17 13:46] LABS: INR 1.2 (0.9-1.1); Partial Thromboplastin Ratio 1.1; Partial Thromboplastin Time 31 Seconds (21-31)
[2023-06-17] MEDS: CEFEPIME 2,000 MG in SYRINGE 0 ML IV STA (13:49)
[2023-06-17 14:02] LABS: Troponin I High Sensitivity 285.9 pg/ml (0-20)
[2023-06-17 14:14] LABS: Adenovirus PCR Not Detected (NotDetected); Bordetella parapertussis PCR Not Detected (NotDetected); Bordetella pertussis PCR Not Detected (NotDetected); Chlamydia pneumoniae PCR Not Detected (NotDetected); Coronavirus 229E PCR Not Detected (NotDetected); Coronavirus CoV-2 (COVID19)PCR Not Detected (NotDetected); Coronavirus HKU1 PCR Not Detected (NotDetected); Coronavirus NL63 PCR Not Detected (NotDetected); Coronavirus OC43PCR Not Detected (NotDetected); Human Metapneumovirus PCR Not Detected (NotDetected); Influenza A PCR Not Detected (NotDetected); Influenza B PCR Not Detected (NotDetected); Mycoplasma pneumoniae PCR Not Detected (NotDetected); Parainfluenza Virus 1 PCR Not Detected (NotDetected); Parainfluenza Virus 2 PCR Not Detected (NotDetected); Parainfluenza Virus 3 PCR Not Detected (NotDetected); Parainfluenza Virus 4 PCR Not Detected (NotDetected); Respiratory Syncytial VirusPCR Not Detected (NotDetected); Rhinovirus/Enterovirus PCR Not Detected (NotDetected)
[2023-06-17] MEDS: ACETAMINOPHEN 325 MG TAB PO STA (14:21)
[2023-06-17] MEDS: MAGNESIUM SULFATE / D5W 1 GM/100 ML BAG IV STA (14:21)
[2023-06-17] MEDS ORDERED: ONDANSETRON INJ 2 MG/ML 2 ML VIAL IV PRN (14:26)
[2023-06-17] MEDS ORDERED: CARBOHYDRATES FOR HYPOGLYCEMIA PO PRN ×2 (14:26→16:16)
[2023-06-17] MEDS ORDERED: POLYETHYLENE (MIRALAX) 17 GM PACK PO PRN (14:26)
[2023-06-17] MEDS ORDERED: GLUCOSE 40% GEL 15 GM TUBE PO PRN ×2 (14:26→16:16)
[2023-06-17] MEDS ORDERED: GLUCAGON FOR INJ 1 MG VIAL SQ PRN ×2 (14:26→16:16)
[2023-06-17] MEDS ORDERED: GLUCOSE 10 TAB/TUBE PO PRN (14:26)
[2023-06-17] MEDS ORDERED: DEXTROSE 50% 50 ML SYRINGE IV PRN ×2 (14:26→16:16)
[2023-06-17] MEDS ORDERED: ALUMINUM/MAGNESIUM SUSP 30 ML UDC PO PRN (14:26)
--- NOTE | 2023-06-17 14:38 | XRay Report ---
XR chest 1V not portable HISTORY: Sepsis COMPARISON: Chest 10/07/2022. FINDINGS: There are low lung volumes. No pneumothorax. Possible trace left pleural effusion. The card iac silhouette remains mildly enlarged. No evidence for pulmonary edema. There is a new left mid to l ower lung zone airspace opacity. This likely represents a pneumonia. No acute fractures. IMPRESSION: There is a new left mid to lower lung zone airspace opacity likely representing a pneumonia. Recommen d follow-up to ensure resolution. ACT 112: Negative or not required by law. Electronically signed by: Juan Roberto M.D. 06/17/2023 2:37 PM
[2023-06-17] MEDS ORDERED: CEFEPIME 1,000 MG in SYRINGE 0 ML IV SCH (14:45)
--- NOTE | 2023-06-17 14:57 | Electrocardiogram Report ---
Test Reason : Blood Pressure : / mmHG Vent. Rate : 091 BPM Atrial Rate : 091 BPM P-R Int : 194 ms QRS Dur : 110 ms QT Int : 360 ms P-R-T Axes : 077 -54 111 degrees QTc Int : 442 ms Sinus rhythm with Premature atrial complexes with Aberrant conduction Left axis deviation Left ventricular hypertrophy with repolarization abnormality ( R in aVL ) Poor R wave progression, consider anterior OH vs. lead placement vs. LVH Abnormal ECG When compared with ECG of 07-OCT-2022 21:45, Aberrant conduction is now Present Confirmed by Aravind Gill ([id number]) on 06/17/2023 2:57:37 PM Referred By: Confirmed By:Aravind Gill
[2023-06-17] MEDS: Patient's HEIGHT &/or WEIGHT Needed SCH (15:40)
[2023-06-17] MEDS: AZITHROMYCIN 500 MG in DEXTROSE 5% 250 ML IV ONE (15:40)
--- NOTE | 2023-06-17 15:58 | History & Physical Report ---
Date of Service June 17, 2023 Assessment & Plan (1) Hypoxemia: (2) Parkinson disease: (3) Paroxysmal atrial fibrillation: (4) Hypertension: Plan 87 yo male with h/o Parkinson's disease , HTN, DM type 2, CAD presents with generalized weakness, SOB, cough, fever # acute respiratory failure , hypoxemic due to left mid to low lobe pneumonia IV antibiotics oxygen suppl to keep oxygen >90 % # bacterial pneumonia , left, mid to lower lung , elevated procalcitonin blood cultures obtained , obtain swallow eval, sputum culture, to r/o aspiration IV antibiotics # elevated trop , 939.6 ? demand ischemia? 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 mechanic # Parkinson disease continue home meds # HTN , elevated restart home meds # PAF , currently in SR continue Xarelto , rate controlled # BPH continue home meds # mild dementia continue home meds # hypomagnesemia supplement monitor magnesium level # DM type 2 insulin sliding scale History of Present Illness Chief Complaint: cough, fever , sob Primary Care Provider: Edy Flanagan MD 87 yo male with h/o Parkinson's disease, PAF, DM type 2, HTN brought in by family secondary to SOB, cough, fever, started yesterday evening, patient is somewhat confused, reports generalized weakness, he was hypoxic , placed on oxygen in ER, current pulse ox 97 %, denies chest pain, reports that several family members are sick also. Viral panel is negative, CXR is positive for new left mid to lower lung zone pneumonia, he had a fever 38 C in ER, elevated WBC, antibiotics are initiated. Denies headache, neck pain, no nausea, no vomiting, reports diarrhea, stool and urine incontinence, chronic. Denies smoking, 1 alcoholic drink a day.Patient is a poor historian. Trop 939.6 Allergies Allergy/AdvReac Type Severity Reaction Status Date / Time Penicillins Allergy Intermediate SKIN RASH Verified 06/17/23 15:36 Home Medications Medication Instructions Recorded Confirmed Type aspirin 81 mg capsule 81 mg PO DAILY 06/23/21 06/17/23 History cyanocobalamin (vitamin B-12) 1,000 mcg PO 2XWK 11/24/21 06/17/23 History 1,000 mcg tablet escitalopram oxalate 10 mg tablet 10 mg PO DAILY #90 tabs 10/07/22 06/17/23 Rx memantine 10 mg tablet 10 mg PO BID #180 tabs 10/07/22 06/17/23 Rx alprazolam 0.25 mg tablet 0.25 mg PO HS #30 tabs 10/18/22 06/17/23 Rx valsartan 80 mg tablet 80 mg PO BID #180 tabs 10/18/22 06/17/23 Rx carbidopa 25 mg-levodopa 100 mg 2 tab PO QID 30 days #240 tabs 11/29/22 06/17/23 Rx tablet finasteride 5 mg tablet 5 mg PO QAM #90 tabs 12/17/22 06/17/23 Rx tamsulosin 0.4 mg capsule 0.4 mg PO DAILY #90 caps 12/17/22 06/17/23 Rx carvedilol 6.25 mg tablet 6.25 mg PO BID #180 tabs 01/31/23 06/17/23 Rx metformin 500 mg tablet 500 mg PO DAILY #90 tabs 01/31/23 06/17/23 Rx rivaroxaban 20 mg tablet (Xarelto) 20 mg PO QAM #90 tabs 01/31/23 06/17/23 Rx tramadol 50 mg tablet 50 mg PO BID pain #60 tabs 04/25/23 06/17/23 Rx Past Med/Surg History Medical History Urge incontinence of urine Cellulitis Syncope Sinusitis Blood pressure instability Altered mental status Lactic acidosis Acute hypotension Fall Closed compression fracture of body of lumbar vertebra Compression fracture of body of thoracic vertebra Arteriosclerosis of coronary artery Dyslipidemia Internal hemorrhoids Tubular adenoma of colon A-fib Peripheral neuropathy RIGHT LEG Parkinson disease Degenerative disc disease Chronic back pain Diverticular disease Diabetes mellitus, type 2 NIDDM On anticoagulant therapy Anxiety NO MEDICATIONS Hypertension Hyperlipidemia Sciatica of right side HTN (hypertension) Surgical History S/P cataract extraction bilateral in 2019 H/O shoulder surgery REPAIR OF LEFT SHOULDER Fusion of spine LUMBAR AREA History of colonoscopy History of heart artery stent X1 STENT (~2005) History of cardiac cath [facility] (~2005) H/O heart artery stent Family History Mother Diabetes Father Myocardial infarction, Onset Age: 82 Grandmother (Maternal) Anxiety Myocardial infarction Social History Smoking Status: Never smoker Tobacco Type: Pipe Second Hand Exposure: No; Do You Dip or Chew Tobacco: No; Hx Alcohol Use: Yes Alcohol type: beer, wine and hard liquor Alcohol Intake Frequency: 4 or More x per/Week Hx Substance Use: No Preferred Language: Scottish Communication Ability: Effective Visual Impairment: Partially Limited Hearing Ability: Normal Platinum [employer] 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 Tender Required: No Beliefs That Will Affect Care: None marital status: marital status details: Mahendra Levine (Susan) Current Living Situation: Spouse Current Living Situation Comment: 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 WITH 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 Feels Safe at Home: Yes Childhood Exposure to Second-Hand Smoke: No caffeine: Yes Dental Care, Regularly: No Physical Activity Frequency: 1-2 Times per Week Seatbelt Use: always Sunscreen Use: Yes Assistive Devices: Denture - Upper, Denture - Lower, Glasses and Walker Review of Systems Review of Systems: All systems reviewed & are unremarkable except as noted in HPI & below Physical Exam Physical Exam: head atraumatic, normocephalic neck supple chest CTA b/l heart S1S2 regular, no murmur abdomen soft, nt, nd, bs present extremities no edema neuro AAO times 3 , no focal deficit, tremors present Results & Data Results & Data Vital Signs (Past 12 Hours) Vital Signs Temp Pulse Resp BP Pulse Ox O2 Del Method 06/17/23 14:28 91 H 06/17/23 12:24 38 C H 98 H 18 165/73 H 90 Room Air Laboratory Results Abnormal lab results 06/17/23 06/17/23 06/17/23 Range/Units 12:28 12:40 14:47 WBC 12.77 H (4.8-10.8) K/ul RBC 4.22 L (4.70-6.10) M/uL Hgb 13.2 L (14.0-18.0) g/dl Hct 39.4 L (42.0-52.0) % RDW Std Deviation 48.2 H (36.4-46.3) fL Neut # (Auto) 10.99 H (1.40-6.50) K/uL Lymph # (Auto) 0.65 L (1.20-3.40) K/uL [place] # (Auto) 0.94 H (0.11-0.59) K/uL PT 13.0 H (9.0-12.0) Seconds INR 1.2 H (0.9-1.1) Sodium 135 L (136-145) mmol/L BUN/Creatinine Ratio 20.6 H (10-20) Glucose 214 H (70-99(Fasting)) mg/dl Magnesium 1.6 L (1.7-2.4) mg/dl ALT 5 L (7-52) U/L Troponin I High Sens 285.9 H* 939.6 H* D (0-20) pg/ml Procalcitonin 0.68 H (0-0.5) ng/ml Urine Ketones (Negative) 06/17/23 Range/Units Unknown WBC (4.8-10.8) K/ul RBC (4.70-6.10) M/uL Hgb (14.0-18.0) g/dl Hct (42.0-52.0) % RDW Std Deviation (36.4-46.3) fL Neut # (Auto) (1.40-6.50) K/uL Lymph # (Auto) (1.20-3.40) K/uL [place] # (Auto) (0.11-0.59) K/uL PT (9.0-12.0) Seconds INR (0.9-1.1) Sodium (136-145) mmol/L BUN/Creatinine Ratio (10-20) Glucose (70-99(Fasting)) mg/dl Magnesium (1.7-2.4) mg/dl ALT (7-52) U/L Troponin I High Sens (0-20) pg/ml Procalcitonin (0-0.5) ng/ml Urine Ketones Trace H (Negative) Diagnostic Findings Chest X-Ray 06/17/23 12:28 XR chest 1V not portable HISTORY: Sepsis COMPARISON: Chest 10/07/2022. FINDINGS: There are low lung volumes. No pneumothorax. Possible trace left pleural effusion. The cardiac silhouette remains mildly enlarged. No evidence for pulmonary edema. There is a new left mid to lower lung zone airspace opacity. This likely represents a pneumonia. No acute fractures. IMPRESSION: There is a new left mid to lower lung zone airspace opacity likely representing a pneumonia. Recommend follow-up to ensure resolution. ACT 112: Negative or not required by law. Electronically signed by: Juan Roberto M.D. 06/17/2023 2:37 PM ECG Additional Comments: Sinus rhythm with Premature atrial complexes with Aberrant conduction Left axis deviation Left ventricular hypertrophy with repolarization abnormality ( R in aVL ) Poor R wave progression, consider anterior FL vs. lead placement vs. LVH Code Status & VTE Plan Code Status full VTE Prophylaxis Plan VTE Prophylaxis will be ordered: Yes PG Care Time/CCT Total # of Minutes Spent Total Time Spent with Patient: Total time spent is greater than 50% in coordination of care (as documented) at patient's floor/unit and/or counseling patient: Coding Level of Care Code 72627 INT INP/OBS CARE 375MIN Diagnoses Hypoxemia R09.02 Parkinson disease G20 Paroxysmal atrial fibrillation I48.0 Hypertension I10
[2023-06-17] MEDS ORDERED: Heparin IV Adult Wt-Based Standard *NO* INITIAL Bolus Protocol IV STA (15:59)
[2023-06-17] MEDS: Heparin IV Adult Wt-Based Low-Dose *NO* INITIAL Bolus Protocol IV STA (16:30)
[2023-06-17] MEDS ORDERED: Heparin IV Adult Wt-Based Low-Dose *NO* INITIAL Bolus Protocol IV SCH (16:45)
[2023-06-17] MEDS: HEPARIN SODIUM/DEXTROSE 25,000 UNITS/500 ML BAG IV SCH ×2 (17:00→17:20)
[2023-06-17] MEDS: MAGNESIUM SULFATE / D5W 1 GM/100 ML BAG IV SCH (17:40)
[2023-06-17] MEDS: ATORVASTATIN 40 MG TAB PO SCH (18:06)
[2023-06-17] MEDS: INSULIN ASPART PER UNIT CHARGE SC SCH (18:57)
[2023-06-17] MEDS ORDERED: GABAPENTIN 100 MG CAP PO SCH (21:00)
[2023-06-17] MEDS ORDERED: VALSARTAN 80 MG TAB PO SCH (21:00)
[2023-06-17] MEDS: MEMANTINE HCL 10 MG TAB PO SCH (21:51)
[2023-06-17] MEDS: carvediloL 6.25 MG TAB PO SCH (21:51)
[2023-06-17] MEDS: CEFEPIME 2,000 MG in SYRINGE 0 ML IV SCH (21:52)
[2023-06-17] MEDS: ALPRAZolam 0.25 MG TABLET PO SCH (21:52)
[2023-06-18 00:55] LABS: ANTI-Xa, UFH(UnfractionatedHep > 1.50 IU/ml (0.3-0.7)
[2023-06-18 02:32] LABS: ANTI-Xa, UFH(UnfractionatedHep 1.28 IU/ml (0.3-0.7)
[2023-06-18 04:07] LABS: ANTI-Xa, UFH(UnfractionatedHep 1.08 IU/ml (0.3-0.7)
[2023-06-18 04:43] LABS: ANTI-Xa, UFH(UnfractionatedHep 0.93 IU/ml (0.3-0.7)
[2023-06-18 05:35] LABS: Basophils # (auto) 0.06 K/uL (0.00-0.20); Basophils % (auto) 0.5 %; Eosinophils # (auto) 0.15 K/uL (0.00-0.50); Eosinophils % (auto) 1.1 %; Hemoglobin 11.4 g/dl (14.0-18.0); Immature Granulocytes # (auto) 0.06 K/uL (0.01-0.20); Immature Granulocytes % (auto) 0.5 %; Lymphocytes % (auto) 12.1 %; Mean Corpuscular Hemoglobin 30.8 pg (25.0-34.0); Mean Corpuscular Hgb Conc 32.6 g/dL (32.0-36.0); Mean Corpuscular Volume 94.6 fL (80.0-100.0); Mean Platelet Volume 11.1 fL (9.4-12.4); Monocytes # (auto) 1.08 K/uL (0.11-0.59); Monocytes % (auto) 8.2 %; Neutrophils # (auto) 10.25 K/uL (1.40-6.50); Neutrophils % (auto) 77.6 %; Platelet Count 155 K/uL (130-400); RDW Coefficient of Variation 14.2 % (11.5-14.5); RDW Standard Deviation 49.3 fL (36.4-46.3)
[2023-06-18 05:53] LABS: Albumin Globulin Ratio 1.3 (0.9-2); Albumin Level 3.3 gm/dl (3.4-5.0); Calcium 8.5 mg/dl (8.6-10.3); Chol HDL Ratio 2.3 (0-5); Creatinine Clr Calc Pharmacy 91.9 ml/min; Est GFR (African American) 101.3 ml/min; Est GFR (Non-African American) 87.4 ml/min; Globulin 2.6 gm/dl (2.5-4.0); Potassium 3.7 mmol/L (3.5-5.1); Total Protein 5.9 gm/dl (6.0-8.3)
[2023-06-18 06:37] LABS: ANTI-Xa, UFH(UnfractionatedHep 0.93 IU/ml (0.3-0.7)
[2023-06-18 07:19] LABS: ANTI-Xa, UFH(UnfractionatedHep 0.79 IU/ml (0.3-0.7)
[2023-06-18 07:23] LABS: Estimated Average Glucose 151 mg/dl; Hemoglobin A1C 6.9 % (4.5-5.6)
[2023-06-18 08:07] LABS: ANTI-Xa, UFH(UnfractionatedHep 0.75 IU/ml (0.3-0.7)
[2023-06-18 09:16] LABS: ANTI-Xa, UFH(UnfractionatedHep 0.74 IU/ml (0.3-0.7)
[2023-06-18] MEDS: ASPIRIN 81 MG ECTAB PO SCH (09:19)
[2023-06-18] MEDS: FINASTERIDE 5 MG TAB PO SCH (09:20)
[2023-06-18] MEDS: ESCITALOPRAM OXALATE 10 MG TAB PO SCH (09:20)
[2023-06-18] MEDS: VALSARTAN 80 MG TAB PO SCH (09:21)
[2023-06-18] MEDS: TAMSULOSIN HCL 0.4 MG CAP PO SCH (09:21)
--- NOTE | 2023-06-18 09:51 | XCELERA ---
[id number]
[2023-06-18 11:01] LABS: ANTI-Xa, UFH(UnfractionatedHep 0.47 IU/ml (0.3-0.7)
--- NOTE | 2023-06-18 12:54 | Cardiology Consultation ---
Date of Consultation June 18, 2023 Assessment & Plan (1) Elevated troponin: -likely demand ischemia related to his acute presentation and LVH. -do not feel this represents an acute coronary syndrome. -could discontinue heparin drip in resume Xarelto. -troponin is trending down. -no further cardiac evaluation at this time. (2) LVH (left ventricular hypertrophy): -mild left ventricular hypertrophy on current echocardiogram. (3) Coronary artery disease: -remote history of an LAD PCI, 2004 -has been quiescent on medical management. (4) Paroxysmal atrial fibrillation: -continue rate control long-term anticoagulation. History of Present Illness Attending Physician: Karon Ramachandran MD History of Present Illness Mr. Levine is an 87-year-old male with a history of coronary artery disease (LAD PCI, 2004), hypertension, hypercholesterolemia, and paroxysmal atrial fibrillation who was admitted yesterday with a bilobar pneumonia. His troponin is elevated, therefore, this consultation was ordered. Of note, patient typically follows with Dr. Parra in the outpatient setting. The patient was in his usual state of health until approximately 24 hours prior to presentation. He was experiencing cough, shortness of breath, generalized weakness, and fever. He was brought to the emergency room by his family. He was noted to be borderline hypoxic on arrival and was started on supplemental oxygen. Chest x-ray noted an infiltrate in the left mid and lower lobes. He was immediately started on intravenous antibiotics. His initial high sensitivity troponin was elevated 285 and has increased to a total of 2282. Currently 1996. At no time has the patient experienced chest discomfort. He has not experienced exertional angina pectoris since 2004. Currently, patient is resting comfortably in bed without complaints. He does no te improvement in his shortness of breath and cough since starting antibiotics. Allergies Allergy/AdvReac Type Severity Reaction Status Date / Time Penicillins Allergy Intermediate SKIN RASH Verified 06/17/23 15:36 Home Medications Medication Instructions Recorded Confirmed Type aspirin 81 mg capsule 81 mg PO DAILY 06/23/21 06/17/23 History cyanocobalamin (vitamin B-12) 1,000 mcg PO 2XWK 11/24/21 06/17/23 History 1,000 mcg tablet escitalopram oxalate 10 mg tablet 10 mg PO DAILY #90 tabs 10/07/22 06/17/23 Rx memantine 10 mg tablet 10 mg PO BID #180 tabs 10/07/22 06/17/23 Rx alprazolam 0.25 mg tablet 0.25 mg PO HS #30 tabs 10/18/22 06/17/23 Rx valsartan 80 mg tablet 80 mg PO BID #180 tabs 10/18/22 06/17/23 Rx carbidopa 25 mg-levodopa 100 mg 2 tab PO QID 30 days #240 tabs 11/29/22 06/17/23 Rx tablet finasteride 5 mg tablet 5 mg PO QAM #90 tabs 12/17/22 06/17/23 Rx tamsulosin 0.4 mg capsule 0.4 mg PO DAILY #90 caps 12/17/22 06/17/23 Rx carvedilol 6.25 mg tablet 6.25 mg PO BID #180 tabs 01/31/23 06/17/23 Rx metformin 500 mg tablet 500 mg PO DAILY #90 tabs 01/31/23 06/17/23 Rx rivaroxaban 20 mg tablet (Xarelto) 20 mg PO QAM #90 tabs 01/31/23 06/17/23 Rx tramadol 50 mg tablet 50 mg PO BID pain #60 tabs 04/25/23 06/17/23 Rx Patient History Medical History Urge incontinence of urine Cellulitis Syncope Sinusitis Blood pressure instability Altered mental status Lactic acidosis Acute hypotension Fall Closed compression fracture of body of lumbar vertebra Compression fracture of body of thoracic vertebra Arteriosclerosis of coronary artery Dyslipidemia Internal hemorrhoids Tubular adenoma of colon A-fib Peripheral neuropathy RIGHT LEG Parkinson disease Degenerative disc disease Chronic back pain Diverticular disease Diabetes mellitus, type 2 NIDDM On anticoagulant therapy Anxiety NO MEDICATIONS Hypertension Hyperlipidemia Sciatica of right side HTN (hypertension) Surgical History S/P cataract extraction bilateral in 2019 H/O shoulder surgery REPAIR OF LEFT SHOULDER Fusion of spine LUMBAR AREA History of colonoscopy History of heart artery stent X1 STENT (~2005) History of cardiac cath [facility] (~2005) H/O heart artery stent Family History Mother Diabetes Father Myocardial infarction, Onset Age: 82 Grandmother (Maternal) Anxiety Myocardial infarction Social History Smoking Status: Never smoker Tobacco Type: Pipe Second Hand Exposure: No; Do You Dip or Chew Tobacco: No; Hx Alcohol Use: Yes Alcohol type: beer, wine and hard liquor Alcohol Intake Frequency: 4 or More x per/Week Hx Substance Use: No Preferred Language: Vietnamese Communication Ability: Effective Visual Impairment: Partially Limited Hearing Ability: Normal Windshield Installer Required: No Beliefs That Will Affect Care: None marital status: marital status details: Mahendra Levine (Susan) Current Living Situation: Spouse Current Living Situation Comment: SON WITH HIGH 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 Feels Safe at Home: Yes Childhood Exposure to Second-Hand Smoke: No caffeine: Yes Dental Care, Regularly: No Physical Activity Frequency: 1-2 Times per Week Seatbelt Use: always Sunscreen Use: Yes Assistive Devices: Denture - Upper, Denture - Lower, Glasses and Walker Physical Exam Physical Exam: In general is a well-developed well-nourished male in no acute distress. HEENT exam is negative. Neck is supple with full carotid upstrokes. There are no carotid bruits. Jugular venous pressure is flat at 90. No thyromegaly. Cardiovascular exam reveals a regular rhythm with distant heart sounds. No obvious murmurs. Lungs note decreased breath sounds at the left base. No rales. Abdomen is obese without bruits. Extremities reveal intact radial artery pulses bilaterally. Results & Data Vital Signs (Past 12 Hours) Vital Signs Temp Pulse Resp BP Pulse Ox O2 Del Method O2 Flow Rate 06/18/23 12:22 36.9 C 58 L 18 121/67 97 Nasal Cannula 4 06/18/23 08:05 36.9 C 55 L 20 127/80 93 Nasal Cannula 4 06/18/23 03:00 36.3 C L 55 L 18 120/69 97 Nasal Cannula Laboratory Results Initial high sensitivity troponin was 285 with follow-up values of 940, 2282, and 1997. Diagnostic Findings Echocardiogram notes normal left ventricular systolic function with ejection fra ction 55-60%. There were no wall motion abnormalities. There was mild LVH along with mild mitral regurgitation. Compared with study performed in September 2022, no change. EKG notes sinus rhythm with PACs. There is poor R-wave progression across the anterior precordium. There is evidence of LVH with repolarization changes. PG Care Time/CCT Total # of Minutes Spent Total Time Spent with Patient: Total time spent is greater than 50% in coordination of care (as documented) at patient's floor/unit and/or counseling patient: Coding Level of Care Code 95609 INT INP/OBS CARE 3/75MIN Diagnoses Elevated troponin R79.89 LVH (left ventricular hypertrophy) I51.7 Coronary artery disease I25.10 Paroxysmal atrial fibrillation I48.0
--- NOTE | 2023-06-18 13:36 | Hospitalist Progress Note ---
Date of Service June 18, 2023 Assessment & Plan (1) Hypoxemia: (2) Parkinson disease: (3) Paroxysmal atrial fibrillation: (4) Hypertension: Plan 87 yo male with h/o Parkinson's disease , HTN, DM type 2, CAD presents with generalized weakness, SOB, cough, fever # acute respiratory failure , hypoxemic due to left mid to low lobe pneumonia IV cefepime and azithromycin oxygen suppl to keep oxygen >90 % Follow-up blood cultures Leukocytosis still elevated at 13,000 Monitor for improvement Clinically improving Speech and swallow involved to evaluate for aspiration Video study ordered # elevated trop Likely demand ischemia due to acute hypoxic respiratory failure pneumonia Cardiology cleared and did not recommend any further workup Echocardiogram reviewed Discontinue heparin drip Resume home Xarelto # Parkinson disease continue home meds # HTN Stable Resumed home meds # PAF , currently in SR Resume Xarelto , rate controlled # BPH continue home meds # mild dementia continue home meds # hypomagnesemia supplement monitor magnesium level # DM type 2 insulin sliding scale Admission and Anticipated Discharge Date Admission Date: June 17, 2023 Subjective Patient feels better in some ways. No more fever. Breathing better. Still coughing. Still very weak. Review of Systems Review of Systems: All systems reviewed & are unremarkable except as noted in Subjective Physical Exam Physical Exam: General: Awake, conversant Heart: S1, S2/regular rate and rhythm, no murmur rubs or gallops Lungs: Left-sided crackles noted. Normal effort Abdomen: Soft/nontender/nondistended. No hepatosplenomegaly Extremities: No clubbing/cyanosis. No edema Behavior: Appropriate, cooperative Results & Data Results & Data Vital Signs (Past 12 Hours) Vital Signs Temp Pulse Resp BP Pulse Ox O2 Del Method O2 Flow Rate 06/18/23 12:22 36.9 C 58 L 18 121/67 97 Nasal Cannula 4 06/18/23 08:05 36.9 C 55 L 20 127/80 93 Nasal Cannula 4 06/18/23 03:00 36.3 C L 55 L 18 120/69 97 Nasal Cannula Laboratory Results Abnormal lab results 06/17/23 06/17/23 06/17/23 Range/Units 12:28 12:40 14:47 WBC (4.8-10.8) K/ul RBC (4.70-6.10) M/uL Hgb (14.0-18.0) g/dl Hct (42.0-52.0) % RDW Std Deviation (36.4-46.3) fL Neut # (Auto) (1.40-6.50) K/uL [place] # (Auto) (0.11-0.59) K/uL PT 13.0 H (9.0-12.0) Seconds INR 1.2 H (0.9-1.1) Heparin Anti-Xa, Unfract (0.3-0.7) IU/ml Sodium 135 L (136-145) mmol/L BUN/Creatinine Ratio 20.6 H (10-20) Glucose 214 H (70-99(Fasting)) mg/dl POC Glucose (70-99) mg/dl Fasting Glucose (70-99) mg/dl Hemoglobin A1c (4.5-5.6) % Calcium (8.6-10.3) mg/dl Magnesium 1.6 L (1.7-2.4) mg/dl ALT 5 L (7-52) U/L Troponin I High Sens 285.9 H* 939.6 H* D (0-20) pg/ml Total Protein (6.0-8.3) gm/dl Albumin (3.4-5.0) gm/dl Procalcitonin 0.68 H (0-0.5) ng/ml Urine Ketones (Negative) 06/17/23 06/17/23 06/17/23 Range/Units 18:05 21:41 22:51 WBC (4.8-10.8) K/ul RBC (4.70-6.10) M/uL Hgb (14.0-18.0) g/dl Hct (42.0-52.0) % RDW Std Deviation (36.4-46.3) fL Neut # (Auto) (1.40-6.50) K/uL [place] # (Auto) (0.11-0.59) K/uL PT (9.0-12.0) Seconds INR (0.9-1.1) Heparin Anti-Xa, Unfract > 1.50 H* (0.3-0.7) IU/ml Sodium (136-145) mmol/L BUN/Creatinine Ratio (10-20) Glucose (70-99(Fasting)) mg/dl POC Glucose 202 H 147 H (70-99) mg/dl Fasting Glucose (70-99) mg/dl Hemoglobin A1c (4.5-5.6) % Calcium (8.6-10.3) mg/dl Magnesium (1.7-2.4) mg/dl ALT (7-52) U/L Troponin I High Sens 2281.6 H* D (0-20) pg/ml Total Protein (6.0-8.3) gm/dl Albumin (3.4-5.0) gm/dl Procalcitonin (0-0.5) ng/ml Urine Ketones (Negative) 06/17/23 06/18/23 06/18/23 Range/Units Unknown 01:34 02:47 WBC (4.8-10.8) K/ul RBC (4.70-6.10) M/uL Hgb (14.0-18.0) g/dl Hct (42.0-52.0) % RDW Std Deviation (36.4-46.3) fL Neut # (Auto) (1.40-6.50) K/uL [place] # (Auto) (0.11-0.59) K/uL PT (9.0-12.0) Seconds INR (0.9-1.1) Heparin Anti-Xa, Unfract 1.28 H* 1.08 H* (0.3-0.7) IU/ml Sodium (136-145) mmol/L BUN/Creatinine Ratio (10-20) Glucose (70-99(Fasting)) mg/dl POC Glucose (70-99) mg/dl Fasting Glucose (70-99) mg/dl Hemoglobin A1c (4.5-5.6) % Calcium (8.6-10.3) mg/dl Magnesium (1.7-2.4) mg/dl ALT (7-52) U/L Troponin I High Sens (0-20) pg/ml Total Protein (6.0-8.3) gm/dl Albumin (3.4-5.0) gm/dl Procalcitonin (0-0.5) ng/ml Urine Ketones Trace H (Negative) 06/18/23 06/18/23 06/18/23 Range/Units 04:02 05:15 06:19 WBC 13.20 H (4.8-10.8) K/ul RBC 3.70 L (4.70-6.10) M/uL Hgb 11.4 L (14.0-18.0) g/dl Hct 35.0 L (42.0-52.0) % RDW Std Deviation 49.3 H (36.4-46.3) fL Neut # (Auto) 10.25 H (1.40-6.50) K/uL [place] # (Auto) 1.08 H (0.11-0.59) K/uL PT (9.0-12.0) Seconds INR (0.9-1.1) Heparin Anti-Xa, Unfract 0.93 H* 0.93 H* 0.79 H* (0.3-0.7) IU/ml Sodium (136-145) mmol/L BUN/Creatinine Ratio (10-20) Glucose (70-99(Fasting)) mg/dl POC Glucose (70-99) mg/dl Fasting Glucose 137 H (70-99) mg/dl Hemoglobin A1c 6.9 H (4.5-5.6) % Calcium 8.5 L (8.6-10.3) mg/dl Magnesium 3.0 H (1.7-2.4) mg/dl ALT (7-52) U/L Troponin I High Sens 1997.3 H* (0-20) pg/ml Total Protein 5.9 L (6.0-8.3) gm/dl Albumin 3.3 L (3.4-5.0) gm/dl Procalcitonin (0-0.5) ng/ml Urine Ketones (Negative) 06/18/23 06/18/23 06/18/23 Range/Units 07:22 07:24 08:45 WBC (4.8-10.8) K/ul RBC (4.70-6.10) M/uL Hgb (14.0-18.0) g/dl Hct (42.0-52.0) % RDW Std Deviation (36.4-46.3) fL Neut # (Auto) (1.40-6.50) K/uL [place] # (Auto) (0.11-0.59) K/uL PT (9.0-12.0) Seconds INR (0.9-1.1) Heparin Anti-Xa, Unfract 0.75 H* 0.74 H* (0.3-0.7) IU/ml Sodium (136-145) mmol/L BUN/Creatinine Ratio (10-20) Glucose (70-99(Fasting)) mg/dl POC Glucose 165 H (70-99) mg/dl Fasting Glucose (70-99) mg/dl Hemoglobin A1c (4.5-5.6) % Calcium (8.6-10.3) mg/dl Magnesium (1.7-2.4) mg/dl ALT (7-52) U/L Troponin I High Sens (0-20) pg/ml Total Protein (6.0-8.3) gm/dl Albumin (3.4-5.0) gm/dl Procalcitonin (0-0.5) ng/ml Urine Ketones (Negative) 06/18/23 Range/Units 11:53 WBC (4.8-10.8) K/ul RBC (4.70-6.10) M/uL Hgb (14.0-18.0) g/dl Hct (42.0-52.0) % RDW Std Deviation (36.4-46.3) fL Neut # (Auto) (1.40-6.50) K/uL [place] # (Auto) (0.11-0.59) K/uL PT (9.0-12.0) Seconds INR (0.9-1.1) Heparin Anti-Xa, Unfract (0.3-0.7) IU/ml Sodium (136-145) mmol/L BUN/Creatinine Ratio (10-20) Glucose (70-99(Fasting)) mg/dl POC Glucose 139 H (70-99) mg/dl Fasting Glucose (70-99) mg/dl Hemoglobin A1c (4.5-5.6) % Calcium (8.6-10.3) mg/dl Magnesium (1.7-2.4) mg/dl ALT (7-52) U/L Troponin I High Sens (0-20) pg/ml Total Protein (6.0-8.3) gm/dl Albumin (3.4-5.0) gm/dl Procalcitonin (0-0.5) ng/ml Urine Ketones (Negative) Diagnostic Findings Chest X-Ray 06/17/23 12:28 XR chest 1V not portable HISTORY: Sepsis COMPARISON: Chest 10/07/2022. FINDINGS: There are low lung volumes. No pneumothorax. Possible trace left pleural effusion. The cardiac silhouette remains mildly enlarged. No evidence for pulmonary edema. There is a new left mid to lower lung zone airspace opacity. This likely represents a pneumonia. No acute fractures. IMPRESSION: There is a new left mid to lower lung zone airspace opacity likely representing a pneumonia. Recommend follow-up to ensure resolution. ACT 112: Negative or not required by law. Electronically signed by: Juan Roberto M.D. 06/17/2023 2:37 PM PG Care Time/CCT Total # of Minutes Spent Total Time Spent with Patient: Total time spent is greater than 50% in coordination of care (as documented) at patient's floor/unit and/or counseling patient: Coding Level of Care Code 66258 SUB INP/OBS CARE 2/35MIN Diagnoses Hypoxemia R09.02 Parkinson disease G20.A1 Dyskinesia presence: unspecified whether dyskinesia Fluctuating manifestations: unspecified whether manifestations fluctuate Paroxysmal atrial fibrillation I48.0 Hypertension I10 (2) Parkinson disease Dyskinesia presence: unspecified whether dyskinesia Fluctuating manifestations: unspecified whether manifestations fluctuate Qualified Code(s): G20.A1 - Parkinson's disease without dyskinesia, without mention of fluctuations
[2023-06-18] MEDS: AZITHROMYCIN 500 MG in DEXTROSE 5% 250 ML IV SCH (14:52)
[2023-06-18] MEDS ORDERED: RIVAROXABAN 20 MG TAB PO SCH (16:30)
[2023-06-18] MEDS: RIVAROXABAN 20 MG TAB PO SCH (17:00)
[2023-06-18] MEDS: ACETAMINOPHEN 325 MG TAB PO PRN (21:00)
[2023-06-19 06:18] LABS: Basophils # (auto) 0.05 K/uL (0.00-0.20); Basophils % (auto) 0.5 %; Eosinophils # (auto) 0.35 K/uL (0.00-0.50); Eosinophils % (auto) 3.7 %; Hematocrit (blood only) 34.8 % (42.0-52.0); Hemoglobin 10.9 g/dl (14.0-18.0); Immature Granulocytes # (auto) 0.07 K/uL (0.01-0.20); Immature Granulocytes % (auto) 0.7 %; Lymphocytes # (auto) 1.41 K/uL (1.20-3.40); Mean Corpuscular Hemoglobin 30.5 pg (25.0-34.0); Mean Corpuscular Hgb Conc 31.3 g/dL (32.0-36.0); Mean Corpuscular Volume 97.5 fL (80.0-100.0); Monocytes # (auto) 0.93 K/uL (0.11-0.59); Monocytes % (auto) 9.9 %; Neutrophils # (auto) 6.62 K/uL (1.40-6.50); Neutrophils % (auto) 70.2 %; Platelet Count 154 K/uL (130-400); RDW Coefficient of Variation 14.4 % (11.5-14.5); RDW Standard Deviation 51.6 fL (36.4-46.3); Red Blood Count 3.57 M/uL (4.70-6.10); White Blood Count 9.43 K/ul (4.8-10.8)
[2023-06-19 06:37] LABS: Albumin Globulin Ratio 1.3 (0.9-2); Albumin Level 3.4 gm/dl (3.4-5.0); Bilirubin,Total 0.7 mg/dl (0.2-1.0); Calcium 8.7 mg/dl (8.6-10.3); Creatinine Clr Calc Pharmacy 91.9 ml/min; Est GFR (African American) 101.3 ml/min; Est GFR (Non-African American) 87.4 ml/min; Globulin 2.6 gm/dl (2.5-4.0); Magnesium 2.4 mg/dl (1.7-2.4); Potassium 4.2 mmol/L (3.5-5.1)
--- NOTE | 2023-06-19 14:27 | Hospitalist Progress Note ---
Date of Service June 19, 2023 Assessment & Plan (1) Hypoxemia: (2) Parkinson disease: (3) Paroxysmal atrial fibrillation: (4) Hypertension: Plan 87 yo male with h/o Parkinson's disease , HTN, DM type 2, CAD presents with generalized weakness, SOB, cough, fever # acute respiratory failure , hypoxemic due to left mid to low lobe pneumonia IV cefepime and azithromycin oxygen suppl to keep oxygen >90 % Follow-up blood cultures Leukocytosis resolved Monitor for improvement Clinically improving Speech and swallow involved to evaluate for aspiration Video study ordered PT/OT involved for weakness # elevated trop Likely demand ischemia due to acute hypoxic respiratory failure pneumonia Cardiology cleared and did not recommend any further workup Echocardiogram reviewed Discontinued heparin drip Resumed home Xarelto # Parkinson disease continue home meds # HTN Stable Resumed home meds # PAF , currently in SR Resume Xarelto , rate controlled # BPH continue home meds # mild dementia continue home meds # hypomagnesemia supplement monitor magnesium level # DM type 2 insulin sliding scale Admission and Anticipated Discharge Date Admission Date: June 17, 2023 Subjective Patient feels much better. Feeling stronger. Appetite improved. Coughing less today. Review of Systems Review of Systems: All systems reviewed & are unremarkable except as noted in Subjective Physical Exam Physical Exam: General: Awake, conversant Heart: S1, S2/regular rate and rhythm, no murmur rubs or gallops Lungs: Left-sided crackles noted. Normal effort Abdomen: Soft/nontender/nondistended. No hepatosplenomegaly Extremities: No clubbing/cyanosis. No edema Behavior: Appropriate, cooperative Results & Data Results & Data Vital Signs (Past 12 Hours) Vital Signs Temp Pulse Resp BP Pulse Ox O2 Del Method O2 Flow Rate 06/19/23 12:06 36.2 C L 54 L 22 135/66 96 Nasal Cannula 3 06/19/23 08:00 Nasal Cannula 3 06/19/23 07:50 36.4 C L 61 20 171/82 H 96 Nasal Cannula 3 06/19/23 03:11 36.4 C L 54 L 18 138/69 98 Nasal Cannula Laboratory Results Abnormal lab results 06/18/23 06/18/23 06/18/23 Range/Units 15:26 16:49 20:37 RBC (4.70-6.10) M/uL Hgb (14.0-18.0) g/dl Hct (42.0-52.0) % MCHC (32.0-36.0) g/dL RDW Std Deviation (36.4-46.3) fL Neut # (Auto) (1.40-6.50) K/uL [place] # (Auto) (0.11-0.59) K/uL POC Glucose 152 H 126 H (70-99) mg/dl Fasting Glucose (70-99) mg/dl Troponin I High Sens 932.4 H* D (0-20) pg/ml 06/19/23 06/19/23 06/19/23 Range/Units 05:32 07:21 11:46 RBC 3.57 L (4.70-6.10) M/uL Hgb 10.9 L (14.0-18.0) g/dl Hct 34.8 L (42.0-52.0) % MCHC 31.3 L (32.0-36.0) g/dL RDW Std Deviation 51.6 H (36.4-46.3) fL Neut # (Auto) 6.62 H (1.40-6.50) K/uL [place] # (Auto) 0.93 H (0.11-0.59) K/uL POC Glucose 114 H 117 H (70-99) mg/dl Fasting Glucose 116 H (70-99) mg/dl Troponin I High Sens (0-20) pg/ml PG Care Time/CCT Total # of Minutes Spent Total Time Spent with Patient: Total time spent is greater than 50% in coordination of care (as documented) at patient's floor/unit and/or counseling patient: Coding Level of Care Code 22399 SUB INP/OBS CARE 235MIN Diagnoses Hypoxemia R09.02 Parkinson disease G20.A1 Dyskinesia presence: unspecified whether dyskinesia Fluctuating manifestations: unspecified whether manifestations fluctuate Paroxysmal atrial fibrillation I48.0 Hypertension I10 (2) Parkinson disease Dyskinesia presence: unspecified whether dyskinesia Fluctuating manifestations: unspecified whether manifestations fluctuate Qualified Code(s): G20.A1 - Parkinson's disease without dyskinesia, without mention of fluctuations
[2023-06-20 06:21] LABS: Basophils # (auto) 0.06 K/uL (0.00-0.20); Basophils % (auto) 0.6 %; Eosinophils # (auto) 0.36 K/uL (0.00-0.50); Eosinophils % (auto) 3.7 %; Hematocrit (blood only) 35.5 % (42.0-52.0); Hemoglobin 11.3 g/dl (14.0-18.0); Lymphocytes # (auto) 1.13 K/uL (1.20-3.40); Lymphocytes % (auto) 11.5 %; Mean Corpuscular Hemoglobin 30.7 pg (25.0-34.0); Mean Corpuscular Hgb Conc 31.8 g/dL (32.0-36.0); Mean Corpuscular Volume 96.5 fL (80.0-100.0); Monocytes # (auto) 0.86 K/uL (0.11-0.59); Monocytes % (auto) 8.7 %; Neutrophils # (auto) 7.35 K/uL (1.40-6.50); Neutrophils % (auto) 74.5 %; Platelet Count 162 K/uL (130-400); RDW Standard Deviation 49.7 fL (36.4-46.3); Red Blood Count 3.68 M/uL (4.70-6.10); White Blood Count 9.86 K/ul (4.8-10.8)
[2023-06-20 06:39] LABS: Albumin Globulin Ratio 1.2 (0.9-2); Albumin Level 3.4 gm/dl (3.4-5.0); Bilirubin,Total 0.7 mg/dl (0.2-1.0); Calcium 8.7 mg/dl (8.6-10.3); Creatinine Clr Calc Pharmacy 109.8 ml/min; Est GFR (African American) 106.3 ml/min; Est GFR (Non-African American) 91.7 ml/min; Globulin 2.8 gm/dl (2.5-4.0); Magnesium 2.1 mg/dl (1.7-2.4); Potassium 4.1 mmol/L (3.5-5.1); Total Protein 6.2 gm/dl (6.0-8.3)
--- NOTE | 2023-06-20 11:55 | Fluoroscopy Report ---
FL video swallow CLINICAL HISTORY: 87 years-old Male with r/o aspiration. Dysphasia TECHNIQUE: Video fluoroscopic evaluation of swallowing was performed in the AP and lateral projection s by the speech pathology staff. The patient is fed varying consistencies of barium. FLUOROSCOPY TIME: 2.26 minutes. 3972 images. 21.8 mGy. COMPARISON STUDY: None. FINDINGS: Laryngeal penetration with thin liquid barium. No definite aspiration identified.. Esophage al dysmotility noted with the pudding consistency. IMPRESSION: 1. Laryngeal penetration with thin liquid barium. No definite aspiration identified. 2. Please see the speech pathologist report for detailed findings and recommendations. ACT 112: Negative or not required by law. Electronically signed by: Yomi Lee M.D. 06/20/2023 11:54 AM
--- NOTE | 2023-06-20 15:55 | Hospitalist Progress Note ---
Date of Service June 20, 2023 Assessment & Plan (1) Hypoxemia: (2) Parkinson disease: (3) Paroxysmal atrial fibrillation: (4) Hypertension: Plan 87 yo male with h/o Parkinson's disease , HTN, DM type 2, CAD presents with generalized weakness, SOB, cough, fever # acute respiratory failure , hypoxemic due to left mid to low lobe pneumonia IV cefepime and azithromycin. Switch to p.o. cephalexin p.o. azithromycin oxygen suppl to keep oxygen >90 % Blood cultures negative Leukocytosis resolved Clinically improving Passed video swallow test. PT/OT involved for weakness, recommending rehab # elevated trop Likely demand ischemia due to acute hypoxic respiratory failure pneumonia Cardiology cleared and did not recommend any further workup Echocardiogram reviewed Discontinued heparin drip Resumed home Xarelto # Parkinson disease continue home meds # HTN Stable Resumed home meds # PAF , currently in SR Resume Xarelto , rate controlled # BPH continue home meds # mild dementia continue home meds # hypomagnesemia supplement monitor magnesium level # DM type 2 insulin sliding scale Spoke to son on the phone. Updated him. Likely discharge soon. Admission and Anticipated Discharge Date Admission Date: June 17, 2023 Subjective Patient says he feels weak today. Denies chest pain or shortness of breath Review of Systems Review of Systems: All systems reviewed & are unremarkable except as noted in Subjective Physical Exam Physical Exam: General: Awake, conversant Heart: S1, S2/regular rate and rhythm, no murmur rubs or gallops Lungs: Left-sided crackles noted. Normal effort Abdomen: Soft/nontender/nondistended. No hepatosplenomegaly Extremities: No clubbing/cyanosis. No edema Behavior: Appropriate, cooperative Results & Data Results & Data Vital Signs (Past 12 Hours) Vital Signs Temp Pulse Pulse Resp BP Pulse Ox O2 Del Method 06/20/23 15:00 57 L 06/20/23 12:21 36.5 C 58 L 20 171/73 H 96 Nasal Cannula 06/20/23 08:09 36.7 C 57 L 18 178/78 H 98 Nasal Cannula 06/20/23 08:00 Room Air 06/20/23 07:59 56 L O2 Flow Rate 06/20/23 15:00 06/20/23 12:21 3 06/20/23 08:09 3 06/20/23 08:00 06/20/23 07:59 Laboratory Results Abnormal lab results 06/19/23 06/19/23 06/20/23 Range/Units 16:39 20:26 05:50 RBC 3.68 L (4.70-6.10) M/uL Hgb 11.3 L (14.0-18.0) g/dl Hct 35.5 L (42.0-52.0) % MCHC 31.8 L (32.0-36.0) g/dL RDW Std Deviation 49.7 H (36.4-46.3) fL Neut # (Auto) 7.35 H (1.40-6.50) K/uL Lymph # (Auto) 1.13 L (1.20-3.40) K/uL [place] # (Auto) 0.86 H (0.11-0.59) K/uL Creatinine 0.56 L (0.6-1.4) mg/dl POC Glucose 134 H 117 H (70-99) mg/dl Fasting Glucose 131 H (70-99) mg/dl 06/20/23 06/20/23 Range/Units 07:37 11:52 RBC (4.70-6.10) M/uL Hgb (14.0-18.0) g/dl Hct (42.0-52.0) % MCHC (32.0-36.0) g/dL RDW Std Deviation (36.4-46.3) fL Neut # (Auto) (1.40-6.50) K/uL Lymph # (Auto) (1.20-3.40) K/uL [place] # (Auto) (0.11-0.59) K/uL Creatinine (0.6-1.4) mg/dl POC Glucose 123 H 144 H (70-99) mg/dl Fasting Glucose (70-99) mg/dl PG Care Time/CCT Total # of Minutes Spent Total Time Spent with Patient: Total time spent is greater than 50% in coordination of care (as documented) at patient's floor/unit and/or counseling patient: Coding Level of Care Code 88632 SUB INP/OBS CARE 2/35MIN Diagnoses Hypoxemia R09.02 Parkinson disease G20.A1 Dyskinesia presence: unspecified whether dyskinesia Fluctuating manifestations: unspecified whether manifestations fluctuate Paroxysmal atrial fibrillation I48.0 Hypertension I10 (2) Parkinson disease Dyskinesia presence: unspecified whether dyskinesia Fluctuating manifestations: unspecified whether manifestations fluctuate Qualified Code(s): G20.A1 - Parkinson's disease without dyskinesia, without mention of fluctuations
[2023-06-20] MEDS: cephALEXin 500 MG CAP PO SCH (20:28)
[2023-06-21 06:27] LABS: Basophils # (auto) 0.07 K/uL (0.00-0.20); Basophils % (auto) 0.8 %; Eosinophils # (auto) 0.43 K/uL (0.00-0.50); Hematocrit (blood only) 35.7 % (42.0-52.0); Hemoglobin 11.5 g/dl (14.0-18.0); Immature Granulocytes % (auto) 1.2 %; Lymphocytes # (auto) 1.47 K/uL (1.20-3.40); Mean Corpuscular Hgb Conc 32.2 g/dL (32.0-36.0); Mean Corpuscular Volume 96.2 fL (80.0-100.0); Mean Platelet Volume 11.2 fL (9.4-12.4); Monocytes # (auto) 0.98 K/uL (0.11-0.59); Monocytes % (auto) 11.3 %; Neutrophils % (auto) 64.7 %; Platelet Count 165 K/uL (130-400); RDW Coefficient of Variation 13.8 % (11.5-14.5); RDW Standard Deviation 49.2 fL (36.4-46.3); Red Blood Count 3.71 M/uL (4.70-6.10); White Blood Count 8.65 K/ul (4.8-10.8)
[2023-06-21 06:55] LABS: Albumin Globulin Ratio 1.3 (0.9-2); Albumin Level 3.5 gm/dl (3.4-5.0); Bilirubin,Total 0.8 mg/dl (0.2-1.0); Creatinine Clr Calc Pharmacy 118.3 ml/min; Est GFR (African American) 109.6 ml/min; Est GFR (Non-African American) 94.5 ml/min; Globulin 2.6 gm/dl (2.5-4.0); Potassium 4.2 mmol/L (3.5-5.1); Total Protein 6.1 gm/dl (6.0-8.3)
[2023-06-21] MEDS: CARBIDOPA/LEVODOPA 25/100MG TAB PO SCH (12:43)
--- NOTE | 2023-06-21 15:17 | Hospitalist Progress Note ---
Date of Service June 21, 2023 Assessment & Plan (1) Hypoxemia: (2) Parkinson disease: (3) Paroxysmal atrial fibrillation: (4) Hypertension: Plan 87 yo male with h/o Parkinson's disease , HTN, DM type 2, CAD presents with generalized weakness, SOB, cough, fever # acute respiratory failure , hypoxemic due to left mid to low lobe pneumonia Was on IV cefepime and azithromycin. Switched to p.o. cephalexin p.o. azithromycin oxygen suppl to keep oxygen >90 % Blood cultures negative Leukocytosis resolved Clinically improving Passed video swallow test. PT/OT involved for weakness, recommending rehab. However patient wants to go home and his family is willing to take him home. # elevated trop Likely demand ischemia due to acute hypoxic respiratory failure pneumonia Cardiology cleared and did not recommend any further workup Echocardiogram reviewed Discontinued heparin drip Resumed home Xarelto # Parkinson disease Noted that his levodopa/carbidopa was being held. Resume. This could be a reason for why he is weaker and stiffer. # HTN Blood pressure elevated Resumed home meds Increased the dose of valsartan to twice daily # PAF , currently in SR Resume Xarelto , rate controlled # BPH continue home meds # mild dementia continue home meds # hypomagnesemia supplement monitor magnesium level # DM type 2 insulin sliding scale Spoke to son on the phone. Updated him. Likely discharge tomorrow to home Admission and Anticipated Discharge Date Admission Date: June 17, 2023 Subjective Patient feels well. Denies chest pain or shortness of breath. He feels weak in general. Review of Systems Review of Systems: All systems reviewed & are unremarkable except as noted in Subjective Physical Exam Physical Exam: General: Awake, conversant Heart: S1, S2/regular rate and rhythm, no murmur rubs or gallops Lungs: Left-sided crackles noted. Normal effort Abdomen: Soft/nontender/nondistended. No hepatosplenomegaly Extremities: No clubbing/cyanosis. No edema Behavior: Appropriate, cooperative Results & Data Results & Data Vital Signs (Past 12 Hours) Vital Signs Temp Pulse Pulse Resp BP Pulse Ox O2 Del Method 06/21/23 12:34 36.3 C L 61 20 141/61 H 94 Nasal Cannula 06/21/23 09:44 63 06/21/23 08:28 36.7 C 59 L 20 175/80 H 95 Nasal Cannula O2 Flow Rate 06/21/23 12:34 3 06/21/23 09:44 06/21/23 08:28 3 Laboratory Results Abnormal lab results 06/20/23 06/21/23 06/21/23 Range/Units 17:00 05:47 07:34 RBC 3.71 L (4.70-6.10) M/uL Hgb 11.5 L (14.0-18.0) g/dl Hct 35.7 L (42.0-52.0) % RDW Std Deviation 49.2 H (36.4-46.3) fL [place] # (Auto) 0.98 H (0.11-0.59) K/uL Creatinine 0.52 L (0.6-1.4) mg/dl POC Glucose 134 H 121 H (70-99) mg/dl Fasting Glucose 113 H (70-99) mg/dl 06/21/23 Range/Units 12:16 RBC (4.70-6.10) M/uL Hgb (14.0-18.0) g/dl Hct (42.0-52.0) % RDW Std Deviation (36.4-46.3) fL [place] # (Auto) (0.11-0.59) K/uL Creatinine (0.6-1.4) mg/dl POC Glucose 122 H (70-99) mg/dl Fasting Glucose (70-99) mg/dl PG Care Time/CCT Total # of Minutes Spent Total Time Spent with Patient: Total time spent is greater than 50% in coordination of care (as documented) at patient's floor/unit and/or counseling patient: Coding Level of Care Code 77802 SUB INP/OBS CARE 235MIN Diagnoses Hypoxemia R09.02 Parkinson disease G20.A1 Dyskinesia presence: unspecified whether dyskinesia Fluctuating manifestations: unspecified whether manifestations fluctuate Paroxysmal atrial fibrillation I48.0 Hypertension I10 (2) Parkinson disease Dyskinesia presence: unspecified whether dyskinesia Fluctuating manifestations: unspecified whether manifestations fluctuate Qualified Code(s): G20.A1 - Parkinson's disease without dyskinesia, without mention of fluctuations
[2023-06-21] MEDS: AZITHROMYCIN 250 MG TAB PO SCH (15:24)
[2023-06-21] MEDS: VALSARTAN 80 MG TAB PO SCH (20:49)
[2023-06-21] MEDS: CETIRIZINE HCL 10 MG TABLET PO ONE (21:44)
[2023-06-22] MEDS: amLODIPine BESYLATE 5 MG TAB PO ONE ×2 (10:57→14:03)
[2023-06-22] MEDS: levoFLOXacin 750 MG TAB PO SCH (13:53)
--- NOTE | 2023-06-22 15:56 | Discharge Summary ---
Date of Service June 22, 2023 Admission HPI Per Admitting Provider 87 yo male with h/o Parkinson's disease, PAF, DM type 2, HTN brought in by family secondary to SOB, cough, fever, started yesterday evening, patient is somewhat confused, reports generalized weakness, he was hypoxic , placed on oxygen in ER, current pulse ox 97 %, denies chest pain, reports that several family members are sick also. Viral panel is negative, CXR is positive for new left mid to lower lung zone pneumonia, he had a fever 38 C in ER, elevated WBC, antibiotics are initiated. Denies headache, neck pain, no nausea, no vomiting, reports diarrhea, stool and urine incontinence, chronic. Denies smoking, 1 alcoholic drink a day.Patient is a poor historian. Trop 939.6 Admission Exam Per Admitting Provider head atraumatic, normocephalic neck supple chest CTA b/l heart S1S2 regular, no murmur abdomen soft, nt, nd, bs present extremities no edema neuro AAO times 3 , no focal deficit, tremors present Principal Diagnosis Acute hypoxic respiratory failure secondary to left mid and lower lobe pneumonia Demand ischemia Generalized weakness Discharge Exam General: Awake, conversant Heart: S1, S2/regular rate and rhythm, no murmur rubs or gallops Lungs: Left-sided crackles noted. Normal effort Abdomen: Soft/nontender/nondistended. No hepatosplenomegaly Extremities: No clubbing/cyanosis. No edema Behavior: Appropriate, cooperative Discharge Data Allergies Allergy/AdvReac Type Severity Reaction Status Date / Time Penicillins Allergy Intermediate SKIN RASH Verified 06/17/23 15:36 Consultations 06/17/23 14:20 ED Decision to Admit Stat 06/17/23 16:13 Consult Cardiology Routine Ordered Studies 06/20/23 10:30 Fluoro video [FL video swallow] Routine Hospital Course (1) Hypoxemia: (2) Parkinson disease: (3) Paroxysmal atrial fibrillation: (4) Hypertension: Plan 87 yo male with h/o Parkinson's disease , HTN, DM type 2, CAD presents with generalized weakness, SOB, cough, fever # acute respiratory failure , hypoxemic due to left mid to low lobe pneumonia Was on IV cefepime and azithromycin. Switched to Levaquin p.o. as the patient developed rash in response to p.o. Keflex. oxygen suppl to keep oxygen >90 % Blood cultures negative Leukocytosis resolved Clinically improving Passed video swallow test. PT/OT involved for weakness, recommending rehab. However patient wants to go home and his family is willing to take him home. # elevated trop Likely demand ischemia due to acute hypoxic respiratory failure pneumonia Cardiology cleared and did not recommend any further workup Echocardiogram reviewed Discontinued heparin drip Resumed home Xarelto # Parkinson disease Noted that his levodopa/carbidopa was being held. Resumed. This could be a reason for why he is weaker and stiffer. # HTN Blood pressure elevated Resumed home meds Increased the dose of valsartan to twice daily which is his home dose # PAF , currently in SR Resume Xarelto , rate controlled # BPH continue home meds # mild dementia continue home meds # hypomagnesemia supplement monitor magnesium level # DM type 2 insulin sliding scale Discharge to home today with home health Total Time Total Time Spent Total Time Spent (In Minutes): 35 Discharge Plan Discharge Items Patient Disposition: Home - Home Health Services Reason For Visit: PNEUMONIA Discharge Diagnosis: Acute hypoxic respiratory failure secondary to left mid and lower lobe pneumonia Demand ischemia Generalized weakness Activity: Resume your previous activity Non-emergency contact: Primary Care Provider Call non-emergency contact if: you have any medication questions and your symptoms worsen Follow-up/Referrals: Edy Flanagan MD [Primary Care Provider] - Diet: Heart Healthy Addtl Attending Provider Instructions: Advised to follow-up with PCP in 1 week Pending Studies at Discharge: No Stand-Alone Forms: My [facility] Medications and DC Order Prescriptions: New levofloxacin 750 mg tablet 750 mg PO DAILY 2 Days Qty: 2 0RF Continued carbidopa-levodopa 25-100 mg tablet 2 tab PO QID 30 Days Qty: 240 5RF tamsulosin 0.4 mg capsule 0.4 mg PO DAILY Qty: 90 3RF Rx Instructions: takes pm finasteride 5 mg tablet 5 mg PO QAM Qty: 90 3RF tramadol 50 mg tablet 50 mg PO BID Qty: 60 5RF aspirin 81 mg capsule 81 mg PO DAILY memantine 10 mg tablet 10 mg PO BID Qty: 180 3RF escitalopram oxalate 10 mg tablet 10 mg PO DAILY Qty: 90 3RF Xarelto 20 mg tablet 20 mg PO QAM Qty: 90 3RF metformin 500 mg tablet 500 mg PO DAILY Qty: 90 3RF carvedilol 6.25 mg tablet 6.25 mg PO BID Qty: 180 2RF Rx Instructions: must administer with a meal/food I do not fill the metoprolol valsartan 80 mg tablet 80 mg PO BID Qty: 180 2RF alprazolam 0.25 mg tablet 0.25 mg PO HS Qty: 30 5RF cyanocobalamin (vitamin B-12) 1,000 mcg tablet 1,000 mcg PO [id number] Discharge Orders: Discharge Order (Routine); Ordered 06/22/23 Ordered By: Karon Matute/Other Patient Handouts: Managing Type 2 Diabetes Admission Data Admit Date/Time: 06/17/23 14:26 Attending Provider: Karon Ramachandran Admit Provider: Mariza Salmeron Primary Care Provider: Edy Flanagan Other Providers: Mariza Salmeron; Ryley Muller Other Interventions: Discharge Summary Assessment (RN) Last Done: 06/22/23 15:51 Coding Level of Care Code 10276 INP/OBS DISCH >30 MIN Diagnoses Hypoxemia R09.02 Parkinson disease G20.A1 Dyskinesia presence: unspecified whether dyskinesia Fluctuating manifestations: unspecified whether manifestations fluctuate Paroxysmal atrial fibrillation I48.0 Hypertension I10
--- NOTE | 2023-06-23 09:15 | Coding Query ---
SEPSIS To promote full compliance with coding requirements relating to patient care, physician participation is requested in all cases of junior art director uncertainty. Please assist us with the question(s) below: In responding to this query, please exercise your independent professional judgement. The fact that a question is asked does not imply that any particular answer is desired or expected. We appreciate your clarification on this issue. Throughout the medical record, you have clearly documented a localized infection and your patient has clinical evidence of a generalized sepsis or severe sepsis. The term urosepsis is a nonspecific entity and is coded as an UTI. If the patient has sepsis, severe sepsis, from an urinary source or some other source, please clarify in your response below. The medical record reflects the following clinical findings: (With dates as appropriate) H&P * Temp - 38 C * Pulse - 98 * Resp - 18 * Pulse Ox - 90 * WBC - 12.77 * Confused * Lactate - 2.0 * Procalcitonin - 0.68 * Pneumonia * Acute respiratory failure w/hypoxia Progress Note 06/21/2023 * Sepsis. Patient presented with sepsis due to pneumonia. Without further mention of sepsis in the discharge summary, are you able to clarify if sepsis was: * Ruled in * Ruled out * Other (specify) * Unable to determine. Physician answer: Sepsis ruled in Thank you! CARLITOS
== END 2023-06-22 16:30 | disposition home health service (06) | DRG 871 ==
LOC: ED 12:19 → EDINP 14:26 → SUATTDRO 14:26 → 4W 21:16

== ENCOUNTER 2023-09-28 16:39 | Inpatient (IN) ==
--- NOTE | 2023-09-28 17:02 | Emergency Department Note ---
History of Present Illness General Chief complaint: Trauma Stated complaint: MULTIPLE FALLS, PARKINSON'S, UNBALANCED Time Seen by Provider: 09/28/23 16:48 Source: patient, family (Son and are at the bedside), RN notes reviewed and old records reviewed (09/22/23-primary care office visit for chronic medical problems and wellness) Mode of arrival: ambulatory Limitations: no limitations History of Present Illness Maximum Pain Intensity: 8 This patient is an 87-year-old male who comes after multiple falls in the past week he was having trouble leaning to the left last night and his left arm was weak. He has bruises on his left arm and flank. He is on a blood thinner. He has Parkinson's and has trouble walking at baseline but he has been worse lately he says he starts walking he cannot stop. No fever denies a headache at present denies chest pain he said chronic shortness of breath which is unchanged. He does have some mild left-sided abdominal pain where he has a bruise. No focal numbness or weakness. Home Medications Medication Instructions Recorded Confirmed Type aspirin 81 mg capsule 81 mg PO DAILY 06/23/21 09/28/23 History cyanocobalamin (vitamin B-12) 1,000 mcg PO 2XWK 11/24/21 09/28/23 History 1,000 mcg tablet escitalopram oxalate 10 mg tablet 10 mg PO DAILY #90 tabs 10/07/22 09/28/23 Rx memantine 10 mg tablet 10 mg PO BID #180 tabs 10/07/22 09/28/23 Rx valsartan 80 mg tablet 80 mg PO BID #180 tabs 10/18/22 09/28/23 Rx finasteride 5 mg tablet 5 mg PO QAM #90 tabs 12/17/22 09/28/23 Rx tamsulosin 0.4 mg capsule 0.4 mg PO DAILY #90 caps 12/17/22 09/28/23 Rx carvedilol 6.25 mg tablet 6.25 mg PO BID #180 tabs 01/31/23 09/28/23 Rx metformin 500 mg tablet 500 mg PO DAILY #90 tabs 01/31/23 09/28/23 Rx rivaroxaban 20 mg tablet (Xarelto) 20 mg PO QAM #90 tabs 01/31/23 09/28/23 Rx carbidopa 25 mg-levodopa 100 mg 2 tab PO QID 30 days #240 tabs 07/21/23 09/28/23 Rx tablet nitroglycerin 0.4 mg sublingual 0.4 mg sublingual Q5M PRN chest 07/26/23 09/28/23 Rx tablet pain #30 tabs desmopressin 0.2 mg tablet 0.6 mg (3 x 0.2 mg) PO HS #90 tabs 09/22/23 09/28/23 Rx alprazolam 0.25 mg tablet 0.25 mg PO HS PRN Anxiety 09/28/23 09/28/23 History tramadol 50 mg tablet 50 mg PO TID PRN pain 09/28/23 09/28/23 History Allergies Allergy/AdvReac Type Severity Reaction Status Date / Time Penicillins Allergy Intermediate SKIN RASH Verified 09/28/23 19:36 Past Med/Surg History Problem List (Updated 09/28/23 @ 22:10 by Daniele Horton MD) Contusion of flank (Acute) Current use of intermission coordinator anticoagulation (Acute) Weakness (Acute) Weakness of both legs Falls frequently (Acute) Heart failure with preserved ejection fraction (HFpEF, >= 50%) Dementia Mood disorder due to a general medical condition 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 into 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 (current) use of antithrombotics/antiplatelets (Acute) Incontinence of feces Urge incontinence of urine Parkinson disease (Acute) Heart failure Paroxysmal atrial fibrillation (Acute) Urinary incontinence Constipation 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 Diabetes (Chronic) Hypertension Spinal stenosis Rotator cuff arthropathy of right shoulder Periodic limb movement disorder Blood pressure instability Weakness (Acute) TIA (transient ischemic attack) Dyspnea Coronary artery disease Executive function deficit Throat disorder Hearing loss Hypocalcemia Hyperlipidemia BPH (benign prostatic hyperplasia) Thoracic vertebral fracture Chronic pain RLS (restless legs syndrome) Depression LVH (left ventricular hypertrophy) (Acute) Medical History Elevated troponin Elevated troponin I level Pneumonia Hypoxemia Constipation Cellulitis Syncope Sinusitis Altered mental status Lactic acidosis Acute hypotension Fall Closed compression fracture of body of lumbar vertebra Compression fracture of body of thoracic vertebra Arteriosclerosis of coronary artery Dyslipidemia Internal hemorrhoids Tubular adenoma of colon A-fib Peripheral neuropathy RIGHT LEG Degenerative disc disease Chronic back pain Diverticular disease Diabetes mellitus, type 2 NIDDM On anticoagulant therapy Anxiety NO MEDICATIONS Hypertension Hyperlipidemia Sciatica of right side HTN (hypertension) Surgical History S/P cataract extraction bilateral in 2019 H/O shoulder surgery REPAIR OF LEFT SHOULDER Fusion of spine LUMBAR AREA History of colonoscopy History of heart artery stent X1 STENT (~2005) History of cardiac cath [facility] (~2005) H/O heart artery stent Family History Mother Diabetes Father Myocardial infarction, Onset Age: 82 Grandmother (Maternal) Anxiety Myocardial infarction Social History Smoking Status: Former smoker Tobacco Type: Pipe Second Hand Exposure: No; Do You Dip or Chew Tobacco: No; Hx Alcohol Use: Yes Alcohol type: beer, wine and hard liquor Alcohol Intake Frequency: 4 or More x per/Week Hx Substance Use: No Preferred Language: [place] Communication Ability: Effective Visual Impairment: Partially Limited Hearing Ability: Normal Juice Bar Team Member Required: No Beliefs That Will Affect Care: None marital status: marital status details: Mahendra Levine (Susan) Current Living Situation: Spouse Current Living Situation Comment: SON WITH HIGH 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 Feels Safe at Home: Yes Childhood Exposure to Second-Hand Smoke: No caffeine: Yes Dental Care, Regularly: No Physical Activity Frequency: 1-2 Times per Week Seatbelt Use: always Sunscreen Use: Yes Assistive Devices: Denture - Upper, Denture - Lower, Glasses, Stair Lift and Walker Review of Systems A total of 10 systems reviewed and were otherwise negative Physical Exam Vital Signs Vital Signs - 24 hr 09/28/23 16:42 09/28/23 17:02 09/28/23 17:32 Temperature 36 C L Temperature Source Temporal Artery Scan Pulse Rate 74 72 Pulse Rate [Apical] Pulse Rate from SpO2 Sensor Pulse Rhythm [Apical] Respiratory Rate 20 Respiratory Effort / Characteristics Non-Labored Spontaneous Respiratory Depth Normal Blood Pressure 173/79 H Blood Pressure [Right Arm] Blood Pressure Mean 110 Blood Pressure Mean [Right Arm] Pulse Oximetry 94 Oxygen Delivery Method Room Air Room Air Sepsis Recent Fever Within 48 Hours No Sepsis New/Unexplained Change in Mental Status N/A Sepsis Action Taken by Nursing No Action Required 09/28/23 17:42 09/28/23 18:00 09/28/23 18:39 Temperature Temperature Source Pulse Rate 70 70 74 Pulse Rate [Apical] Pulse Rate from SpO2 Sensor 69 68 74 Pulse Rhythm [Apical] Respiratory Rate 27 H 27 H 27 H Respiratory Effort / Characteristics Respiratory Depth Blood Pressure Blood Pressure [Right Arm] Blood Pressure Mean Blood Pressure Mean [Right Arm] Pulse Oximetry 93 91 90 Oxygen Delivery Method Sepsis Recent Fever Within 48 Hours Sepsis New/Unexplained Change in Mental Status Sepsis Action Taken by Nursing 09/28/23 19:03 09/28/23 19:30 09/28/23 19:33 Temperature Temperature Source Pulse Rate 69 72 74 Pulse Rate [Apical] Pulse Rate from SpO2 Sensor 68 Pulse Rhythm [Apical] Respiratory Rate 26 H 18 23 Respiratory Effort / Characteristics Respiratory Depth Blood Pressure 199/109 H Blood Pressure [Right Arm] Blood Pressure Mean 139 Blood Pressure Mean [Right Arm] Pulse Oximetry 92 Oxygen Delivery Method Sepsis Recent Fever Within 48 Hours Sepsis New/Unexplained Change in Mental Status Sepsis Action Taken by Nursing 09/28/23 19:35 09/28/23 19:36 09/28/23 19:37 Temperature Temperature Source Pulse Rate 75 Pulse Rate [Apical] Pulse Rate from SpO2 Sensor Pulse Rhythm [Apical] Respiratory Rate 20 Respiratory Effort / Characteristics Respiratory Depth Blood Pressure 199/109 H Blood Pressure [Right Arm] Blood Pressure Mean 141 Blood Pressure Mean [Right Arm] Pulse Oximetry 92 92 Oxygen Delivery Method Room Air Room Air Sepsis Recent Fever Within 48 Hours Sepsis New/Unexplained Change in Mental Status Sepsis Action Taken by Nursing 09/28/23 19:39 09/28/23 20:00 09/28/23 20:00 Temperature Temperature Source Pulse Rate 75 Pulse Rate [Apical] 75 Pulse Rate from SpO2 Sensor 76 Pulse Rhythm [Apical] Irregular Respiratory Rate 20 31 H Respiratory Effort / Characteristics Respiratory Depth Normal Blood Pressure 190/108 H Blood Pressure [Right Arm] 199/109 H Blood Pressure Mean 146 Blood Pressure Mean [Right Arm] 139 Pulse Oximetry 92 90 Oxygen Delivery Method Sepsis Recent Fever Within 48 Hours Sepsis New/Unexplained Change in Mental Status Sepsis Action Taken by Nursing Primary survey Airwayintact with normal breathing and speech. Midline trachea. Breathingequal breath sounds bilateral without crepitus Circulationextremities are pink and well-perfused appearing Disability he has some bruising on the left flank and left arm. Secondary survey general: Well developed well nourished older male who appears with multiple bruises on the left arm and left flank but in no acute distress, breathing comfortably on room air. Normal speech. Glascow coma score 15 HEENT: Normal cephalic atraumatic. Pupils are equal round and reactive to light. Extraocular movements are intact. Oropharynx is pink with moist mucous membranes. No swelling of the mouth lips or tongue. Neck: Supple with a midline trachea. No meningeal signs or stiffness, no JVD or bruits. No Stridor. Chest: Clear to auscultation bilaterally. No wheezes or rhonchi. No increased work of breathing. Heart: Regular rate and rhythm without murmurs or gallops. Abdomen: Soft nontender, nondistended without rebound guarding or rigidity. Extremities: No cyanosis clubbing or edema. No calf tenderness or assymetry Spine/Back. Non tender to palpation. No CVA tenderness Skin: Good turgor without rashes. Neurologic exam: Cranial nerves two through 12 are intact. Motor and sensation are intact and symmetrical throughout. Course Administered Medications Discontinued Medications Ioversol (Optiray 320 100ml) 94 ml IV ONCE ONE Stop: 09/28/23 17:08 Last Admin: 09/28/23 17:08 Dose: 94 ml Documented By: ARIS Medical Decision Making Differential Diagnosis Trauma, head injury, electrolyte or metabolic abnormality fall, Parkinson Medical Records Attestation: I reviewed the patient's medical records. Home Medications Current Medication List: was personally reviewed by me Laboratory Data Attestation: I reviewed the patient's lab results. 09/28/23 16:54 09/28/23 16:54 Lab Results 09/28/23 09/28/23 09/28/23 Range/Units 16:54 16:58 18:10 WBC 9.06 (4.8-10.8) K/ul RBC 3.87 L (4.70-6.10) M/uL Hgb 11.9 L (14.0-18.0) g/dl POC Hgb 12.6 L (14.0-18.0) g/dl Hct 35.9 L (42.0-52.0) % POC Hct 37 L (42-52) % MCV 92.8 (80.0-100.0) fL MCH 30.7 (25.0-34.0) pg MCHC 33.1 (32.0-36.0) g/dL RDW Std Deviation 44.3 (36.4-46.3) fL RDW Coeff of Jeremiah 13.1 (11.5-14.5) % Plt Count 220 (130-400) K/uL MPV 10.1 (9.4-12.4) fL Immature Gran % (Auto) 0.6 % Neut % (Auto) 66.5 % Lymph % (Auto) 16.6 % [place] % (Auto) 11.4 % Eos % (Auto) 4.2 % Baso % (Auto) 0.7 % Neut # (Auto) 6.04 (1.40-6.50) K/uL Lymph # (Auto) 1.50 (1.20-3.40) K/uL [place] # (Auto) 1.03 H (0.11-0.59) K/uL Eos # (Auto) 0.38 (0.00-0.50) K/uL Baso # (Auto) 0.06 (0.00-0.20) K/uL Immature Gran # (Auto) 0.05 (0.01-0.20) K/uL PT 16.0 H (9.0-12.0) Seconds INR 1.5 H (0.9-1.1) APTT 40 H (21-31) Seconds PTT Ratio 1.5 POC Sodium 134 L (135-144) mmol/L Sodium 132 L (136-145) mmol/L POC Potassium 4.1 (3.3-5.0) mmol/L Potassium 4.1 (3.5-5.1) mmol/L POC Chloride 98 L (101-112) mmol/L Chloride 100 (98-107) mmol/L Carbon Dioxide 25 (21-32) mmol/L POC Total CO2 23 L (24-31) mmol/L Anion Gap 7 (3-11) POC Anion Gap 17.0 (16-25) mmol/L POC BUN 10 (7-18) mg/dl BUN 12 (6-23) mg/dl Creatinine 0.69 (0.6-1.4) mg/dl POC Creatinine 0.7 (0.6-1.3) mg/dl Est Cr Clr Drug Dosing Not Reportable Est GFR ( Amer) 97.6 ml/min Est GFR (Non-Af Amer) 84.2 ml/min BUN/Creatinine Ratio 17.4 (10-20) Glucose 126 H (70-99(Fasting)) mg/dl POC Glucose (other) 125 H (70-99) mg/dl Calcium 9.5 (8.6-10.3) mg/dl POC Ioniz Calcium Jose 1.20 (1.12-1.32) mmol/l Total Bilirubin 0.9 (0.2-1.0) mg/dl AST 13 (13-39) U/L ALT 4 L (7-52) U/L Alkaline Phosphatase 105 H (34-104) U/L Troponin I High Sens 15.5 (0-20) pg/ml Total Protein 6.9 (6.0-8.3) gm/dl Albumin 4.0 (3.4-5.0) gm/dl Globulin 2.9 (2.5-4.0) gm/dl Albumin/Globulin Ratio 1.4 (0.9-2) Urine Color Yellow Urine Appearance Clear (Clear) Urine pH 6.5 (4.5-7.5) Ur Specific [place] 1.039 H (1.000-1.030) Urine Protein Negative (Negative) Urine Glucose (UA) Negative (Negative) Urine Ketones Negative (Negative) Urine Blood Negative (Negative) Urine Nitrite Negative (Negative) Urine Bilirubin Negative (Negative) Urine Urobilinogen Negative (Negative) Ur Leukocyte Esterase Negative (Negative) Imaging Data Attestation: I personally reviewed and interpreted this imaging study as follows: My Impression: Head CTno hemorrhage or mass effect seen Chest CTno pneumothorax Radiologist's Impression: Abdomen/Pelvis CT 09/28/23 16:55 CT SCAN OF THE CHEST, ABDOMEN, AND PELVIS WITH IV CONTRAST CLINICAL HISTORY: Falls. COMPARISON STUDY: Chest CT dated 08/23/2001. Abdominal CT dated 08/22/2021. TECHNIQUE: Following the IV administration of 94 of Optiray 320, CT scan of the chest, abdomen, and pelvis was performed from the thoracic inlet to the proximal femora. Images are reviewed in the axial, sagittal, and coronal planes. IV contrast was administered without complication. A dose lowering technique was utilized adhering to the principles of ALARA. CT DOSE: 4128.72 mGy.cm FINDINGS: CHEST: Thyroid: Imaged portions of the thyroid gland are normal in size and attenuation. Thoracic aorta: There is mild atherosclerotic calcification of the thoracic aorta, which is normal in caliber and demonstrates standard 3-vessel arch anatomy. No dissection is seen. Pulmonary vasculature: The pulmonary trunk is normal in caliber. There are no filling defects identified in the central pulmonary vessels to indicate pulmonary embolus. Note that this examination was not protocoled for evaluation of the pulmonary arteries. Heart: The heart is enlarged and without pericardial effusion. The coronary arteries are densely calcified. Lungs and pleural spaces: Evaluation of the lung parenchyma is degraded by motion artifact. There is no airspace consolidation, pleural effusion, or pneumothorax. The trachea and central airways are clear. Scarring/atelectasis is seen at both lung bases. Mediastinum: There is no mediastinal hematoma or lymphadenopathy. Frances: Clear. Axillae: There is no axillary lymphadenopathy. Bony thorax: The skeletal structures are osteopenic. No lytic or blastic lesions are identified. The bony thorax appears intact. A chronic compression deformity of T12 is unchanged. There are also minimal chronic compression deformities of T6 and T7. Degenerative change is noted in the shoulders and spine. ABDOMEN AND PELVIS: Liver: The contrast-enhanced liver is normal in size, contour, and attenuation. There is no intrahepatic biliary ductal dilatation. The hepatic veins and portal veins are patent. Gallbladder: Unremarkable. Spleen: Normal in size and attenuation. Pancreas: Moderately atrophic and grossly unremarkable. Adrenal glands: Unremarkable. Kidneys: The contrast enhanced kidneys demonstrate mild cortical atrophy and are without hydronephrosis. Scattered subcentimeter cortical hypodensities likely represent cysts but are too small for definitive characterization. The kidneys enhance symmetrically. Abdominal vasculature: The abdominal aorta is normal in course and caliber noting moderate atherosclerotic calcification. Bowel: There is moderate colonic diverticulosis without CT evidence of acute diverticulitis. No bowel obstruction is seen. The appendix is well-visualized and normal. Peritoneum: There is no intraperitoneal free air or abdominal ascites. There is a fat-containing umbilical hernia. Lymphadenopathy: None. Pelvic viscera: The prostate gland is enlarged and heterogeneous. The bladder wall is thickened/trabeculated indicating chronic outlet obstruction. There is a fat-containing right inguinal hernia. Skeletal structures: The skeletal structures are osteopenic. The lumbosacral spine, bony pelvis, and proximal femora appear intact. There is advanced lumbosacral spondylosis. Bilateral pars defects are noted at L5. Chronic compression deformity is of L1, L2, and L4 are similar to previous. No lytic or blastic lesions are seen. Soft tissues: There is a mild soft tissue contusion in the left supragluteal tissues seen on axial image #182. IMPRESSION: 1. There is no acute posttraumatic intrathoracic abnormality. 2. There is no airspace consolidation, pleural effusion, or pneumothorax. 3. Cardiomegaly. 4. There is no evidence of solid organ injury in the abdomen or pelvis. 5. There is mild soft tissue contusion in the left supragluteal tissues. 6. Colonic diverticulosis without CT evidence of acute diverticulitis. 7. Additional findings as above. ACT 112: Negative or not required by law. Electronically signed by: Anish Reardon M.D. 09/28/2023 6:[address] 09/28/23 16:55 CT SCAN OF THE CERVICAL SPINE CLINICAL HISTORY: Falls. COMPARISON STUDY: Cervical spine CT dated 05/13/2027. TECHNIQUE: CT scan of the cervical spine is performed from the skull base to the upper thoracic spine. Images are reviewed in the axial, sagittal, and coronal planes. IV contrast was not administered for this examination. A dose lowering technique was utilized adhering to the principles of ALARA. FINDINGS: Skeletal structures: The skeletal structures are osteopenic. There is no evidence of fracture or subluxation involving the cervical spine. Vertebral body height and alignment are maintained. There is straightening of the cervical lordosis. Anterior osteophytes are seen throughout. The odontoid process and lateral masses are intact. The atlantoaxial articulation is preserved noting productive degenerative change. The spinous processes appear intact. There is moderate to severe multilevel cervical spondylosis. Uncovertebral and facet arthropathy contribute to neural foraminal narrowing at most levels. Intervertebral discs: There is moderate to severe disc space narrowing at all cervical levels. Central canal: Posterior disc osteophyte complexes are seen at all cervical levels between C3-C4 and C6-C7. This likely contributes to multilevel acquired compromise of the central canal. Soft tissues: The prevertebral and paraspinous soft tissues are within normal limits. There is atherosclerotic calcification of the carotid bulbs. There are calcified sialoliths within the right parotid gland and both submandibular glands. Calvarium: The visualized calvarium at the skull base appears intact. Brain parenchyma: Partially visualized brain parenchyma at the skull base is within normal limits. Sinuses and mastoids: There is mild mucosal thickening in the left maxillary antrum. The mastoid air cells are well pneumatized. Lung apices: Clear as visualized. IMPRESSION: 1. There is no evidence of cervical spine fracture or subluxation. 2. Osteopenia and spondylotic change as above. ACT 112: Negative or not required by law. Electronically signed by: Anish Reardon M.D. 09/28/2023 5:[address] 09/28/23 16:55 CT SCAN OF THE CHEST, ABDOMEN, AND PELVIS WITH IV CONTRAST CLINICAL HISTORY: Falls. COMPARISON STUDY: Chest CT dated 08/23/2001. Abdominal CT dated 08/22/2021. TECHNIQUE: Following the IV administration of 94 of Optiray 320, CT scan of the chest, abdomen, and pelvis was performed from the thoracic inlet to the proximal femora. Images are reviewed in the axial, sagittal, and coronal planes. IV contrast was administered without complication. A dose lowering technique was utilized adhering to the principles of ALARA. CT DOSE: 4128.72 mGy.cm FINDINGS: CHEST: Thyroid: Imaged portions of the thyroid gland are normal in size and attenuation. Thoracic aorta: There is mild atherosclerotic calcification of the thoracic aorta, which is normal in caliber and demonstrates standard 3-vessel arch anatomy. No dissection is seen. Pulmonary vasculature: The pulmonary trunk is normal in caliber. There are no filling defects identified in the central pulmonary vessels to indicate pulmonary embolus. Note that this examination was not protocoled for evaluation of the pulmonary arteries. Heart: The heart is enlarged and without pericardial effusion. The coronary arteries are densely calcified. Lungs and pleural spaces: Evaluation of the lung parenchyma is degraded by motion artifact. There is no airspace consolidation, pleural effusion, or pneumothorax. The trachea and central airways are clear. Scarring/atelectasis is seen at both lung bases. Mediastinum: There is no mediastinal hematoma or lymphadenopathy. Frances: Clear. Axillae: There is no axillary lymphadenopathy. Bony thorax: The skeletal structures are osteopenic. No lytic or blastic lesions are identified. The bony thorax appears intact. A chronic compression deformity of T12 is unchanged. There are also minimal chronic compression deformities of T6 and T7. Degenerative change is noted in the shoulders and spine. ABDOMEN AND PELVIS: Liver: The contrast-enhanced liver is normal in size, contour, and attenuation. There is no intrahepatic biliary ductal dilatation. The hepatic veins and portal veins are patent. Gallbladder: Unremarkable. Spleen: Normal in size and attenuation. Pancreas: Moderately atrophic and grossly unremarkable. Adrenal glands: Unremarkable. Kidneys: The contrast enhanced kidneys demonstrate mild cortical atrophy and are without hydronephrosis. Scattered subcentimeter cortical hypodensities likely represent cysts but are too small for definitive characterization. The kidneys enhance symmetrically. Abdominal vasculature: The abdominal aorta is normal in course and caliber noting moderate atherosclerotic calcification. Bowel: There is moderate colonic diverticulosis without CT evidence of acute diverticulitis. No bowel obstruction is seen. The appendix is well-visualized and normal. Peritoneum: There is no intraperitoneal free air or abdominal ascites. There is a fat-containing umbilical hernia. Lymphadenopathy: None. Pelvic viscera: The prostate gland is enlarged and heterogeneous. The bladder wall is thickened/trabeculated indicating chronic outlet obstruction. There is a fat-containing right inguinal hernia. Skeletal structures: The skeletal structures are osteopenic. The lumbosacral spine, bony pelvis, and proximal femora appear intact. There is advanced lumbosacral spondylosis. Bilateral pars defects are noted at L5. Chronic compression deformity is of L1, L2, and L4 are similar to previous. No lytic or blastic lesions are seen. Soft tissues: There is a mild soft tissue contusion in the left supragluteal tissues seen on axial image #182. IMPRESSION: 1. There is no acute posttraumatic intrathoracic abnormality. 2. There is no airspace consolidation, pleural effusion, or pneumothorax. 3. Cardiomegaly. 4. There is no evidence of solid organ injury in the abdomen or pelvis. 5. There is mild soft tissue contusion in the left supragluteal tissues. 6. Colonic diverticulosis without CT evidence of acute diverticulitis. 7. Additional findings as above. ACT 112: Negative or not required by law. Electronically signed by: Anish Reardon M.D. 09/28/2023 6:[address] 09/28/23 16:55 CT SCAN OF THE BRAIN WITHOUT IV CONTRAST CLINICAL HISTORY: Fall. COMPARISON STUDY: CT of the brain dated 10/07/2022. TECHNIQUE: Unenhanced axial CT scan of the brain is performed from the vertex to the skull base. A dose lowering technique was utilized adhering to the principles of ALARA. FINDINGS: Brain parenchyma: There is age-related involutional change noting mild to moderate subcortical and periventricular microangiopathic disease. There is no hemorrhage, mass effect, or evidence of acute territorial ischemia by CT criteria. [place]-white matter differentiation is preserved. No extra-axial fluid collection is seen. Ventricles, sulci, cisterns: Prominent secondary to involutional change. Intracranial vasculature: There is atherosclerotic calcification of the cavernous carotid and vertebral artery. Calvarium: Unremarkable. Soft tissues: There are calcified sialoliths within the right parotid gland. Sinuses and mastoids: There is mild mucosal thickening within the left maxillary antrum. The remaining paranasal sinuses are clear. The mastoid air cells are well pneumatized. Orbits: The bony orbits are grossly intact. There are bilateral ocular lens implants. IMPRESSION: There is no hemorrhage, mass effect, or evidence of acute territorial ischemia by CT criteria. ACT 112: Negative or not required by law. Electronically signed by: Anish Reardon M.D. 09/28/2023 5:25 PM ECG Data Attestation: I personally reviewed and interpreted this ECG as follows: Indication: + weakness Rate (beats per minute): 74 Rhythm: + normal sinus ECG Intervals/blocks: + Normal QRS, + Normal QT and + Normal NM ECG [place]: + Normal ECG ST segments: + Normal ST segments ECG Findings: + PACs; no PVCs Comparison ECG Date: from (06/17/23) Change: no significant change MDM Narrative This patient comes in after falling multiple times he is on a blood thinner and a trauma alert was called by the nurses given this. When I talked to the patient and his family. He has been hemodynamically stable. Power trauma CTs were ordered as he has multiple falls and bruises and is on a blood thinner. IV X established he was placed on a food beverage manager. I-STAT was obtained he has normal renal function. Trauma scans were unremarkable and do not show any significant traumatic injuries. His EKG does not show any acute ischemic changes he has no significant atrial or metabolic abnormalities. Given his multiple falls and his weakness and the fact that he is on anticoagulation I do not think he can go home I think he needs further evaluation. I have discussed the case in consultation with Dr. Cotto who is the [facility] hospitalist and he will be admitting/observing the patient. Continuous cardiac monitoring: Orders placed in EMR for continuous food beverage manager call upon my evaluation patient noted to be normal sinus rhythm at rate of 70. Impression & Plan Weakness, Falls frequently, Parkinson disease, Current use of intermission coordinator anticoagulation, Contusion of flank Discharge Plan Visit Data Chief Complaint: Trauma Stated Complaint: MULTIPLE FALLS, PARKINSON'S, UNBALANCED ED Provider: Daniele Horton Discharge Problem: Weakness, Falls frequently, Parkinson disease, Current use of intermission coordinator anticoagulation, Contusion of flank Patient Disposition: Admitted As Inpatient Discharge Instructions Interventions: ED Discharge Assessment Last Done: 09/28/23 21:22 Discharge Problem: Parkinson disease Qualifiers: Dyskinesia presence: unspecified whether dyskinesia Fluctuating manifestations: unspecified whether manifestations fluctuate Qualified Code(s): G20.A1 - Parkinson's disease without dyskinesia, without mention of fluctuations Contusion of flank Qualifiers: Encounter type: initial encounter Qualified Code(s): S30.1XXA - Contusion of abdominal wall, initial encounter
[2023-09-28 17:03] LABS: Basophils # (auto) 0.06 K/uL (0.00-0.20); Basophils % (auto) 0.7 %; Eosinophils # (auto) 0.38 K/uL (0.00-0.50); Eosinophils % (auto) 4.2 %; Hematocrit (blood only) 35.9 % (42.0-52.0); Hemoglobin 11.9 g/dl (14.0-18.0); Immature Granulocytes # (auto) 0.05 K/uL (0.01-0.20); Immature Granulocytes % (auto) 0.6 %; Lymphocytes % (auto) 16.6 %; Mean Corpuscular Hemoglobin 30.7 pg (25.0-34.0); Mean Corpuscular Hgb Conc 33.1 g/dL (32.0-36.0); Mean Corpuscular Volume 92.8 fL (80.0-100.0); Mean Platelet Volume 10.1 fL (9.4-12.4); Monocytes # (auto) 1.03 K/uL (0.11-0.59); Monocytes % (auto) 11.4 %; Neutrophils # (auto) 6.04 K/uL (1.40-6.50); Neutrophils % (auto) 66.5 %; Platelet Count 220 K/uL (130-400); RDW Coefficient of Variation 13.1 % (11.5-14.5); RDW Standard Deviation 44.3 fL (36.4-46.3); Red Blood Count 3.87 M/uL (4.70-6.10); White Blood Count 9.06 K/ul (4.8-10.8)
[2023-09-28] MEDS: OPTIRAY 320 100ml IV ONE (17:08)
[2023-09-28 17:11] LABS: iSTAT Creatinine 0.7 mg/dl (0.6-1.3); iSTAT Hemoglobin 12.6 g/dl (14.0-18.0); iSTAT Ionized Calcium 1.2 mmol/l (1.12-1.32); iSTAT Potassium 4.1 mmol/L (3.3-5.0)
[2023-09-28 17:16] LABS: INR 1.5 (0.9-1.1); Partial Thromboplastin Ratio 1.5; Partial Thromboplastin Time 40 Seconds (21-31)
--- NOTE | 2023-09-28 17:26 | CT Scan Report ---
CT SCAN OF THE BRAIN WITHOUT IV CONTRAST CLINICAL HISTORY: Fall. COMPARISON STUDY: CT of the brain dated 10/07/2022. TECHNIQUE: Unenhanced axial CT scan of the brain is performed from the vertex to the skull base. A do se lowering technique was utilized adhering to the principles of ALARA. FINDINGS: Brain parenchyma: There is age-related involutional change noting mild to moderate subcortical and pe riventricular microangiopathic disease. There is no hemorrhage, mass effect, or evidence of acute ter ritorial ischemia by CT criteria. [place]-white matter differentiation is preserved. No extra-axial flui d collection is seen. Ventricles, sulci, cisterns: Prominent secondary to involutional change. Intracranial vasculature: There is atherosclerotic calcification of the cavernous carotid and vertebr al artery. Calvarium: Unremarkable. Soft tissues: There are calcified sialoliths within the right parotid gland. Sinuses and mastoids: There is mild mucosal thickening within the left maxillary antrum. The remainin g paranasal sinuses are clear. The mastoid air cells are well pneumatized. Orbits: The bony orbits are grossly intact. There are bilateral ocular lens implants. IMPRESSION: There is no hemorrhage, mass effect, or evidence of acute territorial ischemia by CT [place]. ACT 112: Negative or not required by law. Electronically signed by: Anish Reardon M.D. 09/28/2023 5:25 PM
[2023-09-28 17:33] LABS: Alanine Aminotransferase 4 U/L (7-52); Albumin Globulin Ratio 1.4 (0.9-2); Alkaline Phosphatase 105 U/L (34-104); Anion Gap 7 (3-11); Aspartate Aminotransferase 13 U/L (13-39); BUN Creatinine Ratio 17.4 (10-20); Bilirubin,Total 0.9 mg/dl (0.2-1.0); Blood Urea Nitrogen 12 mg/dl (6-23); Calcium 9.5 mg/dl (8.6-10.3); Carbon Dioxide 25 mmol/L (21-32); Chloride 100 mmol/L (98-107); Est GFR (African American) 97.6 ml/min; Est GFR (Non-African American) 84.2 ml/min; Globulin 2.9 gm/dl (2.5-4.0); Glucose 126 mg/dl (70-99(Fasting)); Potassium 4.1 mmol/L (3.5-5.1); Sodium 132 mmol/L (136-145); Total Protein 6.9 gm/dl (6.0-8.3)
--- NOTE | 2023-09-28 17:35 | CT Scan Report ---
CT SCAN OF THE CERVICAL SPINE CLINICAL HISTORY: Falls. COMPARISON STUDY: Cervical spine CT dated 05/13/2027. TECHNIQUE: CT scan of the cervical spine is performed from the skull base to the upper thoracic spine . Images are reviewed in the axial, sagittal, and coronal planes. IV contrast was not administered fo r this examination. A dose lowering technique was utilized adhering to the principles of ALARA. FINDINGS: Skeletal structures: The skeletal structures are osteopenic. There is no evidence of fracture or subl uxation involving the cervical spine. Vertebral body height and alignment are maintained. There is s traightening of the cervical lordosis. Anterior osteophytes are seen throughout. The odontoid process and lateral masses are intact. The atlantoaxial articulation is preserved noting productive degenera tive change. The spinous processes appear intact. There is moderate to severe multilevel cervical spo ndylosis. Uncovertebral and facet arthropathy contribute to neural foraminal narrowing at most levels . Intervertebral discs: There is moderate to severe disc space narrowing at all cervical levels. Central canal: Posterior disc osteophyte complexes are seen at all cervical levels between C3-C4 and C6-C7. This likely contributes to multilevel acquired compromise of the central canal. Soft tissues: The prevertebral and paraspinous soft tissues are within normal limits. There is athero sclerotic calcification of the carotid bulbs. There are calcified sialoliths within the right parotid gland and both submandibular glands. Calvarium: The visualized calvarium at the skull base appears intact. Brain parenchyma: Partially visualized brain parenchyma at the skull base is within normal limits. Sinuses and mastoids: There is mild mucosal thickening in the left maxillary antrum. The mastoid air cells are well pneumatized. Lung apices: Clear as visualized. IMPRESSION: 1. There is no evidence of cervical spine fracture or subluxation. 2. Osteopenia and spondylotic change as above. ACT 112: Negative or not required by law. Electronically signed by: Anish Reardon M.D. 09/28/2023 5:33 PM
[2023-09-28 17:39] LABS: Troponin I High Sensitivity 15.5 pg/ml (0-20)
[2023-09-28 18:28] LABS: Appearance Urine Clear (Clear); Bilirubin Urine Negative (Negative); Blood Urine Negative (Negative); Color Urine Yellow; Glucose Urine UA Negative (Negative); Ketones Urine Negative (Negative); Leukocyte Esterase Urine Negative (Negative); Nitrite Urine Negative (Negative); Protein Urine Negative (Negative); Specific Gravity Urine 1.039 (1.000-1.030); Urobilinogen Urine Negative (Negative); pH Urine 6.5 (4.5-7.5)
--- NOTE | 2023-09-28 18:31 | CT Scan Report ---
CT SCAN OF THE CHEST, ABDOMEN, AND PELVIS WITH IV CONTRAST CLINICAL HISTORY: Falls. COMPARISON STUDY: Chest CT dated 08/23/2001. Abdominal CT dated 08/22/2021. TECHNIQUE: Following the IV administration of 94 of Optiray 320, CT scan of the chest, abdomen, and p rosa was performed from the thoracic inlet to the proximal femora. Images are reviewed in the axial, sagittal, and coronal planes. IV contrast was administered without complication. A dose lowering te chnique was utilized adhering to the principles of ALARA. CT DOSE: 4128.72 mGy.cm FINDINGS: CHEST: Thyroid: Imaged portions of the thyroid gland are normal in size and attenuation. Thoracic aorta: There is mild atherosclerotic calcification of the thoracic aorta, which is normal in caliber and demonstrates standard 3-vessel arch anatomy. No dissection is seen. Pulmonary vasculature: The pulmonary trunk is normal in caliber. There are no filling defects identif ied in the central pulmonary vessels to indicate pulmonary embolus. Note that this examination was no t protocoled for evaluation of the pulmonary arteries. Heart: The heart is enlarged and without pericardial effusion. The coronary arteries are densely calc ified. Lungs and pleural spaces: Evaluation of the lung parenchyma is degraded by motion artifact. There is no airspace consolidation, pleural effusion, or pneumothorax. The trachea and central airways are james ar. Scarring/atelectasis is seen at both lung bases. Mediastinum: There is no mediastinal hematoma or lymphadenopathy. Frances: Clear. Axillae: There is no axillary lymphadenopathy. Bony thorax: The skeletal structures are osteopenic. No lytic or blastic lesions are identified. The bony thorax appears intact. A chronic compression deformity of T12 is unchanged. There are also minim al chronic compression deformities of T6 and T7. Degenerative change is noted in the shoulders and sp ine. ABDOMEN AND PELVIS: Liver: The contrast-enhanced liver is normal in size, contour, and attenuation. There is no intrahepa tic biliary ductal dilatation. The hepatic veins and portal veins are patent. Gallbladder: Unremarkable. Spleen: Normal in size and attenuation. Pancreas: Moderately atrophic and grossly unremarkable. Adrenal glands: Unremarkable. Kidneys: The contrast enhanced kidneys demonstrate mild cortical atrophy and are without hydronephros is. Scattered subcentimeter cortical hypodensities likely represent cysts but are too small for defin itive characterization. The kidneys enhance symmetrically. Abdominal vasculature: The abdominal aorta is normal in course and caliber noting moderate atheroscle rotic calcification. Bowel: There is moderate colonic diverticulosis without CT evidence of acute diverticulitis. No bowel obstruction is seen. The appendix is well-visualized and normal. Peritoneum: There is no intraperitoneal free air or abdominal ascites. There is a fat-containing umbi lical hernia. Lymphadenopathy: None. Pelvic viscera: The prostate gland is enlarged and heterogeneous. The bladder wall is thickened/trabe culated indicating chronic outlet obstruction. There is a fat-containing right inguinal hernia. Skeletal structures: The skeletal structures are osteopenic. The lumbosacral spine, bony pelvis, and proximal femora appear intact. There is advanced lumbosacral spondylosis. Bilateral pars defects are noted at L5. Chronic compression deformity is of L1, L2, and L4 are similar to previous. No lytic or blastic lesions are seen. Soft tissues: There is a mild soft tissue contusion in the left supragluteal tissues seen on axial im age #182. IMPRESSION: 1. There is no acute posttraumatic intrathoracic abnormality. 2. There is no airspace consolidation, pleural effusion, or pneumothorax. 3. Cardiomegaly. 4. There is no evidence of solid organ injury in the abdomen or pelvis. 5. There is mild soft tissue contusion in the left supragluteal tissues. 6. Colonic diverticulosis without CT evidence of acute diverticulitis. 7. Additional findings as above. ACT 112: Negative or not required by law. Electronically signed by: Anish Reardon M.D. 09/28/2023 6:28 PM
--- NOTE | 2023-09-28 20:36 | History & Physical Report ---
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 Frequent falls Pt has had 3 falls in the last 6 days, which is unusual for this patient. CT scans do not show fracture or internal injury. CT brain without signs of ischemia or hemorrhage. Weakness at left wrist resolved and pt denies further arm weakness. Pt may benefit from placement in rehab or SNF for strengthening, if patient and family is agreeable. -Ordered MRI without contrast to rule out CVA -Ordered PT/OT evals -Falls precautions in place -Case management consulted for possible rehab or SNF placement at hospital discharge 2. Weakness at legs -As above 3. Parkinson's disease -Continue carbidopa-levodopa 25-100mg 2 tabs qid -Continue memantine 10mg BID 4. HFrEF -Continue carvedilol 6.25 mg BID -Continue valsartan 80 mg BID 5. Paroxysmal A-fib Pt taking rivaroxaban for prevention of clots in presence of atrial fibrillation. Plan to discuss with patient and family considerations of stopping blood thinners in setting of falls and risks associated. - Continue rivaroxaban 20mg at this time -Continue 81mg ASA 6. Depressed mood in Alzheimer Pt started bupropion 150mg titrated up to 300mg, prescribed by his PCP for depression on 08/24/23. Pt's son reports he stopped taking this medication 4-5 days ago. -Continue escitalopram 10 mg -alprazolam 0.25mg hs PRN 7. Diabetes Last A1c was 6.9 on 06/18/23. Pt uses metformin at home -BSG checks at meals -Sliding scale < 100 and >160, CF 60, CR 19 -Basal insulin 7 units BID Chronic BPH -Continue tamsulosin 0.4 qd -Continue finasteride 5mg qam Nocturia -Continue desmopressin 0.6mg hs Joint pain -Continue tramadol 50mg tid PRN History of Present Illness Chief Complaint: Falls, recent onset weakness Primary Care Provider: Edy Flanagan MD Pt is a 87 yo male with past medical history of Parkinson's, HFpEF, a-fib, dementia, DM2, HTN, depression, and BPH presented to ED with 6 days of progressive weakness and three falls. Pt's son was in the room and reports that the patient has been standing and sitting with a left sided lean and had we akness in his left wrist the evening of 09/27/23 where he had to be fed. Pt's son denies pt having facial droop, speech or cognition at that time. Pt describes his falling episodes as dizziness that turns into a progressive loss of strength at his legs that causes him to slouch to the side and then fall without ability to activate his muscles. Pt reports he has had scale back on his exercises with PT over the last several weeks due to muscle fatigue. Pt reports his only change in medication recently has been bupropion for depression. Pt's son states he stopped this med 4 days ago. Pt denies chest pain, SOB, nausea, vomiting, or abdominal pain. Pt states he has alternating constipation and diarrhea. Pt denies changes in vision or hearing, but does have visual hallucinations with his Parkinson's. Pt reports R shoulder pain and limited motion due to rotator cuff injury. He endorses numbness in his bilateral feet. No other areas on numbness or tingling at this time. Allergies Allergy/AdvReac Type Severity Reaction Status Date / Time Penicillins Allergy Intermediate SKIN RASH Verified 09/28/23 19:36 Home Medications Medication Instructions Recorded Confirmed Type aspirin 81 mg capsule 81 mg PO DAILY 06/23/21 09/28/23 History cyanocobalamin (vitamin B-12) 1,000 mcg PO 2XWK 11/24/21 09/28/23 History 1,000 mcg tablet escitalopram oxalate 10 mg tablet 10 mg PO DAILY #90 tabs 10/07/22 09/28/23 Rx memantine 10 mg tablet 10 mg PO BID #180 tabs 10/07/22 09/28/23 Rx valsartan 80 mg tablet 80 mg PO BID #180 tabs 10/18/22 09/28/23 Rx finasteride 5 mg tablet 5 mg PO QAM #90 tabs 12/17/22 09/28/23 Rx tamsulosin 0.4 mg capsule 0.4 mg PO DAILY #90 caps 12/17/22 09/28/23 Rx carvedilol 6.25 mg tablet 6.25 mg PO BID #180 tabs 01/31/23 09/28/23 Rx metformin 500 mg tablet 500 mg PO DAILY #90 tabs 01/31/23 09/28/23 Rx rivaroxaban 20 mg tablet (Xarelto) 20 mg PO QAM #90 tabs 01/31/23 09/28/23 Rx carbidopa 25 mg-levodopa 100 mg 2 tab PO QID 30 days #240 tabs 07/21/23 09/28/23 Rx tablet nitroglycerin 0.4 mg sublingual 0.4 mg sublingual Q5M PRN chest 07/26/23 09/28/23 Rx tablet pain #30 tabs desmopressin 0.2 mg tablet 0.6 mg (3 x 0.2 mg) PO HS #90 tabs 09/22/23 09/28/23 Rx alprazolam 0.25 mg tablet 0.25 mg PO HS PRN Anxiety 09/28/23 09/28/23 History tramadol 50 mg tablet 50 mg PO TID PRN pain 09/28/23 09/28/23 History Past Med/Surg History Problem List (Updated 09/28/23 @ 20:35 by Kathy Santos DO) Weakness of both legs Falls frequently Heart failure with preserved ejection fraction (HFpEF, >= 50%) Dementia Mood disorder due to a general medical condition 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) use of antithrombotics/antiplatelets (Acute) Incontinence of feces Urge incontinence of urine Parkinson disease (Acute) Heart failure Paroxysmal atrial fibrillation (Acute) Urinary incontinence Constipation 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 Diabetes (Chronic) Hypertension Spinal stenosis Rotator cuff arthropathy of right shoulder Periodic limb movement disorder Blood pressure instability Weakness (Acute) TIA (transient ischemic attack) Dyspnea Coronary artery disease Executive function deficit Throat disorder Hearing loss Hypocalcemia Hyperlipidemia BPH (benign prostatic hyperplasia) Thoracic vertebral fracture Chronic pain RLS (restless legs syndrome) Depression LVH (left ventricular hypertrophy) (Acute) Medical History Elevated troponin Elevated troponin I level Pneumonia Hypoxemia Constipation Cellulitis Syncope Sinusitis Altered mental status Lactic acidosis Acute hypotension Fall Closed compression fracture of body of lumbar vertebra Compression fracture of body of thoracic vertebra Arteriosclerosis of coronary artery Dyslipidemia Internal hemorrhoids Tubular adenoma of colon A-fib Peripheral neuropathy RIGHT LEG Degenerative disc disease Chronic back pain Diverticular disease Diabetes mellitus, type 2 NIDDM On anticoagulant therapy Anxiety NO MEDICATIONS Hypertension Hyperlipidemia Sciatica of right side HTN (hypertension) Surgical History S/P cataract extraction bilateral in 2019 H/O shoulder surgery REPAIR OF LEFT SHOULDER Fusion of spine LUMBAR AREA History of colonoscopy History of heart artery stent X1 STENT (~2005) History of cardiac cath (~2005) H/O heart artery stent Family History Mother Diabetes Father Myocardial infarction, Onset Age: 82 Grandmother (Maternal) Anxiety Myocardial infarction Social History Smoking Status: Former smoker Tobacco Type: Pipe Second Hand Exposure: No; Do You Dip or Chew Tobacco: No; Hx Alcohol Use: Yes Alcohol type: beer, wine and hard liquor Alcohol Intake Frequency: 4 or More x per/Week Hx Substance Use: No Preferred Language: Arabic Communication Ability: Effective Visual Impairment: Partially Limited Hearing Ability: Normal Colorist Photography Required: No Beliefs That Will Affect Care: None marital status: marital status details: Mahendra Levine (Susan) Current Living Situation: Spouse Current Living Situation Comment: SON WITH HIGH 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 Feels Safe at Home: Yes Childhood Exposure to Second-Hand Smoke: No caffeine: Yes Dental Care, Regularly: No Physical Activity Frequency: 1-2 Times per Week Seatbelt Use: always Sunscreen Use: Yes Assistive Devices: Denture - Upper, Denture - Lower, Glasses, Stair Lift and Walker Review of Systems Review of Systems: As per HPI Physical Exam Constitutional: WD/WN, vitals as above Eyes: PERRL, conjunctivae normal, anicteric sclerae EOM intact bilaterally ENMT: external ear and nose normal, oropharynx normal Mouth: no oral mucosal abnormality Respiratory: normal respiratory effort, lungs clear to auscultation Cardiovascular: RRR, no murmur, no edema Gastrointestinal (Abdomen): normal bowel sounds, soft, nontender, no hepatosplenomegaly Musculoskeletal: Extremities: extremities normal to inspection and + limited ROM of extremities (Right shoulder limited flexion) Skin: no rashes, warm and dry (Several areas of bruising on extremities from fall) Neurologic: PERRL, EOMI, accommodation nl, no face palsy, no dysarthria CN's II-XI intact bilaterally Motor/Sensory: no tremor Psychiatric: A+Ox3, euthymic affect Results & Data Results & Data Vital Signs (Past 12 Hours) Vital Signs Temp Pulse Resp BP Pulse Ox O2 Del Method 09/28/23 17:32 72 09/28/23 17:02 Room Air 09/28/23 16:42 36 C L 74 20 173/79 H 94 Room Air Supervising Physician Co-Signing Physician Notes I have personally seen, evaluated and examined the patient. I have also personally discussed the management of the patient with the resident physician/SHANIA and I agree with the exam findings documented in the history and physical examination and the documented assessment and plan unless otherwise stated below. 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. He is accompanied by son at the time my exam whom he grants permission to be in the room during my interview. HEENT: Normocephalic atraumatic. His mucous membranes are relatively dry but his tongue protrudes in the midline. Neck: Is supple no rigidity orthopnea thyromegaly I do not appreciate carotid bruits. Heart: Is fairly regular at this time I do not appreciate any murmur or rub. Abdomen: soft nontender no push organomegaly but exam is somewhat limited due to body habitus. Extremities intact: Strength is 4+ out of 5 x 4. He is relatively strong man we did not get him up to try to walk him this evening. He is got bruises of varyi ng ages over the extensor surface of his extremities consistent with frequent falls in addition he has a fairly large bruise on the left tricep region//upper inner arm. Neurologically: Patient is intact. He does have flat affect. It is somewhat rigid with his Parkinson's. He is late on his carbidopa levodopa currently. This has been ordered. Assessment/plan: As described above. Falls precautions. MRI of the brain given the frequent falls. Patient's son already stopped the medication that was introduced to him several weeks ago. PT and OT consultation. Patient may need placed for short-term rehab and strengthening. Depending on his clinical course recommendation was made accordingly. Please refer to orders for further planning. (3) Parkinson disease Dyskinesia presence: unspecified whether dyskinesia Fluctuating manifestations: unspecified whether manifestations fluctuate Qualified Code(s): G20.A1 - Parkinson's disease without dyskinesia, without mention of fluctuations
[2023-09-28] MEDS ORDERED: ALPRAZolam 0.25 MG TABLET PO PRN (21:49)
[2023-09-28] MEDS ORDERED: GLUCAGON FOR INJ 1 MG VIAL SQ PRN (21:49)
[2023-09-28] MEDS ORDERED: ACETAMINOPHEN 325 MG TAB PO PRN (21:49)
[2023-09-28] MEDS ORDERED: GLUCOSE 10 TAB/TUBE PO PRN (21:49)
[2023-09-28] MEDS ORDERED: DEXTROSE 50% 50 ML SYRINGE IV PRN (21:49)
[2023-09-28] MEDS ORDERED: GLUCOSE 40% GEL 15 GM TUBE PO PRN (21:49)
[2023-09-28] MEDS ORDERED: CARBOHYDRATES FOR HYPOGLYCEMIA PO PRN (21:49)
[2023-09-28] MEDS ORDERED: NITROGLYCERIN SL 0.4 MG/TAB TAB SL PRN (21:49)
[2023-09-28] MEDS: carvediloL 6.25 MG TAB PO SCH (22:38)
[2023-09-28] MEDS: CARBIDOPA/LEVODOPA 25/100MG TAB PO SCH (22:40)
[2023-09-28] MEDS: MEMANTINE HCL 10 MG TAB PO SCH (22:40)
[2023-09-28] MEDS: VALSARTAN 80 MG TAB PO SCH (22:42)
[2023-09-28] MEDS: LANTUS PER UNIT CHARGE SQ SCH (22:53)
[2023-09-28] MEDS: DESMOPRESSIN ACETATE 0.1 MG TAB PO SCH (22:53)
[2023-09-28] MEDS: INSULIN ASPART PER UNIT CHARGE SC SCH (22:53)
[2023-09-29] MEDS: traMADol HCL 50 MG TABLET PO PRN (01:28)
--- NOTE | 2023-09-29 02:12 | Magnetic Resonance Report ---
Exam(s): MRI HEAD Without Contrast EXAM: MR Head Without Intravenous Contrast CLINICAL HISTORY: Reason for exam: rule out CVA. TECHNIQUE: Magnetic resonance images of the head/brain without intravenous contrast in multiple planes. COMPARISON: Prior brain MRI from September 29, 2016. FINDINGS: Brain: Mild nonspecific white matter changes. No mass. No hemorrhage. No acute infarct. Ventricles: Mild ventriculomegaly. Bones/joints: Unremarkable. No acute fracture. Sinuses: Chronic maxillary and ethmoid sinusitis. No acute sinusitis. Mastoid air cells: Unremarkable as visualized. No mastoid effusion. Orbits: Bilateral lens replacements. IMPRESSION: No evidence of acute intracranial pathology. Electronically signed by: Beba Avina MD 09/29/23 02:11 AM
[2023-09-29] MEDS: ASPIRIN 81 MG ECTAB PO SCH (08:18)
[2023-09-29] MEDS: ESCITALOPRAM OXALATE 10 MG TAB PO SCH (08:19)
[2023-09-29] MEDS: FINASTERIDE 5 MG TAB PO SCH (08:20)
[2023-09-29] MEDS: RIVAROXABAN 20 MG TAB PO SCH (08:20)
[2023-09-29] MEDS: TAMSULOSIN HCL 0.4 MG CAP PO SCH (08:21)
--- NOTE | 2023-09-29 11:35 | Electrocardiogram Report ---
Test Reason : Blood Pressure : */* mmHG Vent. Rate : 74 BPM Atrial Rate : 74 BPM P-R Int : 196 ms QRS Dur : 118 ms QT Int : 422 ms P-R-T Axes : 82 -51 60 degrees QTcB Int : 468 ms Sinus rhythm with Premature atrial complexes Left anterior fascicular block Left ventricular hypertrophy with QRS widening Nonspecific ST abnormality Abnormal ECG When compared with ECG of 17-Jun-2023 12:35, No significant change was found Confirmed by Byron Parra ([id number]) on 09/29/2023 11:35:10 AM Referred By: REFERRED SELF Confirmed By: Byron Parra
--- NOTE | 2023-09-29 22:54 | Hospitalist Progress Note ---
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 Frequent falls in a 87 yo male with parkinson's Patient 's only change was recently starting bupropion. Pt has had 3 falls in the last 6 days, which is unusual for this patient. CT scans do not show fracture or internal injury. CT brain without signs of ischemia or hemorrhage. Weakness at left wrist resolved and pt denies further arm weakness. Pt may benefit from placement in rehab or SNF for strengthening, if patient and family is agreeable. -Ordered MRI without contrast to rule out CVA; this was negative -Ordered PT/OT evals -will consult neurology if there are any other causes that need to be ruled out. -Falls precautions in place -Case management consulted for possible rehab or SNF placement at hospital discharge 2. Weakness at legs -As above 3. Parkinson's disease -Continue carbidopa-levodopa 25-100mg 2 tabs qid -Continue memantine 10mg BID 4. HFrEF -Continue carvedilol 6.25 mg BID -Continue valsartan 80 mg BID 5. Paroxysmal A-fib Pt taking rivaroxaban for prevention of clots in presence of atrial fibrillation. Plan to discuss with patient and family considerations of stopping blood thinners in setting of falls and risks associated. - Continue rivaroxaban 20mg at this time -Continue 81mg ASA 6. Depressed mood in Alzheimer Pt started bupropion 150mg titrated up to 300mg, prescribed by his PCP for depression on 08/24/23. Pt's son reports he stopped taking this medication 4-5 days ago. -Continue escitalopram 10 mg -alprazolam 0.25mg hs PRN 7. Diabetes Last A1c was 6.9 on 06/18/23. Pt uses metformin at home -BSG checks at meals -Sliding scale < 100 and >160, CF 60, CR 19 -Basal insulin 7 units BID Chronic BPH -Continue tamsulosin 0.4 qd -Continue finasteride 5mg qam Nocturia -Continue desmopressin 0.6mg hs Joint pain -Continue tramadol 50mg tid PRN Admission and Anticipated Discharge Date Admission Date: September 28, 2023 Subjective Patient is unable to give much of a history. His son is at bedside. He reports he has noticed a significant increase in falls over the course of the past week. He states patient started taking bupropion about 2 weeks ago, but this was discontinued when patient started to fall. Patient has been getting steadily weaker over past year but significantly worsened over past week. Review of Systems Review of Systems: All systems reviewed & are unremarkable except as noted in HPI & below Physical Exam Constitutional: WD/WN, vitals as above Eyes: PERRL, conjunctivae normal, anicteric sclerae EOM intact bilaterally ENMT: external ear and nose normal, oropharynx normal Mouth: no oral mucosal abnormality Respiratory: normal respiratory effort, lungs clear to auscultation Cardiovascular: RRR, no murmur, no edema Gastrointestinal (Abdomen): normal bowel sounds, soft, nontender, no hepatosplenomegaly Musculoskeletal: Extremities: extremities normal to inspection Skin: no rashes, warm and dry (Several areas of bruising on extremities from fall) Neurologic: PERRL, EOMI, accommodation nl, no face palsy, no dysarthria CN 's II-XI intact bilaterally Motor/Sensory: no tremor no cogwheel rigidity Psychiatric: A+Ox3, euthymic affect Results & Data Results & Data Vital Signs (Past 12 Hours) Vital Signs Temp Pulse Pulse Resp BP BP Pulse Ox 09/29/23 19:20 36.4 C L 70 16 190/76 H 91 09/29/23 16:00 36.6 C 88 20 166/77 H 96 09/29/23 14:00 60 09/29/23 11:00 36.7 C 72 20 155/68 H 97 O2 Del Method 09/29/23 19:20 Room Air 09/29/23 16:00 Room Air 09/29/23 14:00 09/29/23 11:00 Room Air PG Care Time/CCT Total # of Minutes Spent Total Time Spent with Patient: Total time spent is greater than 50% in coordination of care (as documented) at patient's floor/unit and/or counseling patient: Coding Level of Care Code 63997 SUB INP/OBS CARE 2/35MIN Diagnoses Falls frequently R29.6 Weakness of both legs R29.898 Parkinson disease G20.A1 Dyskinesia presence: unspecified whether dyskinesia Fluctuating manifestations: unspecified whether manifestations fluctuate Heart failure with preserved ejection fraction (HFpEF, >= 50%) I50.30 Paroxysmal atrial fibrillation I48.0 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
[2023-09-30 06:20] LABS: Hematocrit (blood only) 36.6 % (42.0-52.0); Hemoglobin 12.2 g/dl (14.0-18.0); Mean Corpuscular Hemoglobin 30.8 pg (25.0-34.0); Mean Corpuscular Hgb Conc 33.3 g/dL (32.0-36.0); Mean Corpuscular Volume 92.4 fL (80.0-100.0); Mean Platelet Volume 10.4 fL (9.4-12.4); Platelet Count 227 K/uL (130-400); Red Blood Count 3.96 M/uL (4.70-6.10); White Blood Count 9.93 K/ul (4.8-10.8)
[2023-09-30 06:28] LABS: BUN Creatinine Ratio 20.3 (10-20); C Reactive Protein 6.29 mg/dl (0-0.5); Calcium 9.1 mg/dl (8.6-10.3); Creatinine Clr Calc Pharmacy 82.1 ml/min; Est GFR (Non-African American) 89.8 ml/min; Phosphorus 2.8 mg/dl (2.5-4.9); Potassium 3.7 mmol/L (3.5-5.1)
[2023-09-30] MEDS: POLYETHYLENE (MIRALAX) 17 GM PACK PO PRN (08:03)
[2023-09-30] MEDS: CYANOCOBALAMIN (B-12) 500 MCG TABLET PO SCH (08:05)
--- NOTE | 2023-09-30 09:31 | Neurology Consultation ---
Date of Consultation September 30, 2023 Assessment & Plan (1) Parkinson disease: History of Present Illness Attending Physician: Ronak Gutiérrez History of Present Illness pt this morning feeling much better. feels his left arm is stronger. had good conversation. mri brain negative. chart reviewed. admission HPI: Pt is a 87 yo male with past medical history of Parkinson's, HFpEF, a-fib, dementia, DM2, HTN, depression, and BPH presented to ED with 6 days of progressive weakness and three falls. Pt's son was in the room and reports that the patient has been standing and sitting with a left sided lean and had weakness in his left wrist the evening of 09/27/23 where he had to be fed. Pt's son denies pt having facial droop, speech or cognition at that time. Pt describes his falling episodes as dizziness that turns into a progressive loss of strength at his legs that causes him to slouch to the side and then fall without ability to activate his muscles. Pt reports he has had scale back on his exercises with PT over the last several weeks due to muscle fatigue. Pt reports his only change in medication recently has been bupropion for depression. Pt's son states he stopped this med 4 days ago. Pt denies chest pain, SOB, nausea, vomiting, or abdominal pain. Pt states he has alternating constipation and diarrhea. Pt denies changes in vision or hearing, but does have visual hallucinations with his Parkinson's. Pt reports R shoulder pain and limited motion due to rotator cuff injury. He endorses numbness in his bilateral feet. No other areas on numbness or tingling at this time. Allergies Allergy/AdvReac Type Severity Reaction Status Date / Time Penicillins Allergy Intermediate SKIN RASH Verified 09/28/23 19:36 Home Medications Medication Instructions Recorded Confirmed Type aspirin 81 mg capsule 81 mg PO DAILY 06/23/21 09/28/23 History cyanocobalamin (vitamin B-12) 1,000 mcg PO 2XWK 11/24/21 09/28/23 History 1,000 mcg tablet escitalopram oxalate 10 mg tablet 10 mg PO DAILY #90 tabs 10/07/22 09/28/23 Rx memantine 10 mg tablet 10 mg PO BID #180 tabs 10/07/22 09/28/23 Rx valsartan 80 mg tablet 80 mg PO BID #180 tabs 10/18/22 09/28/23 Rx finasteride 5 mg tablet 5 mg PO QAM #90 tabs 12/17/22 09/28/23 Rx tamsulosin 0.4 mg capsule 0.4 mg PO DAILY #90 caps 12/17/22 09/28/23 Rx carvedilol 6.25 mg tablet 6.25 mg PO BID #180 tabs 01/31/23 09/28/23 Rx metformin 500 mg tablet 500 mg PO DAILY #90 tabs 01/31/23 09/28/23 Rx rivaroxaban 20 mg tablet (Xarelto) 20 mg PO QAM #90 tabs 01/31/23 09/28/23 Rx carbidopa 25 mg-levodopa 100 mg 2 tab PO QID 30 days #240 tabs 07/21/23 09/28/23 Rx tablet nitroglycerin 0.4 mg sublingual 0.4 mg sublingual Q5M PRN chest 07/26/23 09/28/23 Rx tablet pain #30 tabs desmopressin 0.2 mg tablet 0.6 mg (3 x 0.2 mg) PO HS #90 tabs 09/22/23 09/28/23 Rx alprazolam 0.25 mg tablet 0.25 mg PO HS PRN Anxiety 09/28/23 09/28/23 History tramadol 50 mg tablet 50 mg PO TID PRN pain 09/28/23 09/28/23 History Patient History Medical History Elevated troponin Elevated troponin I level Pneumonia Hypoxemia Constipation Cellulitis Syncope Sinusitis Altered mental status Lactic acidosis Acute hypotension Fall Closed compression fracture of body of lumbar vertebra Compression fracture of body of thoracic vertebra Arteriosclerosis of coronary artery Dyslipidemia Internal hemorrhoids Tubular adenoma of colon A-fib Peripheral neuropathy RIGHT LEG Degenerative disc disease Chronic back pain Diverticular disease Diabetes mellitus, type 2 NIDDM On anticoagulant therapy Anxiety NO MEDICATIONS Hypertension Hyperlipidemia Sciatica of right side HTN (hypertension) Surgical History S/P cataract extraction bilateral in 2019 H/O shoulder surgery REPAIR OF LEFT SHOULDER Fusion of spine LUMBAR AREA History of colonoscopy History of heart artery stent X1 STENT (~2005) History of cardiac cath [facility] (~2005) H/O heart artery stent Family History Mother Diabetes Father Myocardial infarction, Onset Age: 82 Grandmother (Maternal) Anxiety Myocardial infarction Social History Smoking Status: Former smoker Tobacco Type: Pipe Second Hand Exposure: No; Do You Dip or Chew Tobacco: No; Hx Alcohol Use: No Hx Substance Use: No Preferred Language: Welsh Communication Ability: Effective Visual Impairment: Partially Limited Hearing Ability: Normal Slip Cover Operator Required: No Beliefs That Will Affect Care: None marital status: marital status details: Mahendra Levine (Susan) Current Living Situation: Spouse Current Living Situation Comment: lives at home with , son takes care of patients needs Other Information That Helps Us Care for You: No Feels Safe at Home: Yes Safety Concerns: Feels Safe At This Time Childhood Exposure to Second-Hand Smoke: No caffeine: Yes Dental Care, Regularly: No Physical Activity Frequency: 1-2 Times per Week Seatbelt Use: always Sunscreen Use: Yes Assistive Devices: Raised Toilet Seat and Walker Exam (Neuro) Physical Exam: HEENT: normocephalic grossly Neuro: Mental: AOx3, initially thought year was 2003 but corrected with 2023, knew the month and the President. he even remembered Dr. Aburto's name. , fluent speech, normal comprehension, no apraxia, CN: PERRL, Full EOM, symmetric face, midline T/U/P, grossly full ROM neck Motor: No abnormal movements, slight increased tone upper limbs. 4+/5 t/o bilaterally t/o Sens: intact to touch b/l grossly Coord: intact FNT b/l but bradykinesia and slow speech. DTR: 1+ sym b/l gait: deferred Impression: 87 yo male with known parkinson's disease and mild dementia with frequent falls. MRI brain negative. His falls likely due to progression of his parkinson and deconditioning. currently stable. 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 focus on nutritional care and hydration (pt admits he has been dehydrated over the summer). Falls precaution and continue same sinemet dosage for now. physical therapy evaluation for his needs and termite technician plan. not much else to offer at this point. he can f/u with dr. Aburto once discharged from the hospital as routine. Chart reviewed I have spent more than 50% educating patient about potential diagnosis and neurological evaluation and coordinating care with patient's treatment team. Total time spent (including chart review and coordination of care): 60 min (this includes chart review). Results & Data Vital Signs (Past 12 Hours) Vital Signs Temp Pulse Pulse Resp BP Pulse Ox O2 Del Method 09/30/23 07:20 36.4 C L 81 22 189/106 H 92 Room Air 09/30/23 05:41 74 09/30/23 03:03 36.4 C L 79 16 195/82 H 90 Room Air 09/29/23 23:14 36.5 C 73 16 190/88 H 90 Room Air PG Care Time/CCT Total # of Minutes Spent Total Time Spent with Patient: Total time spent is greater than 50% in coordination of care (as documented) at patient's floor/unit and/or counseling patient: Coding Level of Care Code 67369 IN/OBS CONSULT LVL 4,60M Diagnoses Parkinson disease G20.A1 Dyskinesia presence: unspecified whether dyskinesia Fluctuating manifestations: unspecified whether manifestations fluctuate (1) Parkinson disease Dyskinesia presence: unspecified whether dyskinesia Fluctuating manifestations: unspecified whether manifestations fluctuate Qualified Code(s): G20.A1 - Parkinson's disease without dyskinesia, without mention of fluctuations
[2023-09-30 11:23] VITALS: O2SAT 90
[2023-09-30 15:50] VITALS: RESP 19; TEMP 98.2
[2023-09-30 17:03] VITALS: BP 166/77; PULSE 70
--- NOTE | 2023-10-02 15:29 | Discharge Summary ---
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 Frequent falls in a 87 yo male with parkinson's Patient 's only change was recently starting bupropion. Pt has had 3 falls in the last 6 days, which is unusual for this patient. CT scans do not show fracture or internal injury. CT brain without signs of ischemia or hemorrhage. Weakness at left wrist resolved and pt denies further arm weakness. Pt may benefit from placement in rehab or SNF for strengthening, if patient and family is agreeable. -Ordered MRI without contrast to rule out CVA; this was negative -Ordered PT/OT evals -will consult neurology if there are any other causes that need to be ruled out. -Falls precautions in place -Case management consulted for possible rehab or SNF placement at hospital discharge 2. Weakness at legs -As above 3. Parkinson's disease -Continue carbidopa-levodopa 25-100mg 2 tabs qid -Continue memantine 10mg BID 4. HFrEF -Continue carvedilol 6.25 mg BID -Continue valsartan 80 mg BID 5. Paroxysmal A-fib Pt taking rivaroxaban for prevention of clots in presence of atrial fibrillation. Plan to discuss with patient and family considerations of stopping blood thinners in setting of falls and risks associated. - Continue rivaroxaban 20mg at this time -Continue 81mg ASA 6. Depressed mood in Alzheimer Pt started bupropion 150mg titrated up to 300mg, prescribed by his PCP for depression on 08/24/23. Pt's son reports he stopped taking this medication 4-5 days ago. -Continue escitalopram 10 mg -alprazolam 0.25mg hs PRN 7. Diabetes Last A1c was 6.9 on 06/18/23. Pt uses metformin at home -BSG checks at meals -Sliding scale < 100 and >160, CF 60, CR 19 -Basal insulin 7 units BID Chronic BPH -Continue tamsulosin 0.4 qd -Continue finasteride 5mg qam Nocturia -Continue desmopressin 0.6mg hs Joint pain -Continue tramadol 50mg tid PRN Admission HPI Per Admitting Provider Pt is a 87 yo male with past medical history of Parkinson's, HFpEF, a-fib, dementia, DM2, HTN, depression, and BPH presented to ED with 6 days of pr ogressive weakness and three falls. Pt's son was in the room and reports that the patient has been standing and sitting with a left sided lean and had weakness in his left wrist the evening of 09/27/23 where he had to be fed. Pt's son denies pt having facial droop, speech or cognition at that time. Pt describes his falling episodes as dizziness that turns into a progressive loss of strength at his legs that causes him to slouch to the side and then fall without ability to activate his muscles. Pt reports he has had scale back on his exercises with PT over the last several weeks due to muscle fatigue. Pt reports his only change in medication recently has been bupropion for depression. Pt's son states he stopped this med 4 days ago. Pt denies chest pain, SOB, nausea, vomiting, or abdominal pain. Pt states he has alternating constipation and diarrhea. Pt denies changes in vision or hearing, but does have visual hallucinations with his Parkinson's. Pt reports R shoulder pain and limited motion due to rotator cuff injury. He endorses numbness in his bilateral feet. No other areas on numbness or tingling at this time. Updated Medication List Medication Instructions Recorded Confirmed Type aspirin 81 mg capsule 81 mg PO DAILY 06/23/21 09/28/23 History cyanocobalamin (vitamin B-12) 1,000 mcg PO 2XWK 11/24/21 09/28/23 History 1,000 mcg tablet escitalopram oxalate 10 mg tablet 10 mg PO DAILY #90 tabs 10/07/22 09/28/23 Rx memantine 10 mg tablet 10 mg PO BID #180 tabs 10/07/22 09/28/23 Rx valsartan 80 mg tablet 80 mg PO BID #180 tabs 10/18/22 09/28/23 Rx finasteride 5 mg tablet 5 mg PO QAM #90 tabs 12/17/22 09/28/23 Rx tamsulosin 0.4 mg capsule 0.4 mg PO DAILY #90 caps 12/17/22 09/28/23 Rx carvedilol 6.25 mg tablet 6.25 mg PO BID #180 tabs 01/31/23 09/28/23 Rx metformin 500 mg tablet 500 mg PO DAILY #90 tabs 01/31/23 09/28/23 Rx rivaroxaban 20 mg tablet (Xarelto) 20 mg PO QAM #90 tabs 01/31/23 09/28/23 Rx carbidopa 25 mg-levodopa 100 mg 2 tab PO QID 30 days #240 tabs 07/21/23 09/28/23 Rx tablet nitroglycerin 0.4 mg sublingual 0.4 mg sublingual Q5M PRN chest 07/26/23 09/28/23 Rx tablet pain #30 tabs desmopressin 0.2 mg tablet 0.6 mg (3 x 0.2 mg) PO HS #90 tabs 09/22/23 09/28/23 Rx alprazolam 0.25 mg tablet 0.25 mg PO HS PRN Anxiety 09/28/23 09/28/23 History tramadol 50 mg tablet 50 mg PO TID PRN pain 09/28/23 09/28/23 History Hospital Stay Data Consultations 09/28/23 18:53 ED Decision to Admit Stat 09/29/23 14:34 Consult Neurology Routine Diagnostic Imagining Performed 09/28/23 16:55 CT Abd and Pelvis [CT abd pelvis IV con only] Stat CT cervical spine wo con Stat CT chest diagnostic w con Stat CT head/brain wo con Stat 09/29/23 00:25 MR brain wo con Routine Pending Results Patient Have Any Pending Studies at Discharge: No Discharge Instructions Given to Patient (Per Discharging Provider) Recommended inpatient rehab. recommend followup with PCP in 1-2 weeks. continue using walker. If you continue to be weak or fall, please come back to ED. Limit alprazolam as this can make you confused and also make lead to falls. 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
== END 2023-09-30 17:54 | disposition home health service (06) | DRG 57 ==
LOC: ED 16:39 → SUATTDRO 20:11 → 2S 20:11